=== PATIENT | female | born 1975 | race Caucasian/White ===

== ENCOUNTER 2016-09-22 06:47 | Inpatient (IN) | payer OTHER ==
[2016-09-22 07:27] LABS: Glucose,Whole Blood 238 mg/dL (75-99)
[2016-09-22] MEDS ORDERED: ACETAMINOPHEN IV (For NPO) 1,000 MG in EMPTY BAG 1 BAG IVPB STA (07:40)
[2016-09-22] MEDS ORDERED: SODIUM CHLORIDE 0.9% 1,000 ML IV STA (07:41)
--- NOTE | 2016-09-22 07:44 | ED ---
General Adult HPI - General Chief complaint: Abdominal Pain Stated complaint: dehydration,abd pain Time Seen by Provider: 09/22/16 07:16 Source: patient, EMS, RN notes reviewed Mode of arrival: EMS Limitations: no limitations - History of Present Illness Initial comments: Patient is a pleasant 41-year-old female presenting to the emergency department complaining of abdominal discomfort. Symptoms started several days ago. Patient did have dysuria. Patient is not urinating as much at this time. The patient now has discomfort in her bilateral lower back as well as throughout her abdomen. Patient has had fevers. Patient has shaking this morning. Decreased oral intake. Patient states she is not been out of bed much in the past few days. No nausea or vomiting. No constipation or diarrhea. No upper respiratory symptoms. - Related Data Home Medications Medication Instructions Recorded Confirmed Insulin Glargine [Lantus] 30 unit SQ DAILY 02/03/14 09/22/16 Omeprazole [PriLOSEC] 20 mg PO DAILY 02/03/14 09/22/16 INSULIN LISPRO (HumaLOG) [HumaLOG] 6 units SQ AC-TID 08/01/16 09/22/16 Bumetanide [Bumex] 1 mg PO DAILY 09/22/16 09/22/16 Ibuprofen [Motrin] 800 mg PO Q8HR PRN 09/22/16 09/22/16 Losartan Potassium 100 mg PO DAILY 09/22/16 09/22/16 Metoprolol Tartrate [Lopressor] 50 mg PO TID 09/22/16 09/22/16 Allergies Allergy/AdvReac Type Severity Reaction Status Date / Time hydrochlorothiazide Allergy Dyspnea Verified 09/22/16 08:23 [From Zestoretic] lisinopril [From Zestoretic] Allergy Dyspnea Verified 09/22/16 08:23 Review of Systems ROS Statement: Those systems with pertinent positive or pertinent negative responses have been documented in the HPI. ROS Other: All systems not noted in ROS Statement are negative. Constitutional: Reports: fever Eyes: Denies: eye pain ENT: Denies: throat pain Respiratory: Denies: cough, dyspnea Cardiovascular: Denies: chest pain Endocrine: Reports: fatigue Gastrointestinal: Reports: abdominal pain. Denies: vomiting, diarrhea, constipation Genitourinary: Reports: dysuria Musculoskeletal: Reports: back pain Skin: Denies: rash Neurological: Denies: headache Past Medical History Past Medical History: Diabetes Mellitus, GERD/Reflux, Hypertension, Osteoarthritis (OA), Sleep Apnea/CPAP/BIPAP Additional Past Medical History / Comment(s): chronic back pain, uti, kidney stones, stress incont of urine, does'nt have cpap machine, strong family history of premature coronary artery disease. History of Any Multi-Drug Resistant Organisms: None Reported Past Surgical History: Back Surgery, Section Additional Past Surgical History / Comment(s): fusion Past Anesthesia/Blood Transfusion Reactions: No Reported Reaction Past Psychological History: Anxiety, Depression Additional Psychological History / Comment(s): in the past tx for anxiety depression none now Smoking Status: Current every day smoker Past Alcohol Use History: None Reported Additional Past Alcohol Use History / Comment(s): started smoking at age 16, has cut down now smokes 1-2 cig per day and uses e cig Past Drug Use History: None Reported - Past Family History Father Family Medical History: Diabetes Mellitus Mother Additional Family Medical History / Comment(s): bipolar depression anxiety General Exam Limitations: no limitations General appearance: alert, in no apparent distress, obese Head exam: Present: atraumatic Eye exam: Present: normal appearance, PERRL ENT exam: Present: normal exam, normal oropharynx Neck exam: Present: normal inspection Respiratory exam: Present: normal lung sounds bilaterally Cardiovascular Exam: Present: normal rhythm, tachycardia GI/Abdominal exam: Present: soft, tenderness (Mild diffuse, moderate right upper quadrant). Absent: distended Extremities exam: Present: normal inspection Back exam: Present: CVA tenderness (R), CVA tenderness (L) Neurological exam: Present: alert Psychiatric exam: Present: normal affect, normal mood Skin exam: Absent: rash Course Vital Signs 09/22/16 06:52 Temperature 102.8 F H Pulse Rate 122 H Respiratory 20 Rate Blood Pressure 128/59 O2 Sat by Pulse 97 Oximetry - Reevaluation(s) Reevaluation #1: 09/22/16 09:15 Patient reexamined and updated on results and plan. Dr. Cevallos has been paged for admission. Patient does meet criteria for severe sepsis. Fluids and antibiotics have been provided. 09/22/16 09:31 Dr. Pastor has been paged for consult. EKG Findings - EKG Comments: EKG Findings:: Sinus tachycardia 121. MD 142. QRS 96. QT 348. QTC 494. Normal axis. Normal QRS. Nonspecific ST-T. Medical Decision Making - Lab Data Result diagrams: 09/22/16 06:55 09/22/16 06:55 Lab Results 09/22/16 09/22/16 09/22/16 Range/Units 06:55 06:55 06:55 WBC 15.1 H (3.8-10.6) k/uL RBC 4.67 (3.80-5.40) m/uL Hgb 12.7 (11.4-16.0) gm/dL Hct 39.7 (34.0-46.0) % MCV 84.8 (80.0-100.0) fL MCH 27.2 (25.0-35.0) pg MCHC 32.1 (31.0-37.0) g/dL RDW 15.4 (11.5-15.5) % Plt Count 160 (150-450) k/uL Neutrophils % 91 % Lymphocytes % 4 % Monocytes % 3 % Eosinophils % 0 % Basophils % 1 % Neutrophils # 13.7 H (1.3-7.7) k/uL Lymphocytes # 0.6 L (1.0-4.8) k/uL Monocytes # 0.5 (0-1.0) k/uL Eosinophils # 0.1 (0-0.7) k/uL Basophils # 0.1 (0-0.2) k/uL Poikilocytosis Slight PT (9.0-12.0) sec INR (<1.1) APTT (22.0-30.0) sec Sodium 141 (137-145) mmol/L Potassium 3.0 L* (3.5-5.1) mmol/L Chloride 111 H (98-107) mmol/L Carbon Dioxide 15 L (22-30) mmol/L Anion Gap 15 mmol/L BUN 28 H (7-17) mg/dL Creatinine 1.57 H (0.52-1.04) mg/dL Est GFR (MDRD) Af Amer 44 (>60 ml/min/1.73 sqM) Est GFR (MDRD) Non-Af 36 (>60 ml/min/1.73 sqM) Glucose 232 H (74-99) mg/dL POC Glucose (mg/dL) (75-99) mg/dL POC Glu Substitute Teacher ID Plasma Lactic Acid Danny (0.7-2.0) mmol/L Calcium 7.9 L (8.4-10.2) mg/dL Total Bilirubin 2.7 H (0.2-1.3) mg/dL AST 40 H (14-36) U/L ALT 41 (9-52) U/L Alkaline Phosphatase 210 H (38-126) U/L Total Creatine Kinase <20 L (30-135) U/L CK-MB (CK-2) 0.9 (0.0-2.4) ng/mL CK-MB (CK-2) Rel Index 0.0 Troponin I <0.012 (0.000-0.034) ng/mL Total Protein 5.6 L (6.3-8.2) g/dL Albumin 2.3 L (3.5-5.0) g/dL 09/22/16 09/22/16 09/22/16 Range/Units 06:55 06:55 06:56 WBC (3.8-10.6) k/uL RBC (3.80-5.40) m/uL Hgb (11.4-16.0) gm/dL Hct (34.0-46.0) % MCV (80.0-100.0) fL MCH (25.0-35.0) pg MCHC (31.0-37.0) g/dL RDW (11.5-15.5) % Plt Count (150-450) k/uL Neutrophils % % Lymphocytes % % Monocytes % % Eosinophils % % Basophils % % Neutrophils # (1.3-7.7) k/uL Lymphocytes # (1.0-4.8) k/uL Monocytes # (0-1.0) k/uL Eosinophils # (0-0.7) k/uL Basophils # (0-0.2) k/uL Poikilocytosis PT 12.2 H (9.0-12.0) sec INR 1.2 (<1.1) APTT 25.8 (22.0-30.0) sec Sodium (137-145) mmol/L Potassium (3.5-5.1) mmol/L Chloride (98-107) mmol/L Carbon Dioxide (22-30) mmol/L Anion Gap mmol/L BUN (7-17) mg/dL Creatinine (0.52-1.04) mg/dL Est GFR (MDRD) Af Amer (>60 ml/min/1.73 sqM) Est GFR (MDRD) Non-Af (>60 ml/min/1.73 sqM) Glucose (74-99) mg/dL POC Glucose (mg/dL) 238 H (75-99) mg/dL POC Glu Substitute Teacher ID Amber Rascon Plasma Lactic Acid Danny 2.1 H (0.7-2.0) mmol/L Calcium (8.4-10.2) mg/dL Total Bilirubin (0.2-1.3) mg/dL AST (14-36) U/L ALT (9-52) U/L Alkaline Phosphatase (38-126) U/L Total Creatine Kinase (30-135) U/L CK-MB (CK-2) (0.0-2.4) ng/mL CK-MB (CK-2) Rel Index Troponin I (0.000-0.034) ng/mL Total Protein (6.3-8.2) g/dL Albumin (3.5-5.0) g/dL - Radiology Data Radiology results: report reviewed (Ultrasound shows cholelithiasis with gallbladder wall thickening, correlate for cholecystitis.), image reviewed ( Chest x-ray shows no acute process.) Critical Care Time Critical Care Time: Yes Total Critical Care Time: 33 Disposition Clinical Impression: Severe sepsis, Cholecystitis Disposition: ADMITTED IP TO THIS HOSP Referrals: Eder Cevallos MD [Primary Care Provider] - 1-2 days Time of Disposition: 09:32
[2016-09-22] MEDS: SODIUM CHLORIDE 0.9% 500 ML IV SCH ×2 (07:54→09:30)
[2016-09-22 08:15] LABS: Basophils # (A) 0.1 k/uL (0-0.2); Basophils % (A) 1 %; CH 28.3; CHCM 33.6; Eosinophils # (A) 0.1 k/uL (0-0.7); Eosinophils % (A) 0 %; HCT 39.7 % (34.0-46.0); HDW 3.49; HGB 12.7 gm/dL (11.4-16.0); Luc # (Auto) 0.15; Luc % (Auto) 1; Lymphocytes # (A) 0.6 k/uL (1.0-4.8); Lymphocytes % (A) 4 %; MCH 27.2 pg (25.0-35.0); MCHC 32.1 g/dL (31.0-37.0); MCV 84.8 fL (80.0-100.0); Mean Platelet Volume 10.3; Monocytes # (A) 0.5 k/uL (0-1.0); Monocytes % (A) 3 %; Neutrophils # (A) 13.7 k/uL (1.3-7.7); Neutrophils % (A) 91 %; Poikilocytosis Slight; RBC 4.67 m/uL (3.80-5.40); RDW 15.4 % (11.5-15.5); WBC 15.1 k/uL (3.8-10.6); WBC (Perox) 15.12
--- NOTE | 2016-09-22 08:23 | XR ---
EXAMINATION TYPE: XR chest 2V DATE OF EXAM: 09/22/2016 8:17 AM COMPARISON: Chest x-ray October 17, 2014. HISTORY: Fever. TECHNIQUE: Frontal and lateral views of the chest are obtained. FINDINGS: There is no focal air space opacity, pleural effusion, or pneumothorax seen. The cardiac silhouette size is within normal limits. The osseous structures are intact. IMPRESSION: No suspicious acute infiltrate is present.
[2016-09-22 08:25] LABS: Calcium 7.9 mg/dL (8.4-10.2); INR 1.2 (<1.1); Partial Thromboplastin Time 25.8 sec (22.0-30.0); Prothrombin Time 12.2 sec (9.0-12.0); Total Bilirubin 2.7 mg/dL (0.2-1.3); Total Protein 5.6 g/dL (6.3-8.2)
[2016-09-22 08:44] LABS: Creatine Kinase <20 U/L (30-135)
[2016-09-22 08:58] LABS: Creatine Kinase MB 0.9 ng/mL (0.0-2.4); Troponin I <0.012 ng/mL (0.000-0.034)
--- NOTE | 2016-09-22 09:06 | US ---
EXAMINATION TYPE: US abd limited kidneys/bladder DATE OF EXAM: 09/22/2016 8:50 AM COMPARISON: NONE CLINICAL HISTORY: Pain. Abdominal pain, nausea EXAM MEASUREMENTS: Liver Length: 25.3 cm Gallbladder Wall: 0.4 cm CBD: 0.4 cm Right Kidney: 15.4 x 6.0 x 7.4 cm Left Kidney: 13.2 x 5.6 x 5.2 cm FINDINGS: Pancreas: Obscured by overlying bowel gas Liver: enlarged, difficult to penetrate Gallbladder: mobile stones, GB wall slightly thickened, positive Wade's sign CBD: appears wnl as visualized Right Kidney: enlarged with mild dilated collecting system Left Kidney: dense echogenic area lower pole = 0.8cm Bladder: not fully distended Bilateral Jets Seen no The spleen is not imaged IMPRESSION: 1. Cholelithiasis with gallbladder wall thickening correlate for cholecystitis. 2. Hepatomegaly correlate for hepatocellular disease, hepatitis or fatty infiltration 3. Mild right hydronephrosis #4 nonobstructing 8 mm left renal stone
[2016-09-22] MEDS ORDERED: AMPICILLIN-SULBACTAM 3 GM in SODIUM CHLORIDE 0.9% 100 ML IVPB STA (09:07)
[2016-09-22] MEDS ORDERED: HYDROmorphone 1 MG/ML 1 ML SYRINGE IVP STA (09:16)
[2016-09-22] MEDS ORDERED: NALOXONE 0.4 MG/ML 1 ML VIAL IV PRN (09:16)
[2016-09-22] MEDS: POTASSIUM CHLORIDE 10 MEQ, LIDOCAINE 2% INJ 10 MG in SODIUM CHLORIDE 0.9% 100 ML IVPB SCH ×2 (09:30→11:01)
[2016-09-22 10:02] LABS: Appearance,Urine Cloudy (Clear); Bacteria,Urine Moderate /hpf; Bilirubin,Urine 1+ (Negative); Glucose,Urine (UA) Negative (Negative); Ketones,Urine Negative (Negative); Leukocyte Esterase,Urine Large (Negative); Mucus,Urine Rare /hpf; Nitrite,Urine Negative (Negative); Particle Count 12052; Protein,Urine 1+ (Negative); RBC,Urine 85 /hpf (0-5); Specific Gravity,Urine 1.015 (1.001-1.035); UA Billing (MACRO vs. MICRO) MICRO; WBC,Urine 126 /hpf (0-5)
[2016-09-22] MEDS: SODIUM CHLORIDE 0.9% 1,000 ML IV SCH ×2 (11:01→17:03)
[2016-09-22 11:57] LABS: Glucose,Whole Blood 159 mg/dL (75-99)
[2016-09-22 13:28] LABS: Amylase <30 U/L (30-110)
[2016-09-22] MEDS: AMPICILLIN-SULBACTAM 3 GM in SODIUM CHLORIDE 0.9% 100 ML IVPB SCH ×3 (13:34→23:05)
[2016-09-22] MEDS: PANTOPRAZOLE 40 MG/10 ML VIAL IV SCH (13:34)
[2016-09-22] MEDS: HYDROmorphone 1 MG/ML 1 ML SYRINGE IV PRN ×4 (13:37→23:05)
[2016-09-22] MEDS: NICOTINE 21MG/24HR PATCH TRANSDERM SCH (13:39)
[2016-09-22 15:09] LABS: Creatine Kinase 29 U/L (30-135)
[2016-09-22 15:16] LABS: Creatine Kinase MB 1.2 ng/mL (0.0-2.4); Troponin I <0.012 ng/mL (0.000-0.034)
[2016-09-22 17:20] LABS: Glucose,Whole Blood 217 mg/dL (75-99)
--- NOTE | 2016-09-22 18:50 | P.GSCN ---
History of Present Illness Consult date: 09/22/16 Reason for Consult: Ascending cholangitis History of present illness: Patient came to the hospital with complaints of abdominal pain. The pain is gone on for the last week or so. It is primarily right-sided. She has a history of frequent urinary tract infections and initially thought this was the source of pain. The pain does radiate from the right upper quadrant to the right back. She has no some dark colored urine for the last 5 days or so. Today he felt tremors while at home. Denies fevers. Came to the hospital for further evaluation. Her labs showed a elevated bilirubin and alkaline phosphatase. Her white blood cell count and lactic acid were also elevated. Ultrasound the abdomen showed a distended gallbladder with stones and a thickened gallbladder wall. Her bile duct appears normal in size. She does feel better at this time. She is currently on IV antibiotics. She is requesting something to drink. Review of Systems The patient denies any acute changes in his vision or hearing, no dysphagia or odynophagia, no chest pain or shortness of breath, no dysuria or hematuria, no headache, no runny nose, no rectal bleeding or melena, no unexplained weight loss Past Medical History Past Medical History: Diabetes Mellitus, GERD/Reflux, Hypertension, Osteoarthritis (OA), Sleep Apnea/CPAP/BIPAP Additional Past Medical History / Comment(s): chronic back pain, uti, kidney stones, stress incont of urine, does'nt have cpap machine, strong family history of premature coronary artery disease. History of Any Multi-Drug Resistant Organisms: None Reported Past Surgical History: Back Surgery, Section Additional Past Surgical History / Comment(s): fusion Past Anesthesia/Blood Transfusion Reactions: No Reported Reaction Past Psychological History: Anxiety, Depression Additional Psychological History / Comment(s): in the past tx for anxiety depression none now Smoking Status: Current every day smoker Past Alcohol Use History: None Reported Additional Past Alcohol Use History / Comment(s): smokes about a half a pack a day Past Drug Use History: None Reported - Past Family History Father Family Medical History: Diabetes Mellitus Mother Additional Family Medical History / Comment(s): bipolar depression anxiety Medications and Allergies Home Medications Medication Instructions Recorded Confirmed Type Insulin Glargine [Lantus] 30 unit SQ DAILY 02/03/14 09/22/16 History Omeprazole [PriLOSEC] 20 mg PO DAILY 02/03/14 09/22/16 History INSULIN LISPRO (HumaLOG) [HumaLOG] 6 units SQ AC-TID 08/01/16 09/22/16 History Bumetanide [Bumex] 1 mg PO DAILY 09/22/16 09/22/16 History Ibuprofen [Motrin] 800 mg PO Q8HR PRN 09/22/16 09/22/16 History Losartan Potassium 100 mg PO DAILY 09/22/16 09/22/16 History Metoprolol Tartrate [Lopressor] 50 mg PO TID 09/22/16 09/22/16 History Allergies Allergy/AdvReac Type Severity Reaction Status Date / Time hydrochlorothiazide Allergy Dyspnea Verified 09/22/16 08:23 [From Zestoretic] lisinopril [From Zestoretic] Allergy Dyspnea Verified 09/22/16 08:23 Surgical - Exam Vital Signs Temp Pulse Resp BP Pulse Ox 102.8 F H 122 H 20 128/59 97 09/22/16 06:52 09/22/16 06:52 09/22/16 06:52 09/22/16 06:52 09/22/16 06:52 Physical exam: General: Well-developed, well-nourished HEENT: Normocephalic, sclerae nonicteric Abdomen: Obese, right upper quadrant tenderness, no rebound or guarding Extremities: No edema Neuro: Alert and oriented Results - Labs 09/22/16 06:55 09/22/16 06:55 Abnormal Lab Results - Last 24 Hours (Table) 09/22/16 09/22/16 09/22/16 Range/Units 09:24 11:52 13:52 POC Glucose (mg/dL) 159 H (75-99) mg/dL Total Creatine Kinase 29 L (30-135) U/L Urine Appearance Cloudy H (Clear) Urine Protein 1+ H (Negative) Urine Blood Moderate H (Negative) Urine Bilirubin 1+ H (Negative) Ur Leukocyte Esterase Large H (Negative) Urine RBC 85 H (0-5) /hpf Urine WBC 126 H (0-5) /hpf Urine WBC Clumps Many H (None) /hpf Urine Bacteria Moderate H (None) /hpf Urine Mucus Rare H (None) /hpf 09/22/16 Range/Units 17:02 POC Glucose (mg/dL) 217 H (75-99) mg/dL Total Creatine Kinase (30-135) U/L Urine Appearance (Clear) Urine Protein (Negative) Urine Blood (Negative) Urine Bilirubin (Negative) Ur Leukocyte Esterase (Negative) Urine RBC (0-5) /hpf Urine WBC (0-5) /hpf Urine WBC Clumps (None) /hpf Urine Bacteria (None) /hpf Urine Mucus (None) /hpf Microbiology - Last 24 Hours (Table) 09/22/16 09:24 Urine Culture - Preliminary Urine,Catheterized Assessment and Plan (1) Ascending cholangitis Narrative/Plan: Continue IV antibiotics. Repeat lab work in a.m. Await GI evaluation for ERCP. We'll follow closely with you. Status: Acute
[2016-09-22 20:29] LABS: Creatine Kinase 34 U/L (30-135)
[2016-09-22] MEDS ORDERED: Potassium Replacement Protocol 1 EACH MISC MISCELLANE PRN (20:39)
[2016-09-22] MEDS ORDERED: IBUPROFEN 800 MG TAB PO PRN (20:41)
[2016-09-22 20:43] LABS: Creatine Kinase MB 1.3 ng/mL (0.0-2.4); Troponin I <0.012 ng/mL (0.000-0.034)
[2016-09-22 20:58] LABS: Glucose,Whole Blood 126 mg/dL (75-99)
[2016-09-22] MEDS: INSULIN LISPRO (humaLOG) 300 UNIT/3 ML VIAL SQ SCH (21:56)
[2016-09-22] MEDS: metroNIDAZOLE-NS PMX 500 MG in SALINE 1 100ML.BAG IVPB SCH (21:57)
[2016-09-22] MEDS: ACETAMINOPHEN TAB 500 MG TAB PO PRN (21:57)
[2016-09-22] MEDS: METOPROLOL TARTRATE 50 MG TAB PO SCH (21:59)
[2016-09-22 22:54] LABS: Hemoglobin A1C 7.3 % (4.2-6.1)
[2016-09-23] MEDS: metroNIDAZOLE-NS PMX 500 MG in SALINE 1 100ML.BAG IVPB SCH ×4 (00:22→17:23)
[2016-09-23] MEDS: SODIUM CHLORIDE 0.9% 1,000 ML IV SCH ×4 (00:23→22:14)
[2016-09-23] MEDS: POTASSIUM CHLORIDE ER 20 MEQ TAB.ER PO SCH ×3 (01:40→05:48)
[2016-09-23] MEDS: POTASSIUM CHLORIDE 20 MEQ, LIDOCAINE 2% INJ 20 MG in SODIUM CHLORIDE 0.9% 100 ML IVPB SCH ×3 (01:40→06:05)
[2016-09-23] MEDS: HYDROmorphone 1 MG/ML 1 ML SYRINGE IV PRN ×6 (03:34→21:16)
[2016-09-23] MEDS: AMPICILLIN-SULBACTAM 3 GM in SODIUM CHLORIDE 0.9% 100 ML IVPB SCH ×4 (05:14→23:27)
[2016-09-23 07:30] LABS: Glucose,Whole Blood 106 mg/dL (75-99)
[2016-09-23] MEDS: INSULIN LISPRO (humaLOG) 300 UNIT/3 ML VIAL SQ SCH ×4 (08:18→20:47)
[2016-09-23] MEDS: NICOTINE 21MG/24HR PATCH TRANSDERM SCH (08:34)
[2016-09-23] MEDS: PANTOPRAZOLE 40 MG/10 ML VIAL IV SCH (08:34)
[2016-09-23] MEDS ORDERED: PANTOPRAZOLE 40 MG TABLET PO SCH (09:00)
--- NOTE | 2016-09-23 09:51 | P.CONS ---
History of Present Illness - Reason for Consult Consult date: 09/23/16 ERCP evaluation Requesting physician: Eder Cevallos - History of Present Illness 41-year-old female patient Dr. Cevallos with a past medical history of morbid obesity BMI 45.4, nicotine cigarette dependency, [id number] diabetes mellitus, GERD, hypertension, sleep apnea, chronic back pain, kidney stones, anxiety, depression. Admitted with 1 week history of midepigastric abdominal pain radiating to the bilateral upper quadrants wrapping around her upper back with nausea and fever. T-max 102.8. No history of this type of pain. No history of alcoholism or hepatitis. Ultrasound abdomen reported cholelithiasis CBD 0.4 cm. Consultation requested for ERCP evaluation. Blood cultures gram-negative bacilli. White count 15.1. Hemoglobin 12.7. INR 1.2. Total bilirubin 2.7. AST 40. ALT 41. Alkaline phosphatase 210. Lipase 73. Amylase less than 30. HCG not detected. Repeat chemistries are pending. Review of Systems Constitutional: Denies fever, chills, sweats, weight gain, or loss. HEENT: Negative for migraines, blurred vision or loss, earaches, drainage, tinnitus, oral mucosal lesions, dysphagia, or odynophagia. CARDIAC: Hypertension. Negative for chest pain, arrhythmias, or palpitation. RESPIRATORY: Sleep apnea. Nicotine cigarette dependency. Negative for shortness of breath, hemoptysis, cough, or sputum production. GI: See HPI for pertinent findings. : Negative for hematuria, urgency, frequency, polyuria, or dysuria. GYNc: Denies possibility of . Negative vaginal discharge. MUSCULOSKELETAL: Osteoarthritis. Chronic back pain. Negative for muscle aches , swelling, arthritis, and arthralgias. NEUROLOGIC: Negative for stroke or TIA. ENDOCRINE: Diabetes mellitus type 2. Negative for thyroid problems. SKIN: Negative for rash or itching. Nephrology: Kidney stones. PSYCHIATRIC: depression and anxiety All systems: negative (See HPI) Past Medical History Past Medical History: Diabetes Mellitus, GERD/Reflux, Hypertension, Osteoarthritis (OA), Sleep Apnea/CPAP/BIPAP Additional Past Medical History / Comment(s): chronic back pain, uti, kidney stones, stress incont of urine, does'nt have cpap machine, strong family history of premature coronary artery disease. History of Any Multi-Drug Resistant Organisms: None Reported Past Surgical History: Back Surgery, Section Additional Past Surgical History / Comment(s): fusion Past Anesthesia/Blood Transfusion Reactions: No Reported Reaction Past Psychological History: Anxiety, Depression Additional Psychological History / Comment(s): in the past tx for anxiety depression none now Smoking Status: Current every day smoker Past Alcohol Use History: None Reported Additional Past Alcohol Use History / Comment(s): smokes about a half a pack a day Past Drug Use History: None Reported - Past Family History Father Family Medical History: Diabetes Mellitus Mother Additional Family Medical History / Comment(s): bipolar depression anxiety Medications and Allergies Home Medications Medication Instructions Recorded Confirmed Type Insulin Glargine [Lantus] 30 unit SQ DAILY 02/03/14 09/22/16 History Omeprazole [PriLOSEC] 20 mg PO DAILY 02/03/14 09/22/16 History INSULIN LISPRO (HumaLOG) [HumaLOG] 6 units SQ AC-TID 08/01/16 09/22/16 History Bumetanide [Bumex] 1 mg PO DAILY 09/22/16 09/22/16 History Ibuprofen [Motrin] 800 mg PO Q8HR PRN 09/22/16 09/22/16 History Losartan Potassium 100 mg PO DAILY 09/22/16 09/22/16 History Metoprolol Tartrate [Lopressor] 50 mg PO TID 09/22/16 09/22/16 History Allergies Allergy/AdvReac Type Severity Reaction Status Date / Time hydrochlorothiazide Allergy Dyspnea Verified 09/22/16 08:23 [From Zestoretic] lisinopril [From Zestoretic] Allergy Dyspnea Verified 09/22/16 08:23 Physical Exam Vitals: Vital Signs Temp Pulse Pulse Resp BP BP Pulse Ox 09/23/16 07:00 99.3 F 73 22 122/71 94 L 09/22/16 23:00 99.6 F 68 16 127/65 91 L 09/22/16 19:30 100.6 F H 09/22/16 15:00 98.3 F 73 20 125/76 96 09/22/16 10:55 99.9 F H 84 20 116/53 94 L 09/22/16 10:15 98 F 93 18 120/73 95 Intake and Output 02/07/17 02/08/17 02/08/17 22:59 06:59 14:59 Other: Voiding Method Toilet Toilet # Voids 1 1 # Bowel Movements 0 General appearance: The patient is alert, oriented, in no acute distress. HET: Head is normocephalic and atraumatic. Pupils are equal and reactive. Oropharynx is clear without lesions. Neck: Supple without lymphadenopathy. Trachea midline. Heart: S1 S2. Regular rate and rhythm. Lungs: No crackles or wheezes are heard. Abdomen: Soft, mild tenderness midepigastrium, obese, nondistended with bowel sounds. No peritoneal signs. No palpable organomegaly or masses. Extremities: Normal skin color and turgor. No cyanosis, rash, ulceration, clubbing, or edema. Radial and pedal pulses are 2/4 bilaterally. Neurological: No focal deficits. Strength and sensation are grossly intact. Results CBC & Chem 7: 09/23/16 09:27 09/23/16 09:27 Labs: Abnormal Lab Results - Last 24 Hours (Table) 09/22/16 09/22/16 09/22/16 Range/Units 09:24 11:52 13:52 Potassium (3.5-5.1) mmol/L POC Glucose (mg/dL) 159 H (75-99) mg/dL Total Creatine Kinase 29 L (30-135) U/L Urine Appearance Cloudy H (Clear) Urine Protein 1+ H (Negative) Urine Blood Moderate H (Negative) Urine Bilirubin 1+ H (Negative) Ur Leukocyte Esterase Large H (Negative) Urine RBC 85 H (0-5) /hpf Urine WBC 126 H (0-5) /hpf Urine WBC Clumps Many H (None) /hpf Urine Bacteria Moderate H (None) /hpf Urine Mucus Rare H (None) /hpf 09/22/16 09/22/16 09/23/16 Range/Units 17:02 20:56 00:41 Potassium 2.8 L* (3.5-5.1) mmol/L POC Glucose (mg/dL) 217 H 126 H (75-99) mg/dL Total Creatine Kinase (30-135) U/L Urine Appearance (Clear) Urine Protein (Negative) Urine Blood (Negative) Urine Bilirubin (Negative) Ur Leukocyte Esterase (Negative) Urine RBC (0-5) /hpf Urine WBC (0-5) /hpf Urine WBC Clumps (None) /hpf Urine Bacteria (None) /hpf Urine Mucus (None) /hpf 09/23/16 Range/Units 07:06 Potassium (3.5-5.1) mmol/L POC Glucose (mg/dL) 106 H (75-99) mg/dL Total Creatine Kinase (30-135) U/L Urine Appearance (Clear) Urine Protein (Negative) Urine Blood (Negative) Urine Bilirubin (Negative) Ur Leukocyte Esterase (Negative) Urine RBC (0-5) /hpf Urine WBC (0-5) /hpf Urine WBC Clumps (None) /hpf Urine Bacteria (None) /hpf Urine Mucus (None) /hpf Microbiology - Last 24 Hours (Table) 09/22/16 09:24 Urine Culture - Preliminary Urine,Catheterized US - abdomen: report reviewed (Reviewed by Dr. Olivier) Assessment and Plan (1) Sepsis Narrative/Plan: 41-year-old female presents with acute abdominal pain with sepsis secondary to acute ascending cholangitis gram-negative bacteremia cholelithiasis possible choledocholithiasis. Component of sepsis is also contributing to the elevation of liver enzymes. Status: Acute (2) Acute cholangitis Status: Acute (3) Cholelithiasis Status: Acute (4) Gram-negative bacteremia Status: Acute (5) Morbid obesity with BMI of 45.0-49.9, adult Status: Acute (6) Cigarette nicotine dependence Status: Acute Plan: 1. IV antibiotics. 2. ERCP contingent on repeat chemistries today. Continue to monitor chemistries closely. Will follow closely with you. Thank you for this kind referral and the opportunity to participate in the care of your patient. This consultation was discussed with Dr. Olivier. The impression and plan of care have been directed as dictated.
[2016-09-23 10:35] LABS: ALT 46 U/L (9-52); AST 35 U/L (14-36); Alkaline Phosphatase 166 U/L (38-126); Amylase <30 U/L (30-110); Anion Gap 10 mmol/L; Blood Urea Nitrogen 24 mg/dL (7-17); Calcium 7.8 mg/dL (8.4-10.2); Carbon Dioxide 18 mmol/L (22-30); Chloride 114 mmol/L (98-107); Glucose 121 mg/dL (74-99); Magnesium 1.9 mg/dL (1.6-2.3); Non-African American GFR(MDRD) 45 (>60 ml/min/1.73 sqM); Potassium 3.7 mmol/L (3.5-5.1); Sodium 142 mmol/L (137-145); Total Bilirubin 2.2 mg/dL (0.2-1.3); Total Protein 5.6 g/dL (6.3-8.2)
[2016-09-23 11:07] LABS: CH 28.1; CHCM 32.7; HCT 38.1 % (34.0-46.0); HDW 3.48; HGB 12.3 gm/dL (11.4-16.0); Immature Gran Flag Moderate; MCH 27.9 pg (25.0-35.0); MCHC 32.1 g/dL (31.0-37.0); MCV 86.8 fL (80.0-100.0); Mean Platelet Volume 10.9; Poikilocytosis Slight; RDW 15.6 % (11.5-15.5); WBC 12.8 k/uL (3.8-10.6); WBC (Perox) 13.39
[2016-09-23 11:51] LABS: Glucose,Whole Blood 111 mg/dL (75-99)
[2016-09-23 12:09] VITALS: BMI 45.3
--- NOTE | 2016-09-23 12:22 | P.PN ---
Subjective A 41-year-old female being seen in follow-up visit for a chief complaint of developing bilateral abdominal pain right side greater than the left. Patient stated the pain radiated from the right upper quadrant to the right back. Patient stated that she felt feverish and chilled. Generalized body aches. Patient did have an ultrasound of the gallbladder it did show a distended gallbladder with stones and a thickening gallbladder wall as well. Currently patient is on IV antibiotics and is being seen by surgical and GI service. Patient continues to report having the right upper flank pain. Patient does have a past medical history of non-insulin diabetes esophageal reflex hypertension sleep apnea chronic pain with prior kidney stones. Additionally patient has a significant nicotine dependency. Attempted Maxalt 102.8. Patient states she's not had any prior pain. The ultrasound of the abdomen did show cholelithiasis with the common bile duct 0.4 cm. GI indicated that they will not do an ERCP today but they will follow reevaluate in the morning for further recommendations. Blood cultures were positive for gram-negative bacilli The white count is down to 12.8 this morning it was 15.1 yesterday Objective - Vital Signs Vital signs: Vital Signs Temp 99.3 F 09/23/16 07:00 Pulse 73 09/23/16 07:00 Resp 22 09/23/16 07:00 BP 122/71 09/23/16 07:00 Pulse Ox 94 L 09/23/16 07:00 Intake & Output 09/22/16 09/23/16 09/23/16 18:59 06:59 18:59 Intake Total 500 Balance 500 Weight 127.5 kg Intake: Amount of Fluid Infused ( 500 ml) Other: Voiding Method Toilet Toilet # Voids 0 1 # Bowel Movements 0 - Exam GENERAL APPEARANCE: 41-year-old female patient is alert, oriented, in no acute distress. Continues to report having right flank pain VITAL SIGNS: Reviewed temp this morning 99.3 temp max last night at 102.8 HEENT: Head is normocephalic and atraumatic. Pupils are equal and reactive. The nares are patent. Oropharynx is clear without lesions. NECK: Supple without lymphadenopathy. Traches midline. HEART: S1, S2. Regular rate and rhythm. No murmur noted denying chest pain LUNGS: No crackles or wheezes are heard. Essentially clear ABDOMEN: Soft, positive right upper quadrant tender, nondistended with good bowel sounds. No peritoneal signs. No palpable organomegaly or masses. EXTREMITIES: Normal skin color and turgor. No cyanosis, rash, ulceration, clubbing or edema. Radial pedal pulses are 2/4 bilaterally. NEUROLOGICAL: No focal deficits. Strength and sensation are grossly intact. - Labs CBC & Chem 7: 09/23/16 09:27 09/23/16 09:27 Labs: Abnormal Lab Results - Last 24 Hours (Table) 09/22/16 09/22/16 09/22/16 Range/Units 13:52 17:02 20:56 WBC (3.8-10.6) k/uL RDW (11.5-15.5) % Potassium (3.5-5.1) mmol/L Chloride (98-107) mmol/L Carbon Dioxide (22-30) mmol/L BUN (7-17) mg/dL Creatinine (0.52-1.04) mg/dL Glucose (74-99) mg/dL POC Glucose (mg/dL) 217 H 126 H (75-99) mg/dL Calcium (8.4-10.2) mg/dL Total Bilirubin (0.2-1.3) mg/dL Alkaline Phosphatase (38-126) U/L Total Creatine Kinase 29 L (30-135) U/L Total Protein (6.3-8.2) g/dL Albumin (3.5-5.0) g/dL Amylase (30-110) U/L 09/23/16 09/23/16 09/23/16 Range/Units 00:41 07:06 09:27 WBC 12.8 H (3.8-10.6) k/uL RDW 15.6 H (11.5-15.5) % Potassium 2.8 L* (3.5-5.1) mmol/L Chloride (98-107) mmol/L Carbon Dioxide (22-30) mmol/L BUN (7-17) mg/dL Creatinine (0.52-1.04) mg/dL Glucose (74-99) mg/dL POC Glucose (mg/dL) 106 H (75-99) mg/dL Calcium (8.4-10.2) mg/dL Total Bilirubin (0.2-1.3) mg/dL Alkaline Phosphatase (38-126) U/L Total Creatine Kinase (30-135) U/L Total Protein (6.3-8.2) g/dL Albumin (3.5-5.0) g/dL Amylase (30-110) U/L 09/23/16 09/23/16 Range/Units 09:27 11:37 WBC (3.8-10.6) k/uL RDW (11.5-15.5) % Potassium (3.5-5.1) mmol/L Chloride 114 H (98-107) mmol/L Carbon Dioxide 18 L (22-30) mmol/L BUN 24 H (7-17) mg/dL Creatinine 1.30 H (0.52-1.04) mg/dL Glucose 121 H (74-99) mg/dL POC Glucose (mg/dL) 111 H (75-99) mg/dL Calcium 7.8 L (8.4-10.2) mg/dL Total Bilirubin 2.2 H (0.2-1.3) mg/dL Alkaline Phosphatase 166 H (38-126) U/L Total Creatine Kinase (30-135) U/L Total Protein 5.6 L (6.3-8.2) g/dL Albumin 2.3 L (3.5-5.0) g/dL Amylase <30 L (30-110) U/L Microbiology - Last 24 Hours (Table) 09/22/16 09:24 Urine Culture - Preliminary Urine,Catheterized Assessment and Plan Plan: Impression Present on admission leukocytosis febrile tachycardic sepsis suspect due to ascending cholangitis with a positive culture for gram-negative bacilli bacteremia Morbid obesity BMI 45 Current every day smoker greater than a 20 year history of nicotine dependency Depressive disorder nonspecified Esophageal reflux disease History of sleep apnea with out using CPAP therapy at home Acute cholangitis Present on admission acute abdominal pain with sepsis secondary to acute ascending cholangitis him negative bacilli possible cholelithiasis Elevated liver enzymes likely due to acute sepsis Type 2 diabetes insulin requiring Plan Consult infectious disease for sepsis recommendations antibiotics Continue with IV Unasyn and Flagyl as ordered Resume home meds as appropriate Monitor Accu-Chek blood sugars continue Lantus 30 daily clear liquid diet DVT and GI prophylaxis Further recommendations pending will follow Continue recommendations by surgical servic Await further input by GI service The above dictated assessment and findings were discussed with dr kramer . Impression and the plan of care have been dictated as directed. Brittney Vega nurse practitioner acting as a scribe for dr kramer
--- NOTE | 2016-09-23 12:31 | P.PN ---
Subjective Principal diagnosis: Cholangitis Patient still having pain in the right upper quadrant. She says its slightly better. Her labs reveal a white blood cell count 12.8. Bilirubin is down to 2.2 alkaline phosphatase down to 166. Her potassium is very low at 2.8. She has been seen by GI. Blood cultures did grow gram-negative's. Objective - Vital Signs Vital signs: Vital Signs Temp 99.3 F 09/23/16 07:00 Pulse 73 09/23/16 07:00 Resp 22 09/23/16 07:00 BP 122/71 09/23/16 07:00 Pulse Ox 94 L 09/23/16 07:00 Intake & Output 09/22/16 09/23/16 09/23/16 18:59 06:59 18:59 Intake Total 500 Balance 500 Weight 127.5 kg 127.5 kg Intake: Amount of Fluid Infused ( 500 ml) Other: Voiding Method Toilet Toilet # Voids 0 1 # Bowel Movements 0 - Exam Abdomen: Soft, nondistended, mild right upper quadrant tenderness - Labs CBC & Chem 7: 09/23/16 09:27 09/23/16 09:27 Labs: Abnormal Lab Results - Last 24 Hours (Table) 09/22/16 09/22/16 09/22/16 Range/Units 13:52 17:02 20:56 WBC (3.8-10.6) k/uL RDW (11.5-15.5) % Potassium (3.5-5.1) mmol/L Chloride (98-107) mmol/L Carbon Dioxide (22-30) mmol/L BUN (7-17) mg/dL Creatinine (0.52-1.04) mg/dL Glucose (74-99) mg/dL POC Glucose (mg/dL) 217 H 126 H (75-99) mg/dL Calcium (8.4-10.2) mg/dL Total Bilirubin (0.2-1.3) mg/dL Alkaline Phosphatase (38-126) U/L Total Creatine Kinase 29 L (30-135) U/L Total Protein (6.3-8.2) g/dL Albumin (3.5-5.0) g/dL Amylase (30-110) U/L 09/23/16 09/23/16 09/23/16 Range/Units 00:41 07:06 09:27 WBC 12.8 H (3.8-10.6) k/uL RDW 15.6 H (11.5-15.5) % Potassium 2.8 L* (3.5-5.1) mmol/L Chloride (98-107) mmol/L Carbon Dioxide (22-30) mmol/L BUN (7-17) mg/dL Creatinine (0.52-1.04) mg/dL Glucose (74-99) mg/dL POC Glucose (mg/dL) 106 H (75-99) mg/dL Calcium (8.4-10.2) mg/dL Total Bilirubin (0.2-1.3) mg/dL Alkaline Phosphatase (38-126) U/L Total Creatine Kinase (30-135) U/L Total Protein (6.3-8.2) g/dL Albumin (3.5-5.0) g/dL Amylase (30-110) U/L 09/23/16 09/23/16 Range/Units 09:27 11:37 WBC (3.8-10.6) k/uL RDW (11.5-15.5) % Potassium (3.5-5.1) mmol/L Chloride 114 H (98-107) mmol/L Carbon Dioxide 18 L (22-30) mmol/L BUN 24 H (7-17) mg/dL Creatinine 1.30 H (0.52-1.04) mg/dL Glucose 121 H (74-99) mg/dL POC Glucose (mg/dL) 111 H (75-99) mg/dL Calcium 7.8 L (8.4-10.2) mg/dL Total Bilirubin 2.2 H (0.2-1.3) mg/dL Alkaline Phosphatase 166 H (38-126) U/L Total Creatine Kinase (30-135) U/L Total Protein 5.6 L (6.3-8.2) g/dL Albumin 2.3 L (3.5-5.0) g/dL Amylase <30 L (30-110) U/L Microbiology - Last 24 Hours (Table) 09/22/16 09:24 Urine Culture - Preliminary Urine,Catheterized Assessment and Plan (1) Ascending cholangitis Narrative/Plan: Continue IV antibiotics. Monitor patient's labs closely. Anticipate possible ERCP tomorrow. Dr. Rizvi will be covering me over the next 48 hours. The patient was informed of this. Status: Acute
[2016-09-23] MEDS: INSULIN GLARGINE 100 UNIT/ML 10 ML VIAL SQ SCH (12:36)
--- NOTE | 2016-09-23 12:38 | HP ---
DATE OF ADMISSION: CHIEF COMPLAINT: Abdominal pain for a week. HISTORY OF PRESENT ILLNESS: This lady started to have some vague abdominal pain about a week ago. It was across the upper abdomen. She thought it was urinary tract infection. It continued to grow worse and eventually she came to the emergency room, where she was found to have elevated lactic acid and acute cholecystitis. She was admitted. She thought maybe her eyes were slightly yellow. Urine was somewhat dark in appearance as well. She has had no dysuria. REVIEW OF SYSTEMS: She has had no other problems including cough, shortness of breath, chest pain, hematemesis, melena, hematochezia, hematuria, frequency, urgency, etc. Past medical history, family history and personal and social histories reveals that she has had 2 pregnancies and to deliveries. Surgically, she has had a and ( ) spine procedure. She is allergic to ZESTORETIC. She is on losartan, Prilosec, Bumex, Motrin, Lopressor. She smokes half pack of cigarettes a day. PHYSICAL EXAMINATION: Blood pressure is 119/84 with a pulse of 92, respirations are 36, and temperature of 100. In general, she appeared to be overweight and in no acute distress. Skin was dry. Lymph nodes are not enlarged. Head, ears, eyes, nose, mouth, and throat were normal. Neck veins not distended. Thyroid is not enlarged. Chest is clear. Cardiac exam is normal. Abdomen is protuberant. It is very tender in the epigastrium. Bowel sounds are not heard. EXTREMITIES: Normal. Neurologically, she is intact. IMPRESSION: 1. Acute cholecystitis. 2. Hypertension. PLAN: 1. Bed rest. 2. IV fluids. 3. IV antibiotics. 4. N.p.o. 5. Surgery consult.
[2016-09-23] MEDS: LOSARTAN 50 MG TAB PO SCH (12:39)
[2016-09-23] MEDS: METOPROLOL TARTRATE 50 MG TAB PO SCH ×2 (12:39→20:47)
[2016-09-23 12:43] LABS: Manual Review Performed
[2016-09-23 12:44] LABS: Add Differential Manual Differential; Toxic Granulation Present
[2016-09-23 12:47] LABS: Band Neutrophils % 3.5 %; Myelocytes % 1.5 %; Nucleated Red Blood Cells 0 /100 WBC (0-0); Total Cells Counted 200
[2016-09-23 12:48] LABS: Toxic Vacuolation Present
[2016-09-23 13:15] LABS: Cholesterol 97 mg/dL (<200); HDL Cholesterol 14 mg/dL (40-60); Triglycerides 258 mg/dL (<150)
[2016-09-23 13:47] LABS: Hepatitis B Surface Ag Index 0.07
[2016-09-23 13:53] LABS: Hepatitis B Core IgM Index 0.05
[2016-09-23 14:11] LABS: Hepatitis C Virus IgG Ab Negative (Negative)
[2016-09-23 17:33] LABS: Glucose,Whole Blood 206 mg/dL (75-99)
[2016-09-23 20:41] LABS: Glucose,Whole Blood 140 mg/dL (75-99)
[2016-09-23] MEDS: ACETAMINOPHEN TAB 500 MG TAB PO PRN (22:13)
[2016-09-23] MEDS: TEMAZEPAM 15 MG CAP PO PRN (23:51)
[2016-09-24] MEDS: HYDROmorphone 1 MG/ML 1 ML SYRINGE IV PRN ×7 (03:55→23:36)
[2016-09-24] MEDS: AMPICILLIN-SULBACTAM 3 GM in SODIUM CHLORIDE 0.9% 100 ML IVPB SCH (05:56)
[2016-09-24] MEDS: SODIUM CHLORIDE 0.9% 1,000 ML IV SCH ×3 (06:00→14:56)
--- NOTE | 2016-09-24 06:30 | CONS ---
DATE OF CONSULTATION: DATE OF SERVICE: 09/23/2016 REASON FOR CONSULTATION: Bacteremia. HISTORY OF PRESENT ILLNESS: The patient is a 41-year-old female who presented to the [facility] ER on 09/22/2016 with chief complaint of abdominal pain. Pain has been mostly in the right upper quadrant area describing it to be sharp almost 7 to 8 out of 10 and some radiation to the back area. The patient felt nauseated with it, but no vomiting and no diarrhea or any constipation. The patient was noticed to be febrile on arrival to the ER with a fever of 102 degrees Fahrenheit. Did have an elevated white count and elevated bilirubin. The patient did have an ultrasound of the abdomen which did show gallbladder stones, gallbladder wall thickening, positive Wade's sign, CBD appears within normal. The patient did have blood cultures drawn. Admitted to the hospital, started on IV antibiotic. Has been seen by General Surgery and recommended GI evaluation for possible ERCP. Blood cultures came back positive with Gram-negative so I was asked to see the patient for further recommendation regarding antibiotic. REVIEW OF SYSTEMS: CONSTITUTIONAL: Positive for weakness and a fever. EYES: No complaint. ENT: No complaint. RESPIRATORY: No complaint. CARDIOVASCULAR: No complaint. GENITOURINARY: No complaint. GASTROINTESTINAL: As per HPI. MUSCULOSKELETAL: No complaint. INTEGUMENTARY: No complaint. PSYCHOLOGICAL: No complaint. ENDOCRINE: No complaint. NEUROLOGICAL: No complaint. PAST MEDICAL HISTORY: Hypertension, osteoarthritis, sleep apnea, diabetes mellitus, gastroesophageal reflux disease, chronic back pain, urinary tract infection and kidney stones. PAST SURGICAL HISTORY: Back surgery and , SOCIAL HISTORY: Patient is a current every day smoker. Smokes about a 1/2 pack a day. Denies any drinking or drug use. FAMILY HISTORY: Positive history of diabetes. Mother with bipolar depression and anxiety. Allergies to HYDROCHLOROTHIAZIDE and LISINOPRIL. Medications include the patient is on Tylenol. She is on Unasyn 3 grams q.6, Dilaudid, Motrin, Lantus, Humalog, Cozaar, Lopressor, metronidazole, Narcan, Protonix. On examination, blood pressure 144/89 with a pulse of 76, temperature 100. She is 98% on room air. General description is a middle-age female lying in bed in no distress. HEENT EXAMINATION: No pallor or scleral icterus. Oral mucous membranes dry. NECK: Trachea central. There is no thyromegaly. LUNGS: Unlabored breathing. Clear to auscultation anteriorly. HEART: S1, S2. Regular rate and rhythm. ABDOMEN: Soft. She is mildly tender in the right upper quadrant area. No guarding or rigidity. EXTREMITIES: No edema of feet. SKIN EXAMINATION: No rashes or masses palpable. NEUROLOGICAL: The patient is awake, alert, and oriented x3. Mood and affect normal. LABS: Hemoglobin is 12.3, white count 12.8 with a BUN of 24, creatinine is 1.30. Electrolytes have been normal. Liver enzymes slightly elevated. Blood culture with gram-negative bacilli. DIAGNOSTIC IMPRESSION AND PLAN: Patient with Gram-negative bacteremia source is likely ascending cholangitis with admission to the hospital with right upper quadrant pain with evidence of an acute cholecystitis with possibly common bile duct stone and likely an enteric Gram-negative pathogen. PLAN: 1. Unasyn 3 grams IV piggyback q.6 hours to continue, should provide coverage for gram-negative in the patient who has not been on any antibiotic in the recent past, more likely a sensitive pathogen and discontinue the Flagyl. 2. aggressive IV fluid. 3. Await ERCP tomorrow and followed by possible cholecystectomy. 4. Will follow up on the clinical condition and cultures to further adjust the medication if needed. Thank you for this consultation. Will follow this patient along with you. ROBERT
[2016-09-24 06:54] LABS: Glucose,Whole Blood 120 mg/dL (75-99)
[2016-09-24 07:02] LABS: ALT 35 U/L (9-52); AST 27 U/L (14-36); Alkaline Phosphatase 167 U/L (38-126); Anion Gap 9 mmol/L; Blood Urea Nitrogen 18 mg/dL (7-17); Calcium 7.8 mg/dL (8.4-10.2); Carbon Dioxide 20 mmol/L (22-30); Chloride 114 mmol/L (98-107); Glucose 123 mg/dL (74-99); Non-African American GFR(MDRD) 53 (>60 ml/min/1.73 sqM); Potassium 3.5 mmol/L (3.5-5.1); Sodium 143 mmol/L (137-145); Total Bilirubin 1.8 mg/dL (0.2-1.3); Total Protein 5.5 g/dL (6.3-8.2)
[2016-09-24 07:47] LABS: Hemoglobin A1C 7.5 % (4.2-6.1)
[2016-09-24] MEDS: NICOTINE 21MG/24HR PATCH TRANSDERM SCH (08:03)
[2016-09-24] MEDS: INSULIN LISPRO (humaLOG) 300 UNIT/3 ML VIAL SQ SCH ×4 (08:05→21:19)
[2016-09-24] MEDS: PANTOPRAZOLE 40 MG/10 ML VIAL IV SCH (08:07)
[2016-09-24] MEDS ORDERED: IOHEXOL 350 MG/ML 25 ML BOTTLE (ORAL USE) PO PRN (08:50)
[2016-09-24] MEDS ORDERED: RX INFO: IV CONTRAST WAS GIVEN 1 EACH MISC MISCELLANE PRN (08:50)
--- NOTE | 2016-09-24 08:57 | P.PN ---
Subjective Principal diagnosis: sepsis 41-year-old female admitted with sepsis acute abdominal pain with fever secondary to gram-negative bacteremia. Additionally urine culture reporting gram-negative bacilli as well. Ultrasound reportedly cholelithiasis and nondilated CBD. Acute cholangitis felt to be within the differential. In the interim patient continues to have persistent fever as well as persistent abdominal pain now migrated to the right upper quadrant. Transaminases within normal limits, bilirubin is improving daily. ERCP was kept contingent on clinical course. Objective - Vital Signs Vital signs: Vital Signs Temp 98.5 F 09/24/16 07:00 Pulse 66 09/24/16 07:00 Resp 16 09/24/16 07:00 BP 137/88 09/24/16 07:00 Pulse Ox 93 L 09/24/16 07:00 Intake & Output 09/23/16 09/24/16 09/24/16 18:59 06:59 18:59 Intake Total 600 1180 Balance 600 1180 Weight 127.5 kg Intake: Intake, IV Titration 1180 Amount Ampicillin-Sulbactam 3 gm 100 In Sodium Chloride 0.9% 100 ml @ 100 mls/hr IVPB Q6HR LEONIE Rx#:[id number] Sodium Chloride 0.9% 1, 1080 000 ml @ 135 mls/hr IV . [id number] LEONIE Rx#:[id number] Oral 600 Other: # Voids 2 1 # Bowel Movements 0 - Exam General appearance: The patient is alert, oriented, in no acute distress. HET: Head is normocephalic and atraumatic. Pupils are equal and reactive. Oropharynx is clear without lesions. Neck: Supple without lymphadenopathy. Trachea midline. Heart: S1 S2. Regular rate and rhythm. Lungs: No crackles or wheezes are heard. Abdomen: Soft, nontender tenderness right upper quadrant and midepigastrium with bowel sounds. Mild guarding no rebound. No palpable organomegaly or masses. Extremities: Normal skin color and turgor. No cyanosis, rash, ulceration, clubbing, or edema. Radial and pedal pulses are 2/4 bilaterally. Neurological: No focal deficits. Strength and sensation are grossly intact. - Labs CBC & Chem 7: 09/23/16 09:27 09/24/16 06:35 Labs: Abnormal Lab Results - Last 24 Hours (Table) 09/23/16 09/23/16 09/23/16 Range/Units 09:27 09:27 09:27 WBC 12.8 H (3.8-10.6) k/uL RDW 15.6 H (11.5-15.5) % Neutrophils # (Manual) 10.0 H (1.3-7.7) k/uL Chloride 114 H (98-107) mmol/L Carbon Dioxide 18 L (22-30) mmol/L BUN 24 H (7-17) mg/dL Creatinine 1.30 H (0.52-1.04) mg/dL Glucose 121 H (74-99) mg/dL POC Glucose (mg/dL) (75-99) mg/dL Hemoglobin A1c (4.2-6.1) % Calcium 7.8 L (8.4-10.2) mg/dL Total Bilirubin 2.2 H (0.2-1.3) mg/dL Alkaline Phosphatase 166 H (38-126) U/L Total Protein 5.6 L (6.3-8.2) g/dL Albumin 2.3 L (3.5-5.0) g/dL Triglycerides 258 H (<150) mg/dL HDL Cholesterol 14 L (40-60) mg/dL Amylase <30 L (30-110) U/L 09/23/16 09/23/16 09/23/16 Range/Units 11:37 17:08 20:40 WBC (3.8-10.6) k/uL RDW (11.5-15.5) % Neutrophils # (Manual) (1.3-7.7) k/uL Chloride (98-107) mmol/L Carbon Dioxide (22-30) mmol/L BUN (7-17) mg/dL Creatinine (0.52-1.04) mg/dL Glucose (74-99) mg/dL POC Glucose (mg/dL) 111 H 206 H 140 H (75-99) mg/dL Hemoglobin A1c (4.2-6.1) % Calcium (8.4-10.2) mg/dL Total Bilirubin (0.2-1.3) mg/dL Alkaline Phosphatase (38-126) U/L Total Protein (6.3-8.2) g/dL Albumin (3.5-5.0) g/dL Triglycerides (<150) mg/dL HDL Cholesterol (40-60) mg/dL Amylase (30-110) U/L 09/24/16 09/24/16 09/24/16 Range/Units 06:35 06:35 06:52 WBC (3.8-10.6) k/uL RDW (11.5-15.5) % Neutrophils # (Manual) (1.3-7.7) k/uL Chloride 114 H (98-107) mmol/L Carbon Dioxide 20 L (22-30) mmol/L BUN 18 H (7-17) mg/dL Creatinine 1.14 H (0.52-1.04) mg/dL Glucose 123 H (74-99) mg/dL POC Glucose (mg/dL) 120 H (75-99) mg/dL Hemoglobin A1c 7.5 H (4.2-6.1) % Calcium 7.8 L (8.4-10.2) mg/dL Total Bilirubin 1.8 H (0.2-1.3) mg/dL Alkaline Phosphatase 167 H (38-126) U/L Total Protein 5.5 L (6.3-8.2) g/dL Albumin 2.1 L (3.5-5.0) g/dL Triglycerides (<150) mg/dL HDL Cholesterol (40-60) mg/dL Amylase (30-110) U/L Microbiology - Last 24 Hours (Table) 09/22/16 09:24 Urine Culture - Preliminary Urine,Catheterized Gram Neg Bacilli 09/22/16 11:36 Blood Culture - Preliminary Blood No Growth after 24 hours Assessment and Plan (1) Sepsis Narrative/Plan: 41-year-old female presents with acute abdominal pain with sepsis secondary to suspected acute ascending cholangitis gram-negative bacteremia cholelithiasis possible choledocholithiasis now felt to be less likely with improvement of transaminases and bilirubin. Persistence of fever and abdominal pain rule out acute cholecystitis possible abscess. Status: Acute (2) Acute cholangitis Status: Acute (3) Cholelithiasis Status: Acute (4) Gram-negative bacteremia Status: Acute (5) Morbid obesity with BMI of 45.0-49.9, adult Status: Acute (6) Cigarette nicotine dependence Status: Acute (7) UTI (urinary tract infection) Narrative/Plan: Gram-negative Status: Acute Plan: 1. Computed tomography scan abdomen. 2. ERCP not planned at this time. 3. Nothing by mouth except medications. IV antibiotics. Infectious disease and general surgery following. Assessment and plan of care discussed with Dr. Olivier.
[2016-09-24 09:36] LABS: Aty Lym Flag Slight; CH 27.5; CHCM 31.7; HCT 36.8 % (34.0-46.0); HDW 3.42; HGB 11.7 gm/dL (11.4-16.0); Hypochromasia Slight; Immature Gran Flag Moderate; MCH 27.8 pg (25.0-35.0); MCHC 31.8 g/dL (31.0-37.0); MCV 87.5 fL (80.0-100.0); Mean Platelet Volume 9.9; Poikilocytosis Slight; RDW 15.5 % (11.5-15.5); WBC 12.7 k/uL (3.8-10.6); WBC (Perox) 13.18
[2016-09-24] MEDS: PIPERACILLIN-TAZOBACTAM 3.375 GM in DEXTROSE/WATER 1 50ML.BAG IVPB SCH ×3 (09:36→23:29)
[2016-09-24] MEDS: METOPROLOL TARTRATE 50 MG TAB PO SCH ×2 (09:41→21:19)
--- NOTE | 2016-09-24 09:42 | P.PN ---
Progress Note - Text Dr. Dougherty inform me that he was not planning on doing an ERCP. He feels the patient most likely has acute cholecystitis. The patient has complaints of localized right upper quadrant pain. Her bilirubin and transaminases are trending downward towards normal. On exam her vital signs appear stable. Patient's complaints of right upper quadrant pain. Palpation right upper quadrant reveals positive Wade sign. Cholelithiasis with acute and chronic cholecystitis. Patient will undergo laparoscopic cholecystectomy today. I discussed with her the risk of possible conversion open procedure.
--- NOTE | 2016-09-24 09:57 | P.PN ---
Subjective 41-year-old female being seen on rounds this morning continues to report having right upper quadrant pain with a positive Wade sign. Did speak with GI service who indicated that at this time the patient would benefit from a cholecystectomy by surgical service and they will not be planning an ERCP at this time. Patient most likely has acute cholecystitis. Did note the patient had a temp last night of 102. The temp this morning 99. Patient has been nothing by mouth. Surgery indicated that they will plan on proceeding with the laparoscopic cholecystectomy to be done today Objective - Vital Signs Vital signs: Vital Signs Temp 98.5 F 09/24/16 07:00 Pulse 66 09/24/16 07:00 Resp 16 09/24/16 07:00 BP 137/88 09/24/16 07:00 Pulse Ox 93 L 09/24/16 07:00 Intake & Output 09/23/16 09/24/16 09/24/16 18:59 06:59 18:59 Intake Total 600 1180 Balance 600 1180 Weight 127.5 kg Intake: Intake, IV Titration 1180 Amount Ampicillin-Sulbactam 3 gm 100 In Sodium Chloride 0.9% 100 ml @ 100 mls/hr IVPB Q6HR [facility] Rx#:[id number] Sodium Chloride 0.9% 1, 1080 000 ml @ 135 mls/hr IV . Q7H25M [facility] Rx#:[id number] Oral 600 Other: # Voids 2 1 # Bowel Movements 0 - Exam Physical exam 41-year-old female resting in bed states "still having a lot of pain in the right upper quadrant couldn't sleep last night because of the pain. Did note the patient did have a temp last night Lungs essentially clear adequate air movement no cough noted Heart S1-S2 audible regular Abdomen plus tenderness to the right upper quadrant with a nausea sensation no active emesis no stool Extremities no edema noted - Labs CBC & Chem 7: 09/24/16 06:35 09/24/16 06:35 Labs: Abnormal Lab Results - Last 24 Hours (Table) 09/23/16 09/23/16 09/23/16 Range/Units 09:27 09:27 09:27 WBC 12.8 H (3.8-10.6) k/uL RDW 15.6 H (11.5-15.5) % Neutrophils # (Manual) 10.0 H (1.3-7.7) k/uL Chloride 114 H (98-107) mmol/L Carbon Dioxide 18 L (22-30) mmol/L BUN 24 H (7-17) mg/dL Creatinine 1.30 H (0.52-1.04) mg/dL Glucose 121 H (74-99) mg/dL POC Glucose (mg/dL) (75-99) mg/dL Hemoglobin A1c (4.2-6.1) % Calcium 7.8 L (8.4-10.2) mg/dL Total Bilirubin 2.2 H (0.2-1.3) mg/dL Alkaline Phosphatase 166 H (38-126) U/L Total Protein 5.6 L (6.3-8.2) g/dL Albumin 2.3 L (3.5-5.0) g/dL Triglycerides 258 H (<150) mg/dL HDL Cholesterol 14 L (40-60) mg/dL Amylase <30 L (30-110) U/L 09/23/16 09/23/16 09/23/16 Range/Units 11:37 17:08 20:40 WBC (3.8-10.6) k/uL RDW (11.5-15.5) % Neutrophils # (Manual) (1.3-7.7) k/uL Chloride (98-107) mmol/L Carbon Dioxide (22-30) mmol/L BUN (7-17) mg/dL Creatinine (0.52-1.04) mg/dL Glucose (74-99) mg/dL POC Glucose (mg/dL) 111 H 206 H 140 H (75-99) mg/dL Hemoglobin A1c (4.2-6.1) % Calcium (8.4-10.2) mg/dL Total Bilirubin (0.2-1.3) mg/dL Alkaline Phosphatase (38-126) U/L Total Protein (6.3-8.2) g/dL Albumin (3.5-5.0) g/dL Triglycerides (<150) mg/dL HDL Cholesterol (40-60) mg/dL Amylase (30-110) U/L 09/24/16 09/24/16 09/24/16 Range/Units 06:35 06:35 06:35 WBC 12.7 H (3.8-10.6) k/uL RDW (11.5-15.5) % Neutrophils # (Manual) (1.3-7.7) k/uL Chloride 114 H (98-107) mmol/L Carbon Dioxide 20 L (22-30) mmol/L BUN 18 H (7-17) mg/dL Creatinine 1.14 H (0.52-1.04) mg/dL Glucose 123 H (74-99) mg/dL POC Glucose (mg/dL) (75-99) mg/dL Hemoglobin A1c 7.5 H (4.2-6.1) % Calcium 7.8 L (8.4-10.2) mg/dL Total Bilirubin 1.8 H (0.2-1.3) mg/dL Alkaline Phosphatase 167 H (38-126) U/L Total Protein 5.5 L (6.3-8.2) g/dL Albumin 2.1 L (3.5-5.0) g/dL Triglycerides (<150) mg/dL HDL Cholesterol (40-60) mg/dL Amylase (30-110) U/L 09/24/16 Range/Units 06:52 WBC (3.8-10.6) k/uL RDW (11.5-15.5) % Neutrophils # (Manual) (1.3-7.7) k/uL Chloride (98-107) mmol/L Carbon Dioxide (22-30) mmol/L BUN (7-17) mg/dL Creatinine (0.52-1.04) mg/dL Glucose (74-99) mg/dL POC Glucose (mg/dL) 120 H (75-99) mg/dL Hemoglobin A1c (4.2-6.1) % Calcium (8.4-10.2) mg/dL Total Bilirubin (0.2-1.3) mg/dL Alkaline Phosphatase (38-126) U/L Total Protein (6.3-8.2) g/dL Albumin (3.5-5.0) g/dL Triglycerides (<150) mg/dL HDL Cholesterol (40-60) mg/dL Amylase (30-110) U/L Microbiology - Last 24 Hours (Table) 09/22/16 09:24 Urine Culture - Preliminary Urine,Catheterized Gram Neg Bacilli 09/22/16 11:36 Blood Culture - Preliminary Blood No Growth after 24 hours Assessment and Plan Plan: Impression Present on admission leukocytosis febrile tachycardic sepsis suspect due to ascending cholangitis with a positive culture for gram-negative bacilli bacteremia Morbid obesity BMI 45 Current every day smoker greater than a 20 year history of nicotine dependency Depressive disorder nonspecified Esophageal reflux disease History of sleep apnea with out using CPAP therapy at home Acute cholangitis Present on admission acute abdominal pain with sepsis secondary to acute ascending cholangitis him negative bacilli possible cholelithiasis Elevated liver enzymes likely due to acute sepsis Type 2 diabetes insulin requiring Persistent right upper quadrant pain suspect due to acute on chronic cholecystitis Plan Consult infectious disease for sepsis recommendations antibiotics Continue with IV Zosyn Resume home meds as appropriate Monitor Accu-Chek blood sugars continue Lantus 30 daily NPL for planned procedure DVT and GI prophylaxis Surgical service indicates that they will proceed today with a lap cholecystectomy DI service indicate no ERCP The above dictated assessment and findings were discussed with dr kramer . Impression and the plan of care have been dictated as directed. Brittney Vega nurse practitioner acting as a scribe for dr kramer
[2016-09-24 10:14] LABS: Add Differential Manual Differential
[2016-09-24 10:15] LABS: Nucleated Red Blood Cells 0 /100 WBC (0-0)
[2016-09-24] MEDS ORDERED: IV FLUID CONTINUATION 1,000 ML IV ONE ×2 (10:15)
[2016-09-24 10:17] LABS: Manual Review Performed; Metamyelocytes % 1.5 %; Total Cells Counted 200
[2016-09-24 10:18] LABS: Glucose,Whole Blood 130 mg/dL (75-99)
[2016-09-24] MEDS ORDERED: DEXAMETHASONE SOD PHOSPHATE 10 MG/ML 1 ML VIAL IV ONE (10:21)
[2016-09-24] MEDS ORDERED: ONDANSETRON 4 MG/2 ML VIAL IVP ONE ×2 (10:22→11:36)
[2016-09-24] MEDS ORDERED: LIDOCAINE 1% INJ 10MG/ML (20 ML MDV) ONE (10:30)
[2016-09-24] MEDS ORDERED: fentaNYL (PF) 50 MCG/ML 2 ML AMP ONE (10:30)
[2016-09-24] MEDS ORDERED: GLYCOPYRROLATE 0.2 MG/ML 2 ML VIAL ONE (10:30)
[2016-09-24] MEDS ORDERED: PROPOFOL 10 MG/ML 20 ML VIAL IV ONE (10:30)
[2016-09-24] MEDS ORDERED: SUCCINYLCHOLINE CHLORIDE 100 MG/5 ML SYR IV ONE (10:30)
[2016-09-24] MEDS ORDERED: HEPARIN SODIUM,PORCINE 5,000 UNIT/ML 1 ML VIAL ONE (10:30)
[2016-09-24] MEDS ORDERED: KETOROLAC 30 MG/ML 1 ML VIAL ONE (10:30)
[2016-09-24] MEDS ORDERED: MIDAZOLAM 2 MG/2 ML VIAL ONE (10:30)
[2016-09-24] MEDS ORDERED: ROCURONIUM BROMIDE 10 MG/ML 10 ML VIAL IV ONE (10:30)
[2016-09-24] MEDS ORDERED: HYDROmorphone (PF) 1 MG/ML ONE (10:30)
[2016-09-24] MEDS ORDERED: NEOSTIGMINE 1 MG/ML 10 ML VIAL ONE (10:30)
[2016-09-24] MEDS ORDERED: BUPIVACAIN-EPI 0.25%-1:200,000 30 ML VIAL SQ ONE (10:48)
[2016-09-24] MEDS ORDERED: LACTATED RINGERS 1,000 ML IV ONE ×2 (11:11→11:15)
[2016-09-24] MEDS ORDERED: NALOXONE 0.4 MG/ML 1 ML VIAL IV PRN (11:15)
[2016-09-24] MEDS ORDERED: ONDANSETRON 4 MG/2 ML VIAL IVP PRN (11:15)
--- NOTE | 2016-09-24 11:15 | P.OP ---
Date of Procedure: 09/24/16 Preoperative Diagnosis: Cholecystitis Postoperative Diagnosis: Cholecystitis Cholelithiasis Procedure(s) Performed: Laparoscopic cholecystectomy Anesthesia: CRISPIN Surgeon: Kash Rizvi Estimated Blood Loss (ml): 25 Pathology: other (Gallbladder) Condition: stable Disposition: PACU Description of Procedure: The patient was placed on the operating table. The patient received a general endotracheal tube anesthesia. The patients abdomen was prepped and draped in the usual sterile fashion. Through an infraumbilical stab incision, the fascia of the anterior abdominal wall was grasped with a pair of Kochers and then the Veress needle was placed in the peritoneal cavity. Position of the Veress needle was confirmed with positive drop test. The abdomen was then insufflated. After adequate insufflation, the 10 mm trocar was placed in the peritoneal cavity. Following this the laparoscope was placed in the peritoneal cavity. The patient was placed in the head-up, right side up position and then a 5 mm trocar was placed in the right lateral and right subcostal position under direct visualization. A 8 mm trocar was placed in the epigastric position. The gallbladder was grasped in the fundus and infundibulum. Traction on the gallbladder was placed in the lateral and the cephalad positions. The triangle of Calot was visualized.. The cystic duct was bluntly dissected until the union of the cystic duct and common bile duct was seen. The cystic duct was then divided and sealed with the Harmonic scissors. A PDS Endoloop was then placed throughout the cystic duct stump. The cystic artery divided and sealed with the Harmonic scissors. The gallbladder was then removed from the liver bed using Harmonic scissors. The gallbladder was then extracted through the epigastric port site. Operative field was checked for any bleeding spots and Harmonic scissors was used to coagulate the liver bed. The abdomen was irrigated. The trocars were removed. The skin was closed using interrupted 3-0 Vicryl suture. Dermabond dressing were applied. The patient tolerated the procedure well.
[2016-09-24] MEDS: HYDROmorphone 1 MG/ML 1 ML SYRINGE IVP ONE ×4 (11:32→11:56)
[2016-09-24 11:43] LABS: Glucose,Whole Blood 123 mg/dL (75-99)
--- NOTE | 2016-09-24 12:56 | PN ---
DATE OF SERVICE: 09/24/2016 Reason for followup is gram-negative bacteremia and acute cholecystitis. INTERVAL HISTORY: The patient did spike a fever at home of 102.4 last night. Patient has been complaining of more pain in the right upper quadrant area. She has been feeling nauseous but no vomiting. Denies having any chest pain or shortness of breath. No cough and no diarrhea. On examination, blood pressure is 137/84 with a pulse of 101, temperature 99.8, T-max of 102. She is 93% on room air. General description is a middle-age female, lying in bed in no distress. RESPIRATORY SYSTEM: Unlabored breathing. Clear to auscultation anteriorly. HEART: S1, S2 with regular rate and rhythm. ABDOMEN: Soft. Tender in the right upper quadrant area. LABS: Hemoglobin is 11.7, white count is 12.7 with a BUN of 18, creatinine is 1.14. Blood culture with gram-negative. ID sensitivity is pending. DIAGNOSTIC IMPRESSION AND PLAN: Patient with a gram-negative bacteremia in a patient with persistent fever, despite the Unasyn. Will discontinue the Unasyn, start the patient Zosyn 3.35 gm q.12 hour. Surgery is involved with the patient and possible cholecystectomy this morning. Plan of care was discussed with the primary as well as the GI team. Continue supportive care.
[2016-09-24] MEDS: INSULIN GLARGINE 100 UNIT/ML 10 ML VIAL SQ SCH (13:15)
[2016-09-24] MEDS: LOSARTAN 50 MG TAB PO SCH (13:16)
[2016-09-24] MEDS ORDERED: METOCLOPRAMIDE 5 MG/ML 2 ML VIAL IVP PRN (14:36)
[2016-09-24 16:52] LABS: Glucose,Whole Blood 314 mg/dL (75-99)
[2016-09-24 17:11] LABS: Glucose,Whole Blood 316 mg/dL (75-99)
--- NOTE | 2016-09-24 17:56 | PN ---
DATE OF SERVICE: 09/23/2016 CHIEF COMPLAINT: Acute cholecystitis. HISTORY OF PRESENT ILLNESS: This lady is still having quite a bit of discomfort and white count is elevated slightly. Her liver enzymes and alk phos are surprisingly good. There is talk about an ERCP tomorrow. PHYSICAL EXAMINATION: Chest is clear. The cardiac exam is normal. Abdomen is soft, nontender. IMPRESSION: Acute cholecystitis. PLAN: Await surgical intervention. She may undergo ERCP prior to surgery.
[2016-09-24 20:54] LABS: Glucose,Whole Blood 311 mg/dL (75-99)
[2016-09-24] MEDS: TEMAZEPAM 15 MG CAP PO PRN (21:19)
[2016-09-25] MEDS: SODIUM CHLORIDE 0.9% 1,000 ML IV SCH ×3 (05:12→22:03)
[2016-09-25] MEDS: HYDROmorphone 1 MG/ML 1 ML SYRINGE IV PRN ×3 (05:12→11:48)
[2016-09-25 07:22] LABS: Glucose,Whole Blood 244 mg/dL (75-99)
[2016-09-25] MEDS: PANTOPRAZOLE 40 MG/10 ML VIAL IV SCH (08:33)
[2016-09-25] MEDS: PIPERACILLIN-TAZOBACTAM 3.375 GM in DEXTROSE/WATER 1 50ML.BAG IVPB SCH ×3 (08:33→23:12)
[2016-09-25] MEDS: NICOTINE 21MG/24HR PATCH TRANSDERM SCH (08:33)
[2016-09-25] MEDS: INSULIN GLARGINE 100 UNIT/ML 10 ML VIAL SQ SCH (08:33)
[2016-09-25] MEDS: INSULIN LISPRO (humaLOG) 300 UNIT/3 ML VIAL SQ SCH ×4 (08:35→22:27)
[2016-09-25] MEDS: METOPROLOL TARTRATE 50 MG TAB PO SCH ×2 (08:35→21:11)
[2016-09-25] MEDS: LOSARTAN 50 MG TAB PO SCH (08:35)
--- NOTE | 2016-09-25 09:07 | P.PN ---
Subjective Principal diagnosis: sepsis 41-year-old female status post laparoscopic cholecystectomy yesterday. Fevers subsiding. Feels better. Minimal abdominal discomfort. Tolerating clear liquids and requesting advancement. Morning chemistries pending. Objective - Vital Signs Vital signs: Vital Signs Temp 97.9 F 09/24/16 23:00 Pulse 57 L 09/24/16 23:00 Resp 16 09/24/16 23:00 BP 121/74 09/24/16 23:00 Pulse Ox 93 L 09/24/16 23:00 Intake & Output 09/24/16 09/25/16 09/25/16 18:59 06:59 18:59 Intake Total 800 1295 Output Total 25 Balance 775 1295 Intake: IV 800 Intake, IV Titration 995 Amount Piperacillin-Tazobactam 3 50 .375 gm In Dextrose/Water 1 50ml.bag @ 12.5 mls/hr IVPB Q8HR [facility] Rx#: [id number] Sodium Chloride 0.9% 1, 945 000 ml @ 135 mls/hr IV . Q7H25M [facility] Rx#:[id number] Oral 300 Output: Estimated Blood Loss 25 Other: # Voids 2 1 - Exam General appearance: The patient is alert, oriented, in no acute distress. HET: Head is normocephalic and atraumatic. Pupils are equal and reactive. Oropharynx is clear without lesions. Neck: Supple without lymphadenopathy. Trachea midline. Heart: S1 S2. Regular rate and rhythm. Lungs: No crackles or wheezes are heard. Abdomen: Soft, laparoscopic incisions without erythema or drainage with mild incisional tenderness no rebound or guarding. Bowel sounds present. Extremities: Normal skin color and turgor. No cyanosis, rash, ulceration, clubbing, or edema. Radial and pedal pulses are 2/4 bilaterally. Neurological: No focal deficits. Strength and sensation are grossly intact. - Labs CBC & Chem 7: 09/24/16 06:35 09/24/16 06:35 Labs: Abnormal Lab Results - Last 24 Hours (Table) 09/24/16 09/24/16 09/24/16 Range/Units 06:35 10:16 11:41 WBC 12.7 H (3.8-10.6) k/uL Neutrophils # (Manual) 9.0 H (1.3-7.7) k/uL POC Glucose (mg/dL) 130 H 123 H (75-99) mg/dL 09/24/16 09/24/16 09/24/16 Range/Units 16:50 17:02 20:40 WBC (3.8-10.6) k/uL Neutrophils # (Manual) (1.3-7.7) k/uL POC Glucose (mg/dL) 314 H 316 H 311 H (75-99) mg/dL 09/25/16 Range/Units 07:21 WBC (3.8-10.6) k/uL Neutrophils # (Manual) (1.3-7.7) k/uL POC Glucose (mg/dL) 244 H (75-99) mg/dL Microbiology - Last 24 Hours (Table) 09/22/16 11:36 Blood Culture - Preliminary Blood No Growth after 48 hours 09/22/16 09:24 Urine Culture - Final Urine,Catheterized Escherichia coli Assessment and Plan (1) Sepsis Narrative/Plan: 41-year-old female presents with acute abdominal pain with sepsis secondary to suspected acute ascending cholangitis gram-negative bacteremia cholelithiasis possible choledocholithiasis now felt to be less likely with improvement of transaminases and bilirubin. Status post laparoscopic cholecystectomy for acute cholecystitis. Status: Acute (2) Acute cholangitis Status: Acute (3) Cholelithiasis Status: Acute (4) Gram-negative bacteremia Narrative/Plan: E. coli Status: Acute (5) Morbid obesity with BMI of 45.0-49.9, adult Status: Acute (6) Cigarette nicotine dependence Status: Acute (7) UTI (urinary tract infection) Narrative/Plan: Gram-negative E. coli Status: Acute Plan: 1. We'll sign off. Diet advancement per surgery. Antibiotics per infectious disease. ERCP not planned at this time. Assessment and plan of care discussed with Dr. Saucedo.
[2016-09-25 09:30] LABS: Basophils # (A) 0.1 k/uL (0-0.2); Basophils % (A) 1 %; CH 27.5; CHCM 31.3; Eosinophils # (A) 0.1 k/uL (0-0.7); Eosinophils % (A) 1 %; HCT 38.1 % (34.0-46.0); HDW 3.43; HGB 11.9 gm/dL (11.4-16.0); Hypochromasia Moderate; Luc # (Auto) 0.36; Luc % (Auto) 3; Lymphocytes # (A) 2.1 k/uL (1.0-4.8); Lymphocytes % (A) 17 %; MCH 27.7 pg (25.0-35.0); MCHC 31.2 g/dL (31.0-37.0); MCV 88.7 fL (80.0-100.0); Mean Platelet Volume 8.8; Monocytes # (A) 0.5 k/uL (0-1.0); Monocytes % (A) 4 %; Neutrophils % (A) 74 %; Poikilocytosis Slight; RBC 4.29 m/uL (3.80-5.40); RDW 15.7 % (11.5-15.5); WBC 12.1 k/uL (3.8-10.6); WBC (Perox) 12.53
[2016-09-25 09:45] LABS: ALT 36 U/L (9-52); AST 28 U/L (14-36); Alkaline Phosphatase 200 U/L (38-126); Anion Gap 11 mmol/L; Blood Urea Nitrogen 20 mg/dL (7-17); Calcium 7.9 mg/dL (8.4-10.2); Carbon Dioxide 20 mmol/L (22-30); Chloride 112 mmol/L (98-107); Glucose 210 mg/dL (74-99); Non-African American GFR(MDRD) 57 (>60 ml/min/1.73 sqM); Potassium 4.1 mmol/L (3.5-5.1); Sodium 143 mmol/L (137-145); Total Bilirubin 1.1 mg/dL (0.2-1.3); Total Protein 5.8 g/dL (6.3-8.2)
[2016-09-25 12:44] LABS: Glucose,Whole Blood 168 mg/dL (75-99)
[2016-09-25] MEDS ORDERED: HYDROcodone/APAP 5-325MG 1 EACH TAB PO PRN ×2 (12:54)
--- NOTE | 2016-09-25 14:48 | P.PN ---
Subjective 41-year-old female being seen sitting up in the edge of the bed this morning. Fever has subsided.. Patient states feels better is tolerating a diet. Patient is status post lap cholecystectomy done on the on september. States is anxious to be discharged home. Infectious disease surgical service for participating in the plan of care. GI service indicates there is no further GI workup at this time an ERCP is not planned at this time Objective - Vital Signs Vital signs: Vital Signs Temp 96.3 F L 09/25/16 07:00 Pulse 54 L 09/25/16 07:00 Resp 19 09/25/16 07:00 BP 141/72 09/25/16 07:00 Pulse Ox 96 09/25/16 07:00 Intake & Output 09/24/16 09/25/16 09/25/16 18:59 06:59 18:59 Intake Total 800 1295 Output Total 25 Balance 775 1295 Intake: IV 800 Intake, IV Titration 995 Amount Piperacillin-Tazobactam 3 50 .375 gm In Dextrose/Water 1 50ml.bag @ 12.5 mls/hr IVPB Q8HR [facility] Rx#: [id number] Sodium Chloride 0.9% 1, 945 000 ml @ 135 mls/hr IV . Q7H25M [facility] Rx#:[id number] Oral 300 Output: Estimated Blood Loss 25 Other: # Voids 2 1 - Exam Physical exam 41-year-old female resting in bed states pain is much improved. Sitting up on the edge of the bed. Lungs essentially clear adequate air movement no cough noted Heart S1-S2 audible regular Abdomen soft nondistended surgical sites no redness noted Extremities no edema noted - Labs CBC & Chem 7: 09/25/16 08:30 09/25/16 08:30 Labs: Abnormal Lab Results - Last 24 Hours (Table) 09/24/16 09/24/16 09/24/16 Range/Units 16:50 17:02 20:40 WBC (3.8-10.6) k/uL RDW (11.5-15.5) % Neutrophils # (1.3-7.7) k/uL Chloride (98-107) mmol/L Carbon Dioxide (22-30) mmol/L BUN (7-17) mg/dL Creatinine (0.52-1.04) mg/dL Glucose (74-99) mg/dL POC Glucose (mg/dL) 314 H 316 H 311 H (75-99) mg/dL Calcium (8.4-10.2) mg/dL Alkaline Phosphatase (38-126) U/L Total Protein (6.3-8.2) g/dL Albumin (3.5-5.0) g/dL 09/25/16 09/25/16 09/25/16 Range/Units 07:21 08:30 08:30 WBC 12.1 H (3.8-10.6) k/uL RDW 15.7 H (11.5-15.5) % Neutrophils # 9.0 H (1.3-7.7) k/uL Chloride 112 H (98-107) mmol/L Carbon Dioxide 20 L (22-30) mmol/L BUN 20 H (7-17) mg/dL Creatinine 1.07 H (0.52-1.04) mg/dL Glucose 210 H (74-99) mg/dL POC Glucose (mg/dL) 244 H (75-99) mg/dL Calcium 7.9 L (8.4-10.2) mg/dL Alkaline Phosphatase 200 H (38-126) U/L Total Protein 5.8 L (6.3-8.2) g/dL Albumin 2.3 L (3.5-5.0) g/dL 09/25/16 Range/Units 12:43 WBC (3.8-10.6) k/uL RDW (11.5-15.5) % Neutrophils # (1.3-7.7) k/uL Chloride (98-107) mmol/L Carbon Dioxide (22-30) mmol/L BUN (7-17) mg/dL Creatinine (0.52-1.04) mg/dL Glucose (74-99) mg/dL POC Glucose (mg/dL) 168 H (75-99) mg/dL Calcium (8.4-10.2) mg/dL Alkaline Phosphatase (38-126) U/L Total Protein (6.3-8.2) g/dL Albumin (3.5-5.0) g/dL Microbiology - Last 24 Hours (Table) 09/22/16 11:36 Blood Culture - Preliminary Blood No Growth after 72 hours 02/07/17 09:24 Urine Culture - Final Urine,Catheterized Escherichia coli Assessment and Plan Plan: Impression Present on admission leukocytosis febrile tachycardic sepsis suspect due to ascending cholangitis with a positive culture for gram-negative bacilli bacteremia Morbid obesity BMI 45 Current every day smoker greater than a 20 year history of nicotine dependency Depressive disorder nonspecified Esophageal reflux disease History of sleep apnea with out using CPAP therapy at home Acute cholangitis Present on admission acute abdominal pain with sepsis secondary to acute ascending cholangitis him negative bacilli possible cholelithiasis Elevated liver enzymes likely due to acute sepsis Type 2 diabetes insulin requiring Persistent right upper quadrant pain suspect due to acute on chronic cholecystitis Status post lap cholecystectomy done September 24 Plan Consult infectious disease for sepsis recommendations antibiotics Continue with IV Zosyn Resume home meds as appropriate Monitor Accu-Chek blood sugars continue Lantus 30 daily DVT and GI prophylaxis DI service indicate no ERCP Infectious disease recommends continuing Zosyn for another 24 hours and then reevaluate The above dictated assessment and findings were discussed with dr kramer . Impression and the plan of care have been dictated as directed. Brittney Vega nurse practitioner acting as a scribe for dr kramer
[2016-09-25] MEDS: HYDROmorphone 1 MG/ML 1 ML SYRINGE IVP PRN ×3 (16:03→23:12)
[2016-09-25 17:15] LABS: Glucose,Whole Blood 154 mg/dL (75-99)
--- NOTE | 2016-09-25 18:05 | P.PN ---
Subjective Principal diagnosis: Acute cholecystitis with cholelithiasis Patient is a 41-year-old white female status post laparoscopic cholecystectomy for suspected chronic cholecystitis and cholelithiasis. Patient is evaluated on the medical floor where she has postop day #1. Patient complains of moderate incisional pain. Denies chills, fevers, nausea, vomiting. Patient is urinating without difficulty. Passing flatus without bowel movement. Patient is tolerating diet. Afebrile. WBC 12.1. Urine and blood culture positive for E. coli. Objective - Vital Signs Vital signs: Vital Signs Temp 97.1 F L 09/25/16 15:00 Pulse 56 L 09/25/16 15:00 Resp 20 09/25/16 15:00 BP 117/61 09/25/16 15:00 Pulse Ox 96 09/25/16 15:00 Intake & Output 09/24/16 09/25/16 09/25/16 18:59 06:59 18:59 Intake Total 800 1295 Output Total 25 Balance 775 1295 Weight 127.5 kg Intake: IV 800 Intake, IV Titration 995 Amount Piperacillin-Tazobactam 3 50 .375 gm In Dextrose/Water 1 50ml.bag @ 12.5 mls/hr IVPB Q8HR [facility] Rx#: [id number] Sodium Chloride 0.9% 1, 945 000 ml @ 135 mls/hr IV . Q7H25M [facility] Rx#:[id number] Oral 300 Output: Estimated Blood Loss 25 Other: # Voids 2 1 2 - Exam GENERAL: Pt awake and alert, well-appearing, well-nourished, and in no acute distress. LUNGS: Breath sounds clear to auscultation bilaterally. No wheezes, rales, or rhonchi. HEART: Heart S1, S2, no S3 or S4. Regular rate and rhythm. No murmurs, rubs or gallops. ABDOMEN: Soft, moderate incisional tenderness, nondistended, normoactive bowel sounds. No guarding, no rebound. Surgical left scopic incisions clean, dry, and Dermabond intact, no erythema or drainage. NEUROLOGICAL: Pt oriented x 3. - Labs CBC & Chem 7: 09/25/16 08:30 09/25/16 08:30 Labs: Abnormal Lab Results - Last 24 Hours (Table) 09/24/16 09/25/1617 Range/Units 20:40 07:21 08:30 WBC 12.1 H (3.8-10.6) k/uL RDW 15.7 H (11.5-15.5) % Neutrophils # 9.0 H (1.3-7.7) k/uL Chloride (98-107) mmol/L Carbon Dioxide (22-30) mmol/L BUN (7-17) mg/dL Creatinine (0.52-1.04) mg/dL Glucose (74-99) mg/dL POC Glucose (mg/dL) 311 H 244 H (75-99) mg/dL Calcium (8.4-10.2) mg/dL Alkaline Phosphatase (38-126) U/L Total Protein (6.3-8.2) g/dL Albumin (3.5-5.0) g/dL 09/25/16 09/25/16 09/25/16 Range/Units 08:30 12:43 17:13 WBC (3.8-10.6) k/uL RDW (11.5-15.5) % Neutrophils # (1.3-7.7) k/uL Chloride 112 H (98-107) mmol/L Carbon Dioxide 20 L (22-30) mmol/L BUN 20 H (7-17) mg/dL Creatinine 1.07 H (0.52-1.04) mg/dL Glucose 210 H (74-99) mg/dL POC Glucose (mg/dL) 168 H 154 H (75-99) mg/dL Calcium 7.9 L (8.4-10.2) mg/dL Alkaline Phosphatase 200 H (38-126) U/L Total Protein 5.8 L (6.3-8.2) g/dL Albumin 2.3 L (3.5-5.0) g/dL Microbiology - Last 24 Hours (Table) 09/22/16 11:36 Blood Culture - Preliminary Blood No Growth after 72 hours Assessment and Plan Plan: Impression: 1. Chronic cholecystitis with cholelithiasis status post laparoscopic cholecystectomy. 2. Sepsis with urine and blood cultures positive for E. coli. Plan: Continue to monitor patient. Continue IV antibiotics. Continue IV hydration. Continue supportive treatment and pain management. Continue low-fat diet. Continue to follow with medical team. The above impression and plan have been discussed and directed by Dr. Rizvi. Carlo KEANE acting as scribe for Dr. Rizvi.
--- NOTE | 2016-09-25 18:44 | PN ---
DATE OF SERVICE: 09/25/2016 Reason for follow-up: E. coli bacteremia secondary to acute cholecystitis. INTERVAL HISTORY: The patient is afebrile. The patient is status post laparoscopic cholecystectomy done by Dr. Rizvi. The patient tolerated the procedure. Still complaining of significant abdominal pain and pain not controlled with [place]. The patient denies having any chest pain or shortness of breath or cough. On examination, the patient's blood pressure 141/72 with a pulse of 54, temperature 96.3. She is 96% on room air. General description is a middle-age female lying in bed in no distress. RESPIRATORY SYSTEM: Unlabored breathing. Clear to auscultation anteriorly. HEART: S1 and S2 regular rate and rhythm. ABDOMEN: Soft. No guarding or rigidity. EXTREMITIES: No edema of feet. LABS: Hemoglobin 11.9, white count 12.1 with a BUN of 20, creatinine 1.07. Blood culture repeat 09/22 negative so far. DIAGNOSTIC IMPRESSION AND PLAN: Patient with an Escherichia coli bacteremia secondary to acute cholecystitis, status post laparoscopic cholecystectomy. Patient at this time is on Zosyn that will be continued with a plan to finish therapy with p.o. Cipro 500 mg twice a day for another two weeks with close outpatient follow-up.
[2016-09-25 22:29] LABS: Glucose,Whole Blood 191 mg/dL (75-99)
[2016-09-25] MEDS: TEMAZEPAM 15 MG CAP PO PRN (23:17)
[2016-09-26] MEDS: HYDROmorphone 1 MG/ML 1 ML SYRINGE IVP PRN ×7 (02:33→23:06)
[2016-09-26] MEDS: SODIUM CHLORIDE 0.9% 1,000 ML IV SCH ×4 (02:35→23:09)
[2016-09-26 07:43] LABS: Glucose,Whole Blood 145 mg/dL (75-99)
[2016-09-26] MEDS: LOSARTAN 50 MG TAB PO SCH (08:54)
[2016-09-26] MEDS: INSULIN GLARGINE 100 UNIT/ML 10 ML VIAL SQ SCH (08:54)
[2016-09-26] MEDS: INSULIN LISPRO (humaLOG) 300 UNIT/3 ML VIAL SQ SCH ×4 (08:54→21:26)
[2016-09-26] MEDS: METOPROLOL TARTRATE 50 MG TAB PO SCH ×2 (08:54→21:26)
[2016-09-26] MEDS: NICOTINE 21MG/24HR PATCH TRANSDERM SCH (08:54)
[2016-09-26] MEDS: PIPERACILLIN-TAZOBACTAM 3.375 GM in DEXTROSE/WATER 1 50ML.BAG IVPB SCH ×3 (08:54→23:06)
[2016-09-26] MEDS: PANTOPRAZOLE 40 MG TABLET PO SCH (08:54)
[2016-09-26] MEDS: ACETAMINOPHEN TAB 500 MG TAB PO PRN ×2 (11:13→23:06)
--- NOTE | 2016-09-26 11:24 | PN ---
DATE OF SERVICE: 09/24/2016 CHIEF COMPLAINT: Cholecystitis. HISTORY OF PRESENT ILLNESS: This lady is doing well. She is having no shortness of breath, cough, hemoptysis, etc. PHYSICAL EXAMINATION: Chest is clear. Cardiac exam is normal. IMPRESSION: Acute cholecystitis. PLAN: Continue to follow with Surgery.
--- NOTE | 2016-09-26 11:26 | PN ---
DATE OF SERVICE: 09/25/2016 CHIEF COMPLAINT: Status post cholecystectomy. HISTORY OF PRESENT ILLNESS: This lady is doing fairly well and having no significant problems. She has had no fever or chills. Pain is still an issue. PHYSICAL EXAMINATION: Bowel sounds present. Her chest is clear. Her cardiac exam is normal. IMPRESSION: Status post cholecystectomy. PLAN: Continue to follow with Surgery until she is able to go home.
[2016-09-26 11:46] LABS: Glucose,Whole Blood 147 mg/dL (75-99)
--- NOTE | 2016-09-26 12:19 | P.PN ---
Subjective Principal diagnosis: Status post laparoscopic cholecystectomy, sepsis The patient is seen on rounds. She's having incisional pain. No nausea or vomiting. She did have a fever this morning which is persisted. Objective - Vital Signs Vital signs: Vital Signs Temp 100.3 F H 09/26/16 11:08 Pulse 75 09/26/16 07:00 Resp 20 09/26/16 07:00 BP 137/80 09/26/16 07:00 Pulse Ox 95 09/26/16 07:00 Intake & Output 09/25/16 09/26/16 09/26/16 18:59 06:59 18:59 Intake Total 200 240 Balance 200 240 Weight 127.5 kg Intake: Oral 200 240 Other: Voiding Method Toilet # Voids 2 3 1 # Bowel Movements 1 - Constitutional General appearance: Present: cooperative, no acute distress - Respiratory Respiratory: bilateral: CTA - Gastrointestinal General gastrointestinal: Present: normal bowel sounds, soft, tenderness ( Incisional) Localized gastrointestinal: surgical scar: diffuse (Incisional bruising without cellulitis) - Labs CBC & Chem 7: 09/25/16 08:30 09/25/16 08:30 Labs: Abnormal Lab Results - Last 24 Hours (Table) 09/25/16 09/25/16 09/25/16 Range/Units 12:43 17:13 22:26 POC Glucose (mg/dL) 168 H 154 H 191 H (75-99) mg/dL 09/26/16 09/26/16 Range/Units 07:31 11:39 POC Glucose (mg/dL) 145 H 147 H (75-99) mg/dL Microbiology - Last 24 Hours (Table) 09/22/16 11:36 Blood Culture - Preliminary Blood No Growth after 72 hours Assessment and Plan (1) Acute cholangitis Status: Acute (2) Cholecystitis Status: Acute (3) Sepsis Status: Acute Plan: Continue IV antibiotics. Low-fat diet as tolerated. Control pain. DVT and ulcer prophylaxis.
[2016-09-26] MEDS: ALPRAZolam 0.25 MG TAB PO PRN ×2 (15:03→23:06)
[2016-09-26 17:04] LABS: Glucose,Whole Blood 113 mg/dL (75-99)
--- NOTE | 2016-09-26 20:33 | PN ---
CHIEF COMPLAINT: Status post cholecystectomy. HISTORY OF PRESENT ILLNESS: This lady is doing fairly well, but she is still having quite a bit of discomfort. She has had no fever or chills. Apparently, she has had another positive blood culture for which she believes she will be in the hospital for extended period of time for treatment of sepsis. PHYSICAL EXAM: CHEST: Clear. CARDIAC: Normal. ABDOMEN: Protuberant, a little bit tender and dressings are dry. IMPRESSIONS: 1. Status post cholecystectomy for cholecystitis and cholelithiasis. 2. Septicemia. PLAN: Continue with IV antibiotics.
[2016-09-26] MEDS: TEMAZEPAM 15 MG CAP PO PRN (21:26)
[2016-09-26 21:41] LABS: Glucose,Whole Blood 186 mg/dL (75-99)
[2016-09-27] MEDS: HYDROmorphone 1 MG/ML 1 ML SYRINGE IVP PRN ×7 (02:48→23:36)
[2016-09-27 07:36] LABS: Glucose,Whole Blood 105 mg/dL (75-99)
[2016-09-27] MEDS: LOSARTAN 50 MG TAB PO SCH (08:20)
[2016-09-27] MEDS: NICOTINE 21MG/24HR PATCH TRANSDERM SCH (08:20)
[2016-09-27] MEDS: PANTOPRAZOLE 40 MG TABLET PO SCH (08:20)
[2016-09-27] MEDS: PIPERACILLIN-TAZOBACTAM 3.375 GM in DEXTROSE/WATER 1 50ML.BAG IVPB SCH ×3 (08:20→23:28)
[2016-09-27] MEDS: METOPROLOL TARTRATE 50 MG TAB PO SCH ×2 (08:20→20:01)
[2016-09-27] MEDS: INSULIN LISPRO (humaLOG) 300 UNIT/3 ML VIAL SQ SCH ×4 (08:21→20:56)
[2016-09-27] MEDS: INSULIN GLARGINE 100 UNIT/ML 10 ML VIAL SQ SCH (08:21)
--- NOTE | 2016-09-27 08:23 | PN ---
DATE OF SERVICE: 09/26/2016 Reason for follow-up is E. coli bacteremia secondary to acute cholecystitis. INTERVAL HISTORY: The patient did have a fever of 100.3 this morning. Afebrile since then. Breathing comfortably. Pain is controlled. No nausea, vomiting. Tolerating a diet. No diarrhea. On examination, blood pressure 133/71 with a pulse of 59, temperature 97.2. She is 97% on room air. General description is a middle-age female lying in bed in no distress. RESPIRATORY SYSTEM: Unlabored breathing. Clear to auscultation anteriorly. HEART: S1, S2. Regular rate and rhythm. ABDOMEN: Soft, no tenderness. LABS: No new labs have been obtained today. Follow-up blood cultures 09/22 have been negative. DIAGNOSTIC IMPRESSION AND PLAN: Patient with Escherichia coli bacteremia, source is acute cholecystitis in a patient who is status post laparoscopic cholecystectomy. Patient to continue with the Zosyn. If the patient remains to be afebrile and white count normalized she will be able to finish therapy with p.o. Cipro 500 mg twice a day for another 2 weeks with outpatient follow-up.
[2016-09-27] MEDS: ALPRAZolam 0.25 MG TAB PO PRN (08:31)
--- NOTE | 2016-09-27 10:45 | P.PN ---
Progress Note - Text The patient continues to have low-grade fevers. She had a temperature to 100.4 last night. We'll continue the IV antibiotics for her cholangitis. Plan is for a PICC line placement tomorrow and then home with IV antibiotics when she is medically stable
[2016-09-27 11:55] LABS: Glucose,Whole Blood 152 mg/dL (75-99)
[2016-09-27] MEDS: SODIUM CHLORIDE 0.9% 1,000 ML IV SCH ×4 (13:47→23:28)
[2016-09-27] MEDS: ACETAMINOPHEN TAB 500 MG TAB PO PRN (16:24)
[2016-09-27 17:31] LABS: Glucose,Whole Blood 179 mg/dL (75-99)
[2016-09-27 21:08] LABS: Glucose,Whole Blood 162 mg/dL (75-99)
[2016-09-28] MEDS: ALPRAZolam 0.25 MG TAB PO PRN ×2 (00:56→08:49)
[2016-09-28] MEDS: TEMAZEPAM 15 MG CAP PO PRN (00:56)
[2016-09-28] MEDS: HYDROmorphone 1 MG/ML 1 ML SYRINGE IVP PRN ×2 (02:54→06:11)
[2016-09-28] MEDS: SODIUM CHLORIDE 0.9% 1,000 ML IV SCH ×2 (05:26→08:49)
[2016-09-28 06:54] LABS: Glucose,Whole Blood 128 mg/dL (75-99)
[2016-09-28 07:31] VITALS: BP 129/61; PULSE 65; RESP 16; TEMP 99.3
--- NOTE | 2016-09-28 07:48 | PN ---
DATE OF SERVICE: 09/27/2016 CHIEF COMPLAINT: Status post cholecystectomy. HISTORY OF PRESENT ILLNESS: This lady is still not doing well. She continues to run low-grade fevers. She has had no urinary complaints, vomiting, etc. PHYSICAL EXAM: CHEST: Clear. The cardiac exam is normal. Abdomen: Protuberant. Incisions look clean. EXTREMITIES: Normal. IMPRESSIONS: Status post cholecystectomy with postop fever. PLAN: Continue with IV fluids and antibiotics and await recommendations from surgery and infectious disease.
[2016-09-28] MEDS ORDERED: HYDROcodone/APAP 7.5-325MG 1 EACH TAB PO PRN (08:28)
[2016-09-28] MEDS: INSULIN GLARGINE 100 UNIT/ML 10 ML VIAL SQ SCH (08:39)
[2016-09-28] MEDS: INSULIN LISPRO (humaLOG) 300 UNIT/3 ML VIAL SQ SCH (08:39)
[2016-09-28] MEDS: NICOTINE 21MG/24HR PATCH TRANSDERM SCH (08:41)
[2016-09-28] MEDS: METOPROLOL TARTRATE 50 MG TAB PO SCH (08:42)
[2016-09-28] MEDS: PANTOPRAZOLE 40 MG TABLET PO SCH (08:42)
[2016-09-28] MEDS: LOSARTAN 50 MG TAB PO SCH (08:43)
[2016-09-28 09:25] LABS: ALT 32 U/L (9-52); AST 17 U/L (14-36); Alkaline Phosphatase 145 U/L (38-126); Anion Gap 7 mmol/L; Blood Urea Nitrogen 11 mg/dL (7-17); Calcium 8.1 mg/dL (8.4-10.2); Carbon Dioxide 23 mmol/L (22-30); Chloride 110 mmol/L (98-107); Glucose 144 mg/dL (74-99); Non-African American GFR(MDRD) >60 (>60 ml/min/1.73 sqM); Potassium 3.8 mmol/L (3.5-5.1); Sodium 140 mmol/L (137-145); Total Bilirubin 1.1 mg/dL (0.2-1.3); Total Protein 6.1 g/dL (6.3-8.2)
[2016-09-28 09:26] LABS: Basophils # (A) 0.1 k/uL (0-0.2); Basophils % (A) 1 %; CH 28.3; CHCM 32.6; Eosinophils # (A) 0.1 k/uL (0-0.7); Eosinophils % (A) 1 %; HCT 35.6 % (34.0-46.0); HDW 3.16; HGB 11.1 gm/dL (11.4-16.0); Luc # (Auto) 0.09; Luc % (Auto) 1; Lymphocytes # (A) 1.8 k/uL (1.0-4.8); Lymphocytes % (A) 15 %; MCH 27.2 pg (25.0-35.0); MCHC 31.2 g/dL (31.0-37.0); MCV 87.2 fL (80.0-100.0); Mean Platelet Volume 8.9; Monocytes # (A) 0.4 k/uL (0-1.0); Monocytes % (A) 3 %; Neutrophils # (A) 9.1 k/uL (1.3-7.7); Neutrophils % (A) 79 %; RBC 4.08 m/uL (3.80-5.40); RDW 15.6 % (11.5-15.5); WBC 11.4 k/uL (3.8-10.6); WBC (Perox) 11.38
--- NOTE | 2016-09-28 10:04 | P.DS ---
Providers Date of admission: 09/22/16 09:16 Expected date of discharge: 09/28/16 Attending physician: Eder Cevallos Consults: 09/22/16 12:05 Consult Physician Routine Consulting Provider: Delvis Anne Consult Reason/Comments: cholecystitis Do you want consulting provider notified?: Yes 09/23/16 12:11 Consult Physician Urgent Consulting Provider: Thelma Grady Consult Reason/Comments: Antibiotic recommendations positive blood culture Do you want consulting provider notified?: Yes Primary care physician: Eder Cevallos [place] [facility] Course: A 41-year-old female presented on the day of admission to the emergency room on September 22 with a chief complaint of developing abdominal pain. Patient stated that she felt like she had a fever but did not ask to take attempt. Had bilateral lower back pain throughout radiating to the front of the abdomen. No nausea no vomiting no change in bowel habits. Patient stated the symptoms were symptomatic came into the emergency room to be evaluated surgical and GI consultation was requested. On admission the patient's blood count to be BCs lactic acid were elevated. The ultrasound of the abdomen showed a distended gallbladder with stones and a thickening in the gallbladder wall area patient was started on IV antibiotics treated for Ascending cholangitis. GI consultation was obtained as well. Consultation requested for ERCP evaluation. Patient gives no history of alcoholism or hepatitis. The common bile duct 0.4 noted gastroenterology indicated at this time they would not proceed with an ERCP. They felt the patient's symptoms were most likely due to an acute cholecystitis with localized right upper quadrant pain. The bili in the AST and ALT were trending down. Patient was seen by surgery Dr. li covering for Dr. Anne. The patient underwent a laparoscopic cholecystectomy on September [address] Grady consultation requested. Patient's blood cultures were positive patient was treated for E. coli bacteremia source acute cholecystitis in a patient who is post laparoscopic cholecystectomy. Patient symptoms over the course of hospitalization on IV antibiotics continue to show an improvement. And on September 28 the white count was 11.4 patient did have a low-grade temp of 99.4 but was anxious to be discharged home. From all consulting physicians was felt to be appropriate to be discharged Impression discharge diagnosis escherichia coli bacteremia source acute cholecystitis Present on admission leukocytosis febrile tachycardic sepsis suspect due to ascending cholangitis with a positive culture for gram-negative bacilli bacteremia Morbid obesity BMI 45 Current every day smoker greater than a 20 year history of nicotine dependency Depressive disorder nonspecified Esophageal reflux disease History of sleep apnea with out using CPAP therapy at home Acute cholangitis Present on admission acute abdominal pain with sepsis secondary to acute ascending cholangitis him negative bacilli possible cholelithiasis Elevated liver enzymes likely due to acute sepsis Type 2 diabetes insulin requiring Persistent right upper quadrant pain suspect due to acute on chronic cholecystitis Status post lap cholecystectomy done September 24 The above dictated assessment and findings were discussed with dr cevallos . Impression and the plan of care have been dictated as directed. Brittney Vega nurse practitioner acting as a scribe for dr cevallos Plan - Discharge Summary New Discharge Prescriptions: Ciprofloxacin HCl [Cipro] 500 mg PO Q12HR #28 tablet HYDROcodone/APAP 7.5-325MG [[place] 7.5-325] 1 tab PO Q6HR PRN #28 tab PRN Reason: Pain Discharge Medication List Insulin Glargine [Lantus] 30 unit SQ DAILY 02/03/14 [History] Omeprazole [PriLOSEC] 20 mg PO DAILY 02/03/14 [History] INSULIN LISPRO (HumaLOG) [humaLOG] 6 units SQ AC-TID 08/01/16 [History] Bumetanide [BUMEX] 1 mg PO DAILY 09/22/16 [History] Ibuprofen [Motrin] 800 mg PO Q8HR PRN 09/22/16 [History] Losartan Potassium 100 mg PO DAILY 09/22/16 [History] Metoprolol Tartrate [Lopressor] 50 mg PO TID 09/22/16 [History] HYDROcodone/APAP 7.5-325MG [[place] 7.5-325] 1 tab PO Q6HR PRN #28 tab 09/25/16 [ Rx] Ciprofloxacin HCl [Cipro] 500 mg PO Q12HR #28 tablet 09/27/16 [Rx] Acetaminophen Tab [Tylenol] 1,000 mg PO Q4HR PRN #0 tab 09/28/16 [Rx] HYDROcodone/APAP 7.5-325MG [[place] 7.5-325] 1 each PO Q6H PRN #0 tab 09/28/16 [Rx ] Nicotine 21Mg/24Hr Patch [Habitrol] 1 patch TRANSDERM DAILY patch 09/28/16 [Rx] Follow up Appointment(s)/Referral(s): Eder Cevallos MD [Primary Care Provider] - 1 Week Kash Li MD [STAFF PHYSICIAN] - 1 Week Thelma Grady MD [STAFF PHYSICIAN] - 10/02/16 Patient Instructions/Handouts: *Surgery [facility] - Laparoscopic Cholecystectomy Discharge Instructions, Type 2 Diabetes in Adults (DC) Activity/Diet/Wound Care/Special Instructions: NO smoking, cessation information given. Diabetic, low fat diet. No heavy lifting, pushing, or pulling items greater than 10 pounds. Diabetic, low fat diet Shower daily, no soaking in bath tubs, pools, or hot tubs. No driving while taking pain medication. Notify surgeon with any signs or symptoms of infection, increased pain, or not tolerating diet. Discharge Disposition: HOME SELF-CARE
[2016-09-28] MEDS: PIPERACILLIN-TAZOBACTAM 3.375 GM in DEXTROSE/WATER 1 50ML.BAG IVPB SCH (10:32)
--- NOTE | 2016-09-28 15:18 | PN ---
DATE OF SERVICE: 09/28/2016 Reason for followup is E. coli bacteremia secondary to acute cholecystitis. INTERVAL HISTORY: The patient is afebrile. He is feeling better this morning, mild discomfort in the right upper quadrant area, but much better than last week. No further nausea, vomiting, tolerating a regular diet and no diarrhea. On examination, blood pressure is 129/61 with a pulse of 55, temperature 99.3. She is 94% on room air. General description is a middle-age female, lying in bed in no distress. RESPIRATORY SYSTEM: Unlabored breathing. Clear to auscultation anteriorly. HEART: S1, S2, regular rate and rhythm. ABDOMEN: Soft, mild tenderness in the right upper quadrant. EXTREMITIES: No edema of the feet. LABS: Hemoglobin is 11.1, white count 11.4 with a BUN of 11, creatinine 0.80. DIAGNOSTIC IMPRESSION AND PLAN: Patient with an Escherichia coli bacteremia sepsis, acute status post cholecystitis. Patient at this time on Zosyn; however, she will be able to finish therapy with p.o. Cipro 500 mg twice a day for 2 weeks, script has been sent to pharmacy with outpatient followup. Patient has been instructed if any fever, vomiting or right upper quadrant pain, to call us right away.
--- NOTE | 2016-09-28 19:12 | DS ---
DATE OF ADMISSION: 09/22/2016 DATE OF DISCHARGE: 09/28/2016 CHIEF COMPLAINT: Acute abdominal pain. HISTORY OF PRESENT ILLNESS AND PHYSICAL EXAMINATION: The details of this lady's history and physical can be found in the initial workup. LABORATORY STUDIES: While she was in the hospital she had laboratory studies, details of which can be found in the laboratory section of her chart. COURSE IN THE HOSPITAL: After admission she was placed on bed rest and started on intravenous fluids. She was seen by Surgery and was eventually taken for cholecystectomy. Postoperatively she had some problems with low-grade fevers, but she was doing well enough that it was felt by Surgery and Infectious Disease that she could go home on September 28. We will see her in the office some time after time after discharge and she will follow up with Surgery in the next several days. FINAL DIAGNOSIS: Status post cholecystectomy for acute cholecystitis. CONSULTATION: General Surgery. She is improved.
--- NOTE | 2016-10-03 14:36 | PN ---
DATE OF SERVICE: 09/28/2016 CHIEF COMPLAINT: Status post cholecystectomy. HISTORY OF PRESENT ILLNESS: This lady is doing well despite the fact that she is running low-grade temps, Surgery feels that she can go home and she will go home today. This will be arranged by the nurse practitioner. We will arrange to follow her up in the office in several days and she will be contacted by the complex neonatal critical care nurse.
--- NOTE | 2016-10-03 14:39 | PN ---
DATE OF SERVICE: 09/26/2016 CHIEF COMPLAINT: Status post cholecystectomy. HISTORY OF PRESENT ILLNESS: This lady is doing fairly well, but she is still running low-grade temperatures. She has had no vomiting or diarrhea. She had no cough or urinary complaints. PHYSICAL EXAM: CHEST: Clear. CARDIAC EXAM: Normal. Incisions look good. IMPRESSIONS: Status post cholecystectomy with low-grade postoperative fever. PLAN: Continue to monitor temperature with Surgery.
--- NOTE | 2016-10-03 14:41 | PN ---
DATE OF SERVICE: 09/27/2016 CHIEF COMPLAINT: Status post cholecystectomy. HISTORY OF PRESENT ILLNESS: This lady is doing fairly well and having no new problems except for low-grade temp and we will wait to see if any other interventions are planned. PHYSICAL EXAM: Chest is clear. Cardiac exam is normal. ABDOMEN: Soft, nontender. IMPRESSION: Postoperative fever. PLAN: Will continue to monitor her temperature, CBC and abdominal discomfort and wait for further recommendations from General Surgery.
== END 2016-09-28 11:50 | disposition home or self-care (01) | DRG 854 ==
LOC: EC 06:47 → 4MS4W 09:16
PROVIDERS: ADMIT Family Medicine; ATTEND Family Medicine
PROC: 0FT44ZZ Resection of Gallbladder, Percutaneous Endoscopic Approach (ICD-10-PCS; principal; 2016-09-24 12:35)
DX: A41.51 Sepsis due to Escherichia coli [E. coli] (principal); K83.0 Cholangitis; K80.12 Calculus of gallbladder with acute and chronic cholecystitis without obstruction; Z68.42 Body mass index [BMI] 45.0-49.9, adult; N39.0 Urinary tract infection, site not specified; R65.20 Severe sepsis without septic shock; E11.9 Type 2 diabetes mellitus without complications; K21.9 Gastro-esophageal reflux disease without esophagitis; M19.90 Unspecified osteoarthritis, unspecified site; E86.0 Dehydration; I10 Essential (primary) hypertension; G47.30 Sleep apnea, unspecified; F17.210 Nicotine dependence, cigarettes, uncomplicated; E66.01 Morbid (severe) obesity due to excess calories; Z87.442 Personal history of urinary calculi; Z71.3 Dietary counseling and surveillance; Z87.440 Personal history of urinary (tract) infections; Z79.4 Long term (current) use of insulin; Z79.899 Other long term (current) drug therapy; G89.29 Other chronic pain
CPT/HCPCS: 36415; 71020; 76705; 76770; 80053; 80061; 80074; 81001; 81025; 82150; 82533; 82550; 82553; 83036; 83605; 83690; 83735; 84132; 84484; 84703; 85025; 85610; 85730; 87040; 87077; 87086; 87186; 88304; 93005; 96361; 96365; 96368; 96375; 99291

== ENCOUNTER → 2016-11-11 | Outpatient (CLI) | payer OTHER ==
[2016-11-11 08:19] LABS: Blood Urea Nitrogen 10 mg/dL (7-17); Non-African American GFR(MDRD) >60 (>60 ml/min/1.73 sqM)
--- NOTE | 2016-11-11 09:49 | CT ---
EXAMINATION TYPE: CT abdomen w con DATE OF EXAM: 11/11/2016 9:02 AM COMPARISON: Ultrasound abdomen 22 September 2016 HISTORY: hematuria, flank pain, RUQ pain CT DLP: 1634 mGycm Automated exposure control for dose reduction was used. TECHNIQUE: Helical acquisition of images was performed from the lung bases through the top of iliac crest to include entire abdomen. CONTRAST: Performed with Oral Contrast and with IV Contrast, patient injected with 100 mL of Omnipaque 300. FINDINGS: LUNG BASES: No significant abnormality is appreciated. LIVER/GB: Patient is post cholecystectomy. The liver is enlarged and shows low attenuation compatible with patient's ultrasound findings, consider fatty infiltration PANCREAS: No significant abnormality is seen. SPLEEN: No significant abnormality is seen. ADRENALS: Low dense 13 mm focus associated with the left adrenal gland a represent adenoma KIDNEYS: Nonobstructing calculus present at the lower pole on the right measures approximately 9 mm. Nonobstructive calculus at the lower pole of the left kidney measures approximately 7 mm. Ureteral ca lculus is not seen to the level of the pelvic inlet. BOWEL: No significant abnormality is seen. LYMPH NODES: OSSEOUS STRUCTURES: Postop changes are noted at the lower thoracic spine. Sclerotic focus present at the level of the posterior elements of the sacrum shows a nonaggressive appearance and may represent bone island. Possible stress changes, degenerative changes at the sacroiliac joints. FREE AIR: No Free Air visible ASCITES: None visible. RETROPERITONEAL ADENOPATHY: No Retroperitoneal Adenopathy visible. OTHER: Aorta shows normal caliber. IMPRESSION: BILATERAL NONOBSTRUCTIVE NEPHROLITHIASIS. DIFFICULT TO EXCLUDE A DISTAL URETERAL CALCULUS. HEPATOMEGA LY, FATTY INFILTRATION OF THE LIVER. 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 POSTOP CHANGES.
== END | disposition home or self-care (01) ==
LOC: RADCTMAIN 07:42
PROVIDERS: ATTEND Family Medicine
DX: N20.0 Calculus of kidney (principal); R16.0 Hepatomegaly, not elsewhere classified; K76.0 Fatty (change of) liver, not elsewhere classified; Z98.890 Other specified postprocedural states
CPT/HCPCS: 82565; 84520; 74160; 36415; Q9967

== ENCOUNTER 2017-09-02 23:39 | Emergency (ER) | payer OTHER ==
[2017-09-02 23:45] VITALS: RESP 18
--- NOTE | 2017-09-02 23:56 | ED ---
General Adult HPI - General Chief complaint: Fall Stated complaint: fell/hit head Time Seen by Provider: 09/02/17 23:47 Source: patient, RN notes reviewed Mode of arrival: ambulatory Limitations: no limitations - History of Present Illness Initial comments: 42-year-old female presents status post fall. Patient states she slipped on the ice, struck the back of her head. Ground-level fall. There is no loss consciousness. Patient is not on anticoagulation. She is complaining of both headache at the site of injury and neck pain. She is also complaining of mid back pain. She has remote history of spinal fracture status post surgical repair. Patient states she was ambulatory after the fall. No weakness in her lower extremities. She has urinated without difficulty. No sensory deficits. Denies any focal weakness. Patient denies any extremity injury. Denies chest pain or abdominal pain. Patient's injury occurred approximately 4 hours prior to arrival. Denies vision changes. She has had some dizziness and vomiting. - Related Data Home Medications Medication Instructions Recorded Confirmed Insulin Glargine [Lantus] 30 unit SQ DAILY 02/03/14 09/22/16 Omeprazole [PriLOSEC] 20 mg PO DAILY 02/03/14 09/22/16 INSULIN LISPRO (HumaLOG) [humaLOG] 6 units SQ AC-TID 08/01/16 09/22/16 Bumetanide [BUMEX] 1 mg PO DAILY 09/22/16 09/22/16 Ibuprofen [Motrin] 800 mg PO Q8HR PRN 09/22/16 09/22/16 Losartan Potassium 100 mg PO DAILY 09/22/16 09/22/16 Metoprolol Tartrate [Lopressor] 50 mg PO TID 09/22/16 09/22/16 Previous Rx's Medication Instructions Recorded HYDROcodone/APAP 7.5-325MG [[place] 1 tab PO Q6HR PRN #28 tab 09/25/16 7.5-325] Ciprofloxacin HCl [Cipro] 500 mg PO Q12HR #28 tablet 09/27/16 Acetaminophen Tab [Tylenol] 1,000 mg PO Q4HR PRN #0 tab 09/28/16 HYDROcodone/APAP 7.5-325MG [[place] 1 each PO Q6H PRN #0 tab 09/28/16 7.5-325] Nicotine 21Mg/24Hr Patch [Habitrol] 1 patch TRANSDERM DAILY patch 09/28/16 HYDROcodone/APAP 5-325MG [[place] 1 tab PO Q6HR PRN #12 tab 09/03/17 5-325] Ibuprofen [Motrin] 600 mg PO Q8HR PRN #24 tab 09/03/17 Allergies Allergy/AdvReac Type Severity Reaction Status Date / Time hydrochlorothiazide Allergy Dyspnea Verified 09/24/16 09:59 [From Zestoretic] lisinopril [From Zestoretic] Allergy Dyspnea Verified 09/24/16 09:59 Review of Systems ROS Statement: Those systems with pertinent positive or pertinent negative responses have been documented in the HPI. ROS Other: All systems not noted in ROS Statement are negative. Past Medical History Past Medical History: Diabetes Mellitus, GERD/Reflux, Hypertension, Osteoarthritis (OA), Sleep Apnea/CPAP/BIPAP Additional Past Medical History / Comment(s): chronic back pain, uti, kidney stones, stress incont of urine, does'nt have cpap machine, strong family history of premature coronary artery disease. History of Any Multi-Drug Resistant Organisms: None Reported Past Surgical History: Back Surgery, Section Additional Past Surgical History / Comment(s): fusion Past Anesthesia/Blood Transfusion Reactions: No Reported Reaction Past Psychological History: Anxiety, Bipolar, Depression Smoking Status: Current every day smoker Past Alcohol Use History: None Reported Past Drug Use History: None Reported - Past Family History Father Family Medical History: Diabetes Mellitus Mother Additional Family Medical History / Comment(s): bipolar depression anxiety General Exam Limitations: no limitations General appearance: alert, in no apparent distress Head exam: Present: atraumatic, normocephalic Eye exam: Present: normal appearance, PERRL, EOMI ENT exam: Present: normal exam Neck exam: Present: normal inspection. Absent: tenderness Respiratory exam: Present: normal lung sounds bilaterally. Absent: respiratory distress, wheezes Cardiovascular Exam: Present: regular rate, normal rhythm GI/Abdominal exam: Present: soft. Absent: distended, tenderness Extremities exam: Present: normal inspection, full ROM, normal capillary refill. Absent: tenderness, calf tenderness Back exam: Present: paraspinal tenderness (Left thoracic paraspinal tenderness) . Absent: vertebral tenderness Neurological exam: Present: alert, oriented X3, CN II-XII intact, normal gait. Absent: motor sensory deficit Psychiatric exam: Present: normal affect, normal mood Skin exam: Present: warm, dry, intact, cyanosis. Absent: diaphoretic Course Vital Signs 09/02/17 23:41 Temperature 97.6 F Pulse Rate 99 Respiratory 18 Rate Blood Pressure 142/76 O2 Sat by Pulse 98 Oximetry Medical Decision Making - Medical Decision Making 42-year-old female presents status post fall with head injury, neck pain, and back pain. CT head is obtained, is negative for intracranial hemorrhage or mass effect, CT cervical spine strain some mild spurring, no acute fracture or subluxation. Patient's c-collar was removed, C-spine is cleared, she has no midline tenderness. She has some bilateral paraspinal muscle spasm and tenderness. No midline thoracic bony tenderness. X-ray of the thoracic spine is Disposition Clinical Impression: Concussion, Thoracic back sprain Disposition: HOME SELF-CARE Condition: Good Instructions: Concussion (ED), Cervical Strain (ED), Sprain (ED) Prescriptions: HYDROcodone/APAP 5-325MG [[place] 5-325] 1 tab PO Q6HR PRN #12 tab PRN Reason: Pain Ibuprofen [Motrin] 600 mg PO Q8HR PRN #24 tab PRN Reason: Pain Referrals: Eder Cevallos MD [Primary Care Provider] - 1-2 days Time of Disposition: 00:40
--- NOTE | 2017-09-03 00:12 | CT ---
EXAMINATION TYPE: CT brain roxane eller DATE OF EXAM: 09/03/2017 COMPARISON: NONE HISTORY: fall CT DLP: head 1116 body 708.20 mGycm Automated exposure control for dose reduction was used. TECHNIQUE: CT scan of the head and cervical spine are performed without contrast. FINDINGS: The ventricles and sulci appear normal. There is no mass effect nor midline shift. There is no sign of intracranial hemorrhage. The calvarium is intact. The cervical vertebra have normal spacing and alignment. Posterior limits are intact. There is mild u ncovertebral spurring at C4-5 C5-6. Facet joints are intact. Skull base is intact. IMPRESSION: Negative CT scan of the brain. Mild spurring in the mid cervical spine. No fracture.
[2017-09-03] MEDS ORDERED: KETOROLAC 30 MG/ML 1 ML VIAL IM STA (00:19)
--- NOTE | 2017-09-03 00:33 | XR ---
EXAMINATION TYPE: XR thoracic spine complete DATE OF EXAM: 09/03/2017 COMPARISON: 08/11/2013 HISTORY: Fall and back pain TECHNIQUE: 3 views FINDINGS: Thoracic vertebra have normal alignment. Posterior element are intact. There is mild spurri ng of the endplates. There is no paraspinal mass. There is multilevel posterior fusion surgery. IMPRESSION: Spondylotic changes. No fracture. No adverse change compared to old exam.
[2017-09-03 00:50] VITALS: BP 111/72; PULSE 98; TEMP 98.1
== END 2017-09-03 00:50 | disposition home or self-care (01) ==
LOC: EC 23:39
DX: S06.0X0A Concussion without loss of consciousness, initial encounter (principal); S23.3XXA Sprain of ligaments of thoracic spine, initial encounter; S16.1XXA Strain of muscle, fascia and tendon at neck level, initial encounter; M46.02 Spinal enthesopathy, cervical region; R23.0 Cyanosis; E11.9 Type 2 diabetes mellitus without complications; K21.9 Gastro-esophageal reflux disease without esophagitis; I10 Essential (primary) hypertension; G47.30 Sleep apnea, unspecified; F17.200 Nicotine dependence, unspecified, uncomplicated; Z79.4 Long term (current) use of insulin; Z99.89 Dependence on other enabling machines and devices; Z88.8 Allergy status to other drugs, medicaments and biological substances; Z98.1 Arthrodesis status; W00.0XXA Fall on same level due to ice and snow, initial encounter; Y92.009 Unspecified place in unspecified non-institutional (private) residence as the place of occurrence of the external cause
CPT/HCPCS: 72072; 72125; 70450; 99284; 96372; J1885

== ENCOUNTER 2017-09-04 06:04 | Emergency (ER) | payer OTHER ==
[2017-09-04 06:10] VITALS: RESP 18
[2017-09-04] MEDS ORDERED: HYDROmorphone 0.5 MG/0.5 ML SYRINGE IVP STA (06:19)
--- NOTE | 2017-09-04 06:21 | ED ---
General Adult HPI - General Chief complaint: Headache Stated complaint: Nausea, vomiting, headache Time Seen by Provider: 09/04/17 06:05 Source: patient, EMS, RN notes reviewed Mode of arrival: EMS Limitations: no limitations - History of Present Illness Initial comments: This is a 42-year-old female presents emergency Department complaining of a headache and vomiting. Patient states yesterday she slipped on ice and hit her head and came into the emergency department she was CAT scan and they found no abnormalities. Patient states tonight she woke up with a much worse headache and vomiting continuously. Patient denies any neck pain patient denies numbness weakness. Patient denies any fever chills or cough per patient denies abdominal pain patient denies any chest pain shortness of breath or difficulty breathing. - Related Data Home Medications Medication Instructions Recorded Confirmed Insulin Glargine [Lantus] 30 unit SQ DAILY 02/03/14 09/04/17 Omeprazole [PriLOSEC] 20 mg PO DAILY 02/03/14 09/04/17 INSULIN LISPRO (HumaLOG) [humaLOG] 6 units SQ AC-TID 08/01/16 09/04/17 Bumetanide [BUMEX] 1 mg PO DAILY 09/22/16 09/04/17 Ibuprofen [Motrin] 800 mg PO Q8HR PRN 09/22/16 09/04/17 Losartan Potassium 100 mg PO DAILY 09/22/16 09/04/17 Metoprolol Tartrate [Lopressor] 50 mg PO TID 09/22/16 09/04/17 Previous Rx's Medication Instructions Recorded HYDROcodone/APAP 7.5-325MG [Marlette 1 tab PO Q6HR PRN #28 tab 09/25/16 7.5-325] Ciprofloxacin HCl [Cipro] 500 mg PO Q12HR #28 tablet 09/27/16 Acetaminophen Tab [Tylenol] 1,000 mg PO Q4HR PRN #0 tab 09/28/16 HYDROcodone/APAP 7.5-325MG [Marlette 1 each PO Q6H PRN #0 tab 09/28/16 7.5-325] Nicotine 21Mg/24Hr Patch [Habitrol] 1 patch TRANSDERM DAILY patch 09/28/16 HYDROcodone/APAP 5-325MG [Marlette 1 tab PO Q6HR PRN #12 tab 09/03/17 5-325] Ibuprofen [Motrin] 600 mg PO Q8HR PRN #24 tab 09/03/17 Allergies Allergy/AdvReac Type Severity Reaction Status Date / Time hydrochlorothiazide Allergy Dyspnea Verified 09/04/17 06:10 [From Zestoretic] lisinopril [From Zestoretic] Allergy Dyspnea Verified 09/04/17 06:10 Review of Systems ROS Statement: Those systems with pertinent positive or pertinent negative responses have been documented in the HPI. ROS Other: All systems not noted in ROS Statement are negative. Past Medical History Past Medical History: Diabetes Mellitus, GERD/Reflux, Hypertension, Osteoarthritis (OA), Sleep Apnea/CPAP/BIPAP Additional Past Medical History / Comment(s): chronic back pain, uti, kidney stones, stress incont of urine, does'nt have cpap machine, strong family history of premature coronary artery disease. History of Any Multi-Drug Resistant Organisms: None Reported Past Surgical History: Back Surgery, Section Additional Past Surgical History / Comment(s): fusion Past Anesthesia/Blood Transfusion Reactions: No Reported Reaction Past Psychological History: Anxiety, Bipolar, Depression Smoking Status: Current every day smoker Past Alcohol Use History: None Reported Past Drug Use History: None Reported - Past Family History Father Family Medical History: Diabetes Mellitus Mother Additional Family Medical History / Comment(s): bipolar depression anxiety General Exam - General Exam Comments Initial Comments: GENERAL: Patient is well-developed and well-nourished. Patient is nontoxic and well- hydrated and is in mild distress. Posterior aspect of the scalp in the occipital region is tender to palpation ENT: Neck is soft and supple. No significant lymphadenopathy is noted. Oropharynx is clear. Moist mucous membranes. Neck has full range of motion without eliciting any pain. EYES: The sclera were anicteric and conjunctiva were pink and moist. Extraocular movements were intact and pupils were equal round and reactive to light. Eyelids were unremarkable. PULMONARY: Unlabored respirations. Good breath sounds bilaterally. No audible rales rhonchi or wheezing was noted. CARDIOVASCULAR: There is a regular rate and rhythm without any murmurs gallops or rubs. ABDOMEN: Soft and nontender with normal bowel sounds. SKIN: Skin is clear with no lesions or rashes and otherwise unremarkable. NEUROLOGIC: Patient is alert and oriented x3. Cranial nerves II through XII are grossly intact. Motor and sensory are also intact. Normal speech, volume and content. Symmetrical smile. . MUSCULOSKELETAL: Normal extremities with adequate strength and full range of motion. No lower extremity swelling or edema. No calf tenderness. LYMPHATICS: No significant lymphadenopathy is noted PSYCHIATRIC: Normal psychiatric evaluation. Limitations: no limitations Course Vital Signs 09/04/17 06:05 Temperature 98.7 F Pulse Rate 63 Respiratory 18 Rate Blood Pressure 143/63 O2 Sat by Pulse 100 Oximetry Medical Decision Making - Medical Decision Making CT of the brain shows no acute abnormality. Patient was no longer vomiting after she had [facility] ambulance ride in and she was given a little Dilaudid in the ER and she was feeling considerably better. Disposition Clinical Impression: Concussion Disposition: HOME SELF-CARE Condition: Good Instructions: Concussion (ED) Referrals: Eder Cevallos MD [Primary Care Provider] - 1-2 days Time of Disposition: 06:40
[2017-09-04] MEDS ORDERED: ONDANSETRON 4 MG ODT STARTER PACK 2 TAB BTL PO STA (06:40)
--- NOTE | 2017-09-04 06:48 | CT ---
EXAM: CT Head Without Intravenous Contrast CLINICAL HISTORY: Reason: Pain TECHNIQUE: Axial computed tomography images of the head/brain without intravenous contrast. CTDI is 57.40 mGy and DLP is 985.50 mGy-cm. This CT exam was performed using one or more of the following dose reduction techniques: automated exposure control, adjustment of the mA and/or kV according to patient size, and/or use of iterative reconstruction technique. COMPARISON: 09/02/17 FINDINGS: Brain: Unremarkable. No hemorrhage. No significant white matter disease. No edema. Ventricles: Unremarkable. No ventriculomegaly. Bones/joints: Unremarkable. No acute fracture. Soft tissues: Unremarkable. Sinuses: Unremarkable as visualized. No acute sinusitis. Mastoid air cells: Unremarkable as visualized. No mastoid effusion. IMPRESSION: Normal head/brain CT.
[2017-09-04 07:13] VITALS: BP 129/72; PULSE 68; TEMP 98.2
== END 2017-09-04 07:15 | disposition home or self-care (01) ==
LOC: EC 06:04
DX: S06.0X0A Concussion without loss of consciousness, initial encounter (principal); E11.9 Type 2 diabetes mellitus without complications; K21.9 Gastro-esophageal reflux disease without esophagitis; I10 Essential (primary) hypertension; F17.200 Nicotine dependence, unspecified, uncomplicated; G47.30 Sleep apnea, unspecified; Z99.89 Dependence on other enabling machines and devices; Z79.4 Long term (current) use of insulin; Z79.899 Other long term (current) drug therapy; Z88.8 Allergy status to other drugs, medicaments and biological substances; W00.0XXA Fall on same level due to ice and snow, initial encounter
CPT/HCPCS: 70450; 99284; 96374; S0119; J1170

== ENCOUNTER 2017-09-04 14:19 | Emergency (ER) | payer OTHER ==
[2017-09-04 14:31] VITALS: RESP 16; TEMP 98
[2017-09-04] MEDS ORDERED: KETOROLAC 30 MG/ML 1 ML VIAL IVP STA (14:40)
[2017-09-04] MEDS ORDERED: METOCLOPRAMIDE 5 MG/ML 2 ML VIAL IVP STA (14:40)
[2017-09-04] MEDS ORDERED: SODIUM CHLORIDE 0.9% 1,000 ML IV ONE (14:40)
[2017-09-04] MEDS ORDERED: diphenhydrAMINE 50 MG/ML 1 ML VIAL IVP STA (14:40)
--- NOTE | 2017-09-04 14:48 | ED ---
General Adult HPI - General Chief complaint: Headache Stated complaint: Altered mental, nauseated Time Seen by Provider: 09/04/17 14:30 Source: patient, EMS Mode of arrival: EMS Limitations: no limitations - History of Present Illness Initial comments: Is a 42-year-old female who presents emergency department for the second time today for headache, nausea, vomiting, confusion, ataxic gait. She states that she fell couple of days ago on the ice and hit her head. Since then she's been having the above symptoms. She's been staying with her sister and her sister is the one who called the emesis afternoon. She states that she was walking and running into things in the hallway. She's been confused. She states that she's had blurred vision and difficulty with concentration. She's had 2 negative CTs of her head in the last couple of days. Also had a CT of her cervical spine which is unremarkable. The patient states that she was given Zofran for home which did not improve her symptoms. He is also been taking Motrin and Tylenol. She denies any focal weakness or numbness. No other injuries or acute complaints. - Related Data Home Medications Medication Instructions Recorded Confirmed Insulin Glargine [Lantus] 30 unit SQ DAILY 02/03/14 09/04/17 Omeprazole [PriLOSEC] 20 mg PO DAILY 02/03/14 09/04/17 INSULIN LISPRO (HumaLOG) [humaLOG] 6 units SQ AC-TID 08/01/16 09/04/17 Bumetanide [BUMEX] 1 mg PO DAILY 09/22/16 09/04/17 Ibuprofen [Motrin] 800 mg PO Q8HR PRN 09/22/16 09/04/17 Metoprolol Tartrate [Lopressor] 50 mg PO TID 09/22/16 09/04/17 Losartan Potassium [Cozaar] 25 mg PO DAILY 09/04/17 09/04/17 Varenicline Tartrate [Chantix] 1 tab PO BID 09/04/17 09/04/17 hydrALAZINE HCL [Apresoline] 50 mg PO DAILY 09/04/17 09/04/17 Previous Rx's Medication Instructions Recorded Acetaminophen Tab [Tylenol] 1,000 mg PO Q4HR PRN #0 tab 09/28/16 Allergies Allergy/AdvReac Type Severity Reaction Status Date / Time hydrochlorothiazide Allergy Dyspnea Verified 09/04/17 14:49 [From Zestoretic] insulin glargine Allergy Rash/Hives Verified 09/04/17 14:49 [From Basaglar KwikPen] lisinopril [From Zestoretic] Allergy Dyspnea Verified 09/04/17 14:49 Review of Systems ROS Statement: Those systems with pertinent positive or pertinent negative responses have been documented in the HPI. ROS Other: All systems not noted in ROS Statement are negative. Past Medical History Past Medical History: Diabetes Mellitus, GERD/Reflux, Hypertension, Osteoarthritis (OA), Sleep Apnea/CPAP/BIPAP Additional Past Medical History / Comment(s): chronic back pain, uti, kidney stones, stress incont of urine, does'nt have cpap machine, strong family history of premature coronary artery disease. History of Any Multi-Drug Resistant Organisms: None Reported Past Surgical History: Back Surgery, Section Additional Past Surgical History / Comment(s): fusion Past Anesthesia/Blood Transfusion Reactions: No Reported Reaction Past Psychological History: Anxiety, Bipolar, Depression Smoking Status: Current every day smoker Past Alcohol Use History: None Reported Past Drug Use History: None Reported - Past Family History Father Family Medical History: Diabetes Mellitus Mother Additional Family Medical History / Comment(s): bipolar depression anxiety General Exam - General Exam Comments Initial Comments: Constitutional: Awake alert Appears comfortable Head: Normocephalic atraumatic Eyes: no conjunctival injection No scleral icterus EOMI, pupils are 4 mm reactive bilaterally Neck: No JVD Supple Heart: Regular rate rhythm normal S1-S2 no murmurs Lungs: Clear to auscultation bilaterally No wheezing No rales Abdomen: Soft nondistended nontender Extremities: Non edematous DP pulses intact Radial pulses intact Neuro: A&Ox3, cranial nerves II through XII are grossly intact, 5 out of 5 strength in upper and lower extremities bilaterally, sensation intact in all extremities, normal finger to nose and heel to horne testing No focal neurologic deficits Psych: Appropriate mood and affect Limitations: no limitations Course Vital Signs 09/04/17 09/04/17 14:27 15:23 Temperature 98.0 F Pulse Rate 71 67 Respiratory 16 16 Rate Blood Pressure 118/62 126/63 O2 Sat by Pulse 100 99 Oximetry Medical Decision Making - Medical Decision Making This 42-year-old female who presents emergency department for headaches and difficult he walking. Patient in no focal neurologic findings on examination. I do get her up and walk her and she does stumble at times however is able to walk without assistance. She's had 2 CAT scans since the injury and I do not feel that doing another one is going to be beneficial the patient and could potentially put her at risk for cancers in the future. She has Zofran at home. I encouraged her to take Motrin Tylenol and also could take Benadryl she needed. I told her to relax and not perform any activities that seem to make her symptoms worse. Going to send her to neurology to continue to follow her with these concussive symptoms. She may require an MRI if she continues to have persistent symptoms. All questions were answered. - Lab Data Result diagrams: 09/04/17 15:10 09/04/17 15:10 Lab Results 09/04/17 09/04/17 Range/Units 15:10 15:10 WBC 9.7 (3.8-10.6) k/uL RBC 4.41 (3.80-5.40) m/uL Hgb 12.7 (11.4-16.0) gm/dL Hct 37.3 (34.0-46.0) % MCV 84.6 (80.0-100.0) fL MCH 28.9 (25.0-35.0) pg MCHC 34.1 (31.0-37.0) g/dL RDW 15.2 (11.5-15.5) % Plt Count 229 (150-450) k/uL Neutrophils % 62 % Lymphocytes % 29 % Monocytes % 5 % Eosinophils % 3 % Basophils % 1 % Neutrophils # 6.0 (1.3-7.7) k/uL Lymphocytes # 2.8 (1.0-4.8) k/uL Monocytes # 0.5 (0-1.0) k/uL Eosinophils # 0.3 (0-0.7) k/uL Basophils # 0.1 (0-0.2) k/uL Sodium 140 (137-145) mmol/L Potassium 3.8 (3.5-5.1) mmol/L Chloride 111 H (98-107) mmol/L Carbon Dioxide 23 (22-30) mmol/L Anion Gap 6 mmol/L BUN 10 (7-17) mg/dL Creatinine 0.72 (0.52-1.04) mg/dL Est GFR (MDRD) Af Amer >60 (>60 ml/min/1.73 sqM) Est GFR (MDRD) Non-Af >60 (>60 ml/min/1.73 sqM) Glucose 175 H (74-99) mg/dL Calcium 8.9 (8.4-10.2) mg/dL Total Bilirubin 0.3 (0.2-1.3) mg/dL AST 18 (14-36) U/L ALT 29 (9-52) U/L Alkaline Phosphatase 76 (38-126) U/L Total Protein 6.0 L (6.3-8.2) g/dL Albumin 3.1 L (3.5-5.0) g/dL Disposition Clinical Impression: Concussion Disposition: HOME SELF-CARE Condition: Stable Instructions: Concussion (ED), Acute Headache (ED) Referrals: Eder Cevallos MD [Primary Care Provider] - 1-2 days Angy Heller MD [STAFF PHYSICIAN] - 1-2 days
[2017-09-04 15:20] LABS: Basophils # (A) 0.1 k/uL (0-0.2); Basophils % (A) 1 %; Eosinophils # (A) 0.3 k/uL (0-0.7); Eosinophils % (A) 3 %; HCT 37.3 % (34.0-46.0); HGB 12.7 gm/dL (11.4-16.0); Lymphocytes # (A) 2.8 k/uL (1.0-4.8); Lymphocytes % (A) 29 %; MCH 28.9 pg (25.0-35.0); MCHC 34.1 g/dL (31.0-37.0); MCV 84.6 fL (80.0-100.0); Mean Platelet Volume 8.9; Monocytes # (A) 0.5 k/uL (0-1.0); Monocytes % (A) 5 %; Neutrophils % (A) 62 %; Platelet Count 229 k/uL (150-450); RBC 4.41 m/uL (3.80-5.40); RDW 15.2 % (11.5-15.5); WBC 9.7 k/uL (3.8-10.6)
[2017-09-04 15:25] VITALS: BP 126/63; PULSE 67
[2017-09-04 15:33] LABS: ALT 29 U/L (9-52); AST 18 U/L (14-36); Albumin 3.1 g/dL (3.5-5.0); Alkaline Phosphatase 76 U/L (38-126); Anion Gap 6 mmol/L; Blood Urea Nitrogen 10 mg/dL (7-17); Calcium 8.9 mg/dL (8.4-10.2); Carbon Dioxide 23 mmol/L (22-30); Chloride 111 mmol/L (98-107); Glucose 175 mg/dL (74-99); Potassium 3.8 mmol/L (3.5-5.1); Sodium 140 mmol/L (137-145); Total Bilirubin 0.3 mg/dL (0.2-1.3)
== END 2017-09-04 16:18 | disposition home or self-care (01) ==
LOC: EC 14:19
DX: S06.0X0A Concussion without loss of consciousness, initial encounter (principal); E11.9 Type 2 diabetes mellitus without complications; K21.9 Gastro-esophageal reflux disease without esophagitis; I10 Essential (primary) hypertension; G47.30 Sleep apnea, unspecified; Z99.89 Dependence on other enabling machines and devices; F31.9 Bipolar disorder, unspecified; F41.9 Anxiety disorder, unspecified; F17.200 Nicotine dependence, unspecified, uncomplicated; Z79.4 Long term (current) use of insulin; Z79.899 Other long term (current) drug therapy; Z88.8 Allergy status to other drugs, medicaments and biological substances; W00.0XXA Fall on same level due to ice and snow, initial encounter
CPT/HCPCS: 36415; 80053; 85025; 99284; 96374; 96375 ×2; 96361; J1200; J2765; J1885

== ENCOUNTER → 2017-10-13 | Outpatient (CLI) | payer OTHER ==
--- NOTE | 2017-10-13 07:38 | MR ---
"EXAMINATION TYPE: MR lumbar spine wo con DATE OF EXAM: 10/13/2017 COMPARISON: CT abdomen November 11, 2016 HISTORY: Low back pain per order. Low back pain for over 5 years per patient with history of prior kohler rgery T8-T12 level. TECHNIQUE: Multiplanar, multisequence imaging of the lumbar spine is performed without IV contrast. I V contrast was not given as requested as patient was in too much pain to continue for contrast evalua tion. FINDINGS: Sagittal images of the lumbar spine show vertebral body heights and alignment to appear sat isfactory. There is partial visualization of artifact from fusion hardware in the lower thoracic spin e T12 level posterior tissue. Multilevel disc desiccation is present. There is mild multilevel disc s pace narrowing with sparing of L4-L5 and L5-S1 levels. Posterior disc herniations are seen at T12-L1 and L3-L4 levels on sagittal images mildly effacing anterior thecal sac. The conus medullaris is norm al in position and signal ending at mid L1 level. The bone marrow signal intensity is within normal limits. Mild multilevel anterior spurring is seen. Axial images at the T12-L1 level shows left paracentral disc protrusion mildly effacing anterior thec al sac on axial image 27, bilateral neural foramina are patent. Axial images at the L1-L2 level show mild facet degenerative changes bilaterally. Spinal canal is pre served and bilateral neural foramina are patent. Axial images at L2-L3 level are felt within normal limits. Axial images at the L3-L4 level show mild facet degenerative changes bilaterally and mild broad disc bulge mildly effacing anterior thecal sac. Bilateral neural foramina are patent. Axial images at L4-L5 level show mild facet degenerative changes and ligamentum flavum hypertrophy. T here is some effacement of the left posterior lateral thecal sac. Bilateral neural foramina are paten t. Axial images at the L5-S1 level show mild facet degenerative changes bilaterally. There is left centr al and foraminal disc protrusion but bilateral neural foramina are patent and spinal canal is preserv ed. There appear to be several new cystic lesion centrally in the right kidney however given presence of calculi and no cysts on prior CT one must consider new obstructive hydronephrosis. Follow-up advised. IMPRESSION: Multilevel degenerative changes in lumbar spine as detailed above. Possible new right-marcelino ed mild to moderate hydronephrosis, follow-up imaging advised. A Yellow level critical message alert has been initiated for Angy Heller MD via the [employer] | Critical Results System on 10/13/2017 7:35 AM. This message alert has been sent to Angy cuellar MD via the preferences provided by the clinician for the receipt of Radiology Critical Findings. Wili essage ID [id number]."
== END | disposition home or self-care (01) ==
LOC: RADMRIMAIN 06:39
PROVIDERS: ATTEND Psychiatry & Neurology Neurology
DX: M47.816 Spondylosis without myelopathy or radiculopathy, lumbar region (principal)
CPT/HCPCS: 72148

== ENCOUNTER 2018-01-26 21:58 | Inpatient (IN) | payer OTHER ==
[2018-01-26] MEDS ORDERED: KETOROLAC 30 MG/ML 1 ML VIAL IVP STA (23:07)
[2018-01-26] MEDS ORDERED: ONDANSETRON 4 MG/2 ML VIAL IVP STA (23:07)
--- NOTE | 2018-01-26 23:18 | ED ---
Abdominal Pain HPI - General Chief Complaint: Abdominal Pain Stated Complaint: kidney stones Time Seen by Provider: 01/26/18 22:38 Source: patient Mode of arrival: ambulatory Limitations: no limitations - History of Present Illness Initial Comments: This patient is a 43-year-old woman with history of previous kidney stones. She comes to be evaluated for right flank pain that does radiate to the right lower abdomen. The pain came on this evening. She states it reminds her previous episodes stones. She states the pain is sharp, colicky, severe. She has not noted worsening or relieving symptoms. She has had some nausea associated. She also has been feeling hot tonight. MD Complaint: flank pain -: hour(s) Location: R flank Radiation: RLQ Migration to: no migration Severity: severe Quality: aching Consistency: constant Improves With: nothing Worsens With: nothing Associated Symptoms: nausea - Related Data LMP (females 10-50): last week Home Medications Medication Instructions Recorded Confirmed Insulin Glargine [Lantus] 30 unit SQ DAILY 02/03/14 01/26/18 INSULIN LISPRO (HumaLOG) [humaLOG] 6 units SQ AC-TID 08/01/16 01/26/18 Ibuprofen [Motrin] 800 mg PO Q8HR PRN 09/22/16 01/26/18 Metoprolol Tartrate [Lopressor] 50 mg PO TID 09/22/16 01/26/18 Losartan Potassium [Cozaar] 25 mg PO DAILY 09/04/17 01/26/18 Furosemide [Lasix] 20 mg PO DAILY 01/26/18 01/26/18 Omeprazole [PriLOSEC] 20 mg PO AC-BRKFST 01/26/18 01/26/18 Allergies Allergy/AdvReac Type Severity Reaction Status Date / Time hydrochlorothiazide Allergy Dyspnea Verified 01/26/18 22:31 [From Zestoretic] insulin glargine Allergy Rash/Hives Verified 01/26/18 22:31 [From Basaglar KwikPen] lisinopril [From Zestoretic] Allergy Dyspnea Verified 01/26/18 22:31 Review of Systems ROS Statement: Those systems with pertinent positive or pertinent negative responses have been documented in the HPI. ROS Other: All systems not noted in ROS Statement are negative. Constitutional: Denies: fever, chills Respiratory: Denies: cough, dyspnea Cardiovascular: Denies: chest pain, palpitations Gastrointestinal: Reports: as per HPI, abdominal pain, nausea. Denies: vomiting , diarrhea, constipation Genitourinary: Reports: dysuria, frequency, hematuria Musculoskeletal: Denies: back pain Skin: Denies: rash Neurological: Denies: headache, weakness, numbness Past Medical History Past Medical History: Diabetes Mellitus, GERD/Reflux, Hypertension, Osteoarthritis (OA), Sleep Apnea/CPAP/BIPAP Additional Past Medical History / Comment(s): chronic back pain, uti, kidney stones, stress incont of urine, does'nt have cpap machine, strong family history of premature coronary artery disease. History of Any Multi-Drug Resistant Organisms: None Reported Past Surgical History: Back Surgery, Section Additional Past Surgical History / Comment(s): fusion Past Anesthesia/Blood Transfusion Reactions: No Reported Reaction Past Psychological History: Anxiety, Bipolar, Depression Smoking Status: Current every day smoker Past Alcohol Use History: None Reported Past Drug Use History: None Reported - Past Family History Father Family Medical History: Diabetes Mellitus Mother Additional Family Medical History / Comment(s): bipolar depression anxiety General Exam Limitations: no limitations General appearance: alert, in no apparent distress, obese Head exam: Present: atraumatic Eye exam: Present: normal appearance. Absent: scleral icterus, conjunctival injection Respiratory exam: Present: normal lung sounds bilaterally. Absent: respiratory distress, wheezes, rales, rhonchi, stridor Cardiovascular Exam: Present: normal rhythm, tachycardia, normal heart sounds. Absent: systolic murmur, diastolic murmur, rubs, gallop GI/Abdominal exam: Present: soft. Absent: distended, tenderness, guarding, rebound, mass, pulsatile mass, hernia Extremities exam: Present: normal inspection, normal capillary refill. Absent: pedal edema, calf tenderness Back exam: Present: normal inspection, CVA tenderness (R). Absent: CVA tenderness (L) Neurological exam: Present: alert Skin exam: Present: warm, dry, intact, normal color. Absent: rash Course Vital Signs 01/26/18 01/27/18 01/27/18 22:12 00:08 01:45 Temperature 101.4 F H 101.6 F H 98.3 F Pulse Rate 125 H Pulse Rate [ 95 Pulse Oximetery ] Respiratory 20 16 Rate Blood Pressure 128/87 Blood Pressure 127/74 [Right Arm] O2 Sat by Pulse 97 98 Oximetry Medical Decision Making - Lab Data Result diagrams: 01/26/18 22:34 01/26/18 22:34 Lab Results 01/26/18 01/26/18 01/26/18 Range/Units 22:34 22:34 22:34 WBC 18.2 H (3.8-10.6) k/uL RBC 4.45 (3.80-5.40) m/uL Hgb 12.3 (11.4-16.0) gm/dL Hct 37.3 (34.0-46.0) % MCV 83.7 (80.0-100.0) fL MCH 27.7 (25.0-35.0) pg MCHC 33.0 (31.0-37.0) g/dL RDW 15.0 (11.5-15.5) % Plt Count 237 (150-450) k/uL Neutrophils % 83 % Lymphocytes % 7 % Monocytes % 9 % Eosinophils % 0 % Basophils % 0 % Neutrophils # 15.1 H (1.3-7.7) k/uL Lymphocytes # 1.3 (1.0-4.8) k/uL Monocytes # 1.6 H (0-1.0) k/uL Eosinophils # 0.0 (0-0.7) k/uL Basophils # 0.0 (0-0.2) k/uL Sodium 134 L (137-145) mmol/L Potassium 4.2 (3.5-5.1) mmol/L Chloride 103 (98-107) mmol/L Carbon Dioxide 17 L (22-30) mmol/L Anion Gap 14 mmol/L BUN 13 (7-17) mg/dL Creatinine 1.10 H (0.52-1.04) mg/dL Est GFR (CKD-EPI)AfAm 72 (>60 ml/min/1.73 sqM) Est GFR (CKD-EPI)NonAf 62 (>60 ml/min/1.73 sqM) Glucose 231 H (74-99) mg/dL Plasma Lactic Acid Danny 1.1 (0.7-2.0) mmol/L Calcium 8.7 (8.4-10.2) mg/dL Total Bilirubin 0.6 (0.2-1.3) mg/dL AST 16 (14-36) U/L ALT 26 (9-52) U/L Alkaline Phosphatase 101 (38-126) U/L Total Protein 6.4 (6.3-8.2) g/dL Albumin 3.2 L (3.5-5.0) g/dL Amylase <30 L (30-110) U/L Lipase 19 L (23-300) U/L Urine Color Urine Appearance (Clear) Urine pH (5.0-8.0) Ur Specific Robbins (1.001-1.035) Urine Protein (Negative) Urine Glucose (UA) (Negative) Urine Ketones (Negative) Urine Blood (Negative) Urine Nitrite (Negative) Urine Bilirubin (Negative) Urine Urobilinogen (<2.0) mg/dL Ur Leukocyte Esterase (Negative) Urine WBC (0-5) /hpf Urine WBC Clumps (None) /hpf Ur Squamous Epith Cells (0-4) /hpf Urine Bacteria (None) /hpf Urine Mucus (None) /hpf Urine HCG, Qual (Not Detectd) 01/26/18 01/26/18 Range/Units 22:34 22:34 WBC (3.8-10.6) k/uL RBC (3.80-5.40) m/uL Hgb (11.4-16.0) gm/dL Hct (34.0-46.0) % MCV (80.0-100.0) fL MCH (25.0-35.0) pg MCHC (31.0-37.0) g/dL RDW (11.5-15.5) % Plt Count (150-450) k/uL Neutrophils % % Lymphocytes % % Monocytes % % Eosinophils % % Basophils % % Neutrophils # (1.3-7.7) k/uL Lymphocytes # (1.0-4.8) k/uL Monocytes # (0-1.0) k/uL Eosinophils # (0-0.7) k/uL Basophils # (0-0.2) k/uL Sodium (137-145) mmol/L Potassium (3.5-5.1) mmol/L Chloride (98-107) mmol/L Carbon Dioxide (22-30) mmol/L Anion Gap mmol/L BUN (7-17) mg/dL Creatinine (0.52-1.04) mg/dL Est GFR (CKD-EPI)AfAm (>60 ml/min/1.73 sqM) Est GFR (CKD-EPI)NonAf (>60 ml/min/1.73 sqM) Glucose (74-99) mg/dL Plasma Lactic Acid Danny (0.7-2.0) mmol/L Calcium (8.4-10.2) mg/dL Total Bilirubin (0.2-1.3) mg/dL AST (14-36) U/L ALT (9-52) U/L Alkaline Phosphatase (38-126) U/L Total Protein (6.3-8.2) g/dL Albumin (3.5-5.0) g/dL Amylase (30-110) U/L Lipase (23-300) U/L Urine Color Yellow Urine Appearance Cloudy H (Clear) Urine pH 7.0 (5.0-8.0) Ur Specific Robbins 1.011 (1.001-1.035) Urine Protein 1+ H (Negative) Urine Glucose (UA) Negative (Negative) Urine Ketones Trace H (Negative) Urine Blood Moderate H (Negative) Urine Nitrite Negative (Negative) Urine Bilirubin Negative (Negative) Urine Urobilinogen <2.0 (<2.0) mg/dL Ur Leukocyte Esterase Large H (Negative) Urine WBC >182 H (0-5) /hpf Urine WBC Clumps Few H (None) /hpf Ur Squamous Epith Cells 4 (0-4) /hpf Urine Bacteria Many H (None) /hpf Urine Mucus Rare H (None) /hpf Urine HCG, Qual Not Detected (Not Detectd) Disposition Clinical Impression: Acute UTI (urinary tract infection), Ureteral stone with hydronephrosis, Hyperglycemia Disposition: ADMITTED IP TO THIS [facility] Condition: Fair Referrals: None,Stated [REFERRING] - 1-2 days
[2018-01-26 23:26] LABS: Appearance,Urine Cloudy (Clear); Bacteria,Urine Many /hpf; Bilirubin,Urine Negative (Negative); Blood,Urine Moderate (Negative); Color,Urine Yellow; Glucose,Urine (UA) Negative (Negative); Ketones,Urine Trace (Negative); Leukocyte Esterase,Urine Large (Negative); Mucus,Urine Rare /hpf; Nitrite,Urine Negative (Negative); Protein,Urine 1+ (Negative); Specific Gravity,Urine 1.011 (1.001-1.035); Squamous Epithelial Cell,Urine 4 /hpf (0-4); Urobilinogen,Urine <2.0 mg/dL (<2.0); WBC,Urine >182 /hpf (0-5)
[2018-01-26 23:27] LABS: Basophils % (A) 0 %; Eosinophils % (A) 0 %; HCT 37.3 % (34.0-46.0); HGB 12.3 gm/dL (11.4-16.0); Lymphocytes # (A) 1.3 k/uL (1.0-4.8); Lymphocytes % (A) 7 %; MCH 27.7 pg (25.0-35.0); MCV 83.7 fL (80.0-100.0); Monocytes # (A) 1.6 k/uL (0-1.0); Monocytes % (A) 9 %; Neutrophils # (A) 15.1 k/uL (1.3-7.7); Neutrophils % (A) 83 %; Platelet Count 237 k/uL (150-450); RBC 4.45 m/uL (3.80-5.40); WBC 18.2 k/uL (3.8-10.6)
[2018-01-26 23:35] LABS: ALT 26 U/L (9-52); AST 16 U/L (14-36); Albumin 3.2 g/dL (3.5-5.0); Alkaline Phosphatase 101 U/L (38-126); Amylase <30 U/L (30-110); Anion Gap 14 mmol/L; Blood Urea Nitrogen 13 mg/dL (7-17); Calcium 8.7 mg/dL (8.4-10.2); Carbon Dioxide 17 mmol/L (22-30); Chloride 103 mmol/L (98-107); Glucose 231 mg/dL (74-99); Lipase 19 U/L (23-300); Potassium 4.2 mmol/L (3.5-5.1); Sodium 134 mmol/L (137-145); Total Bilirubin 0.6 mg/dL (0.2-1.3); Total Protein 6.4 g/dL (6.3-8.2)
--- NOTE | 2018-01-26 23:41 | CT ---
EXAMINATION TYPE: CT abdomen pelvis wo con DATE OF EXAM: 01/26/2018 COMPARISON: 11/11/2016 HISTORY: Rt flank pain CT DLP: 1153 mGycm Automated exposure control for dose reduction was used. TECHNIQUE: Helical acquisition of images was performed from the lung bases through the pelvis. FINDINGS: The lung bases are clear of consolidation. There is no pleural effusion. There is some interstitial l inear density at the right lung base. There is no pericardial effusion. Liver spleen pancreas appear normal. Gallbladder is absent. There is moderate right-sided hydronephrosis and perinephric edema. Right kidney is enlarged. There i s 9 mm calculus at the right ureteropelvic junction. Bladder distends smoothly. Left kidney shows no hydronephrosis. There is a 1 cm calculus in the lower pole left kidney. There are small calculi in th e upper pole left kidney. There are multiple enlarged retroperitoneal lymph nodes that measure up to 1.5 cm. There is no ascites. Bladder distends smoothly. Uterus is anteverted. I see no bony destruct otilia process. IMPRESSION: RIGHT-SIDED HYDRONEPHROSIS AND PERINEPHRIC EDEMA RELATED TO OBSTRUCTING CALCULUS AT THE URETEROPELVIC JUNCTION. MULTIPLE LEFT RENAL CALCULI. OBSTRUCTION IS NEW COMPARED TO OLD EXAM. THERE IS ALSO NEW MODERATE RETROPERITONEAL ADENOPATHY COMPAR ED TO OLD EXAM. FOLLOW-UP IS RECOMMENDED.
[2018-01-26] MEDS ORDERED: LEVOFLOXACIN 750MG-D5W PMX 750 MG in DEXTROSE/WATER 1 150ML.BAG IVPB STA (23:55)
[2018-01-27] MEDS ORDERED: ACETAMINOPHEN TAB 325 MG TAB PO STA (00:29)
[2018-01-27] MEDS ORDERED: MORPHINE SULFATE 2 MG/ML SYRINGE IV STA (00:29)
[2018-01-27] MEDS ORDERED: ONDANSETRON 4 MG/2 ML VIAL IVP PRN (01:05)
[2018-01-27] MEDS ORDERED: NALOXONE 0.4 MG/ML 1 ML VIAL IV PRN (01:05)
[2018-01-27] MEDS ORDERED: ACETAMINOPHEN TAB 325 MG TAB PO PRN (01:05)
[2018-01-27] MEDS ORDERED: INSULIN REGULAR 100 UNIT/ML VIAL SQ STA (01:12)
[2018-01-27] MEDS: SODIUM CHLORIDE 0.9% 1,000 ML IV SCH ×7 (01:27→19:34)
[2018-01-27 02:03] VITALS: BMI 48.4
[2018-01-27] MEDS ORDERED: cefTRIAXone IN SWFI 1,000 MG/10 ML SYRINGE IVP STA (02:30)
[2018-01-27] MEDS: MORPHINE SULFATE 2 MG/ML SYRINGE IV PRN ×3 (03:48→13:43)
--- NOTE | 2018-01-27 04:21 | P.HPIM ---
History of Present Illness H&P Date: 01/27/18 Chief Complaint: I think I have a kidney stone The patient is a 43-year-old morbidly obese female with a past medical history of recurrent urolithiasis who presents to the ER with chief complaint of severe right-sided flank pain beginning 2 days ago, she describes the pain as sharp 10 out of 10 intermittent throbbing with radiation to the right side of her abdomen with associated nausea vomiting and decreased appetite , she reports intermittent episodes of fevers and chills over the last 2 days. The patient reports that she has been seen by urology previously and has had ESWL without any significant improvement. She reports a history of type 2 diabetes that is adequately controlled with her last known A1c of 6.6, she reports compliance with her insulin and add hypertensive regimen. She denied any chest pain shortness of breath or any hypoglycemic episodes. The patient has been reporting significant urinary symptoms such as dysuria, increased frequency and a strong smelling urine. She denies any diarrhea or constipation. In the ER she had a compensated workup including a CT abdomen and pelvis that showed right-sided hydronephrosis and prior for nephric edema related to obstructing calculus at the UPJ junction with multiple left renal calculi, there is also moderate retroperitoneal adenopathy, the patient was also noted to have a pronounced leukocytosis approximately 18.2, with a urinalysis suggestive of a UTI, serum sodium 134, creatinine 1.1 serum bicarb 17, and blood sugar 231. She was started on empiric IV antibiotics with Levaquin and given supportive therapy and recommended for admission, Review of Systems All other 12 point review of systems negative except per HPI Past Medical History Past Medical History: Diabetes Mellitus, GERD/Reflux, Hypertension, Osteoarthritis (OA), Sleep Apnea/CPAP/BIPAP Additional Past Medical History / Comment(s): chronic back pain, uti, kidney stones, stress incont of urine, does'nt have cpap machine, strong family history of premature coronary artery disease. History of Any Multi-Drug Resistant Organisms: None Reported Past Surgical History: Back Surgery, Section, Cholecystectomy Additional Past Surgical History / Comment(s): t8-t12 fusion Past Anesthesia/Blood Transfusion Reactions: No Reported Reaction Past Psychological History: Anxiety, Bipolar, Depression Additional Psychological History / Comment(s): in the past tx for anxiety depression none now Smoking Status: Current every day smoker Past Alcohol Use History: None Reported Additional Past Alcohol Use History / Comment(s): smokes about a half a pack a day Past Drug Use History: None Reported - Past Family History Father Family Medical History: Diabetes Mellitus Mother Additional Family Medical History / Comment(s): bipolar depression anxiety Medications and Allergies Home Medications Medication Instructions Recorded Confirmed Type Insulin Glargine [Lantus] 30 unit SQ DAILY 02/03/14 01/26/18 History INSULIN LISPRO (HumaLOG) [humaLOG] 6 units SQ AC-TID 08/01/16 01/26/18 History Ibuprofen [Motrin] 800 mg PO Q8HR PRN 09/22/16 01/26/18 History Metoprolol Tartrate [Lopressor] 50 mg PO TID 09/22/16 01/26/18 History Losartan Potassium [Cozaar] 25 mg PO DAILY 09/04/17 01/26/18 History Furosemide [Lasix] 20 mg PO DAILY 01/26/18 01/26/18 History Omeprazole [PriLOSEC] 20 mg PO AC-BRKFST 01/26/18 01/26/18 History Allergies Allergy/AdvReac Type Severity Reaction Status Date / Time hydrochlorothiazide Allergy Dyspnea Verified 01/26/18 22:31 [From Zestoretic] insulin glargine Allergy Rash/Hives Verified 01/26/18 22:31 [From Basaglar KwikPen] lisinopril [From Zestoretic] Allergy Dyspnea Verified 01/26/18 22:31 Physical Exam Vitals: Vital Signs Temp Pulse Resp BP Pulse Ox 01/27/18 00:08 101.6 F H 01/26/18 22:12 101.4 F H 125 H 20 128/87 97 Intake and Output 01/26/18 01/26/18 01/27/18 14:59 22:59 06:59 Other: Weight 136.078 kg 136.078 kg Constitutional: No acute distress, conversant, pleasant Eyes: Anicteric sclerae, moist conjunctiva, no lid-lag, PERRLA ENMT: NC/AT,Oropharynx clear, no erythema, exudates Neck:Supple, FROM, no masses, or JVD, No carotid bruits; No thyromegaly Lungs: Clear to auscultation, Clear to percussion, Normal respiratory effort, no accessory muscle use Cardiovascular: Heart regular in rate and rhythm, No murmurs, gallops, or rubs no peripheral edema Abdominal: Soft Nontender, nom distended, no guarding, no rebound or rigidity, Normoactive bowel sounds No hepatomegaly, No splenomegaly, No palpable mass No abdominal wall hernia noted, right CVA tenderness Skin: Normal temperature, tone, texture, turgor, No induration No subcutaneous nodules, No rash, lesions, No ulcers Extremities:No digital cyanosis No clubbing, Pedal pulses intact and symmetrical Radial pulses intact and symmetrical Normal gait and station, No calf tenderness Psychiatric: Alert and oriented to person, place and time, Appropriate affect Intact judgement Neuro: Muscles Strength 5/5 in all 4 extremities, Sensation to light touch grossly present throughout, Cranial nerves II-XII grossly intact. No focal sensory deficits Results CBC & Chem 7: 01/26/18 22:34 01/26/18 22:34 Labs: Abnormal Lab Results - Last 24 Hours (Table) 01/26/18 01/26/18 01/26/18 Range/Units 22:34 22:34 22:34 WBC 18.2 H (3.8-10.6) k/uL Neutrophils # 15.1 H (1.3-7.7) k/uL Monocytes # 1.6 H (0-1.0) k/uL Sodium 134 L (137-145) mmol/L Carbon Dioxide 17 L (22-30) mmol/L Creatinine 1.10 H (0.52-1.04) mg/dL Glucose 231 H (74-99) mg/dL Albumin 3.2 L (3.5-5.0) g/dL Amylase <30 L (30-110) U/L Lipase 19 L (23-300) U/L Urine Appearance Cloudy H (Clear) Urine Protein 1+ H (Negative) Urine Ketones Trace H (Negative) Urine Blood Moderate H (Negative) Ur Leukocyte Esterase Large H (Negative) Urine WBC >182 H (0-5) /hpf Urine WBC Clumps Few H (None) /hpf Urine Bacteria Many H (None) /hpf Urine Mucus Rare H (None) /hpf CT scan - abdomen: other (Right-sided hydronephrosis and perinephric edema related to obstructing calculus at the ureteropelvic junction with multiple left renal calculi. Moderate retroperitoneal adenopathy follow-up recommended) Thrombosis Risk Factor Assmnt - Choose All That Apply Each Factor Represents 1 point: Age 41-60 years Thrombosis Risk Factor Assessment Total Risk Factor Score: 1 Thrombosis Risk Factor Assessment Level: Low Risk Assessment and Plan Assessment: Chronic medical conditions Essential hypertension GERD Obstructive sleep apnea CODE STATUS Full code (1) Sepsis Current Visit: No Status: Acute Code(s): A41.9 - SEPSIS, UNSPECIFIED ORGANISM SNOMED Code(s): 53774982 (2) Hydronephrosis concurrent with and due to calculi of kidney and ureter Current Visit: Yes Status: Acute Code(s): N13.2 - HYDRONEPHROSIS WITH RENAL AND URETERAL CALCULOUS OBSTRUCTION SNOMED Code(s): 730931922 (3) UTI (urinary tract infection) Current Visit: No Status: Acute Code(s): N39.0 - URINARY TRACT INFECTION, SITE NOT SPECIFIED SNOMED Code(s): 78122774 (4) Type 2 diabetes mellitus with hyperglycemia Current Visit: Yes Status: Acute Code(s): E11.65 - TYPE 2 DIABETES MELLITUS WITH HYPERGLYCEMIA SNOMED Code(s): 550134969802736 (5) Retroperitoneal lymphadenopathy Current Visit: Yes Status: Acute Code(s): R59.0 - LOCALIZED ENLARGED LYMPH NODES SNOMED Code(s): 084606660 (6) Hyponatremia Current Visit: Yes Status: Acute Code(s): E87.1 - HYPO-OSMOLALITY AND HYPONATREMIA SNOMED Code(s): 56607848 Plan: The patient is admitted anticipated greater than 2 midnight stay with sepsis secondary to right sided ureterolithiasis with obstruction and subsequent hydronephrosis, the patient is normotensive but tachycardic a serum lactate level was normal, patient initiated on 2 L bolus with a repeat 1.5 L bolus with maintenance fluids N at 125 mL an hour with empiric IV antibiotics with Rocephin rather than Levaquin to get a more broad spectrum coverage, urine culture and blood cultures have been ordered. Urology Dr. Sosa is consulted for further recommendations. Continue supportive therapy with antiemetics Zofran and morphine for pain. She patient is resumed on her home insulin regimen with Accu-Cheks every before meals and at bedtime and A1c pending with correctional insulin coverage scale. I will continue clear liquids and continue to follow her clinical course. Patient is placed on DVT and GI prophylaxis With Lovenox and Protonix respectively. Upon discharge patient will need to follow up with her PCP with regards to her retroperitoneal lymphadenopathy.
[2018-01-27] MEDS: SODIUM CHLORIDE 0.9% 500 ML IV SCH ×2 (05:15→05:17)
[2018-01-27] MEDS: HYDROcodone/APAP 5-325MG 1 EACH TAB PO PRN ×3 (06:21→22:41)
[2018-01-27 07:08] LABS: Glucose,Whole Blood 169 mg/dL (75-99)
[2018-01-27] MEDS ORDERED: PANTOPRAZOLE 40 MG TABLET PO SCH (07:30)
[2018-01-27 07:48] LABS: Calcium 8.3 mg/dL (8.4-10.2); Potassium 4.1 mmol/L (3.5-5.1)
[2018-01-27 07:53] LABS: Basophils # (A) 0.1 k/uL (0-0.2); Basophils % (A) 0 %; Eosinophils # (A) 0.1 k/uL (0-0.7); Eosinophils % (A) 1 %; HCT 34.4 % (34.0-46.0); HGB 11.6 gm/dL (11.4-16.0); Lymphocytes # (A) 1.5 k/uL (1.0-4.8); Lymphocytes % (A) 10 %; MCH 28.6 pg (25.0-35.0); MCHC 33.7 g/dL (31.0-37.0); Mean Platelet Volume 9.1; Monocytes # (A) 0.9 k/uL (0-1.0); Monocytes % (A) 6 %; Neutrophils # (A) 12.7 k/uL (1.3-7.7); Neutrophils % (A) 83 %; Platelet Count 209 k/uL (150-450); RBC 4.05 m/uL (3.80-5.40); RDW 15.1 % (11.5-15.5); WBC 15.3 k/uL (3.8-10.6)
[2018-01-27] MEDS ORDERED: HYDROmorphone 0.5 MG/0.5 ML SYRINGE IVP STA (09:09)
[2018-01-27] MEDS: INSULIN ASPART 100 UNIT/ML 1 ML 10 ML VIAL SQ SCH ×6 (09:11→19:35)
[2018-01-27] MEDS: PANTOPRAZOLE 40 MG/10 ML VIAL IVP SCH (09:32)
[2018-01-27] MEDS: METOPROLOL TARTRATE 50 MG TAB PO SCH ×3 (09:37→20:48)
[2018-01-27] MEDS: TAMSULOSIN 0.4 MG CAP.ER.24H PO SCH (09:37)
[2018-01-27] MEDS: LOSARTAN 25 MG TAB PO SCH (09:37)
[2018-01-27] MEDS: INSULIN DETEMIR 100 UNIT/ML 10 ML VIAL SQ SCH (10:56)
[2018-01-27 11:18] LABS: Glucose,Whole Blood 186 mg/dL (75-99)
--- NOTE | 2018-01-27 13:01 | P.GSCN ---
History of Present Illness Consult date: 01/27/18 Reason for Consult: Right hydronephrosis History of present illness: The patient is a 43-year-old female with a history of urolithiasis and recurrent urinary tract infections who was admitted through the emergency room early this morning for treatment of severe right flank pain and a temperature of 101.6. The patient says that her problem began 2 or 3 days ago when she noted her urine was darker and had an odor. She says she also experienced some intermittent pain in the right flank and chills. She said her temperature was as high as 104. She developed severe right flank pain yesterday evening associated with nausea and came to the emergency room for evaluation. White blood count was 18,200. BUN/creatinine were 13/1.10. Bicarb was 17. Urinalysis showed a pH of 7 many bacteria and greater than 182 white blood cells. Computed tomography scan of the abdomen and pelvis with out IV contrast identified moderate right hydronephrosis secondary to a 6 x 9 mm calculus at the right ureteral pelvic junction. There was also a 4 x 10 mm nonobstructive calculus in the lower pole of the left kidney. The patient has been started on antibiotics and has been given acetaminophen for her fever. At the present time she is more comfortable and is afebrile. The patient says that she was seen by approximately 3 years ago and he removed a "stent. The stent had been placed by another physician but she could not recall whether a calculus had been removed at that time. The patient says she's had intermittent urinary tract infections and has been treated earlier this year for 1. She says she's also passed several small calculi. Review of Systems - Constitutional Reports chills, Reports fever, Reports sweats - Respiratory Denies cough, Denies wheezing - Gastrointestinal Reports as per HPI - Genitourinary Genitourinary: Reports as per HPI Past Medical History Past Medical History: Diabetes Mellitus, GERD/Reflux, Hypertension, Osteoarthritis (OA), Sleep Apnea/CPAP/BIPAP Additional Past Medical History / Comment(s): chronic back pain, uti, kidney stones, stress incont of urine, does'nt have cpap machine, strong family history of premature coronary artery disease. History of Any Multi-Drug Resistant Organisms: None Reported Past Surgical History: Back Surgery, Section, Cholecystectomy Additional Past Surgical History / Comment(s): t8-t12 fusion Past Anesthesia/Blood Transfusion Reactions: No Reported Reaction Past Psychological History: Anxiety, Bipolar, Depression Additional Psychological History / Comment(s): in the past tx for anxiety depression none now Smoking Status: Current every day smoker Past Alcohol Use History: None Reported Additional Past Alcohol Use History / Comment(s): smokes about a half a pack a day Past Drug Use History: None Reported - Past Family History Father Family Medical History: Diabetes Mellitus Mother Additional Family Medical History / Comment(s): bipolar depression anxiety Medications and Allergies Home Medications Medication Instructions Recorded Confirmed Type Insulin Glargine [Lantus] 30 unit SQ DAILY 02/03/14 01/26/18 History INSULIN LISPRO (HumaLOG) [humaLOG] 6 units SQ AC-TID 08/01/16 01/26/18 History Ibuprofen [Motrin] 800 mg PO Q8HR PRN 09/22/16 01/26/18 History Metoprolol Tartrate [Lopressor] 50 mg PO TID 09/22/16 01/26/18 History Losartan Potassium [Cozaar] 25 mg PO DAILY 09/04/17 01/26/18 History Furosemide [Lasix] 20 mg PO DAILY 01/26/18 01/26/18 History Omeprazole [PriLOSEC] 20 mg PO AC-BRKFST 01/26/18 01/26/18 History Allergies Allergy/AdvReac Type Severity Reaction Status Date / Time hydrochlorothiazide Allergy Dyspnea Verified 01/26/18 22:31 [From Zestoretic] insulin glargine Allergy Rash/Hives Verified 01/26/18 22:31 [From Basaglar KwikPen] lisinopril [From Zestoretic] Allergy Dyspnea Verified 01/26/18 22:31 Surgical - Exam Vital Signs Temp Pulse Resp BP Pulse Ox 101.4 F H 125 H 20 128/87 97 01/26/18 22:12 01/26/18 22:12 01/26/18 22:12 01/26/18 22:12 01/26/18 22:12 - General well developed, well nourished, no pain, obese - Respiratory normal respiratory effort - Abdomen Abdomen: tender (Right upper quadrant and right flank), no organomegaly Results - Labs 01/27/18 03:45 01/27/18 03:45 Abnormal Lab Results - Last 24 Hours (Table) 01/26/18 01/26/18 01/26/18 Range/Units 22:34 22:34 22:34 WBC 18.2 H (3.8-10.6) k/uL Neutrophils # 15.1 H (1.3-7.7) k/uL Monocytes # 1.6 H (0-1.0) k/uL Sodium 134 L (137-145) mmol/L Carbon Dioxide 17 L (22-30) mmol/L Creatinine 1.10 H (0.52-1.04) mg/dL Glucose 231 H (74-99) mg/dL POC Glucose (mg/dL) (75-99) mg/dL Calcium (8.4-10.2) mg/dL Albumin 3.2 L (3.5-5.0) g/dL Amylase <30 L (30-110) U/L Lipase 19 L (23-300) U/L Urine Appearance Cloudy H (Clear) Urine Protein 1+ H (Negative) Urine Ketones Trace H (Negative) Urine Blood Moderate H (Negative) Ur Leukocyte Esterase Large H (Negative) Urine WBC >182 H (0-5) /hpf Urine WBC Clumps Few H (None) /hpf Urine Bacteria Many H (None) /hpf Urine Mucus Rare H (None) /hpf 01/27/18 01/27/18 01/27/18 Range/Units 03:45 03:45 07:04 WBC 15.3 H (3.8-10.6) k/uL Neutrophils # 12.7 H (1.3-7.7) k/uL Monocytes # (0-1.0) k/uL Sodium 134 L (137-145) mmol/L Carbon Dioxide 19 L (22-30) mmol/L Creatinine 1.15 H (0.52-1.04) mg/dL Glucose 200 H (74-99) mg/dL POC Glucose (mg/dL) 169 H (75-99) mg/dL Calcium 8.3 L (8.4-10.2) mg/dL Albumin (3.5-5.0) g/dL Amylase (30-110) U/L Lipase (23-300) U/L Urine Appearance (Clear) Urine Protein (Negative) Urine Ketones (Negative) Urine Blood (Negative) Ur Leukocyte Esterase (Negative) Urine WBC (0-5) /hpf Urine WBC Clumps (None) /hpf Urine Bacteria (None) /hpf Urine Mucus (None) /hpf 01/27/18 Range/Units 11:13 WBC (3.8-10.6) k/uL Neutrophils # (1.3-7.7) k/uL Monocytes # (0-1.0) k/uL Sodium (137-145) mmol/L Carbon Dioxide (22-30) mmol/L Creatinine (0.52-1.04) mg/dL Glucose (74-99) mg/dL POC Glucose (mg/dL) 186 H (75-99) mg/dL Calcium (8.4-10.2) mg/dL Albumin (3.5-5.0) g/dL Amylase (30-110) U/L Lipase (23-300) U/L Urine Appearance (Clear) Urine Protein (Negative) Urine Ketones (Negative) Urine Blood (Negative) Ur Leukocyte Esterase (Negative) Urine WBC (0-5) /hpf Urine WBC Clumps (None) /hpf Urine Bacteria (None) /hpf Urine Mucus (None) /hpf Microbiology - Last 24 Hours (Table) 01/26/18 22:34 Urine Culture - Preliminary Urine,Voided Diabetes panel 01/26/18 01/27/18 Range/Units 22:34 03:45 Sodium 134 L 134 L (137-145) mmol/L Potassium 4.2 4.1 (3.5-5.1) mmol/L Chloride 103 103 (98-107) mmol/L Carbon Dioxide 17 L 19 L (22-30) mmol/L BUN 13 15 (7-17) mg/dL Creatinine 1.10 H 1.15 H (0.52-1.04) mg/dL Glucose 231 H 200 H (74-99) mg/dL Calcium 8.7 8.3 L (8.4-10.2) mg/dL AST 16 (14-36) U/L ALT 26 (9-52) U/L Alkaline Phosphatase 101 (38-126) U/L Total Protein 6.4 (6.3-8.2) g/dL Albumin 3.2 L (3.5-5.0) g/dL Calcium panel 01/26/18 01/27/18 Range/Units 22:34 03:45 Calcium 8.7 8.3 L (8.4-10.2) mg/dL Albumin 3.2 L (3.5-5.0) g/dL Pituitary panel 01/26/18 01/27/18 Range/Units 22:34 03:45 Sodium 134 L 134 L (137-145) mmol/L Potassium 4.2 4.1 (3.5-5.1) mmol/L Chloride 103 103 (98-107) mmol/L Carbon Dioxide 17 L 19 L (22-30) mmol/L BUN 13 15 (7-17) mg/dL Creatinine 1.10 H 1.15 H (0.52-1.04) mg/dL Glucose 231 H 200 H (74-99) mg/dL Calcium 8.7 8.3 L (8.4-10.2) mg/dL Adrenal panel 01/26/18 01/27/18 Range/Units 22:34 03:45 Sodium 134 L 134 L (137-145) mmol/L Potassium 4.2 4.1 (3.5-5.1) mmol/L Chloride 103 103 (98-107) mmol/L Carbon Dioxide 17 L 19 L (22-30) mmol/L BUN 13 15 (7-17) mg/dL Creatinine 1.10 H 1.15 H (0.52-1.04) mg/dL Glucose 231 H 200 H (74-99) mg/dL Calcium 8.7 8.3 L (8.4-10.2) mg/dL Total Bilirubin 0.6 (0.2-1.3) mg/dL AST 16 (14-36) U/L ALT 26 (9-52) U/L Alkaline Phosphatase 101 (38-126) U/L Total Protein 6.4 (6.3-8.2) g/dL Albumin 3.2 L (3.5-5.0) g/dL Assessment and Plan (1) Hydronephrosis concurrent with and due to calculi of kidney and ureter Narrative/Plan: The patient has right hydronephrosis secondary to a 6 x 9 mm calculus at the right ureteropelvic junction. This appears to be complicated by a urinary tract infection and sepsis. The patient has diabetes and is at high risk for complications of sepsis and in view of this I believe that placement of a right double-J catheter should be performed later today to ensure that the right kidney is draining adequately. This will improve antibiotic penetration to the right kidney so that if the patient does have pyelonephritis the infection can be eliminated prior to elective treatment of the obstructive calculus. Current Visit: Yes Status: Acute Code(s): N13.2 - HYDRONEPHROSIS WITH RENAL AND URETERAL CALCULOUS OBSTRUCTION SNOMED Code(s): 508877205
[2018-01-27] MEDS ORDERED: IV FLUID CONTINUATION 1,000 ML IV ONE (15:26)
[2018-01-27] MEDS ORDERED: fentaNYL (PF) 50 MCG/ML 2 ML AMP IVP ONE ×2 (16:35)
[2018-01-27] MEDS ORDERED: PROPOFOL 10 MG/ML 20 ML VIAL IV ONE (16:58)
[2018-01-27] MEDS ORDERED: fentaNYL (PF) 50 MCG/ML 2 ML AMP ONE (16:58)
[2018-01-27] MEDS ORDERED: MIDAZOLAM 2 MG/2 ML VIAL ONE (16:58)
[2018-01-27] MEDS ORDERED: LACTATED RINGERS 1,000 ML IV ONE (17:25)
--- NOTE | 2018-01-27 17:39 | P.OP ---
Date of Procedure: 01/27/18 Preoperative Diagnosis: Right hydronephrosis secondary to proximal right ureteral calculus Postoperative Diagnosis: Right hydronephrosis secondary to proximal right ureteral calculus Procedure(s) Performed: Cystoscopy with collection of urine from right renal pelvis for culture and placement of right JJ catheter Anesthesia: MAC Surgeon: Segundo Sosa Estimated Blood Loss (ml): 0 Pathology: other (Culture from right renal pelvis) Condition: stable Disposition: PACU Indications for Procedure: The patient is a 43-year-old female with diabetes admitted earlier today with a fever and right flank pain. Computed tomography scan identified a 6 x 9 mm obstructive calculus in the proximal right ureter or ureteropelvic junction with secondary hydronephrosis. The patient has a urinary tract infection and probable sepsis complicated by the obstructive calculus. Placement of a double- J catheter is planned for decompression of the right kidney. Description of Procedure: The patient was taken the operating suite and placed in the dorsal lithotomy position on the fluoroscopy table. Her legs were suspended from padded Vadim stirrups. Pneumatic compression stockings were applied to the lower legs. Intravenous sedation was given. The perineum was prepped with Betadine soap and draped in a sterile fashion. The external genitalia and urethral meatus were unremarkable. The 22-Austrian cystoscope with 30 lens was passed through the urethra and into the bladder. The bladder contained cloudy-appearing urine. Both ureteral orifice ease were normal location and configuration. A 6- Austrian open-ended ureteral catheter was advanced through the right ureteral orifice and into the mid right ureter. Under fluoroscopic guidance a 0.035 Glidewire was advanced through the open-ended ureteral catheter and then up into the region of the renal pelvis bypassing the obstructive calculus. The open-ended ureteral catheter was then advanced over the Glidewire, past the calculus and into the renal pelvis. The Glidewire was withdrawn and approximally 4 mL of cloudy urine was withdrawn from the renal pelvis and submitted for culture. The Glidewire was replaced and the open-ended ureteral catheter was removed leaving the guidewire within the ureter. A 6-Austrian by 24 cm double-J catheter was then advanced over the Glidewire and positioned using fluoroscopy so that the proximal end coiled in the region of renal pelvis and the distal end coiled in the bladder cloudy urine drained through the double-J catheter. The bladder was drained and the procedure was terminated Patient tolerated procedure well and left the operative room awake and in satisfactory condition.
[2018-01-27 17:54] LABS: Glucose,Whole Blood 127 mg/dL (75-99)
[2018-01-27] MEDS: HYDROmorphone 0.5 MG/0.5 ML SYRINGE IVP ONE ×2 (18:05→18:11)
[2018-01-27] MEDS: ENOXAPARIN 40 MG/0.4 ML SYRINGE SQ SCH (19:34)
[2018-01-27] MEDS ORDERED: ZOLPIDEM 5 MG TAB PO PRN (19:51)
[2018-01-27] MEDS: HYDROmorphone 0.5 MG/0.5 ML SYRINGE IVP PRN ×2 (20:22→23:42)
[2018-01-27 20:47] LABS: Glucose,Whole Blood 132 mg/dL (75-99)
[2018-01-27 21:49] VITALS: RESP 17
[2018-01-27] MEDS ORDERED: LEVOFLOXACIN 750MG-D5W PMX 750 MG in DEXTROSE/WATER 1 150ML.BAG IVPB SCH (23:00)
[2018-01-28] MEDS: INSULIN ASPART 100 UNIT/ML 1 ML 10 ML VIAL SQ SCH ×3 (00:14→08:30)
[2018-01-28] MEDS: SODIUM CHLORIDE 0.9% 1,000 ML IV SCH ×2 (00:15→04:44)
[2018-01-28 01:30] VITALS: BP 111/63; PULSE 66; TEMP 97.5
[2018-01-28] MEDS: HYDROmorphone 0.5 MG/0.5 ML SYRINGE IVP PRN ×3 (03:35→08:24)
[2018-01-28] MEDS ORDERED: cefTRIAXone IN SWFI 1,000 MG/10 ML SYRINGE IVP SCH ×2 (06:00→09:00)
[2018-01-28 06:43] LABS: Basophils % (A) 0 %; Eosinophils # (A) 0.1 k/uL (0-0.7); Eosinophils % (A) 1 %; HCT 31.6 % (34.0-46.0); HGB 10.3 gm/dL (11.4-16.0); Lymphocytes # (A) 1.6 k/uL (1.0-4.8); Lymphocytes % (A) 9 %; MCH 27.7 pg (25.0-35.0); MCHC 32.5 g/dL (31.0-37.0); MCV 85.4 fL (80.0-100.0); Mean Platelet Volume 8.3; Monocytes # (A) 1.3 k/uL (0-1.0); Monocytes % (A) 7 %; Neutrophils # (A) 15.1 k/uL (1.3-7.7); Neutrophils % (A) 82 %; Platelet Count 199 k/uL (150-450); RDW 15.4 % (11.5-15.5); WBC 18.4 k/uL (3.8-10.6)
[2018-01-28 06:54] LABS: Calcium 7.8 mg/dL (8.4-10.2); Potassium 4.1 mmol/L (3.5-5.1)
[2018-01-28 07:22] LABS: Glucose,Whole Blood 162 mg/dL (75-99)
--- NOTE | 2018-01-28 07:45 | P.PN ---
Progress Note - Text Progress Note Date: 01/28/18 The patient is currently afebrile but did have a temperature 102.6 yesterday evening. She is hemodynamically stable. She says her right flank pain is improved and she wants to be advanced to a regular diet. White blood count is 18,400. BUN/creatinine are 18/1.24. The patient said that she wants to go home today but I convinced her that she needs to stay and receive IV antibiotics until we have the results of her urine culture back.
[2018-01-28] MEDS: PANTOPRAZOLE 40 MG/10 ML VIAL IVP SCH ×2 (08:14→08:28)
[2018-01-28] MEDS: ENOXAPARIN 40 MG/0.4 ML SYRINGE SQ SCH (08:15)
[2018-01-28] MEDS: TAMSULOSIN 0.4 MG CAP.ER.24H PO SCH (08:15)
[2018-01-28] MEDS: LOSARTAN 25 MG TAB PO SCH (08:15)
[2018-01-28] MEDS: METOPROLOL TARTRATE 50 MG TAB PO SCH (08:15)
[2018-01-28] MEDS: INSULIN DETEMIR 100 UNIT/ML 10 ML VIAL SQ SCH (08:31)
--- NOTE | 2018-01-28 10:24 | FL ---
Fluoroscopy HISTORY: Right-sided cystogram 4 seconds fluoroscopy time supplied to the referring clinician. 1 intraoperative C-arm images docume nt the procedure. See dictated report from urology
--- NOTE | 2018-01-28 11:10 | CDI ---
Last Revision, July 2017 Documentation Clarification Form Date: 01/28/18 1108 From: Maggie Barajas RN, CCDS Admit Date: 01/27/2018 12:24:00 AM Patient Name: Linda Beckman Visit Number: [id number] ATTENTION: The Clinical Documentation Specialists (CDI) and [facility] Coding Staff appreciate your assistance in clarifying documentation. Please respond to the clarification below the line at the bottom and electronically sign. The CDI & [facility] Coding staff will review the response and follow-up if needed. Please note: Queries are made part of the Legal Health Record. If you have any questions, please contact the author of this message via ITS. Dr. Alessandro Dubose Please indicate clinical significance of below noted labs and treatment. History/Risk Factors: Kidney stones with right flank pain, DM, HTN, UTI, Kidney stones, Stress incontinence 09/04/17 Patients baseline BUN/CR/GFR: 10/.72/ >60 Clinical Indicators: Current BUN: Cr: 1.1/1.15/1.24 GFR: 62/59/54 Op Note: Right hydronephrosis secondary to proximal right ureteral calculus Treatment: Consults: Urology IVF: 1L In order to capture the severity of condition, please clarify if the condition signifies: Unable to determine Please continue to document in your progress notes and discharge summary in order to capture severity of illness and risk of mortality. Include clinical findings that support your diagnosis. MTDD
[2018-01-28 12:02] LABS: Glucose,Whole Blood 167 mg/dL (75-99)
--- NOTE | 2018-01-28 12:55 | P.PN ---
Subjective Progress Note Date: 01/28/18 Principal diagnosis: Fever Patient has been very uncomfortable and angry a cause of frequent awakening last night. She was awakened 15 times according to her. She is still having pain in the right side of the ABDOMEN. No nausea or vomiting. She spiked a fever last night 102.4. Objective - Vital Signs Vital signs: Vital Signs Temp 97.5 F L 01/28/18 00:43 Pulse 66 01/28/18 00:43 Resp 17 01/28/18 00:43 BP 111/63 01/28/18 00:43 Pulse Ox 93 L 01/28/18 00:43 Intake & Output 01/27/18 01/28/18 01/28/18 18:59 06:59 18:59 Intake Total 2020 900 Output Total 100 100 Balance 1920 800 Intake: IV 1000 Intake, IV Titration 1000 900 Amount Sodium Chloride 0.9% 1, 1000 900 000 ml @ 200 mls/hr IV . Q5H LEONIE Rx#:[id number] Oral 20 Output: Urine 100 100 Estimated Blood Loss 0 Other: Voiding Method Toilet Toilet Toilet # Voids 1 5 - Exam Constitutional: No acute distress, conversant, pleasant Eyes:Anicteric sclerae, moist conjunctiva, no lid-lag, PERRLA, ENMT: Oropharynx clear, no erythema, exudates Neck: Supple, FROM, no masses, or JVD, No carotid bruits, No thyromegaly Lungs: Clear to auscultation, Clear to percussion, Normal respiratory effort, no accessory muscle use Cardiovascular: Heart regular in rate and rhythm, No murmurs, gallops, or rubs, No peripheral edema Abdominal: Right flank tenderness, Soft, no guarding, rebound or rigidity, Normoactive bowel sounds, No hepatomegaly, No splenomegaly, No palpable mass Skin: Normal temperature, tone, texture, turgor, no induration, No subcutaneous nodules, No rash, lesions, No ulcers Extremities: No digital cyanosis, No clubbing, Pedal pulses intact and symmetrical, Radial pulses intact and symmetrical, No calf tenderness Psychiatric: Alert and oriented to person, place and time, appropriate affect, intact judgement Neuro: Muscles Strength 5/5 in all 4 extremities, Sensation to light touch grossly present throughout, Cranial nerves II-XII grossly intact, no focal sensory deficits - Labs CBC & Chem 7: 01/28/18 06:10 01/28/18 06:10 Labs: Abnormal Lab Results - Last 24 Hours (Table) 01/27/18 01/27/18 01/27/18 Range/Units 03:28 17:52 20:26 WBC (3.8-10.6) k/uL RBC (3.80-5.40) m/uL Hgb (11.4-16.0) gm/dL Hct (34.0-46.0) % Neutrophils # (1.3-7.7) k/uL Monocytes # (0-1.0) k/uL Chloride (98-107) mmol/L Carbon Dioxide (22-30) mmol/L BUN (7-17) mg/dL Creatinine (0.52-1.04) mg/dL Glucose (74-99) mg/dL POC Glucose (mg/dL) 127 H 132 H (75-99) mg/dL Hemoglobin A1c 8.0 H (4.0-6.0) % Calcium (8.4-10.2) mg/dL 01/28/18 01/28/18 01/28/18 Range/Units 06:10 06:10 07:00 WBC 18.4 H (3.8-10.6) k/uL RBC 3.70 L (3.80-5.40) m/uL Hgb 10.3 L (11.4-16.0) gm/dL Hct 31.6 L (34.0-46.0) % Neutrophils # 15.1 H (1.3-7.7) k/uL Monocytes # 1.3 H (0-1.0) k/uL Chloride 110 H (98-107) mmol/L Carbon Dioxide 19 L (22-30) mmol/L BUN 18 H (7-17) mg/dL Creatinine 1.24 H (0.52-1.04) mg/dL Glucose 159 H (74-99) mg/dL POC Glucose (mg/dL) 162 H (75-99) mg/dL Hemoglobin A1c (4.0-6.0) % Calcium 7.8 L (8.4-10.2) mg/dL 01/28/18 Range/Units 11:52 WBC (3.8-10.6) k/uL RBC (3.80-5.40) m/uL Hgb (11.4-16.0) gm/dL Hct (34.0-46.0) % Neutrophils # (1.3-7.7) k/uL Monocytes # (0-1.0) k/uL Chloride (98-107) mmol/L Carbon Dioxide (22-30) mmol/L BUN (7-17) mg/dL Creatinine (0.52-1.04) mg/dL Glucose (74-99) mg/dL POC Glucose (mg/dL) 167 H (75-99) mg/dL Hemoglobin A1c (4.0-6.0) % Calcium (8.4-10.2) mg/dL Microbiology - Last 24 Hours (Table) 01/26/18 22:34 Urine Culture - Preliminary Urine,Voided Gram Neg Bacilli 01/27/18 03:28 Blood Culture - Preliminary Blood No Growth after 24 hours 01/27/18 03:45 Blood Culture - Preliminary Blood No Growth after 24 hours 01/27/18 17:32 Urine Culture - Preliminary Urine,Catheterized Assessment and Plan Plan: Acute sepsis/acute pyelonephritis with retroperitoneal lymphadenopathy Blood cultures are still negative, urine cultures pending, likely secondary to UTI Continue ceftriaxone Patient wants to go home but from the medical point of view this is not possible at this point in time, if she insists she needs to sign AMA. Continue IV fluids Hydronephrosis concurrent with and due to calculi of kidney and ureter/acute urinary tract infection Status post double-J stents by urology Discussed with urology today. Type 2 diabetes mellitus with hyperglycemia Continue home insulin regimen, blood sugars stable Current Visit: Yes Status: Acute Code(s): E11.65 - TYPE 2 DIABETES MELLITUS WITH HYPERGLYCEMIA SNOMED Code(s): 810139075168561 Disposition: Home Anticipated discharge: 1-2 days.
--- NOTE | 2018-01-29 17:42 | P.DS ---
Providers Date of admission: 01/27/18 00:24 Expected date of discharge: 01/28/18 Attending physician: Brady Morrison MD Consults: 01/27/18 01:05 Consult Physician Routine Consulting Provider: Segundo Sosa Consult Reason/Comments: ureterolithiasis Do you want consulting provider notified?: Yes 01/27/18 03:29 Consult Physician Routine Consulting Provider: Lino Glasgow Consult Reason/Comments: Kidney Stones Do you want consulting provider notified?: Yes Primary care physician: [facility] Hospital Course: 43-year-old morbidly obese female with a past medical history of recurrent urolithiasis who presented to the ER with chief complaint of severe right-sided flank pain beginning 2 days prior to presentation, she described the pain as sharp 10 out of 10 intermittent, throbbing with radiation to the right side of her abdomen with associated nausea vomiting and decreased appetite , she reported intermittent episodes of fevers and chills over the last 2 days. The patient also reported that she has been seen by urology previously and has had ESWL without any significant improvement. Patient has a history of type 2 diabetes that is adequately controlled with her last known A1c of 6.6, she reports compliance with her insulin. She denied any chest pain shortness of breath or any hypoglycemic episodes. The patient also reported significant urinary symptoms such as dysuria, increased frequency and a strong smelling urine. She denied any diarrhea or constipation. In the ER she had a CT abdomen and pelvis that showed right-sided hydronephrosis and perinephric edema related to obstructing calculus at the UPJ junction with multiple left renal calculi, there was also moderate retroperitoneal adenopathy, laboratory testing revealed leukocytosis approximately 18.2, with a urinalysis suggestive of a UTI, serum sodium 134, creatinine 1.1 serum bicarb 17, and blood sugar 231. She was started on empiric IV antibiotics with Levaquin, IV fluids and was subsequently admitted to the hospital for further evaluation and management. Obviously her clinical presentation was consistent with right hydronephrosis/pyelonephritis secondary to proximal right ureteral calculus. Urine and blood cultures were obtained. Pain was controlled with opiates, her IV fluids were increased to 200 mL per hour when I saw her. She was seen by urology who did cystoscopy with collection of urine from right renal pelvis for culture and placement of right JJ catheter. Patient continued to have fevers even after the procedure. Patient was extremely uncomfortable staying in the hospital due to frequent awakening during the nighttime and the noise. She was told that she did not finish her treatment and she cannot be discharged from the medical point of view. Eventually she elected to sign AGAINST MEDICAL ADVICE. Discharge diagnoses: Right-sided hydronephrosis Right-sided pyelonephritis Sepsis, Diabetes type 2 Morbid obesity Kidney stones Patient Condition at Discharge: Fair Plan - Discharge Summary Discharge Rx Participant: Yes New Discharge Prescriptions: No Action Insulin Glargine [Lantus] 30 unit SQ DAILY INSULIN LISPRO (HumaLOG) [humaLOG] 6 units SQ AC-TID Ibuprofen [Motrin] 800 mg PO Q8HR PRN PRN Reason: Pain Metoprolol Tartrate [Lopressor] 50 mg PO TID Losartan Potassium [Cozaar] 25 mg PO DAILY Furosemide [Lasix] 20 mg PO DAILY Omeprazole [PriLOSEC] 20 mg PO AC-BRKFST Discharge Medication List Insulin Glargine [Lantus] 30 unit SQ DAILY 02/03/14 [History] INSULIN LISPRO (HumaLOG) [humaLOG] 6 units SQ AC-TID 08/01/16 [History] Ibuprofen [Motrin] 800 mg PO Q8HR PRN 09/22/16 [History] Metoprolol Tartrate [Lopressor] 50 mg PO TID 09/22/16 [History] Losartan Potassium [Cozaar] 25 mg PO DAILY 09/04/17 [History] Furosemide [Lasix] 20 mg PO DAILY 01/26/18 [History] Omeprazole [PriLOSEC] 20 mg PO AC-BRKFST 01/26/18 [History] Follow up Appointment(s)/Referral(s): None,Stated [REFERRING] - 1-2 days Discharge Disposition: Left Against Medical Advice
== END 2018-01-28 13:00 | disposition left against medical advice (07) | DRG 872 ==
LOC: EC 21:58 → 3SUR 01-27 00:24
PROVIDERS: ADMIT Internal Medicine; ATTEND Internal Medicine
PROC: 0T968ZX Drainage of Right Ureter, Via Natural or Artificial Opening Endoscopic, Diagnostic (ICD-10-PCS; 2018-01-27)
PROC: 0T768DZ Dilation of Right Ureter with Intraluminal Device, Via Natural or Artificial Opening Endoscopic (ICD-10-PCS; principal; 2018-01-27 09:10)
DX: A41.9 Sepsis, unspecified organism (principal); Z68.42 Body mass index [BMI] 45.0-49.9, adult; N13.6 Pyonephrosis; E87.1 Hypo-osmolality and hyponatremia; E66.01 Morbid (severe) obesity due to excess calories; E11.65 Type 2 diabetes mellitus with hyperglycemia; K21.9 Gastro-esophageal reflux disease without esophagitis; I10 Essential (primary) hypertension; G47.33 Obstructive sleep apnea (adult) (pediatric); G89.29 Other chronic pain; M54.9 Dorsalgia, unspecified; N39.3 Stress incontinence (female) (male); M19.91 Primary osteoarthritis, unspecified site; R59.0 Localized enlarged lymph nodes; F17.210 Nicotine dependence, cigarettes, uncomplicated; Z79.4 Long term (current) use of insulin; Z79.899 Other long term (current) drug therapy; Z87.442 Personal history of urinary calculi; Z90.49 Acquired absence of other specified parts of digestive tract; Z98.1 Arthrodesis status; Z86.59 Personal history of other mental and behavioral disorders; Z88.8 Allergy status to other drugs, medicaments and biological substances; Z82.49 Family history of ischemic heart disease and other diseases of the circulatory system; Z87.440 Personal history of urinary (tract) infections; Z83.3 Family history of diabetes mellitus; Z81.8 Family history of other mental and behavioral disorders
CPT/HCPCS: 36415; 74176; 80048; 80053; 81001; 81025; 82150; 83036; 83605; 83690; 85025; 87040; 87077; 87086; 87186; 96365; 96375; 99285

== ENCOUNTER 2018-01-28 15:26 | Observation (INO) | payer OTHER ==
--- NOTE | 2018-01-28 16:04 | ED ---
General Adult HPI - General Chief complaint: Recheck/Abnormal Lab/Rx Stated complaint: Kidney Infection Time Seen by Provider: 01/28/18 15:46 Source: patient, RN notes reviewed Mode of arrival: ambulatory Limitations: no limitations - History of Present Illness Initial comments: Patient is a pleasant 43-year-old female presenting to the emergency department for right flank pain. Patient was recently in the hospital and left AGAINST MEDICAL ADVICE this morning. Patient states she did have a kidney stone with associated infection. Patient states she was on Rocephin. Patient states she did have a stent placed. Patient states she felt anxious this morning and left AGAINST MEDICAL ADVICE. Patient is concerned that she is still having fevers and discomfort. Patient now regrets that she left and does not feel that it was a good idea. - Related Data Home Medications Medication Instructions Recorded Confirmed Insulin Glargine [Lantus] 30 unit SQ DAILY 02/03/14 01/28/18 INSULIN LISPRO (HumaLOG) [humaLOG] 6 units SQ AC-TID 08/01/16 01/28/18 Ibuprofen [Motrin] 800 mg PO Q8HR PRN 09/22/16 01/28/18 Metoprolol Tartrate [Lopressor] 50 mg PO TID 09/22/16 01/28/18 Losartan Potassium [Cozaar] 25 mg PO DAILY 09/04/17 01/28/18 Furosemide [Lasix] 20 mg PO DAILY 01/26/18 01/28/18 Omeprazole [PriLOSEC] 20 mg PO AC-BRKFST 01/26/18 01/28/18 Allergies Allergy/AdvReac Type Severity Reaction Status Date / Time hydrochlorothiazide Allergy Dyspnea Verified 01/28/18 15:59 [From Zestoretic] insulin glargine Allergy Rash/Hives Verified 01/28/18 15:59 [From Basaglar KwikPen] lisinopril [From Zestoretic] Allergy Dyspnea Verified 01/28/18 15:59 Review of Systems ROS Statement: Those systems with pertinent positive or pertinent negative responses have been documented in the HPI. ROS Other: All systems not noted in ROS Statement are negative. Constitutional: Reports: fever Eyes: Denies: eye pain ENT: Denies: ear pain Respiratory: Denies: cough Cardiovascular: Denies: chest pain Endocrine: Denies: fatigue Gastrointestinal: Reports: abdominal pain, nausea. Denies: vomiting Genitourinary: Denies: discharge Musculoskeletal: Reports: back pain (From the right flank that radiates to the abdomen) Skin: Denies: rash Neurological: Denies: weakness Past Medical History Past Medical History: Diabetes Mellitus, GERD/Reflux, Hypertension, Osteoarthritis (OA), Sleep Apnea/CPAP/BIPAP Additional Past Medical History / Comment(s): chronic back pain, uti, kidney stones, stress incont of urine, does'nt have cpap machine, strong family history of premature coronary artery disease. History of Any Multi-Drug Resistant Organisms: None Reported Past Surgical History: Back Surgery, Section, Cholecystectomy Additional Past Surgical History / Comment(s): t8-t12 fusion, ureter stent Past Anesthesia/Blood Transfusion Reactions: No Reported Reaction Past Psychological History: Anxiety, Bipolar, Depression Smoking Status: Current every day smoker Past Alcohol Use History: None Reported Past Drug Use History: None Reported - Past Family History Father Family Medical History: Diabetes Mellitus Mother Additional Family Medical History / Comment(s): bipolar depression anxiety General Exam Limitations: no limitations General appearance: alert, in no apparent distress Head exam: Present: atraumatic Eye exam: Present: normal appearance Neck exam: Present: normal inspection Respiratory exam: Present: normal lung sounds bilaterally Cardiovascular Exam: Present: regular rate, normal rhythm GI/Abdominal exam: Present: soft, tenderness (Mild to moderate tenderness right flank). Absent: guarding, rebound, rigid Extremities exam: Present: normal inspection Back exam: Present: CVA tenderness (R) Neurological exam: Present: alert Psychiatric exam: Present: normal affect, normal mood Skin exam: Present: normal color Course Vital Signs 01/28/18 15:40 Temperature 99.3 F Pulse Rate 98 Respiratory 18 Rate Blood Pressure 144/82 O2 Sat by Pulse 97 Oximetry Medical Decision Making - Medical Decision Making Case was discussed with Dr. Bella, who will readmit this patient. Disposition Clinical Impression: Ureteral stone with hydronephrosis, Acute UTI (urinary tract infection) Disposition: ADMITTED IP TO THIS HOSP Is patient prescribed a controlled substance at d/c from ED?: No Referrals: Malia Finney MD [Primary Care Provider] - 1-2 days Decision Time: 16:02
[2018-01-28] MEDS ORDERED: cefTRIAXone IN SWFI 1,000 MG/10 ML SYRINGE IVP STA (16:05)
[2018-01-28] MEDS: SODIUM CHLORIDE 0.9% 500 ML IV SCH ×2 (16:40→19:06)
[2018-01-28 16:42] LABS: Basophils % (A) 0 %; Eosinophils # (A) 0.2 k/uL (0-0.7); Eosinophils % (A) 1 %; HGB 11.4 gm/dL (11.4-16.0); Lymphocytes # (A) 1.5 k/uL (1.0-4.8); Lymphocytes % (A) 9 %; MCHC 33.5 g/dL (31.0-37.0); MCV 83.5 fL (80.0-100.0); Mean Platelet Volume 8.4; Monocytes % (A) 7 %; Neutrophils % (A) 82 %; Platelet Count 245 k/uL (150-450); RBC 4.07 m/uL (3.80-5.40); RDW 15.4 % (11.5-15.5); WBC 15.9 k/uL (3.8-10.6)
[2018-01-28 16:49] LABS: Appearance,Urine Cloudy (Clear); Bacteria,Urine Few /hpf; Bilirubin,Urine Negative (Negative); Blood,Urine Small (Negative); Color,Urine Light Yellow; Glucose,Urine (UA) Negative (Negative); Ketones,Urine Negative (Negative); Leukocyte Esterase,Urine Large (Negative); Mucus,Urine Rare /hpf; Nitrite,Urine Negative (Negative); Protein,Urine 1+ (Negative); RBC,Urine 3 /hpf (0-5); Specific Gravity,Urine 1.007 (1.001-1.035); Squamous Epithelial Cell,Urine 1 /hpf (0-4); Urobilinogen,Urine <2.0 mg/dL (<2.0); WBC,Urine 135 /hpf (0-5)
[2018-01-28 16:55] LABS: Albumin 2.7 g/dL (3.5-5.0); Calcium 8.2 mg/dL (8.4-10.2); INR 1.1 (<1.2); Partial Thromboplastin Time 24.1 sec (22.0-30.0); Prothrombin Time 10.9 sec (9.0-12.0); Total Bilirubin 0.4 mg/dL (0.2-1.3); Total Protein 5.8 g/dL (6.3-8.2)
[2018-01-28] MEDS ORDERED: NALOXONE 0.4 MG/ML 1 ML VIAL IV PRN (17:06)
[2018-01-28] MEDS ORDERED: ACETAMINOPHEN TAB 325 MG TAB PO PRN (17:06)
[2018-01-28] MEDS ORDERED: ONDANSETRON 4 MG/2 ML VIAL IVP PRN (17:06)
--- NOTE | 2018-01-28 17:06 | P.HPIM ---
History of Present Illness H&P Date: 01/28/18 Chief Complaint: Right flank pain and fever This is a 43-year-old female with just left AMA this morning after being treated for UTI and possibly infected stone the patient have a return stent felt very anxious today and left the hospital after leaving the hospital she began to have fevers and abdominal pain and she came back Not complaining of any chest pain or shortness of breath or vomiting Review of systems since systems as reviewed all negative and positive findings as per HPI Past Medical History: Diabetes Mellitus, GERD/Reflux, Hypertension, Osteoarthritis (OA), Sleep Apnea/CPAP/BIPAP Additional Past Medical History / Comment(s): chronic back pain, uti, kidney stones, stress incont of urine, does'nt have cpap machine, strong family history of premature coronary artery disease. History of Any Multi-Drug Resistant Organisms: None Reported Past Surgical History: Back Surgery, Section, Cholecystectomy Additional Past Surgical History / Comment(s): t8-t12 fusion, ureter stent Past Anesthesia/Blood Transfusion Reactions: No Reported Reaction Past Psychological History: Anxiety, Bipolar, Depression Smoking Status: Current every day smoker Past Alcohol Use History: None Reported Past Drug Use History: None Reported - Past Family History Father Family Medical History: Diabetes Mellitus Constitutional: No acute distress, conversant, pleasant Eyes: Anicteric sclerae, moist conjunctiva, no lid-lag PERRLA ENMT: NC/AT Oropharynx clear, no erythema, exudates Neck: Supple, Lungs: Clear to auscultation Clear to percussion Normal respiratory effort, no accessory muscle use Cardiovascular: Heart regular in rate and rhythm, No murmurs, gallops, or rubs No peripheral edema Abdominal: Soft with right flank tenderness Skin: Normal temperature, tone, texture, turgor No induration No subcutaneous nodules No rash, lesions No ulcers Extremities: No digital cyanosis No clubbing Pedal pulses intact and symmetrical Radial pulses intact and symmetrical Normal gait and station No calf tenderness Psychiatric:Alert and oriented to person, place and time Appropriate affect Intact judgement Neuro: No obvious focal weakness Assessment and plan UTI with infected kidney stones status post ureteral stent continue patient on Rocephin no evidence of sepsis at this time but since the patient is still febrile will continue patient on IV antibiotics Diabetes we'll put the patient on sliding scale insulin Pain control Admit the patient to regular medical floor Monitor closely for any signs or symptoms of sepsis Urology has been consulted Laboratory Results - last 24 hr 01/28/18 01/28/18 01/28/18 16:27 16:27 16:27 WBC 15.9 H RBC 4.07 Hgb 11.4 Hct 34.0 MCV 83.5 MCH 28.0 MCHC 33.5 RDW 15.4 Plt Count 245 Neutrophils % 82 Lymphocytes % 9 Monocytes % 7 Eosinophils % 1 Basophils % 0 Neutrophils # 13.0 H Lymphocytes # 1.5 Monocytes # 1.0 Eosinophils # 0.2 Basophils # 0.0 PT INR APTT Sodium Potassium Chloride Carbon Dioxide Anion Gap BUN Creatinine Est GFR (CKD-EPI)AfAm Est GFR (CKD-EPI)NonAf Glucose Plasma Lactic Acid Danny 1.1 Calcium Total Bilirubin AST ALT Alkaline Phosphatase Total Protein Albumin Urine Color Light Yellow Urine Appearance Cloudy H Urine pH 7.0 Ur Specific [place] 1.007 Urine Protein 1+ H Urine Glucose (UA) Negative Urine Ketones Negative Urine Blood Small H Urine Nitrite Negative Urine Bilirubin Negative Urine Urobilinogen <2.0 Ur Leukocyte Esterase Large H Urine RBC 3 Urine WBC 135 H Ur Squamous Epith Cells 1 Urine Bacteria Few H Urine Mucus Rare H 01/28/18 01/28/18 16:27 16:27 WBC RBC Hgb Hct MCV MCH MCHC RDW Plt Count Neutrophils % Lymphocytes % Monocytes % Eosinophils % Basophils % Neutrophils # Lymphocytes # Monocytes # Eosinophils # Basophils # PT 10.9 INR 1.1 APTT 24.1 Sodium 137 Potassium 4.0 Chloride 110 H Carbon Dioxide 19 L Anion Gap 8 BUN 17 Creatinine 1.10 H Est GFR (CKD-EPI)AfAm 72 Est GFR (CKD-EPI)NonAf 62 Glucose 136 H Plasma Lactic Acid Danny Calcium 8.2 L Total Bilirubin 0.4 AST 18 ALT 23 Alkaline Phosphatase 101 Total Protein 5.8 L Albumin 2.7 L Urine Color Urine Appearance Urine pH Ur Specific [place] Urine Protein Urine Glucose (UA) Urine Ketones Urine Blood Urine Nitrite Urine Bilirubin Urine Urobilinogen Ur Leukocyte Esterase Urine RBC Urine WBC Ur Squamous Epith Cells Urine Bacteria Urine Mucus Vital Signs Temp Pulse Resp BP Pulse Ox 99.3 F 98 18 144/82 97 01/28/18 15:40 01/28/18 15:40 01/28/18 15:40 01/28/18 15:40 01/28/18 15:40 Past Medical History Past Medical History: Diabetes Mellitus, GERD/Reflux, Hypertension, Osteoarthritis (OA), Sleep Apnea/CPAP/BIPAP Additional Past Medical History / Comment(s): chronic back pain, uti, kidney stones, stress incont of urine, does'nt have cpap machine, strong family history of premature coronary artery disease. History of Any Multi-Drug Resistant Organisms: None Reported Past Surgical History: Back Surgery, Section, Cholecystectomy Additional Past Surgical History / Comment(s): t8-t12 fusion, ureter stent Past Anesthesia/Blood Transfusion Reactions: No Reported Reaction Past Psychological History: Anxiety, Bipolar, Depression Smoking Status: Current every day smoker Past Alcohol Use History: None Reported Past Drug Use History: None Reported - Past Family History Father Family Medical History: Diabetes Mellitus Mother Additional Family Medical History / Comment(s): bipolar depression anxiety Medications and Allergies Home Medications Medication Instructions Recorded Confirmed Type Insulin Glargine [Lantus] 30 unit SQ DAILY 02/03/14 01/28/18 History INSULIN LISPRO (HumaLOG) [humaLOG] 6 units SQ AC-TID 08/01/16 01/28/18 History Ibuprofen [Motrin] 800 mg PO Q8HR PRN 09/22/16 01/28/18 History Metoprolol Tartrate [Lopressor] 50 mg PO TID 09/22/16 01/28/18 History Losartan Potassium [Cozaar] 25 mg PO DAILY 09/04/17 01/28/18 History Furosemide [Lasix] 20 mg PO DAILY 01/26/18 01/28/18 History Omeprazole [PriLOSEC] 20 mg PO AC-BRKFST 01/26/18 01/28/18 History Allergies Allergy/AdvReac Type Severity Reaction Status Date / Time hydrochlorothiazide Allergy Dyspnea Verified 01/28/18 15:59 [From Zestoretic] insulin glargine Allergy Rash/Hives Verified 01/28/18 15:59 [From Basaglar [place]] lisinopril [From Zestoretic] Allergy Dyspnea Verified 01/28/18 15:59 Physical Exam Vitals: Vital Signs Temp Pulse Resp BP Pulse Ox 01/28/18 15:40 99.3 F 98 18 144/82 97 Intake and Output 01/28/18 01/28/18 01/28/18 06:59 14:59 22:59 Other: Weight 136.078 kg Results CBC & Chem 7: 01/28/18 16:27 01/28/18 16:27 Labs: Abnormal Lab Results - Last 24 Hours (Table) 01/28/18 01/28/18 01/28/18 Range/Units 16:27 16:27 16:27 WBC 15.9 H (3.8-10.6) k/uL Neutrophils # 13.0 H (1.3-7.7) k/uL Chloride 110 H (98-107) mmol/L Carbon Dioxide 19 L (22-30) mmol/L Creatinine 1.10 H (0.52-1.04) mg/dL Glucose 136 H (74-99) mg/dL Calcium 8.2 L (8.4-10.2) mg/dL Total Protein 5.8 L (6.3-8.2) g/dL Albumin 2.7 L (3.5-5.0) g/dL Urine Appearance Cloudy H (Clear) Urine Protein 1+ H (Negative) Urine Blood Small H (Negative) Ur Leukocyte Esterase Large H (Negative) Urine WBC 135 H (0-5) /hpf Urine Bacteria Few H (None) /hpf Urine Mucus Rare H (None) /hpf
[2018-01-28 18:33] VITALS: BMI 50.8
[2018-01-28] MEDS: MORPHINE SULFATE 2 MG/ML SYRINGE IV PRN (21:42)
[2018-01-28] MEDS: METOPROLOL TARTRATE 50 MG TAB PO SCH (21:45)
[2018-01-28 21:51] LABS: Glucose,Whole Blood 191 mg/dL (75-99)
[2018-01-28] MEDS: INSULIN ASPART 100 UNIT/ML 1 ML 10 ML VIAL SQ SCH (22:25)
[2018-01-28] MEDS: HYDROcodone/APAP 5-325MG 1 EACH TAB PO PRN (22:28)
[2018-01-29] MEDS: MORPHINE SULFATE 2 MG/ML SYRINGE IV PRN ×3 (01:25→09:39)
[2018-01-29] MEDS: HYDROcodone/APAP 5-325MG 1 EACH TAB PO PRN ×5 (03:04→19:58)
[2018-01-29 07:12] LABS: Glucose,Whole Blood 193 mg/dL (75-99)
[2018-01-29] MEDS ORDERED: PANTOPRAZOLE 40 MG TABLET PO SCH (07:30)
[2018-01-29] MEDS: ENOXAPARIN 40 MG/0.4 ML SYRINGE SQ SCH (08:06)
[2018-01-29] MEDS: INSULIN ASPART 100 UNIT/ML 1 ML 10 ML VIAL SQ SCH ×4 (08:06→21:42)
[2018-01-29] MEDS: METOPROLOL TARTRATE 50 MG TAB PO SCH ×3 (08:06→21:42)
[2018-01-29] MEDS: PANTOPRAZOLE 40 MG/10 ML VIAL IV SCH (08:06)
[2018-01-29] MEDS: LOSARTAN 25 MG TAB PO SCH (08:07)
[2018-01-29] MEDS: FUROSEMIDE 20 MG TAB PO SCH (08:07)
[2018-01-29 08:20] LABS: Basophils % (A) 0 %; Eosinophils # (A) 0.2 k/uL (0-0.7); Eosinophils % (A) 2 %; HCT 31.8 % (34.0-46.0); HGB 10.4 gm/dL (11.4-16.0); Lymphocytes # (A) 1.9 k/uL (1.0-4.8); Lymphocytes % (A) 19 %; MCH 27.5 pg (25.0-35.0); MCHC 32.5 g/dL (31.0-37.0); MCV 84.7 fL (80.0-100.0); Mean Platelet Volume 7.7; Monocytes # (A) 0.7 k/uL (0-1.0); Monocytes % (A) 7 %; Neutrophils # (A) 7.1 k/uL (1.3-7.7); Neutrophils % (A) 70 %; Platelet Count 223 k/uL (150-450); RBC 3.76 m/uL (3.80-5.40); RDW 15.7 % (11.5-15.5); WBC 10.2 k/uL (3.8-10.6)
[2018-01-29] MEDS ORDERED: INSULIN DETEMIR 100 UNIT/ML 10 ML VIAL SQ SCH (09:00)
[2018-01-29 09:25] LABS: Albumin 2.5 g/dL (3.5-5.0); Calcium 8.2 mg/dL (8.4-10.2); Potassium 3.8 mmol/L (3.5-5.1); Total Bilirubin 0.2 mg/dL (0.2-1.3); Total Protein 5.3 g/dL (6.3-8.2)
--- NOTE | 2018-01-29 10:49 | P.PN ---
Subjective Progress Note Date: 01/29/18 Principal diagnosis: Still complaining of abdominal pain No chest pain no shortness breath no vomiting Constitutional: No acute distress, Eyes: Anicteric sclerae, moist conjunctiva, no lid-lag PERRLA ENMT: NC/AT Oropharynx clear, no erythema, exudates Neck: Supple, FROM, no masses, or JVD No carotid bruits No thyromegaly Lungs: Clear to auscultation Clear to percussion Normal respiratory effort, no accessory muscle use Cardiovascular: Heart regular in rate and rhythm, No murmurs, gallops, or rubs No peripheral edema Abdominal: Soft Nontender, no guarding, rebound or rigidity Abdomen moving with respiration N Skin: Normal temperature, tone, texture, turgor No induration No subcutaneous nodules No rash, lesions No ulcers Extremities: No digital cyanosis No clubbing Pedal pulses intact and symmetrical Radial pulses intact and symmetrical Normal gait and station No calf tenderness Psychiatric:Alert and oriented to person, place and time Appropriate affect Intact judgement Neuro: No obvious focal weakness Laboratory Results - last 24 hr 01/28/18 01/28/18 01/28/18 16:27 16:27 16:27 WBC 15.9 H RBC 4.07 Hgb 11.4 Hct 34.0 MCV 83.5 MCH 28.0 MCHC 33.5 RDW 15.4 Plt Count 245 Neutrophils % 82 Lymphocytes % 9 Monocytes % 7 Eosinophils % 1 Basophils % 0 Neutrophils # 13.0 H Lymphocytes # 1.5 Monocytes # 1.0 Eosinophils # 0.2 Basophils # 0.0 PT INR APTT Sodium Potassium Chloride Carbon Dioxide Anion Gap BUN Creatinine Est GFR (CKD-EPI)AfAm Est GFR (CKD-EPI)NonAf Glucose POC Glucose (mg/dL) POC Glu Corn Grower ID Plasma Lactic Acid Danny 1.1 Calcium Total Bilirubin AST ALT Alkaline Phosphatase Total Protein Albumin Urine Color Light Yellow Urine Appearance Cloudy H Urine pH 7.0 Ur Specific [place] 1.007 Urine Protein 1+ H Urine Glucose (UA) Negative Urine Ketones Negative Urine Blood Small H Urine Nitrite Negative Urine Bilirubin Negative Urine Urobilinogen <2.0 Ur Leukocyte Esterase Large H Urine RBC 3 Urine WBC 135 H Ur Squamous Epith Cells 1 Urine Bacteria Few H Urine Mucus Rare H 01/28/18 01/28/18 01/28/18 16:27 16:27 21:49 WBC RBC Hgb Hct MCV MCH MCHC RDW Plt Count Neutrophils % Lymphocytes % Monocytes % Eosinophils % Basophils % Neutrophils # Lymphocytes # Monocytes # Eosinophils # Basophils # PT 10.9 INR 1.1 APTT 24.1 Sodium 137 Potassium 4.0 Chloride 110 H Carbon Dioxide 19 L Anion Gap 8 BUN 17 Creatinine 1.10 H Est GFR (CKD-EPI)AfAm 72 Est GFR (CKD-EPI)NonAf 62 Glucose 136 H POC Glucose (mg/dL) 191 H POC Glu Corn Grower ID Becky Neal Plasma Lactic Acid Danny Calcium 8.2 L Total Bilirubin 0.4 AST 18 ALT 23 Alkaline Phosphatase 101 Total Protein 5.8 L Albumin 2.7 L Urine Color Urine Appearance Urine pH Ur Specific [place] Urine Protein Urine Glucose (UA) Urine Ketones Urine Blood Urine Nitrite Urine Bilirubin Urine Urobilinogen Ur Leukocyte Esterase Urine RBC Urine WBC Ur Squamous Epith Cells Urine Bacteria Urine Mucus 01/29/18 01/29/18 01/29/18 07:04 07:52 07:52 WBC 10.2 RBC 3.76 L Hgb 10.4 L Hct 31.8 L MCV 84.7 MCH 27.5 MCHC 32.5 RDW 15.7 H Plt Count 223 Neutrophils % 70 Lymphocytes % 19 Monocytes % 7 Eosinophils % 2 Basophils % 0 Neutrophils # 7.1 Lymphocytes # 1.9 Monocytes # 0.7 Eosinophils # 0.2 Basophils # 0.0 PT INR APTT Sodium 140 Potassium 3.8 Chloride 113 H Carbon Dioxide 18 L Anion Gap 9 BUN 14 Creatinine 1.00 Est GFR (CKD-EPI)AfAm 81 Est GFR (CKD-EPI)NonAf 70 Glucose 163 H POC Glucose (mg/dL) 193 H POC Glu Corn Grower ID Yumiko Valdivia Plasma Lactic Acid Danny Calcium 8.2 L Total Bilirubin 0.2 AST 16 ALT 22 Alkaline Phosphatase 97 Total Protein 5.3 L Albumin 2.5 L Urine Color Urine Appearance Urine pH Ur Specific [place] Urine Protein Urine Glucose (UA) Urine Ketones Urine Blood Urine Nitrite Urine Bilirubin Urine Urobilinogen Ur Leukocyte Esterase Urine RBC Urine WBC Ur Squamous Epith Cells Urine Bacteria Urine Mucus Vital Signs - 24 hr 01/28/18 01/28/18 01/28/18 15:40 17:34 22:10 Temperature 99.3 F 99.0 F 99.7 F H Pulse Rate 98 88 Pulse Rate [ 67 Pulse Oximetery ] Respiratory 18 18 16 Rate Blood Pressure 144/82 156/81 Blood Pressure 127/82 [Left Arm] O2 Sat by Pulse 97 98 100 Oximetry 01/29/18 01/29/18 06:04 08:00 Temperature 99.4 F Pulse Rate Pulse Rate [ 74 74 Pulse Oximetery ] Respiratory 20 20 Rate Blood Pressure Blood Pressure 136/88 [Left Arm] O2 Sat by Pulse 97 Oximetry Assessment and plan UTI with infected kidney stones status post ureteral stent continue patient on Rocephin Patient appears to be stable and in no distress at this time continue current management no evidence of sepsis at this time Diabetes we'll put the patient on sliding scale insulin Pain control Admit the patient to regular medical floor Monitor closely for any signs or symptoms of sepsis Urology has been consulted Mood swings Patient left AGAINST MEDICAL ADVICE yesterday at Objective - Vital Signs Vital signs: Vital Signs Temp 99.4 F 01/29/18 06:04 Pulse 74 01/29/18 08:00 Resp 20 01/29/18 08:00 BP 136/88 01/29/18 06:04 Pulse Ox 97 01/29/18 06:04 Intake & Output 01/28/18 01/29/18 01/29/18 18:59 06:59 18:59 Intake Total 100 Balance 100 Weight 143 kg Intake: Oral 100 Other: Voiding Method Toilet Toilet # Voids 1 - Labs CBC & Chem 7: 01/29/18 07:52 01/29/18 07:52 Labs: Abnormal Lab Results - Last 24 Hours (Table) 01/28/18 01/28/18 01/28/18 Range/Units 16:27 16:27 16:27 WBC 15.9 H (3.8-10.6) k/uL RBC (3.80-5.40) m/uL Hgb (11.4-16.0) gm/dL Hct (34.0-46.0) % RDW (11.5-15.5) % Neutrophils # 13.0 H (1.3-7.7) k/uL Chloride 110 H (98-107) mmol/L Carbon Dioxide 19 L (22-30) mmol/L Creatinine 1.10 H (0.52-1.04) mg/dL Glucose 136 H (74-99) mg/dL POC Glucose (mg/dL) (75-99) mg/dL Calcium 8.2 L (8.4-10.2) mg/dL Total Protein 5.8 L (6.3-8.2) g/dL Albumin 2.7 L (3.5-5.0) g/dL Urine Appearance Cloudy H (Clear) Urine Protein 1+ H (Negative) Urine Blood Small H (Negative) Ur Leukocyte Esterase Large H (Negative) Urine WBC 135 H (0-5) /hpf Urine Bacteria Few H (None) /hpf Urine Mucus Rare H (None) /hpf 01/28/18 01/29/18 01/29/18 Range/Units 21:49 07:04 07:52 WBC (3.8-10.6) k/uL RBC 3.76 L (3.80-5.40) m/uL Hgb 10.4 L (11.4-16.0) gm/dL Hct 31.8 L (34.0-46.0) % RDW 15.7 H (11.5-15.5) % Neutrophils # (1.3-7.7) k/uL Chloride (98-107) mmol/L Carbon Dioxide (22-30) mmol/L Creatinine (0.52-1.04) mg/dL Glucose (74-99) mg/dL POC Glucose (mg/dL) 191 H 193 H (75-99) mg/dL Calcium (8.4-10.2) mg/dL Total Protein (6.3-8.2) g/dL Albumin (3.5-5.0) g/dL Urine Appearance (Clear) Urine Protein (Negative) Urine Blood (Negative) Ur Leukocyte Esterase (Negative) Urine WBC (0-5) /hpf Urine Bacteria (None) /hpf Urine Mucus (None) /hpf 01/29/18 Range/Units 07:52 WBC (3.8-10.6) k/uL RBC (3.80-5.40) m/uL Hgb (11.4-16.0) gm/dL Hct (34.0-46.0) % RDW (11.5-15.5) % Neutrophils # (1.3-7.7) k/uL Chloride 113 H (98-107) mmol/L Carbon Dioxide 18 L (22-30) mmol/L Creatinine (0.52-1.04) mg/dL Glucose 163 H (74-99) mg/dL POC Glucose (mg/dL) (75-99) mg/dL Calcium 8.2 L (8.4-10.2) mg/dL Total Protein 5.3 L (6.3-8.2) g/dL Albumin 2.5 L (3.5-5.0) g/dL Urine Appearance (Clear) Urine Protein (Negative) Urine Blood (Negative) Ur Leukocyte Esterase (Negative) Urine WBC (0-5) /hpf Urine Bacteria (None) /hpf Urine Mucus (None) /hpf Microbiology - Last 24 Hours (Table) 01/28/18 16:27 Urine Culture - Preliminary Urine,Voided
--- NOTE | 2018-01-29 11:03 | P.PN ---
Progress Note - Text Progress Note Date: 01/29/18 The patient was originally admitted on 01/27 with a fever and right flank pain. Computed tomography scan identified right hydronephrosis secondary to an obstructive calculus in the proximal right ureter. The patient had an elevated white blood count and a urinalysis that was consistent with a urinary tract infection. He was started on ceftriaxone. She developed rigors later in the day. I performed cystoscopy with placement of a right double-J catheter to palliate the obstruction. She has been continued on ceftriaxone continues to have intermittent right flank pain. She left the hospital yesterday afternoon AMA only to return in the evening. He had a low-grade fever at the time of admission but is currently afebrile. Blood cultures obtained on 01/27 have shown no growth. Urine growing from the bladder as well as the right renal pelvis are growing a gram-negative jason however the identification and sensitivities are pending. Impression: Acute right pyelonephritis with sepsis secondary to gram-negative bacteria complicated by obstructive proximal right ureteral calculus-post decompression with double-J catheter. Recommendation: The patient should be continued on ceftriaxone until the results of her urine culture is finalized.
[2018-01-29 12:50] LABS: Glucose,Whole Blood 227 mg/dL (75-99)
[2018-01-29] MEDS: MORPHINE SULFATE 2 MG/ML SYRINGE IVP PRN ×3 (13:30→23:12)
[2018-01-29] MEDS ORDERED: cefTRIAXone IN SWFI 1,000 MG/10 ML SYRINGE IVP SCH (16:00)
[2018-01-29 17:13] LABS: Glucose,Whole Blood 187 mg/dL (75-99)
[2018-01-29 19:18] LABS: Hemoglobin A1C 8.2 % (4.0-6.0)
[2018-01-29 21:02] LABS: Glucose,Whole Blood 185 mg/dL (75-99)
[2018-01-30 00:14] VITALS: PULSE 67; RESP 16
[2018-01-30] MEDS: HYDROcodone/APAP 5-325MG 1 EACH TAB PO PRN ×3 (01:42→09:46)
[2018-01-30] MEDS: MORPHINE SULFATE 2 MG/ML SYRINGE IVP PRN ×2 (02:57→07:53)
[2018-01-30 06:19] VITALS: BP 105/64; TEMP 98.3
[2018-01-30 07:23] LABS: Glucose,Whole Blood 119 mg/dL (75-99)
[2018-01-30] MEDS: INSULIN ASPART 100 UNIT/ML 1 ML 10 ML VIAL SQ SCH ×2 (07:35→12:32)
[2018-01-30 07:52] LABS: Basophils % (A) 1 %; Eosinophils # (A) 0.2 k/uL (0-0.7); Eosinophils % (A) 3 %; HCT 32.5 % (34.0-46.0); HGB 10.8 gm/dL (11.4-16.0); Lymphocytes # (A) 1.8 k/uL (1.0-4.8); Lymphocytes % (A) 23 %; MCH 27.3 pg (25.0-35.0); MCHC 33.3 g/dL (31.0-37.0); MCV 81.9 fL (80.0-100.0); Monocytes # (A) 0.6 k/uL (0-1.0); Monocytes % (A) 7 %; Neutrophils # (A) 5.1 k/uL (1.3-7.7); Neutrophils % (A) 65 %; Platelet Count 284 k/uL (150-450); RBC 3.96 m/uL (3.80-5.40); RDW 15.5 % (11.5-15.5); WBC 7.9 k/uL (3.8-10.6)
[2018-01-30] MEDS: METOPROLOL TARTRATE 50 MG TAB PO SCH (07:54)
[2018-01-30] MEDS: FUROSEMIDE 20 MG TAB PO SCH (07:54)
[2018-01-30] MEDS: LOSARTAN 25 MG TAB PO SCH (07:54)
[2018-01-30] MEDS: ENOXAPARIN 40 MG/0.4 ML SYRINGE SQ SCH (07:54)
[2018-01-30] MEDS: PANTOPRAZOLE 40 MG/10 ML VIAL IV SCH (07:55)
[2018-01-30 08:01] LABS: Albumin 2.6 g/dL (3.5-5.0); Calcium 8.6 mg/dL (8.4-10.2); Potassium 3.7 mmol/L (3.5-5.1); Total Bilirubin 0.2 mg/dL (0.2-1.3); Total Protein 5.5 g/dL (6.3-8.2)
[2018-01-30] MEDS ORDERED: INSULIN DETEMIR 100 UNIT/ML 10 ML VIAL SQ SCH (09:00)
--- NOTE | 2018-01-30 11:16 | P.PN ---
Progress Note - Text Progress Note Date: 01/30/18 The patient is afebrile and says that she feels much better. Her right flank pain today is minimal. Urine culture obtained from the right renal pelvis has grown E. coli which is sensitive to ceftriaxone but is also sensitive to Cipro. I would suggest the patient be discharged on Cipro 500 mg twice a day for an additional 10 days. She says she has a follow-up appointment to see me on 02/01.
[2018-01-30 12:11] LABS: Glucose,Whole Blood 177 mg/dL (75-99)
--- NOTE | 2018-01-30 12:36 | P.PN ---
Subjective Progress Note Date: 01/30/18 Principal diagnosis: This is a 43-year-old female admitted to the hospital with UTI and infected uretral stones, patient underwent stenting, and started on IV antibiotics patient left AGAINST MEDICAL ADVICE but came back the same day complaining that she is having abdominal pain and fever so the patient again has been started on IV antibiotics and IV hydration and admitted to the hospital currently patient states that she feels much better and wants to go home Review of systems and systems has been reviewed all negative and positive findings as per HPI During the hospital stay the patient remained stable Continued to complain of right flank pain but improved Patient did have swings during this hospital stay and refuses sometimes the telemetry and some other recommendations \Constitutional: No acute distress, conversant, pleasant Eyes: Anicteric sclerae, moist conjunctiva, no lid-lag PERRLA ENMT: Cranial nerves grossly intact Neck: Supple, FROM, no masses, or JVD No carotid bruits No thyromegaly Lungs: Clear to auscultation Clear to percussion Normal respiratory effort, no accessory muscle use Cardiovascular: Heart regular in rate and rhythm, No murmurs, gallops, or rubs No peripheral edema Abdominal: Soft Nontender, no guarding, rebound or rigidity Abdomen moving with respiration Normoactive bowel sounds No hepatomegaly, No splenomegaly No palpable mass No abdominal wall hernia noted Skin: Normal temperature, tone, texture, turgor No induration No subcutaneous nodules No rash, lesions No ulcers Extremities: No digital cyanosis No clubbing Pedal pulses intact and symmetrical Radial pulses intact and symmetrical Normal gait and station No calf tenderness Psychiatric:Alert and oriented to person, place and time Appropriate affect Intact judgement Neuro: No focal weakness Vital Signs 01/28/18 01/28/18 01/28/18 15:40 17:34 22:10 Temperature 99.3 F 99.0 F 99.7 F H Pulse Rate 98 88 Pulse Rate [ 67 Pulse Oximetery ] Respiratory 18 18 16 Rate Blood Pressure 144/82 156/81 Blood Pressure 127/82 [Left Arm] O2 Sat by Pulse 97 98 100 Oximetry 01/29/18 01/29/18 01/29/18 06:04 08:00 15:11 Temperature 99.4 F 97.7 F Pulse Rate Pulse Rate [ 74 74 69 Pulse Oximetery ] Respiratory 20 20 18 Rate Blood Pressure Blood Pressure 136/88 129/78 [Left Arm] O2 Sat by Pulse 97 98 Oximetry 01/29/18 01/29/18 01/30/18 16:00 22:25 06:10 Temperature 98.5 F 98.3 F Pulse Rate Pulse Rate [ 69 67 67 Pulse Oximetery ] Respiratory 18 16 16 Rate Blood Pressure Blood Pressure 139/86 105/64 [Left Arm] O2 Sat by Pulse 97 97 Oximetry 01/30/18 08:00 Temperature Pulse Rate Pulse Rate [ 67 Pulse Oximetery ] Respiratory 16 Rate Blood Pressure Blood Pressure [Left Arm] O2 Sat by Pulse Oximetry Lab Results 01/28/18 01/28/18 01/28/18 Range/Units 16:27 16:27 16:27 WBC 15.9 H (3.8-10.6) k/uL RBC 4.07 (3.80-5.40) m/uL Hgb 11.4 (11.4-16.0) gm/dL Hct 34.0 (34.0-46.0) % MCV 83.5 (80.0-100.0) fL MCH 28.0 (25.0-35.0) pg MCHC 33.5 (31.0-37.0) g/dL RDW 15.4 (11.5-15.5) % Plt Count 245 (150-450) k/uL Neutrophils % 82 % Lymphocytes % 9 % Monocytes % 7 % Eosinophils % 1 % Basophils % 0 % Neutrophils # 13.0 H (1.3-7.7) k/uL Lymphocytes # 1.5 (1.0-4.8) k/uL Monocytes # 1.0 (0-1.0) k/uL Eosinophils # 0.2 (0-0.7) k/uL Basophils # 0.0 (0-0.2) k/uL PT (9.0-12.0) sec INR (<1.2) APTT (22.0-30.0) sec Sodium (137-145) mmol/L Potassium (3.5-5.1) mmol/L Chloride (98-107) mmol/L Carbon Dioxide (22-30) mmol/L Anion Gap mmol/L BUN (7-17) mg/dL Creatinine (0.52-1.04) mg/dL Est GFR (CKD-EPI)AfAm (>60 ml/min/1.73 sqM) Est GFR (CKD-EPI)NonAf (>60 ml/min/1.73 sqM) Glucose (74-99) mg/dL POC Glucose (mg/dL) (75-99) mg/dL POC Glu Tenoner Operator ID Plasma Lactic Acid Danny 1.1 (0.7-2.0) mmol/L Calcium (8.4-10.2) mg/dL Total Bilirubin (0.2-1.3) mg/dL AST (14-36) U/L ALT (9-52) U/L Alkaline Phosphatase (38-126) U/L Total Protein (6.3-8.2) g/dL Albumin (3.5-5.0) g/dL Urine Color Light Yellow Urine Appearance Cloudy H (Clear) Urine pH 7.0 (5.0-8.0) Ur Specific [place] 1.007 (1.001-1.035) Urine Protein 1+ H (Negative) Urine Glucose (UA) Negative (Negative) Urine Ketones Negative (Negative) Urine Blood Small H (Negative) Urine Nitrite Negative (Negative) Urine Bilirubin Negative (Negative) Urine Urobilinogen <2.0 (<2.0) mg/dL Ur Leukocyte Esterase Large H (Negative) Urine RBC 3 (0-5) /hpf Urine WBC 135 H (0-5) /hpf Ur Squamous Epith Cells 1 (0-4) /hpf Urine Bacteria Few H (None) /hpf Urine Mucus Rare H (None) /hpf 01/28/18 01/28/18 01/28/18 Range/Units 16:27 16:27 21:49 WBC (3.8-10.6) k/uL RBC (3.80-5.40) m/uL Hgb (11.4-16.0) gm/dL Hct (34.0-46.0) % MCV (80.0-100.0) fL MCH (25.0-35.0) pg MCHC (31.0-37.0) g/dL RDW (11.5-15.5) % Plt Count (150-450) k/uL Neutrophils % % Lymphocytes % % Monocytes % % Eosinophils % % Basophils % % Neutrophils # (1.3-7.7) k/uL Lymphocytes # (1.0-4.8) k/uL Monocytes # (0-1.0) k/uL Eosinophils # (0-0.7) k/uL Basophils # (0-0.2) k/uL PT 10.9 (9.0-12.0) sec INR 1.1 (<1.2) APTT 24.1 (22.0-30.0) sec Sodium 137 (137-145) mmol/L Potassium 4.0 (3.5-5.1) mmol/L Chloride 110 H (98-107) mmol/L Carbon Dioxide 19 L (22-30) mmol/L Anion Gap 8 mmol/L BUN 17 (7-17) mg/dL Creatinine 1.10 H (0.52-1.04) mg/dL Est GFR (CKD-EPI)AfAm 72 (>60 ml/min/1.73 sqM) Est GFR (CKD-EPI)NonAf 62 (>60 ml/min/1.73 sqM) Glucose 136 H (74-99) mg/dL POC Glucose (mg/dL) 191 H (75-99) mg/dL POC Glu Tenoner Operator ID Bloink, Becky Plasma Lactic Acid Danny (0.7-2.0) mmol/L Calcium 8.2 L (8.4-10.2) mg/dL Total Bilirubin 0.4 (0.2-1.3) mg/dL AST 18 (14-36) U/L ALT 23 (9-52) U/L Alkaline Phosphatase 101 (38-126) U/L Total Protein 5.8 L (6.3-8.2) g/dL Albumin 2.7 L (3.5-5.0) g/dL Urine Color Urine Appearance (Clear) Urine pH (5.0-8.0) Ur Specific [place] (1.001-1.035) Urine Protein (Negative) Urine Glucose (UA) (Negative) Urine Ketones (Negative) Urine Blood (Negative) Urine Nitrite (Negative) Urine Bilirubin (Negative) Urine Urobilinogen (<2.0) mg/dL Ur Leukocyte Esterase (Negative) Urine RBC (0-5) /hpf Urine WBC (0-5) /hpf Ur Squamous Epith Cells (0-4) /hpf Urine Bacteria (None) /hpf Urine Mucus (None) /hpf 01/29/18 01/29/18 01/29/18 Range/Units 07:04 07:52 07:52 WBC 10.2 (3.8-10.6) k/uL RBC 3.76 L (3.80-5.40) m/uL Hgb 10.4 L (11.4-16.0) gm/dL Hct 31.8 L (34.0-46.0) % MCV 84.7 (80.0-100.0) fL MCH 27.5 (25.0-35.0) pg MCHC 32.5 (31.0-37.0) g/dL RDW 15.7 H (11.5-15.5) % Plt Count 223 (150-450) k/uL Neutrophils % 70 % Lymphocytes % 19 % Monocytes % 7 % Eosinophils % 2 % Basophils % 0 % Neutrophils # 7.1 (1.3-7.7) k/uL Lymphocytes # 1.9 (1.0-4.8) k/uL Monocytes # 0.7 (0-1.0) k/uL Eosinophils # 0.2 (0-0.7) k/uL Basophils # 0.0 (0-0.2) k/uL PT (9.0-12.0) sec INR (<1.2) APTT (22.0-30.0) sec Sodium 140 (137-145) mmol/L Potassium 3.8 (3.5-5.1) mmol/L Chloride 113 H (98-107) mmol/L Carbon Dioxide 18 L (22-30) mmol/L Anion Gap 9 mmol/L BUN 14 (7-17) mg/dL Creatinine 1.00 (0.52-1.04) mg/dL Est GFR (CKD-EPI)AfAm 81 (>60 ml/min/1.73 sqM) Est GFR (CKD-EPI)NonAf 70 (>60 ml/min/1.73 sqM) Glucose 163 H (74-99) mg/dL POC Glucose (mg/dL) 193 H (75-99) mg/dL POC Glu Tenoner Operator ID Yumiko Valdivia Plasma Lactic Acid Danny (0.7-2.0) mmol/L Calcium 8.2 L (8.4-10.2) mg/dL Total Bilirubin 0.2 (0.2-1.3) mg/dL AST 16 (14-36) U/L ALT 22 (9-52) U/L Alkaline Phosphatase 97 (38-126) U/L Total Protein 5.3 L (6.3-8.2) g/dL Albumin 2.5 L (3.5-5.0) g/dL Urine Color Urine Appearance (Clear) Urine pH (5.0-8.0) Ur Specific [place] (1.001-1.035) Urine Protein (Negative) Urine Glucose (UA) (Negative) Urine Ketones (Negative) Urine Blood (Negative) Urine Nitrite (Negative) Urine Bilirubin (Negative) Urine Urobilinogen (<2.0) mg/dL Ur Leukocyte Esterase (Negative) Urine RBC (0-5) /hpf Urine WBC (0-5) /hpf Ur Squamous Epith Cells (0-4) /hpf Urine Bacteria (None) /hpf Urine Mucus (None) /hpf 01/29/18 01/29/18 01/29/18 Range/Units 12:33 17:05 21:00 WBC (3.8-10.6) k/uL RBC (3.80-5.40) m/uL Hgb (11.4-16.0) gm/dL Hct (34.0-46.0) % MCV (80.0-100.0) fL MCH (25.0-35.0) pg MCHC (31.0-37.0) g/dL RDW (11.5-15.5) % Plt Count (150-450) k/uL Neutrophils % % Lymphocytes % % Monocytes % % Eosinophils % % Basophils % % Neutrophils # (1.3-7.7) k/uL Lymphocytes # (1.0-4.8) k/uL Monocytes # (0-1.0) k/uL Eosinophils # (0-0.7) k/uL Basophils # (0-0.2) k/uL PT (9.0-12.0) sec INR (<1.2) APTT (22.0-30.0) sec Sodium (137-145) mmol/L Potassium (3.5-5.1) mmol/L Chloride (98-107) mmol/L Carbon Dioxide (22-30) mmol/L Anion Gap mmol/L BUN (7-17) mg/dL Creatinine (0.52-1.04) mg/dL Est GFR (CKD-EPI)AfAm (>60 ml/min/1.73 sqM) Est GFR (CKD-EPI)NonAf (>60 ml/min/1.73 sqM) Glucose (74-99) mg/dL POC Glucose (mg/dL) 227 H 187 H 185 H (75-99) mg/dL POC Glu Tenoner Operator JUANITO Nikitat, Yumiko Valdivia, Yumiko Val, Becky Plasma Lactic Acid Danny (0.7-2.0) mmol/L Calcium (8.4-10.2) mg/dL Total Bilirubin (0.2-1.3) mg/dL AST (14-36) U/L ALT (9-52) U/L Alkaline Phosphatase (38-126) U/L Total Protein (6.3-8.2) g/dL Albumin (3.5-5.0) g/dL Urine Color Urine Appearance (Clear) Urine pH (5.0-8.0) Ur Specific [place] (1.001-1.035) Urine Protein (Negative) Urine Glucose (UA) (Negative) Urine Ketones (Negative) Urine Blood (Negative) Urine Nitrite (Negative) Urine Bilirubin (Negative) Urine Urobilinogen (<2.0) mg/dL Ur Leukocyte Esterase (Negative) Urine RBC (0-5) /hpf Urine WBC (0-5) /hpf Ur Squamous Epith Cells (0-4) /hpf Urine Bacteria (None) /hpf Urine Mucus (None) /hpf 01/30/18 01/30/18 01/30/18 Range/Units 07:05 07:27 07:27 WBC 7.9 (3.8-10.6) k/uL RBC 3.96 (3.80-5.40) m/uL Hgb 10.8 L (11.4-16.0) gm/dL Hct 32.5 L (34.0-46.0) % MCV 81.9 (80.0-100.0) fL MCH 27.3 (25.0-35.0) pg MCHC 33.3 (31.0-37.0) g/dL RDW 15.5 (11.5-15.5) % Plt Count 284 (150-450) k/uL Neutrophils % 65 % Lymphocytes % 23 % Monocytes % 7 % Eosinophils % 3 % Basophils % 1 % Neutrophils # 5.1 (1.3-7.7) k/uL Lymphocytes # 1.8 (1.0-4.8) k/uL Monocytes # 0.6 (0-1.0) k/uL Eosinophils # 0.2 (0-0.7) k/uL Basophils # 0.0 (0-0.2) k/uL PT (9.0-12.0) sec INR (<1.2) APTT (22.0-30.0) sec Sodium 141 (137-145) mmol/L Potassium 3.7 (3.5-5.1) mmol/L Chloride 111 H (98-107) mmol/L Carbon Dioxide 20 L (22-30) mmol/L Anion Gap 10 mmol/L BUN 13 (7-17) mg/dL Creatinine 1.00 (0.52-1.04) mg/dL Est GFR (CKD-EPI)AfAm 81 (>60 ml/min/1.73 sqM) Est GFR (CKD-EPI)NonAf 70 (>60 ml/min/1.73 sqM) Glucose 119 H (74-99) mg/dL POC Glucose (mg/dL) 119 H (75-99) mg/dL POC Glu Tenoner Operator ID Blue, Lamar Plasma Lactic Acid Danny (0.7-2.0) mmol/L Calcium 8.6 (8.4-10.2) mg/dL Total Bilirubin 0.2 (0.2-1.3) mg/dL AST 18 (14-36) U/L ALT 28 (9-52) U/L Alkaline Phosphatase 93 (38-126) U/L Total Protein 5.5 L (6.3-8.2) g/dL Albumin 2.6 L (3.5-5.0) g/dL Urine Color Urine Appearance (Clear) Urine pH (5.0-8.0) Ur Specific [place] (1.001-1.035) Urine Protein (Negative) Urine Glucose (UA) (Negative) Urine Ketones (Negative) Urine Blood (Negative) Urine Nitrite (Negative) Urine Bilirubin (Negative) Urine Urobilinogen (<2.0) mg/dL Ur Leukocyte Esterase (Negative) Urine RBC (0-5) /hpf Urine WBC (0-5) /hpf Ur Squamous Epith Cells (0-4) /hpf Urine Bacteria (None) /hpf Urine Mucus (None) /hpf 01/30/18 Range/Units 11:54 WBC (3.8-10.6) k/uL RBC (3.80-5.40) m/uL Hgb (11.4-16.0) gm/dL Hct (34.0-46.0) % MCV (80.0-100.0) fL MCH (25.0-35.0) pg MCHC (31.0-37.0) g/dL RDW (11.5-15.5) % Plt Count (150-450) k/uL Neutrophils % % Lymphocytes % % Monocytes % % Eosinophils % % Basophils % % Neutrophils # (1.3-7.7) k/uL Lymphocytes # (1.0-4.8) k/uL Monocytes # (0-1.0) k/uL Eosinophils # (0-0.7) k/uL Basophils # (0-0.2) k/uL PT (9.0-12.0) sec INR (<1.2) APTT (22.0-30.0) sec Sodium (137-145) mmol/L Potassium (3.5-5.1) mmol/L Chloride (98-107) mmol/L Carbon Dioxide (22-30) mmol/L Anion Gap mmol/L BUN (7-17) mg/dL Creatinine (0.52-1.04) mg/dL Est GFR (CKD-EPI)AfAm (>60 ml/min/1.73 sqM) Est GFR (CKD-EPI)NonAf (>60 ml/min/1.73 sqM) Glucose (74-99) mg/dL POC Glucose (mg/dL) 177 H (75-99) mg/dL POC Glu Tenoner Operator ID Blue, Lamar Plasma Lactic Acid Danny (0.7-2.0) mmol/L Calcium (8.4-10.2) mg/dL Total Bilirubin (0.2-1.3) mg/dL AST (14-36) U/L ALT (9-52) U/L Alkaline Phosphatase (38-126) U/L Total Protein (6.3-8.2) g/dL Albumin (3.5-5.0) g/dL Urine Color Urine Appearance (Clear) Urine pH (5.0-8.0) Ur Specific [place] (1.001-1.035) Urine Protein (Negative) Urine Glucose (UA) (Negative) Urine Ketones (Negative) Urine Blood (Negative) Urine Nitrite (Negative) Urine Bilirubin (Negative) Urine Urobilinogen (<2.0) mg/dL Ur Leukocyte Esterase (Negative) Urine RBC (0-5) /hpf Urine WBC (0-5) /hpf Ur Squamous Epith Cells (0-4) /hpf Urine Bacteria (None) /hpf Urine Mucus (None) /hpf Assessment and plan and discharge plan UTI and status post ureteral stenting , patient to continue by mouth Cipro for at least 10 days and to follow-up with urology Pain control patient has been prescribed [place] for for pain control status post stenting Mood swings and possible bipolar patient follow-up with primary care physician Morbid obesity Diabetes noncomplient treatment Patient has been discharged in a stable condition Discharge medications Cipro , norco And resume home medication Objective - Vital Signs Vital signs: Vital Signs Temp 98.3 F 01/30/18 06:10 Pulse 67 01/30/18 08:00 Resp 16 01/30/18 08:00 BP 105/64 01/30/18 06:10 Pulse Ox 97 01/30/18 06:10 Intake & Output 01/29/18 01/30/18 01/30/18 18:59 06:59 18:59 Other: Voiding Method Toilet Toilet Toilet # Voids 2 3 # Bowel Movements 0 - Labs CBC & Chem 7: 01/30/18 07:27 01/30/18 07:27 Labs: Abnormal Lab Results - Last 24 Hours (Table) 01/29/18 01/29/18 01/29/18 Range/Units 12:33 17:05 21:00 Hgb (11.4-16.0) gm/dL Hct (34.0-46.0) % Chloride (98-107) mmol/L Carbon Dioxide (22-30) mmol/L Glucose (74-99) mg/dL POC Glucose (mg/dL) 227 H 187 H 185 H (75-99) mg/dL Total Protein (6.3-8.2) g/dL Albumin (3.5-5.0) g/dL 01/30/18 01/30/18 01/30/18 Range/Units 07:05 07:27 07:27 Hgb 10.8 L (11.4-16.0) gm/dL Hct 32.5 L (34.0-46.0) % Chloride 111 H (98-107) mmol/L Carbon Dioxide 20 L (22-30) mmol/L Glucose 119 H (74-99) mg/dL POC Glucose (mg/dL) 119 H (75-99) mg/dL Total Protein 5.5 L (6.3-8.2) g/dL Albumin 2.6 L (3.5-5.0) g/dL 01/30/18 Range/Units 11:54 Hgb (11.4-16.0) gm/dL Hct (34.0-46.0) % Chloride (98-107) mmol/L Carbon Dioxide (22-30) mmol/L Glucose (74-99) mg/dL POC Glucose (mg/dL) 177 H (75-99) mg/dL Total Protein (6.3-8.2) g/dL Albumin (3.5-5.0) g/dL Microbiology - Last 24 Hours (Table) 01/28/18 16:27 Urine Culture - Final Urine,Voided 01/28/18 16:27 Blood Culture - Preliminary Blood No Growth after 24 hours
== END 2018-01-30 13:19 | disposition home or self-care (01) ==
LOC: EC 15:26 → INTOOBSV 16:08 → 4MS4W 16:08 → UNDODISIN 01-30 13:19
PROVIDERS: ADMIT Internal Medicine; ATTEND Internal Medicine
DX: N39.0 Urinary tract infection, site not specified (principal); Z68.43 Body mass index [BMI] 50.0-59.9, adult; E11.9 Type 2 diabetes mellitus without complications; F17.200 Nicotine dependence, unspecified, uncomplicated; F41.9 Anxiety disorder, unspecified; G47.30 Sleep apnea, unspecified; I10 Essential (primary) hypertension; K21.9 Gastro-esophageal reflux disease without esophagitis; N13.6 Pyonephrosis; Z79.4 Long term (current) use of insulin; Z82.49 Family history of ischemic heart disease and other diseases of the circulatory system; Z87.442 Personal history of urinary calculi; Z90.49 Acquired absence of other specified parts of digestive tract; Z79.899 Other long term (current) drug therapy; Z88.8 Allergy status to other drugs, medicaments and biological substances; E66.01 Morbid (severe) obesity due to excess calories; Z91.19 Patient's noncompliance with other medical treatment and regimen; F31.9 Bipolar disorder, unspecified; Z81.3 Family history of other psychoactive substance abuse and dependence; Z98.1 Arthrodesis status; M19.90 Unspecified osteoarthritis, unspecified site; G89.29 Other chronic pain; M54.9 Dorsalgia, unspecified; N39.3 Stress incontinence (female) (male); B96.20 Unspecified Escherichia coli [E. coli] as the cause of diseases classified elsewhere
CPT/HCPCS: 96361 ×4; 96376 ×2; 96372 ×2; 96375 ×2; 96374; 99284; 36415; 80053 ×3; 83605; 85025 ×3; 85610; 85730; 81001; 87040; 87086; 83036; G0378 ×3; J1650 ×2; J0696 ×2; J2270 ×3; C9113 ×2

== ENCOUNTER 2018-04-14 16:07 | Emergency (ER) | payer OTHER ==
[2018-04-14 16:37] VITALS: RESP 16; TEMP 99.2
[2018-04-14] MEDS ORDERED: MORPHINE SULFATE 4 MG/ML SYRINGE IVP STA (17:32)
[2018-04-14] MEDS ORDERED: ONDANSETRON 4 MG/2 ML VIAL IVP STA (17:32)
[2018-04-14] MEDS ORDERED: KETOROLAC 30 MG/ML 1 ML VIAL IVP STA (17:32)
--- NOTE | 2018-04-14 18:08 | ED ---
Abdominal Pain HPI - General Chief Complaint: Abdominal Pain Stated Complaint: back pain, kidney stone Time Seen by Provider: 04/14/18 17:24 Source: patient, RN notes reviewed, old records reviewed Mode of arrival: ambulatory Limitations: no limitations - History of Present Illness Initial Comments: Patient is a 43-year-old female presents emergency department today with chief complaint of left-sided flank pain. Patient reports she's been having the pain for the past 2 days. She has history of kidney stones reports her pain is similar to her kidney stones. She reports dysuria as well. In the past she's had a had stents placed to have the stones removed. Patient states that she's had occasional chills. She reports that she has been trying to remain hydrated. No vomiting episode but does feel nauseated. - Related Data Home Medications Medication Instructions Recorded Confirmed Insulin Glargine [Lantus] 30 unit SQ DAILY 02/03/14 04/14/18 INSULIN LISPRO (HumaLOG) [humaLOG] 6 units SQ AC-TID 08/01/16 04/14/18 Ibuprofen [Motrin] 800 mg PO Q8HR PRN 09/22/16 04/14/18 Metoprolol Tartrate [Lopressor] 50 mg PO TID 09/22/16 04/14/18 Losartan Potassium [Cozaar] 25 mg PO DAILY 09/04/17 04/14/18 Furosemide [Lasix] 20 mg PO DAILY 01/26/18 04/14/18 Omeprazole [PriLOSEC] 20 mg PO DAILY 01/26/18 04/14/18 Previous Rx's Medication Instructions Recorded Ciprofloxacin HCl [Cipro] 500 mg PO BID 10 Days #20 tab 04/14/18 HYDROcodone/APAP 5-325MG [[place] 1 tab PO Q6HR PRN #10 tab 04/14/18 5-325] Ketorolac [Toradol] 10 mg PO Q6HR #10 tab 04/14/18 Ondansetron Odt [Zofran Odt] 4 mg PO Q8HR PRN #20 tab 04/14/18 Tamsulosin [Flomax] 0.4 mg PO DAILY #10 cap 04/14/18 Allergies Allergy/AdvReac Type Severity Reaction Status Date / Time hydrochlorothiazide Allergy Dyspnea Verified 04/14/18 17:23 [From Zestoretic] insulin glargine Allergy Rash/Hives Verified 04/14/18 17:23 [From Basaglar KwikPen] lisinopril [From Zestoretic] Allergy Dyspnea Verified 04/14/18 17:23 Review of Systems ROS Statement: Those systems with pertinent positive or pertinent negative responses have been documented in the HPI. ROS Other: All systems not noted in ROS Statement are negative. Past Medical History Past Medical History: Diabetes Mellitus, GERD/Reflux, Hypertension, Osteoarthritis (OA), Sleep Apnea/CPAP/BIPAP Additional Past Medical History / Comment(s): chronic back pain, uti, kidney stones, stress incont of urine, does'nt have cpap machine, strong family history of premature coronary artery disease. History of Any Multi-Drug Resistant Organisms: None Reported Past Surgical History: Back Surgery, Section, Cholecystectomy Additional Past Surgical History / Comment(s): t8-t12 fusion, ureter stent Past Anesthesia/Blood Transfusion Reactions: No Reported Reaction Past Psychological History: Anxiety, Bipolar, Depression Smoking Status: Current every day smoker Past Alcohol Use History: None Reported Past Drug Use History: None Reported - Past Family History Father Family Medical History: Diabetes Mellitus Mother Additional Family Medical History / Comment(s): bipolar depression anxiety General Exam - General Exam Comments Initial Comments: This is a 43-year-old female. Alert and oriented. No significant distress. Limitations: no limitations General appearance: alert, in no apparent distress Head exam: Present: atraumatic, normocephalic, normal inspection Eye exam: Present: normal appearance, PERRL, EOMI. Absent: scleral icterus, conjunctival injection, periorbital swelling ENT exam: Present: normal exam, mucous membranes moist Neck exam: Present: normal inspection. Absent: tenderness, meningismus, lymphadenopathy Respiratory exam: Present: normal lung sounds bilaterally. Absent: respiratory distress, wheezes, rales, rhonchi, stridor Cardiovascular Exam: Present: regular rate, normal rhythm, normal heart sounds. Absent: systolic murmur, diastolic murmur, rubs, gallop, clicks GI/Abdominal exam: Present: soft, tenderness (Left CVA tenderness, left lower quadrant tenderness), normal bowel sounds. Absent: distended, guarding, rebound , rigid Extremities exam: Present: normal inspection, full ROM, normal capillary refill. Absent: tenderness, pedal edema, joint swelling, calf tenderness Back exam: Present: normal inspection Neurological exam: Present: alert, oriented X3, CN II-XII intact Psychiatric exam: Present: normal affect, normal mood Skin exam: Present: warm, dry, intact, normal color. Absent: rash Course Vital Signs 04/14/18 04/14/18 16:35 20:08 Temperature 99.2 F Pulse Rate 94 77 Respiratory 16 16 Rate Blood Pressure 189/106 160/113 O2 Sat by Pulse 98 97 Oximetry Medical Decision Making - Medical Decision Making Patient is a 43-year-old female with left-sided flank pain for the past 2 days. Patient urinalysis is positive for red blood cells and white blood cells. Her previous UAs have been positive for E. coli. She does have some evidence of infection this time. At this time concern for obstructing stone we did do a computed tomography scan without contrast. There is evidence of a 7 mm left UVJ stone. We'll blood cell count is elevated at 15,000. I discussed patient CR is also elevated today from her baseline. Blood culture and Urine culture obtained. PAtient is adament she wants to go home to try to pass the stone. At this time I discussed it seems unlikely to pass at this time. Patient informed risk of severe sepsis with signs of infection and retained stone. She is aware of this. She has been informed that if she is going home she will sign out AMA. She was counselled multiple times of risk of leaving AMA, including . Patient was given IV rocephin. Patient signs AMA, but will give patient Rx for cipro, flomax, zofran, and pain medication. Patient agrees to return if fever or other symptoms occur. - Lab Data Result diagrams: 04/14/18 18:00 04/14/18 18:00 Lab Results 04/14/18 04/14/18 04/14/18 Range/Units 17:40 18:00 18:00 WBC 15.8 H (3.8-10.6) k/uL RBC 4.99 (3.80-5.40) m/uL Hgb 13.3 (11.4-16.0) gm/dL Hct 40.5 (34.0-46.0) % MCV 81.1 (80.0-100.0) fL MCH 26.7 (25.0-35.0) pg MCHC 33.0 (31.0-37.0) g/dL RDW 15.5 (11.5-15.5) % Plt Count 263 (150-450) k/uL Neutrophils % 84 % Lymphocytes % 10 % Monocytes % 4 % Eosinophils % 2 % Basophils % 0 % Neutrophils # 13.2 H (1.3-7.7) k/uL Lymphocytes # 1.5 (1.0-4.8) k/uL Monocytes # 0.7 (0-1.0) k/uL Eosinophils # 0.3 (0-0.7) k/uL Basophils # 0.0 (0-0.2) k/uL Sodium 139 (137-145) mmol/L Potassium 3.9 (3.5-5.1) mmol/L Chloride 109 H (98-107) mmol/L Carbon Dioxide 19 L (22-30) mmol/L Anion Gap 11 mmol/L BUN 22 H (7-17) mg/dL Creatinine 1.80 H (0.52-1.04) mg/dL Est GFR (CKD-EPI)AfAm 39 (>60 ml/min/1.73 sqM) Est GFR (CKD-EPI)NonAf 34 (>60 ml/min/1.73 sqM) Glucose 183 H (74-99) mg/dL Plasma Lactic Acid Danny (0.7-2.0) mmol/L Calcium 9.1 (8.4-10.2) mg/dL Total Bilirubin 0.3 (0.2-1.3) mg/dL AST 11 L (14-36) U/L ALT 23 (9-52) U/L Alkaline Phosphatase 98 (38-126) U/L Total Protein 7.0 (6.3-8.2) g/dL Albumin 3.5 (3.5-5.0) g/dL Amylase <30 L (30-110) U/L Lipase 25 (23-300) U/L Urine Color Yellow Urine Appearance Clear (Clear) Urine pH 6.5 (5.0-8.0) Ur Specific [place] 1.014 (1.001-1.035) Urine Protein 1+ H (Negative) Urine Glucose (UA) 1+ H (Negative) Urine Ketones Negative (Negative) Urine Blood Small H (Negative) Urine Nitrite Negative (Negative) Urine Bilirubin Negative (Negative) Urine Urobilinogen <2.0 (<2.0) mg/dL Ur Leukocyte Esterase Moderate H (Negative) Urine RBC 14 H (0-5) /hpf Urine WBC 32 H (0-5) /hpf Ur Squamous Epith Cells 5 H (0-4) /hpf Urine Bacteria Rare H (None) /hpf 04/14/18 Range/Units 18:00 WBC (3.8-10.6) k/uL RBC (3.80-5.40) m/uL Hgb (11.4-16.0) gm/dL Hct (34.0-46.0) % MCV (80.0-100.0) fL MCH (25.0-35.0) pg MCHC (31.0-37.0) g/dL RDW (11.5-15.5) % Plt Count (150-450) k/uL Neutrophils % % Lymphocytes % % Monocytes % % Eosinophils % % Basophils % % Neutrophils # (1.3-7.7) k/uL Lymphocytes # (1.0-4.8) k/uL Monocytes # (0-1.0) k/uL Eosinophils # (0-0.7) k/uL Basophils # (0-0.2) k/uL Sodium (137-145) mmol/L Potassium (3.5-5.1) mmol/L Chloride (98-107) mmol/L Carbon Dioxide (22-30) mmol/L Anion Gap mmol/L BUN (7-17) mg/dL Creatinine (0.52-1.04) mg/dL Est GFR (CKD-EPI)AfAm (>60 ml/min/1.73 sqM) Est GFR (CKD-EPI)NonAf (>60 ml/min/1.73 sqM) Glucose (74-99) mg/dL Plasma Lactic Acid Danny 0.9 (0.7-2.0) mmol/L Calcium (8.4-10.2) mg/dL Total Bilirubin (0.2-1.3) mg/dL AST (14-36) U/L ALT (9-52) U/L Alkaline Phosphatase (38-126) U/L Total Protein (6.3-8.2) g/dL Albumin (3.5-5.0) g/dL Amylase (30-110) U/L Lipase (23-300) U/L Urine Color Urine Appearance (Clear) Urine pH (5.0-8.0) Ur Specific [place] (1.001-1.035) Urine Protein (Negative) Urine Glucose (UA) (Negative) Urine Ketones (Negative) Urine Blood (Negative) Urine Nitrite (Negative) Urine Bilirubin (Negative) Urine Urobilinogen (<2.0) mg/dL Ur Leukocyte Esterase (Negative) Urine RBC (0-5) /hpf Urine WBC (0-5) /hpf Ur Squamous Epith Cells (0-4) /hpf Urine Bacteria (None) /hpf - Radiology Data Radiology results: report reviewed No acute cardiopulmonary process. Multiple left-sided rib fractures and deformities age-indeterminate but suspected chronic. Correlate clinically. 7 mm calculus in the left ureteral pelvic junction. No retroperitoneal adenopathy. No ascites. The obstruction is new compared old CT exam. Clearing of the right renal obstruction. Also evidence of varicose veins in the retrocrural retroperitoneum. Appears unchanged. Normal appendix. Data Disposition Clinical Impression: Obstruction of left ureteropelvic junction (UPJ), UTI (urinary tract infection) , Leukocytosis Disposition: Left Against Medical Advice Condition: Good Instructions: Kidney Stones (ED) Additional Instructions: Patient advised to follow-up with primary care provider. Return to emergency department if any alarming signs or symptoms occur. Prescriptions: Ciprofloxacin HCl [Cipro] 500 mg PO BID 10 Days #20 tab HYDROcodone/APAP 5-325MG [[place] 5-325] 1 tab PO Q6HR PRN #10 tab PRN Reason: Pain Ketorolac [Toradol] 10 mg PO Q6HR #10 tab Ondansetron Odt [Zofran Odt] 4 mg PO Q8HR PRN #20 tab PRN Reason: Nausea Tamsulosin [Flomax] 0.4 mg PO DAILY #10 cap Is patient prescribed a controlled substance at d/c from ED?: No Referrals: Malia Finney MD [Primary Care Provider] - 1-2 days Time of Disposition: 19:53
[2018-04-14 18:15] LABS: Basophils % (A) 0 %; Eosinophils # (A) 0.3 k/uL (0-0.7); Eosinophils % (A) 2 %; HCT 40.5 % (34.0-46.0); HGB 13.3 gm/dL (11.4-16.0); Lymphocytes # (A) 1.5 k/uL (1.0-4.8); Lymphocytes % (A) 10 %; MCH 26.7 pg (25.0-35.0); MCV 81.1 fL (80.0-100.0); Mean Platelet Volume 7.9; Monocytes # (A) 0.7 k/uL (0-1.0); Monocytes % (A) 4 %; Neutrophils # (A) 13.2 k/uL (1.3-7.7); Neutrophils % (A) 84 %; Platelet Count 263 k/uL (150-450); RBC 4.99 m/uL (3.80-5.40); RDW 15.5 % (11.5-15.5); WBC 15.8 k/uL (3.8-10.6)
[2018-04-14 18:20] LABS: Appearance,Urine Clear (Clear); Bacteria,Urine Rare /hpf; Bilirubin,Urine Negative (Negative); Blood,Urine Small (Negative); Color,Urine Yellow; Glucose,Urine (UA) 1+ (Negative); Ketones,Urine Negative (Negative); Leukocyte Esterase,Urine Moderate (Negative); Nitrite,Urine Negative (Negative); PH, Urine 6.5 (5.0-8.0); Protein,Urine 1+ (Negative); RBC,Urine 14 /hpf (0-5); Specific Gravity,Urine 1.014 (1.001-1.035); Squamous Epithelial Cell,Urine 5 /hpf (0-4); Urobilinogen,Urine <2.0 mg/dL (<2.0); WBC,Urine 32 /hpf (0-5)
[2018-04-14 18:25] LABS: ALT 23 U/L (9-52); AST 11 U/L (14-36); Albumin 3.5 g/dL (3.5-5.0); Alkaline Phosphatase 98 U/L (38-126); Amylase <30 U/L (30-110); Anion Gap 11 mmol/L; Blood Urea Nitrogen 22 mg/dL (7-17); Calcium 9.1 mg/dL (8.4-10.2); Carbon Dioxide 19 mmol/L (22-30); Chloride 109 mmol/L (98-107); Glucose 183 mg/dL (74-99); Lipase 25 U/L (23-300); Potassium 3.9 mmol/L (3.5-5.1); Sodium 139 mmol/L (137-145); Total Bilirubin 0.3 mg/dL (0.2-1.3)
[2018-04-14] MEDS ORDERED: SODIUM CHLORIDE 0.9% 1,000 ML IV SCH (18:30)
--- NOTE | 2018-04-14 18:31 | XR ---
EXAMINATION TYPE: XR KUB DATE OF EXAM: 04/14/2018 COMPARISON: 02/03/2014 HISTORY: Flank pain TECHNIQUE: 2 views upright FINDINGS: Bowel gas pattern is normal. There is no sign of intestinal obstruction or pneumoperitoneum . Fecal pattern is normal. Lung bases are clear. There is 5 mm calcification over the left kidney. IMPRESSION: Nonacute abdomen. No change. Left renal calculus increased compared to old exam.
[2018-04-14] MEDS ORDERED: cefTRIAXone IN SWFI 2,000 MG/20 ML SYRINGE IVP STA (18:45)
--- NOTE | 2018-04-14 19:22 | CT ---
EXAMINATION TYPE: CT abdomen pelvis wo con DATE OF EXAM: 04/14/2018 COMPARISON: 01/26/2018 HISTORY: Left side flank pain and nausea. CT DLP: 2382.1 mGycm Automated exposure control for dose reduction was used. TECHNIQUE: Helical acquisition of images was performed from the lung bases through the pelvis. FINDINGS: Lung bases are clear. There is no pleural effusion. Heart size is normal. There is no pericardial eff usion. There are multiple densities in the retrocrural region at the diaphragm that could be varicose veins. Liver and spleen appear normal. There is no pancreatic mass. The bile ducts are not dilated. There ar e clips from cholecystectomy. There is left-sided hydronephrosis and perinephric edema. There is a 7 mm calculus at the left ureter al pelvic junction. There is no retroperitoneal adenopathy. There is no ascites. Bladder distends smo othly. Uterus is anteverted. Lumbar spine appears intact. Appendix appears normal. There is no intest inal wall thickening. There are no dilated loops. IMPRESSION: OBSTRUCTING CALCULUS AT THE LEFT URETEROPELVIC JUNCTION. OBSTRUCTION IS NEW COMPARED TO OLD CT SCAN. THERE IS CLEARING OF THE RIGHT SIDE RENAL OBSTRUCTION COMPARED TO OLD EXAM. VARICOSE VEINS IN THE RETROCRURAL RETROPERITONEUM. THIS APPEARS UNCHANGED. NORMAL APPENDIX.
[2018-04-14 20:09] VITALS: BP 160/113; PULSE 77
== END 2018-04-14 20:09 | disposition left against medical advice (07) ==
LOC: EC 16:07
DX: N20.1 Calculus of ureter (principal); N39.0 Urinary tract infection, site not specified; D72.829 Elevated white blood cell count, unspecified; R79.89 Other specified abnormal findings of blood chemistry; I10 Essential (primary) hypertension; E11.9 Type 2 diabetes mellitus without complications; K21.9 Gastro-esophageal reflux disease without esophagitis; F17.200 Nicotine dependence, unspecified, uncomplicated; Z79.4 Long term (current) use of insulin; Z79.899 Other long term (current) drug therapy; Z88.8 Allergy status to other drugs, medicaments and biological substances; Z90.49 Acquired absence of other specified parts of digestive tract; Z96.0 Presence of urogenital implants
CPT/HCPCS: 99285; 96374; 96375 ×3; 36415; 80053; 82150; 83605; 83690; 85025; 81001; 87040; 87086; 74018; 74176; J2270; J2405; J0696; J1885

== ENCOUNTER 2018-04-15 15:31 | Emergency (ER) | payer OTHER ==
[2018-04-15] MEDS ORDERED: SODIUM CHLORIDE 0.9% 1,000 ML IV STA (16:51)
[2018-04-15] MEDS ORDERED: MORPHINE SULFATE 4 MG/ML SYRINGE IV STA ×2 (16:51→18:44)
[2018-04-15] MEDS ORDERED: ONDANSETRON 4 MG/2 ML VIAL IVP STA (16:51)
[2018-04-15 17:27] LABS: Basophils % (A) 0 %; Eosinophils # (A) 0.4 k/uL (0-0.7); Eosinophils % (A) 3 %; Lymphocytes # (A) 1.9 k/uL (1.0-4.8); Lymphocytes % (A) 14 %; MCH 26.9 pg (25.0-35.0); MCHC 32.3 g/dL (31.0-37.0); MCV 83.2 fL (80.0-100.0); Mean Platelet Volume 8.1; Monocytes # (A) 0.8 k/uL (0-1.0); Monocytes % (A) 6 %; Neutrophils % (A) 77 %; Platelet Count 283 k/uL (150-450); RBC 4.45 m/uL (3.80-5.40); RDW 15.4 % (11.5-15.5); WBC 14.3 k/uL (3.8-10.6)
[2018-04-15 17:41] LABS: ALT 18 U/L (9-52); AST 10 U/L (14-36); Albumin 3.2 g/dL (3.5-5.0); Alkaline Phosphatase 87 U/L (38-126); Amylase <30 U/L (30-110); Anion Gap 10 mmol/L; Blood Urea Nitrogen 24 mg/dL (7-17); Calcium 9.4 mg/dL (8.4-10.2); Carbon Dioxide 19 mmol/L (22-30); Chloride 106 mmol/L (98-107); Glucose 272 mg/dL (74-99); Lipase 26 U/L (23-300); Potassium 4.4 mmol/L (3.5-5.1); Sodium 135 mmol/L (137-145); Total Bilirubin 0.3 mg/dL (0.2-1.3); Total Protein 6.4 g/dL (6.3-8.2)
[2018-04-15 17:43] LABS: Appearance,Urine Clear (Clear); Bacteria,Urine Rare /hpf; Bilirubin,Urine Negative (Negative); Blood,Urine Trace (Negative); Budding Yeast,Urine Rare /hpf; Color,Urine Yellow; Glucose,Urine (UA) 2+ (Negative); Ketones,Urine Negative (Negative); Leukocyte Esterase,Urine Moderate (Negative); Mucus,Urine Rare /hpf; Nitrite,Urine Negative (Negative); PH, Urine 6.5 (5.0-8.0); Protein,Urine 1+ (Negative); RBC,Urine 2 /hpf (0-5); Specific Gravity,Urine 1.016 (1.001-1.035); Squamous Epithelial Cell,Urine 1 /hpf (0-4); Urobilinogen,Urine <2.0 mg/dL (<2.0); WBC,Urine 23 /hpf (0-5)
--- NOTE | 2018-04-15 17:58 | XR ---
EXAMINATION TYPE: XR KUB DATE OF EXAM: 04/15/2018 COMPARISON: 04/14/2018 HISTORY: Left side abdominal pain TECHNIQUE: 2 views upright FINDINGS: There is no sign of intestinal obstruction or pneumoperitoneum. There is a 6 mm calcificati on over the left kidney. There is posterior fusion surgery at lower thoracic spine. There is no evide nce of a mass. IMPRESSION: Nonacute abdomen. Left renal calcification without change.
--- NOTE | 2018-04-15 18:10 | US ---
EXAMINATION TYPE: US kidneys/renal and bladder DATE OF EXAM: 04/15/2018 COMPARISON: 04/15/18 KUB, CT 04/14/2018 CLINICAL HISTORY: Pain Patient was diagnosed with a stone via CT yesterday. Worsening pain today. Dif ficult and limited exam due to patient's body habitus. EXAM MEASUREMENTS: Right Kidney: 13.2 x 4.7 x 5.5 cm Left Kidney: 13.9 x 6.5 x 6.8 cm Right Kidney: Possible small echogenic foci visualized measuring 0.3 cm Left Kidney: Small amount of hydronephrosis visualized. Echogenic foci visualized measuring 0.9 cm Bladder: wnl as visualized, not fully distended Bilateral Jets seen: Right jet visualized IMPRESSION: There is mild left-sided hydronephrosis. No ureteral jet is seen on the left side. This is suggestive of left ureteral obstruction. Nonobstructing small calculus in the lower pole right kidney.
[2018-04-15] MEDS ORDERED: KETOROLAC 30 MG/ML 1 ML VIAL IVP STA (18:44)
[2018-04-15 18:54] VITALS: RESP 17
--- NOTE | 2018-04-15 19:33 | ED ---
General Adult HPI - General Chief complaint: Abdominal Pain Stated complaint: Abd Pain Time Seen by Provider: 04/15/18 16:44 Source: patient, RN notes reviewed Mode of arrival: ambulatory Limitations: no limitations - History of Present Illness Initial comments: Patient 43-year-old female presented to the emergency room today with a chief complaint of increased flank pain. Patient does admit that she has been having increased pain on the left flank. Patient states was seen in the emergency room yesterday and diagnosed with a 7 mm stone. Patient states that she has been taking medications at home was having increased pain. Patient states that she had a low-grade fever at home of 100F. Patient denies any other complaints currently. Patient denies any recent fever, chills, shortness of breath, chest pain, numbness or tingling, headaches or visual changes, or any other complaints. - Related Data Home Medications Medication Instructions Recorded Confirmed Insulin Glargine [Lantus] 30 unit SQ DAILY 02/03/14 04/15/18 INSULIN LISPRO (HumaLOG) [humaLOG] 6 units SQ AC-TID 08/01/16 04/15/18 Ibuprofen [Motrin] 800 mg PO Q8HR PRN 09/22/16 04/15/18 Metoprolol Tartrate [Lopressor] 50 mg PO TID 09/22/16 04/15/18 Losartan Potassium [Cozaar] 25 mg PO DAILY 09/04/17 04/15/18 Furosemide [Lasix] 20 mg PO DAILY 01/26/18 04/15/18 Omeprazole [PriLOSEC] 20 mg PO DAILY 01/26/18 04/15/18 Previous Rx's Medication Instructions Recorded Ciprofloxacin HCl [Cipro] 500 mg PO BID 10 Days #20 tab 04/14/18 HYDROcodone/APAP 5-325MG [[place] 1 tab PO Q6HR PRN #10 tab 04/14/18 5-325] Ketorolac [Toradol] 10 mg PO Q6HR #10 tab 04/14/18 Ondansetron Odt [Zofran Odt] 4 mg PO Q8HR PRN #20 tab 04/14/18 Tamsulosin [Flomax] 0.4 mg PO DAILY #10 cap 04/14/18 Hydrocodone/Acetaminophen [[place] 1 tab PO Q6H PRN 3 Days #12 tab 04/15/18 10-325] Allergies Allergy/AdvReac Type Severity Reaction Status Date / Time hydrochlorothiazide Allergy Dyspnea Verified 04/15/18 16:56 [From Zestoretic] insulin glargine Allergy Rash/Hives Verified 04/15/18 16:56 [From Basaglar KwikPen] lisinopril [From Zestoretic] Allergy Dyspnea Verified 04/15/18 16:56 Review of Systems ROS Statement: Those systems with pertinent positive or pertinent negative responses have been documented in the HPI. ROS Other: All systems not noted in ROS Statement are negative. Past Medical History Past Medical History: Diabetes Mellitus, GERD/Reflux, Hypertension, Osteoarthritis (OA), Sleep Apnea/CPAP/BIPAP Additional Past Medical History / Comment(s): chronic back pain, uti, kidney stones History of Any Multi-Drug Resistant Organisms: None Reported Past Surgical History: Back Surgery, Section, Cholecystectomy Additional Past Surgical History / Comment(s): t8-t12 fusion, ureter stent Past Anesthesia/Blood Transfusion Reactions: No Reported Reaction Past Psychological History: Anxiety, Bipolar, Depression Smoking Status: Current every day smoker Past Alcohol Use History: None Reported Past Drug Use History: None Reported - Past Family History Father Family Medical History: Diabetes Mellitus Mother Additional Family Medical History / Comment(s): bipolar depression anxiety General Exam - General Exam Comments Initial Comments: General: The patient is awake and alert, mild distress. Eye: Pupils are equal, round and reactive to light, extra-ocular movements are intact. No nystagmus. There is normal conjunctiva bilaterally. No signs of icterus. Ears, nose, mouth and throat: There are moist mucous membranes and no oral lesions. Neck: The neck is supple, there is no tenderness or JVD. Cardiovascular: There is a regular rate and rhythm. No murmur, rub or gallop is appreciated. Respiratory: Lungs are clear to auscultation, respirations are non-labored, breath sounds are equal. No wheezes, stridor, rales, or rhonchi. Gastrointestinal: Abdomen soft on palpation. Patient does have tenderness left lower quadrant. Left CVA tenderness. No rebound or guarding. Musculoskeletal: Normal ROM, no tenderness. Strength 5/5. Sensation intact. Pulses equal bilaterally 2+. Neurological: A&O x 3. CN II-XII intact, There are no obvious motor or sensory deficits. Coordination appears grossly intact. Speech is normal. Skin: Skin is warm and dry and no rashes or lesions are noted. Psychiatric: Cooperative, appropriate mood & affect, normal judgment. Limitations: no limitations Course Vital Signs 04/15/18 04/15/18 16:34 18:53 Temperature 98.3 F Pulse Rate 64 58 L Respiratory 18 17 Rate Blood Pressure 157/93 178/98 O2 Sat by Pulse 97 98 Oximetry Medical Decision Making - Medical Decision Making Patient's labs and HAVE BEEN REVIEWED. PREVIOUS CAT SCAN ALSO REVIEWED SHOWING 7 MM STONE. Options were discussed with patient about admission to the hospital. Patient states that at this time shows couple been discharged home. She states she will continue to try to follow-up with urologist. She states that she will return if symptoms increase or worsen. - Lab Data Result diagrams: 04/15/18 17:12 04/15/18 17:12 Lab Results 04/15/18 04/15/18 04/15/18 Range/Units 17:12 17:12 17:12 WBC (3.8-10.6) k/uL RBC (3.80-5.40) m/uL Hgb (11.4-16.0) gm/dL Hct (34.0-46.0) % MCV (80.0-100.0) fL MCH (25.0-35.0) pg MCHC (31.0-37.0) g/dL RDW (11.5-15.5) % Plt Count (150-450) k/uL Neutrophils % % Lymphocytes % % Monocytes % % Eosinophils % % Basophils % % Neutrophils # (1.3-7.7) k/uL Lymphocytes # (1.0-4.8) k/uL Monocytes # (0-1.0) k/uL Eosinophils # (0-0.7) k/uL Basophils # (0-0.2) k/uL Sodium 135 L (137-145) mmol/L Potassium 4.4 (3.5-5.1) mmol/L Chloride 106 (98-107) mmol/L Carbon Dioxide 19 L (22-30) mmol/L Anion Gap 10 mmol/L BUN 24 H (7-17) mg/dL Creatinine 1.90 H (0.52-1.04) mg/dL Est GFR (CKD-EPI)AfAm 37 (>60 ml/min/1.73 sqM) Est GFR (CKD-EPI)NonAf 32 (>60 ml/min/1.73 sqM) Glucose 272 H (74-99) mg/dL Calcium 9.4 (8.4-10.2) mg/dL Total Bilirubin 0.3 (0.2-1.3) mg/dL AST 10 L (14-36) U/L ALT 18 (9-52) U/L Alkaline Phosphatase 87 (38-126) U/L Total Protein 6.4 (6.3-8.2) g/dL Albumin 3.2 L (3.5-5.0) g/dL Amylase <30 L (30-110) U/L Lipase 26 (23-300) U/L Urine Color Yellow Urine Appearance Clear (Clear) Urine pH 6.5 (5.0-8.0) Ur Specific [place] 1.016 (1.001-1.035) Urine Protein 1+ H (Negative) Urine Glucose (UA) 2+ H (Negative) Urine Ketones Negative (Negative) Urine Blood Trace H (Negative) Urine Nitrite Negative (Negative) Urine Bilirubin Negative (Negative) Urine Urobilinogen <2.0 (<2.0) mg/dL Ur Leukocyte Esterase Moderate H (Negative) Urine RBC 2 (0-5) /hpf Urine WBC 23 H (0-5) /hpf Urine WBC Clumps Occasional H (None) /hpf Ur Squamous Epith Cells 1 (0-4) /hpf Urine Bacteria Rare H (None) /hpf Urine Mucus Rare H (None) /hpf Urine Yeast (Budding) Rare H (None) /hpf Urine HCG, Qual Not Detected (Not Detectd) 04/15/18 Range/Units 17:12 WBC 14.3 H (3.8-10.6) k/uL RBC 4.45 (3.80-5.40) m/uL Hgb 12.0 (11.4-16.0) gm/dL Hct 37.0 (34.0-46.0) % MCV 83.2 (80.0-100.0) fL MCH 26.9 (25.0-35.0) pg MCHC 32.3 (31.0-37.0) g/dL RDW 15.4 (11.5-15.5) % Plt Count 283 (150-450) k/uL Neutrophils % 77 % Lymphocytes % 14 % Monocytes % 6 % Eosinophils % 3 % Basophils % 0 % Neutrophils # 11.0 H (1.3-7.7) k/uL Lymphocytes # 1.9 (1.0-4.8) k/uL Monocytes # 0.8 (0-1.0) k/uL Eosinophils # 0.4 (0-0.7) k/uL Basophils # 0.0 (0-0.2) k/uL Sodium (137-145) mmol/L Potassium (3.5-5.1) mmol/L Chloride (98-107) mmol/L Carbon Dioxide (22-30) mmol/L Anion Gap mmol/L BUN (7-17) mg/dL Creatinine (0.52-1.04) mg/dL Est GFR (CKD-EPI)AfAm (>60 ml/min/1.73 sqM) Est GFR (CKD-EPI)NonAf (>60 ml/min/1.73 sqM) Glucose (74-99) mg/dL Calcium (8.4-10.2) mg/dL Total Bilirubin (0.2-1.3) mg/dL AST (14-36) U/L ALT (9-52) U/L Alkaline Phosphatase (38-126) U/L Total Protein (6.3-8.2) g/dL Albumin (3.5-5.0) g/dL Amylase (30-110) U/L Lipase (23-300) U/L Urine Color Urine Appearance (Clear) Urine pH (5.0-8.0) Ur Specific [place] (1.001-1.035) Urine Protein (Negative) Urine Glucose (UA) (Negative) Urine Ketones (Negative) Urine Blood (Negative) Urine Nitrite (Negative) Urine Bilirubin (Negative) Urine Urobilinogen (<2.0) mg/dL Ur Leukocyte Esterase (Negative) Urine RBC (0-5) /hpf Urine WBC (0-5) /hpf Urine WBC Clumps (None) /hpf Ur Squamous Epith Cells (0-4) /hpf Urine Bacteria (None) /hpf Urine Mucus (None) /hpf Urine Yeast (Budding) (None) /hpf Urine HCG, Qual (Not Detectd) Disposition Clinical Impression: Kidney stone Disposition: HOME SELF-CARE Condition: Stable Instructions: Kidney Stones (ED) Additional Instructions: Please use medication as discussed. Please follow-up with family doctor in the next 2 days of symptoms have not improved. Please return to emergency room if the symptoms increase or worsen or for any other concerns. Prescriptions: Hydrocodone/Acetaminophen [[place] 10-325] 1 tab PO Q6H PRN 3 Days #12 tab PRN Reason: Pain Is patient prescribed a controlled substance at d/c from ED?: Yes When asked, does pt state using other controlled substances?: Yes If prescribed controlled substance>3 days was MAPS reviewed?: Prescribed <3 Days If Rx opioid, was Start Talking consent form obtained?: Yes Referrals: Malia Finney MD [Primary Care Provider] - 1-2 days Time of Disposition: 19:23
[2018-04-15 19:46] VITALS: BP 168/98; PULSE 69; TEMP 98.5
== END 2018-04-15 19:47 | disposition home or self-care (01) ==
LOC: EC 15:31
DX: N20.0 Calculus of kidney (principal); E11.9 Type 2 diabetes mellitus without complications; I10 Essential (primary) hypertension; K21.9 Gastro-esophageal reflux disease without esophagitis; G47.30 Sleep apnea, unspecified; F17.200 Nicotine dependence, unspecified, uncomplicated; Z79.4 Long term (current) use of insulin; Z79.899 Other long term (current) drug therapy; Z88.8 Allergy status to other drugs, medicaments and biological substances; Z99.89 Dependence on other enabling machines and devices; Z90.49 Acquired absence of other specified parts of digestive tract; Z96.0 Presence of urogenital implants
CPT/HCPCS: 36415; 80053; 82150; 83690; 85025; 81001; 81025; 74018; 76770; 99285; 96374; 96375 ×2; 96376; 96361 ×2; J2270; J2405; J1885

== ENCOUNTER 2018-04-18 10:57 | Observation (INO) | payer OTHER ==
[2018-04-18] MEDS ORDERED: SODIUM CHLORIDE 0.9% 1,000 ML IV STA (11:39)
[2018-04-18] MEDS ORDERED: ONDANSETRON 4 MG/2 ML VIAL IVP STA (11:39)
[2018-04-18] MEDS ORDERED: KETOROLAC 30 MG/ML 1 ML VIAL IVP STA (11:39)
[2018-04-18 12:03] LABS: Basophils % (A) 0 %; Eosinophils # (A) 0.3 k/uL (0-0.7); Eosinophils % (A) 3 %; HCT 39.5 % (34.0-46.0); HGB 12.7 gm/dL (11.4-16.0); Hypochromasia Slight; Lymphocytes # (A) 1.9 k/uL (1.0-4.8); Lymphocytes % (A) 18 %; MCH 26.5 pg (25.0-35.0); MCHC 32.1 g/dL (31.0-37.0); MCV 82.7 fL (80.0-100.0); Mean Platelet Volume 7.2; Monocytes # (A) 0.7 k/uL (0-1.0); Monocytes % (A) 7 %; Neutrophils # (A) 7.9 k/uL (1.3-7.7); Neutrophils % (A) 71 %; Platelet Count 356 k/uL (150-450); RBC 4.77 m/uL (3.80-5.40); RDW 14.8 % (11.5-15.5); WBC 11.1 k/uL (3.8-10.6)
[2018-04-18 12:05] LABS: Appearance,Urine Cloudy (Clear); Bacteria,Urine Few /hpf; Bilirubin,Urine Negative (Negative); Blood,Urine Trace (Negative); Budding Yeast,Urine Occasional /hpf; Color,Urine Light Yellow; Glucose,Urine (UA) Negative (Negative); Ketones,Urine Negative (Negative); Leukocyte Esterase,Urine Large (Negative); Nitrite,Urine Negative (Negative); PH, Urine 6.5 (5.0-8.0); Protein,Urine Trace (Negative); RBC,Urine 2 /hpf (0-5); Specific Gravity,Urine 1.008 (1.001-1.035); Squamous Epithelial Cell,Urine 13 /hpf (0-4); Urobilinogen,Urine <2.0 mg/dL (<2.0); WBC,Urine 19 /hpf (0-5)
[2018-04-18 12:13] LABS: Albumin 3.4 g/dL (3.5-5.0); Calcium 9.1 mg/dL (8.4-10.2); Potassium 4.7 mmol/L (3.5-5.1); Total Bilirubin 0.5 mg/dL (0.2-1.3)
[2018-04-18] MEDS ORDERED: HYDROmorphone 1 MG/ML 1 ML SYRINGE IVP STA (12:43)
--- NOTE | 2018-04-18 12:59 | ED ---
General Adult HPI - General Chief complaint: Abdominal Pain Stated complaint: Poss kidney stones Time Seen by Provider: 04/18/18 11:29 Source: patient, RN notes reviewed Mode of arrival: ambulatory Limitations: no limitations - History of Present Illness Initial comments: 43-year-old female presents to the emergency department with a chief complaint of left flank pain. Patient has been seen here twice for this kidney stone type pain. She was diagnosed by CAT scan with a calculus. She cannot follow out patiently with her urologist because he no longer Her Insurance. She States That She Ran Out Of Her [place] and Her Toradol. She States She Continues to Have This Discomfort. She States She Is Currently on Cipro Outpatient [facility]. She States No Nausea Vomiting. It's Just the Left Side Does Have A Lot Of Discomfort. She's Had No Fever or Chills with This. There Is Concerned Due To the Continued Discomfort so She Thought That She Should Be Seen. Patient denies any recent fever, chills, shortness of breath, chest pain, nausea vomiting, numbness or tingling, hematuria, constipation or diarrhea, headaches or visual changes, or any other current symptoms. - Related Data Home Medications Medication Instructions Recorded Confirmed Insulin Glargine [Lantus] 30 unit SQ DAILY 02/03/14 04/15/18 INSULIN LISPRO (HumaLOG) [humaLOG] 6 units SQ AC-TID 08/01/16 04/15/18 Ibuprofen [Motrin] 800 mg PO Q8HR PRN 09/22/16 04/15/18 Metoprolol Tartrate [Lopressor] 50 mg PO TID 09/22/16 04/15/18 Losartan Potassium [Cozaar] 25 mg PO DAILY 09/04/17 04/15/18 Furosemide [Lasix] 20 mg PO DAILY 01/26/18 04/15/18 Omeprazole [PriLOSEC] 20 mg PO DAILY 01/26/18 04/15/18 Previous Rx's Medication Instructions Recorded Ciprofloxacin HCl [Cipro] 500 mg PO BID 10 Days #20 tab 04/14/18 HYDROcodone/APAP 5-325MG [[place] 1 tab PO Q6HR PRN #10 tab 04/14/18 5-325] Ketorolac [Toradol] 10 mg PO Q6HR #10 tab 04/14/18 Ondansetron Odt [Zofran Odt] 4 mg PO Q8HR PRN #20 tab 04/14/18 Tamsulosin [Flomax] 0.4 mg PO DAILY #10 cap 04/14/18 Hydrocodone/Acetaminophen [[place] 1 tab PO Q6H PRN 3 Days #12 tab 04/15/18 10-325] Allergies Allergy/AdvReac Type Severity Reaction Status Date / Time hydrochlorothiazide Allergy Dyspnea Verified 04/18/18 11:21 [From Zestoretic] insulin glargine Allergy Rash/Hives Verified 04/18/18 11:21 [From Basaglar KwikPen] lisinopril [From Zestoretic] Allergy Dyspnea Verified 04/18/18 11:21 Review of Systems ROS Statement: Those systems with pertinent positive or pertinent negative responses have been documented in the HPI. ROS Other: All systems not noted in ROS Statement are negative. Past Medical History Past Medical History: Diabetes Mellitus, GERD/Reflux, Hypertension, Osteoarthritis (OA), Sleep Apnea/CPAP/BIPAP Additional Past Medical History / Comment(s): chronic back pain, uti, kidney stones History of Any Multi-Drug Resistant Organisms: None Reported Past Surgical History: Back Surgery, Section, Cholecystectomy Additional Past Surgical History / Comment(s): t8-t12 fusion, ureter stent Past Anesthesia/Blood Transfusion Reactions: No Reported Reaction Past Psychological History: Anxiety, Bipolar, Depression Smoking Status: Current every day smoker Past Alcohol Use History: None Reported Past Drug Use History: None Reported - Past Family History Father Family Medical History: Diabetes Mellitus Mother Additional Family Medical History / Comment(s): bipolar depression anxiety General Exam - General Exam Comments Initial Comments: General: The patient is awake and alert, in no distress, and does not appear acutely ill. Eye: Pupils are equal, round and reactive to light, extra-ocular movements are intact; there is normal conjunctiva bilaterally. No signs of icterus. Ears, nose, mouth and throat: There are moist mucous membranes and no oral lesions. Neck: The neck is supple, there is no tenderness. Cardiovascular: There is a regular rate and rhythm. No murmur, rub or gallop is appreciated. Respiratory: Lungs are clear to auscultation, respirations are non-labored, breath sounds are equal. No wheezes, stridor, rales, or rhonchi. Gastrointestinal: Soft, non-distended, nontender in the left upper and lower quadrants of the abdomen without masses or organomegaly noted. There is no rebound or guarding present. Left sided CVA tenderness. Bowel sounds are unremarkable. Back: There is no tenderness to palpation in the midline. There is no obvious deformity. No rashes noted. Musculoskeletal: Normal ROM, no tenderness, There is no pedal edema. There is no calf tenderness or swelling. Sensation intact. Pulses equal bilaterally 2+. Neurological: CN II-XII intact, There are no obvious motor or sensory deficits. Coordination appears grossly intact. Speech is normal. Skin: Skin is warm and dry and no rashes or lesions are noted. Psychiatric: Cooperative, appropriate mood & affect, normal judgment. Limitations: no limitations Course Vital Signs 04/18/18 11:18 Temperature 98.8 F Pulse Rate 90 Respiratory 18 Rate Blood Pressure 164/99 O2 Sat by Pulse 96 Oximetry Medical Decision Making - Medical Decision Making 43-year-old female presents for left-sided flank pain on previous CAT scan that does appear to be a calculus noted that has worsened with some increased edema noted. At this time patient has palpation for 5 days with no change. At this time we will admit patient for intractable pain. Dr. Louis spoke with Dr. Goyal who does agree to the admission. Patient stated that he understood and all questions have been answered. Patient will be admitted. - Lab Data Result diagrams: 04/18/18 11:51 04/18/18 11:51 Lab Results 04/18/18 04/18/18 04/18/18 Range/Units 11:51 11:51 11:51 WBC 11.1 H (3.8-10.6) k/uL RBC 4.77 (3.80-5.40) m/uL Hgb 12.7 (11.4-16.0) gm/dL Hct 39.5 (34.0-46.0) % MCV 82.7 (80.0-100.0) fL MCH 26.5 (25.0-35.0) pg MCHC 32.1 (31.0-37.0) g/dL RDW 14.8 (11.5-15.5) % Plt Count 356 (150-450) k/uL Neutrophils % 71 % Lymphocytes % 18 % Monocytes % 7 % Eosinophils % 3 % Basophils % 0 % Neutrophils # 7.9 H (1.3-7.7) k/uL Lymphocytes # 1.9 (1.0-4.8) k/uL Monocytes # 0.7 (0-1.0) k/uL Eosinophils # 0.3 (0-0.7) k/uL Basophils # 0.0 (0-0.2) k/uL Hypochromasia Slight Sodium 136 L (137-145) mmol/L Potassium 4.7 (3.5-5.1) mmol/L Chloride 107 (98-107) mmol/L Carbon Dioxide 20 L (22-30) mmol/L Anion Gap 9 mmol/L BUN 25 H (7-17) mg/dL Creatinine 1.92 H (0.52-1.04) mg/dL Est GFR (CKD-EPI)AfAm 37 (>60 ml/min/1.73 sqM) Est GFR (CKD-EPI)NonAf 32 (>60 ml/min/1.73 sqM) Glucose 251 H (74-99) mg/dL Calcium 9.1 (8.4-10.2) mg/dL Total Bilirubin 0.5 (0.2-1.3) mg/dL AST 16 (14-36) U/L ALT 20 (9-52) U/L Alkaline Phosphatase 84 (38-126) U/L Total Protein 7.0 (6.3-8.2) g/dL Albumin 3.4 L (3.5-5.0) g/dL Urine Color Light Yellow Urine Appearance Cloudy H (Clear) Urine pH 6.5 (5.0-8.0) Ur Specific [place] 1.008 (1.001-1.035) Urine Protein Trace H (Negative) Urine Glucose (UA) Negative (Negative) Urine Ketones Negative (Negative) Urine Blood Trace H (Negative) Urine Nitrite Negative (Negative) Urine Bilirubin Negative (Negative) Urine Urobilinogen <2.0 (<2.0) mg/dL Ur Leukocyte Esterase Large H (Negative) Urine RBC 2 (0-5) /hpf Urine WBC 19 H (0-5) /hpf Ur Squamous Epith Cells 13 H (0-4) /hpf Urine Bacteria Few H (None) /hpf Urine Yeast (Budding) Occasional H (None) /hpf - Radiology Data Radiology results: report reviewed, image reviewed Disposition Clinical Impression: Ureteral stone with hydronephrosis, Intractable abdominal pain Disposition: ADMITTED IP TO THIS [facility] Condition: Stable Referrals: Malia Finney MD [Primary Care Provider] - 1-2 days Decision Date: 04/18/18 Decision Time: 13:55
--- NOTE | 2018-04-18 13:30 | CT ---
EXAMINATION TYPE: CT abdomen pelvis wo con DATE OF EXAM: 04/18/2018 COMPARISON: 04/14/2018 HISTORY: Possible kidney stones CT DLP: 1543.00 mGycm Automated exposure control for dose reduction was used. TECHNIQUE: Helical acquisition of images was performed from the lung bases through the pelvis. FINDINGS: There is some linear coarse density at the left lung base consistent with atelectasis. There is no pl eural effusion. Liver and spleen appear normal. There is no pancreatic mass. Bile ducts are not dilat ed. Gallbladder is absent. There is left-sided hydronephrosis and perinephric edema. Bladder distends smoothly. Uterus is anteve rted. I see no pelvic mass. There is no free fluid in the pelvis. Appendix appears normal. There is n o intestinal wall thickening. There are no dilated loops. There is no adrenal mass. Right kidney show s mild fullness of the calyces. There is a 7 mm calculus at the left ureteropelvic junction. IMPRESSION: THERE IS LEFT-SIDED HYDRONEPHROSIS AND PERINEPHRIC EDEMA THAT IS SLIGHTLY WORSE THAN LAST EXAM. OBSTR UCTING CALCULUS AT THE LEFT URETEROPELVIC JUNCTION. MILD INTERSTITIAL LEFT LOWER LOBE PULMONARY INFIL TRATE AND ATELECTASIS IS NEW COMPARED TO LAST EXAM.
[2018-04-18] MEDS ORDERED: ONDANSETRON 4 MG/2 ML VIAL IVP PRN (13:55)
[2018-04-18] MEDS ORDERED: NALOXONE 0.4 MG/ML 1 ML VIAL IV PRN (13:55)
--- NOTE | 2018-04-18 13:58 | ED ---
Medical Decision Making - Lab Data Result diagrams: 04/18/18 11:51 04/18/18 11:51 Lab Results 04/18/18 04/18/18 04/18/18 Range/Units 11:51 11:51 11:51 WBC 11.1 H (3.8-10.6) k/uL RBC 4.77 (3.80-5.40) m/uL Hgb 12.7 (11.4-16.0) gm/dL Hct 39.5 (34.0-46.0) % MCV 82.7 (80.0-100.0) fL MCH 26.5 (25.0-35.0) pg MCHC 32.1 (31.0-37.0) g/dL RDW 14.8 (11.5-15.5) % Plt Count 356 (150-450) k/uL Neutrophils % 71 % Lymphocytes % 18 % Monocytes % 7 % Eosinophils % 3 % Basophils % 0 % Neutrophils # 7.9 H (1.3-7.7) k/uL Lymphocytes # 1.9 (1.0-4.8) k/uL Monocytes # 0.7 (0-1.0) k/uL Eosinophils # 0.3 (0-0.7) k/uL Basophils # 0.0 (0-0.2) k/uL Hypochromasia Slight Sodium 136 L (137-145) mmol/L Potassium 4.7 (3.5-5.1) mmol/L Chloride 107 (98-107) mmol/L Carbon Dioxide 20 L (22-30) mmol/L Anion Gap 9 mmol/L BUN 25 H (7-17) mg/dL Creatinine 1.92 H (0.52-1.04) mg/dL Est GFR (CKD-EPI)AfAm 37 (>60 ml/min/1.73 sqM) Est GFR (CKD-EPI)NonAf 32 (>60 ml/min/1.73 sqM) Glucose 251 H (74-99) mg/dL Calcium 9.1 (8.4-10.2) mg/dL Total Bilirubin 0.5 (0.2-1.3) mg/dL AST 16 (14-36) U/L ALT 20 (9-52) U/L Alkaline Phosphatase 84 (38-126) U/L Total Protein 7.0 (6.3-8.2) g/dL Albumin 3.4 L (3.5-5.0) g/dL Urine Color Light Yellow Urine Appearance Cloudy H (Clear) Urine pH 6.5 (5.0-8.0) Ur Specific [place] 1.008 (1.001-1.035) Urine Protein Trace H (Negative) Urine Glucose (UA) Negative (Negative) Urine Ketones Negative (Negative) Urine Blood Trace H (Negative) Urine Nitrite Negative (Negative) Urine Bilirubin Negative (Negative) Urine Urobilinogen <2.0 (<2.0) mg/dL Ur Leukocyte Esterase Large H (Negative) Urine RBC 2 (0-5) /hpf Urine WBC 19 H (0-5) /hpf Ur Squamous Epith Cells 13 H (0-4) /hpf Urine Bacteria Few H (None) /hpf Urine Yeast (Budding) Occasional H (None) /hpf Disposition Clinical Impression: Ureteral stone with hydronephrosis, Intractable abdominal pain, Acute kidney failure Disposition: ADMITTED IP TO THIS [facility] Condition: Stable Referrals: Malia Finney MD [Primary Care Provider] - 1-2 days
[2018-04-18 15:47] VITALS: BMI 49.4
[2018-04-18] MEDS: HYDROmorphone 1 MG/ML 1 ML SYRINGE IVP PRN ×3 (16:17→23:00)
--- NOTE | 2018-04-18 16:42 | P.GSHP ---
History of Present Illness H&P Date: 04/18/18 Chief Complaint: Intractable left flank pain The patient is a 43-year-old white female with a history of recurrent urolithiasis. She has undergone ESWL twice in the past, both unsuccessful. She underwent ureteroscopic removal of a right proximal ureteral calculus earlier this summer. She now presents with a two-week history of left flank pain, which has been intractable for the past week. The pain is located in the left flank and lower back. She has been to the ER several times this week and was admitted today with intractable symptoms. - Constitutional Constitutional: Denies chills, Denies fever - Gastrointestinal Gastrointestinal: Reports nausea - Genitourinary (Female) Genitourinary: Reports kidney stones Past Medical History Past Medical History: Diabetes Mellitus, GERD/Reflux, Hypertension, Osteoarthritis (OA), Sleep Apnea/CPAP/BIPAP Additional Past Medical History / Comment(s): chronic back pain, uti, kidney stones History of Any Multi-Drug Resistant Organisms: None Reported Past Surgical History: Back Surgery, Section, Cholecystectomy Additional Past Surgical History / Comment(s): t8-t12 fusion, ureter stent Past Anesthesia/Blood Transfusion Reactions: No Reported Reaction Smoking Status: Current every day smoker - Past Family History Father Family Medical History: Diabetes Mellitus Mother Additional Family Medical History / Comment(s): bipolar depression anxiety Medications and Allergies Home Medications Medication Instructions Recorded Confirmed Type Insulin Glargine [Lantus] 30 unit SQ DAILY 02/03/14 04/18/18 History INSULIN LISPRO (HumaLOG) [humaLOG] 6 units SQ AC-TID 08/01/16 04/18/18 History Ibuprofen [Motrin] 800 mg PO Q8HR PRN 09/22/16 04/18/18 History Metoprolol Tartrate [Lopressor] 50 mg PO TID 09/22/16 04/18/18 History Losartan Potassium [Cozaar] 25 mg PO DAILY 09/04/17 04/18/18 History Omeprazole [PriLOSEC] 20 mg PO DAILY 01/26/18 04/18/18 History Ciprofloxacin HCl [Cipro] 500 mg PO BID 10 Days #20 tab 04/14/18 04/18/18 Rx Ketorolac [Toradol] 10 mg PO Q6HR #10 tab 04/14/18 04/18/18 Rx Ondansetron Odt [Zofran Odt] 4 mg PO Q8HR PRN #20 tab 04/14/18 04/18/18 Rx Tamsulosin [Flomax] 0.4 mg PO DAILY #10 cap 04/14/18 04/18/18 Rx Hydrocodone/Acetaminophen [[place] 1 tab PO Q6H PRN 3 Days #12 tab 04/15/18 Rx 10-325] Furosemide [Lasix] 20 mg PO DAILY 04/18/18 04/18/18 History Allergies Allergy/AdvReac Type Severity Reaction Status Date / Time hydrochlorothiazide Allergy Dyspnea Verified 04/18/18 15:48 [From Zestoretic] insulin glargine Allergy Rash/Hives Verified 04/18/18 15:48 [From Basaglar KwikPen] lisinopril [From Zestoretic] Allergy Dyspnea Verified 04/18/18 15:48 Surgical - Exam Vital Signs Temp Pulse Resp BP Pulse Ox 98.8 F 90 18 164/99 96 04/18/18 11:18 04/18/18 11:18 04/18/18 11:18 04/18/18 11:18 04/18/18 11:18 - General well developed, well nourished, moderate pain, obese - Neck no masses, trachea midline - Respiratory normal respiratory effort - Abdomen Abdomen: soft, tender (Left-sided tenderness), no guarding, no rigid, no rebound , no distended - Psychiatric oriented to time, oriented to person, oriented to place, speech is normal, memory intact Results - Labs 04/18/18 11:51 04/18/18 11:51 Abnormal Lab Results - Last 24 Hours (Table) 04/18/18 04/18/18 04/18/18 Range/Units 11:51 11:51 11:51 WBC 11.1 H (3.8-10.6) k/uL Neutrophils # 7.9 H (1.3-7.7) k/uL Sodium 136 L (137-145) mmol/L Carbon Dioxide 20 L (22-30) mmol/L BUN 25 H (7-17) mg/dL Creatinine 1.92 H (0.52-1.04) mg/dL Glucose 251 H (74-99) mg/dL Albumin 3.4 L (3.5-5.0) g/dL Urine Appearance Cloudy H (Clear) Urine Protein Trace H (Negative) Urine Blood Trace H (Negative) Ur Leukocyte Esterase Large H (Negative) Urine WBC 19 H (0-5) /hpf Ur Squamous Epith Cells 13 H (0-4) /hpf Urine Bacteria Few H (None) /hpf Urine Yeast (Budding) Occasional H (None) /hpf Diabetes panel 04/18/18 Range/Units 11:51 Sodium 136 L (137-145) mmol/L Potassium 4.7 (3.5-5.1) mmol/L Chloride 107 (98-107) mmol/L Carbon Dioxide 20 L (22-30) mmol/L BUN 25 H (7-17) mg/dL Creatinine 1.92 H (0.52-1.04) mg/dL Glucose 251 H (74-99) mg/dL Calcium 9.1 (8.4-10.2) mg/dL AST 16 (14-36) U/L ALT 20 (9-52) U/L Alkaline Phosphatase 84 (38-126) U/L Total Protein 7.0 (6.3-8.2) g/dL Albumin 3.4 L (3.5-5.0) g/dL Calcium panel 04/18/18 Range/Units 11:51 Calcium 9.1 (8.4-10.2) mg/dL Albumin 3.4 L (3.5-5.0) g/dL Pituitary panel 04/18/18 Range/Units 11:51 Sodium 136 L (137-145) mmol/L Potassium 4.7 (3.5-5.1) mmol/L Chloride 107 (98-107) mmol/L Carbon Dioxide 20 L (22-30) mmol/L BUN 25 H (7-17) mg/dL Creatinine 1.92 H (0.52-1.04) mg/dL Glucose 251 H (74-99) mg/dL Calcium 9.1 (8.4-10.2) mg/dL Adrenal panel 04/18/18 Range/Units 11:51 Sodium 136 L (137-145) mmol/L Potassium 4.7 (3.5-5.1) mmol/L Chloride 107 (98-107) mmol/L Carbon Dioxide 20 L (22-30) mmol/L BUN 25 H (7-17) mg/dL Creatinine 1.92 H (0.52-1.04) mg/dL Glucose 251 H (74-99) mg/dL Calcium 9.1 (8.4-10.2) mg/dL Total Bilirubin 0.5 (0.2-1.3) mg/dL AST 16 (14-36) U/L ALT 20 (9-52) U/L Alkaline Phosphatase 84 (38-126) U/L Total Protein 7.0 (6.3-8.2) g/dL Albumin 3.4 L (3.5-5.0) g/dL - Imaging CT scan - abdomen: report reviewed, image reviewed Assessment and Plan (1) Ureteral stone with hydronephrosis Current Visit: Yes Status: Acute Code(s): N13.2 - HYDRONEPHROSIS WITH RENAL AND URETERAL CALCULOUS OBSTRUCTION SNOMED Code(s): 217668434 Plan: The patient is a 43-year-old white female with a history of recurrent urolithiasis. She is now admitted with left hydronephrosis due to a 7 mm left UPJ calculus. She will require endoscopic intervention, either cystoscopy with left ureteral stent placement or left ureteroscopy with Holmium laser lithotripsy. This was reviewed in detail with the patient and her fianc. This will be performed by one of my partners, it will be determined in part by their schedules and the operating room schedule. Once this calculus has been treated, I stressed to her the need for a formal metabolic evaluation to determine the need for her recurrent urolithiasis. Time with Patient: Greater than 30
[2018-04-18 17:33] LABS: Glucose,Whole Blood 179 mg/dL (75-99)
[2018-04-18] MEDS: INSULIN ASPART 100 UNIT/ML 1 ML 10 ML VIAL SQ SCH ×2 (17:48→22:59)
[2018-04-18] MEDS: KETOROLAC 30 MG/ML 1 ML VIAL IVP PRN (18:00)
[2018-04-18] MEDS: SODIUM CHLORIDE 0.9% 1,000 ML IV SCH (18:08)
[2018-04-18 19:43] LABS: Glucose,Whole Blood 267 mg/dL (75-99)
[2018-04-19] MEDS: KETOROLAC 30 MG/ML 1 ML VIAL IVP PRN ×2 (00:39→07:34)
[2018-04-19] MEDS: SODIUM CHLORIDE 0.9% 1,000 ML IV SCH ×2 (00:41→11:20)
[2018-04-19] MEDS: HYDROmorphone 1 MG/ML 1 ML SYRINGE IVP PRN ×4 (02:22→13:06)
[2018-04-19 07:49] LABS: Glucose,Whole Blood 278 mg/dL (75-99)
[2018-04-19 08:02] LABS: Basophils % (A) 0 %; Eosinophils # (A) 0.3 k/uL (0-0.7); Eosinophils % (A) 3 %; HCT 37.1 % (34.0-46.0); HGB 11.8 gm/dL (11.4-16.0); Lymphocytes # (A) 1.7 k/uL (1.0-4.8); Lymphocytes % (A) 18 %; MCHC 31.7 g/dL (31.0-37.0); Mean Platelet Volume 8.4; Monocytes # (A) 0.7 k/uL (0-1.0); Monocytes % (A) 7 %; Neutrophils # (A) 6.8 k/uL (1.3-7.7); Neutrophils % (A) 70 %; Platelet Count 360 k/uL (150-450); RBC 4.53 m/uL (3.80-5.40); RDW 15.1 % (11.5-15.5); WBC 9.6 k/uL (3.8-10.6)
[2018-04-19 08:13] LABS: Calcium 8.6 mg/dL (8.4-10.2)
[2018-04-19] MEDS: INSULIN ASPART 100 UNIT/ML 1 ML 10 ML VIAL SQ SCH ×2 (09:23→13:11)
[2018-04-19] MEDS ORDERED: LACTATED RINGERS 1,000 ML IV ONE (09:29)
[2018-04-19] MEDS ORDERED: MIDAZOLAM 2 MG/2 ML VIAL IVP ONE (09:40)
[2018-04-19] MEDS ORDERED: LEVOFLOXACIN 500MG-D5W PMX 500 MG in DEXTROSE/WATER 1 100ML.BAG IVPB STA (10:07)
[2018-04-19] MEDS ORDERED: METOPROLOL TARTRATE 5 MG/5 ML VIAL IVP ONE (10:31)
[2018-04-19] MEDS ORDERED: PROPOFOL 10 MG/ML 20 ML VIAL IV ONE (10:31)
[2018-04-19] MEDS ORDERED: LIDOCAINE 1% INJ 10MG/ML (20 ML MDV) ONE (10:31)
[2018-04-19] MEDS ORDERED: SUCCINYLCHOLINE CHLORIDE 100 MG/5 ML SYR IV ONE (10:31)
[2018-04-19] MEDS ORDERED: MIDAZOLAM 2 MG/2 ML VIAL ONE (10:31)
[2018-04-19] MEDS ORDERED: fentaNYL (PF) 50 MCG/ML 2 ML AMP ONE (10:31)
[2018-04-19] MEDS ORDERED: HYDROmorphone (PF) 1 MG/ML ONE (10:31)
[2018-04-19] MEDS ORDERED: ONDANSETRON 4 MG/2 ML VIAL IVP ONE (11:44)
--- NOTE | 2018-04-19 11:51 | P.OP ---
Date of Procedure: 04/19/18 Preoperative Diagnosis: Proximal left ureteral calculus with hydronephrosis Postoperative Diagnosis: Proximal left ureteral calculus with hydronephrosis Procedure(s) Performed: Cystoscopy with left ureteroscopy and placement of left double-J catheter Surgeon: Segundo Sosa Estimated Blood Loss (ml): 0 Pathology: none sent Condition: stable Disposition: PACU Indications for Procedure: The patient is a 43-year-old female with a history of urolithiasis who has had several episodes of severe left flank pain over the last week. She was admitted after a computed tomography scan showed an impacted 7 mm calculus in the proximal left ureter. Cystoscopy with an attempt at left ureteroscopy and lithotripsy is planned for treatment of the calculus. Description of Procedure: The patient was taken to the operating suite where adequate general anesthesia via orotracheal intubation was instituted. The patient was placed in the dorsal lithotomy position with her legs suspended from padded Vadim stirrups. Sequential pneumatic compression stockings were applied to the lower legs. The genitalia was prepped with Betadine solution and draped in a sterile fashion. The 17-Malian cystoscope sheath with 30 lens was passed through the urethra and into the bladder. Bladder was examined. Both ureteral orifices were of normal location and configuration. Bladder was free of tumor, foreign body and diverticulum. A 0.035 straight Glidewire was advanced through the left ureteral orifice and under fluoroscopic guidance up to the proximal ureter. It was eventually possible to advance the Glidewire beyond the calculus which was located in the proximal ureter. The cystoscope was withdrawn leaving the Glidewire in place. The 13-Malian ureteral reentry sheath with 11-Malian obturator was then advanced over the Glidewire and using fluoroscopy the reentry sheath was positioned so that the proximal end of the sheath was in the mid ureter. The Glidewire and obturator were removed. Ureteroscopy was performed using the flexible ureteroscope. The ureter was unremarkable up to the region of the calculus. There was edema in this region and despite multiple attempts to visualize the calculus this proved to be impossible. It was also attempted to dislodge the calculus more proximally using the end of the ureteroscope but this also proved impossible. A second 0.035 Glidewire was then advanced through the reentry sheath and the reentry sheath was withdrawn. The reentry sheath and obturator was then advanced over one of the two Glidewires with the other one remaining external to the reentry sheath to act as a safety wire. Ureteroscopy was repeated through the ureteroscope but even an attempt at passage of the ureteroscope over the Glidewire failed to safely identify the ureteral calculus due to the edema. In view of this it was my feeling that her endoscopy with lithotripsy at this time would not be possible. The ureteroscope and reentry sheath were withdrawn leaving the safety wire in place. The 22-Malian cystoscope was backloaded over the Glidewire and reintroduced into the bladder. A 6-Malian by 24 cm double-J catheter was then advanced over the Glidewire under fluoroscopy positioned so the proximal end coiled in the region of the renal pelvis and the distal and coiled in the bladder. This took several attempts due to impaction of the calculus in the proximal ureter. The bladder was drained and the cystoscope was withdrawn. Patient tolerated procedure well and left the operative room awake and in satisfactory condition. Patient will be discharged with the double-J catheter and an attempt at ureteroscopy will be repeated in several weeks after the edema in the proximal ureter has decreased.
[2018-04-19 11:52] VITALS: RESP 16
[2018-04-19] MEDS: MEPERIDINE 50 MG/ML SYRINGE IVP ONE ×2 (11:55→12:08)
--- NOTE | 2018-04-19 11:55 | P.DS ---
Providers Date of admission: 04/18/18 14:03 Expected date of discharge: 04/19/18 Attending physician: Lino Glasgow Primary care physician: Malia Finney - Discharge Diagnosis(es) (1) Ureteral stone with hydronephrosis The patient was admitted for pain control due to a 7 mm proximal left ureteral calculus with hydronephrosis. The patient had been in the emergency room room 2 times in the previous week due to severe pain. On 04/19 cystoscopy with left ureteroscopy was performed with the intent of proceeding with lithotripsy but at that time there was such severe edema in the proximal left ureter that it was not possible to visualize the calculus to allow the procedure to be completed. A double-J catheter was left to decompress the left kidney with the intent that left ureteroscopy with lithotripsy could be repeated in several weeks as an outpatient once the edema has subsided. Current Visit: Yes Status: Acute Patient Condition at Discharge: Fair Plan - Discharge Summary Discharge Rx Participant: No New Discharge Prescriptions: No Action Insulin Glargine [Lantus] 30 unit SQ DAILY INSULIN LISPRO (HumaLOG) [humaLOG] 6 units SQ AC-TID Ibuprofen [Motrin] 800 mg PO Q8HR PRN PRN Reason: Pain Metoprolol Tartrate [Lopressor] 50 mg PO TID Losartan Potassium [Cozaar] 25 mg PO DAILY Omeprazole [PriLOSEC] 20 mg PO DAILY Ciprofloxacin HCl [Cipro] 500 mg PO BID 10 Days #20 tab Ketorolac [Toradol] 10 mg PO Q6HR #10 tab Ondansetron Odt [Zofran Odt] 4 mg PO Q8HR PRN #20 tab PRN Reason: Nausea Tamsulosin [Flomax] 0.4 mg PO DAILY #10 cap Hydrocodone/Acetaminophen [[place] 10-325] 1 tab PO Q6H PRN 3 Days #12 tab PRN Reason: Pain Furosemide [Lasix] 20 mg PO DAILY Discharge Medication List Insulin Glargine [Lantus] 30 unit SQ DAILY 02/03/14 [History] INSULIN LISPRO (HumaLOG) [humaLOG] 6 units SQ AC-TID 08/01/16 [History] Ibuprofen [Motrin] 800 mg PO Q8HR PRN 09/22/16 [History] Metoprolol Tartrate [Lopressor] 50 mg PO TID 09/22/16 [History] Losartan Potassium [Cozaar] 25 mg PO DAILY 09/04/17 [History] Omeprazole [PriLOSEC] 20 mg PO DAILY 01/26/18 [History] Ciprofloxacin HCl [Cipro] 500 mg PO BID 10 Days #20 tab 04/14/18 [Rx] Ketorolac [Toradol] 10 mg PO Q6HR #10 tab 04/14/18 [Rx] Ondansetron Odt [Zofran Odt] 4 mg PO Q8HR PRN #20 tab 04/14/18 [Rx] Tamsulosin [Flomax] 0.4 mg PO DAILY #10 cap 04/14/18 [Rx] Hydrocodone/Acetaminophen [[place] 10-325] 1 tab PO Q6H PRN 3 Days #12 tab [Rx] Furosemide [Lasix] 20 mg PO DAILY 04/18/18 [History] Follow up Appointment(s)/Referral(s): Segundo Sosa MD [STAFF PHYSICIAN] - 1 Week Malia Finney MD [Primary Care Provider] - As Needed Discharge Disposition: HOME SELF-CARE
[2018-04-19 12:02] LABS: Glucose,Whole Blood 175 mg/dL (75-99)
[2018-04-19 12:47] VITALS: BP 147/95; PULSE 65; TEMP 99
--- NOTE | 2018-04-19 14:13 | FL ---
Fluoroscopy HISTORY: left ureteral stent placement 34 seconds fluoroscopy time supplied to the referring clinician. 1 intraoperative C-arm images docum ent the procedure. See dictated report from urology.
[2018-04-19 19:44] LABS: Hemoglobin A1C 9.2 % (4.0-6.0)
== END 2018-04-19 14:35 | disposition home or self-care (01) ==
LOC: EC 10:57 → 3SUR 14:03 → INTOOBSV 14:03 → 3SUR 14:39 → UNDODISIN 04-19 14:35
PROVIDERS: ADMIT Urology; ATTEND Urology
PROC: 0T778DZ Dilation of Left Ureter with Intraluminal Device, Via Natural or Artificial Opening Endoscopic (ICD-10-PCS; principal; 2018-04-19 09:05)
DX: N13.2 Hydronephrosis with renal and ureteral calculous obstruction (principal); N17.9 Acute kidney failure, unspecified; E11.9 Type 2 diabetes mellitus without complications; K21.9 Gastro-esophageal reflux disease without esophagitis; I10 Essential (primary) hypertension; G47.30 Sleep apnea, unspecified; G89.29 Other chronic pain; M54.9 Dorsalgia, unspecified; F17.210 Nicotine dependence, cigarettes, uncomplicated; Z90.49 Acquired absence of other specified parts of digestive tract; Z79.1 Long term (current) use of non-steroidal anti-inflammatories (NSAID); Z79.4 Long term (current) use of insulin; Z79.899 Other long term (current) drug therapy; Z87.442 Personal history of urinary calculi; Z87.440 Personal history of urinary (tract) infections; Z98.1 Arthrodesis status; Z86.59 Personal history of other mental and behavioral disorders; Z88.8 Allergy status to other drugs, medicaments and biological substances; M19.90 Unspecified osteoarthritis, unspecified site; E66.01 Morbid (severe) obesity due to excess calories; Z68.42 Body mass index [BMI] 45.0-49.9, adult; Z99.89 Dependence on other enabling machines and devices
CPT/HCPCS: 52351; 52332; 96376 ×2; 96361; 96374; 96375; 99285; 36415; 81025; 80053; 80048; 85025 ×2; 81001; 87086; 83036; 74176; G0378 ×2; C2625; C1769; J2250; J2175; J2405 ×2; J1956; J2001; J3010; J1885 ×2; J1170 ×2; J0330; J2704

== ENCOUNTER 2018-04-25 05:39 | Observation (INO) | payer OTHER ==
[2018-04-25 05:45] VITALS: RESP 18
[2018-04-25] MEDS ORDERED: MORPHINE SULFATE 4 MG/ML SYRINGE IM STA (05:58)
[2018-04-25] MEDS ORDERED: ONDANSETRON 4 MG/2 ML VIAL IM STA (06:03)
--- NOTE | 2018-04-25 06:15 | XR ---
EXAMINATION TYPE: XR KUB DATE OF EXAM: 04/25/2018 COMPARISON: 04/15/2018 HISTORY: Flank pain TECHNIQUE: 2 views upright FINDINGS: There is left side ureteral stent noted. There is no sign of intestinal obstruction or pneu moperitoneum. Fecal pattern is normal. Lung bases are clear. There are no pathologic calcifications o singh the right kidney. There is a 5 mm calcification over the lower pole left kidney. IMPRESSION: Nonacute abdomen. Left renal calcification unchanged.
[2018-04-25] MEDS ORDERED: HYDROmorphone 0.5 MG/0.5 ML SYRINGE IVP STA (06:32)
[2018-04-25] MEDS ORDERED: HYDROmorphone 1 MG/ML 1 ML SYRINGE IM STA (06:32)
[2018-04-25] MEDS ORDERED: SODIUM CHLORIDE 0.9% 500 ML IV STA (06:33)
[2018-04-25] MEDS ORDERED: KETOROLAC 30 MG/ML 1 ML VIAL IVP STA (06:33)
[2018-04-25] MEDS ORDERED: SODIUM CHLORIDE 0.9% 1,000 ML IV STA (06:33)
--- NOTE | 2018-04-25 06:34 | ED ---
General Adult HPI - General Source: patient, EMS, RN notes reviewed, old records reviewed Mode of arrival: EMS Limitations: no limitations <Arnaldo Walters - Last Filed: 04/25/18 06:51> <Arnaldo Louis - Last Filed: 04/25/18 08:40> - General Chief complaint: Abdominal Pain Stated complaint: flank pain Time Seen by Provider: 04/25/18 05:41 - History of Present Illness Initial comments: This is a 43-year-old female the ER today. This patient does say for evaluation regards to severe left-sided pain left side of bowel pain left-sided flank pain. Patient is recent remote history of kidney stones, recent history of stent left kidney stent placement by Dr. Kendrick. That was on Wednesday, patient is had 4 days of asymptomatic or no pain, pain woke her from sleep tonight which is some that she's never had after stent placement. Patient denies fever denies nausea vomiting. Is able to urinate OK is significantly bloody. (Arnaldo Walters) - Related Data Home Medications Medication Instructions Recorded Confirmed Insulin Glargine [Lantus] 30 unit SQ DAILY 02/03/14 04/25/18 INSULIN LISPRO (HumaLOG) [humaLOG] 6 units SQ AC-TID 08/01/16 04/25/18 Ibuprofen [Motrin] 800 mg PO Q8HR PRN 09/22/16 04/25/18 Metoprolol Tartrate [Lopressor] 50 mg PO TID 09/22/16 04/25/18 Losartan Potassium [Cozaar] 25 mg PO DAILY 09/04/17 04/25/18 Omeprazole [PriLOSEC] 20 mg PO DAILY 01/26/18 04/25/18 Furosemide [Lasix] 20 mg PO DAILY 04/18/18 04/25/18 Allergies Allergy/AdvReac Type Severity Reaction Status Date / Time hydrochlorothiazide Allergy Dyspnea Verified 04/25/18 07:33 [From Zestoretic] insulin glargine Allergy Rash/Hives Verified 04/25/18 07:33 [From Basaglar KwikPen] lisinopril [From Zestoretic] Allergy Dyspnea Verified 04/25/18 07:33 Review of Systems ROS Other: All systems not noted in ROS Statement are negative. <Arnaldo Walters - Last Filed: 04/25/18 06:51> ROS Other: All systems not noted in ROS Statement are negative. <LouisArnaldo - Last Filed: 04/25/18 08:40> ROS Statement: Those systems with pertinent positive or pertinent negative responses have been documented in the HPI. Past Medical History Past Medical History: Diabetes Mellitus, GERD/Reflux, Hypertension, Osteoarthritis (OA), Sleep Apnea/CPAP/BIPAP Additional Past Medical History / Comment(s): chronic back pain, uti, kidney stones History of Any Multi-Drug Resistant Organisms: None Reported Past Surgical History: Back Surgery, Section, Cholecystectomy Additional Past Surgical History / Comment(s): t8-t12 fusion, ureter stent Past Anesthesia/Blood Transfusion Reactions: No Reported Reaction Past Psychological History: Anxiety, Bipolar, Depression Smoking Status: Current every day smoker - Past Family History Father Family Medical History: Diabetes Mellitus Mother Additional Family Medical History / Comment(s): bipolar depression anxiety <Arnaldo Walters - Filed: 04/25/18 06:51> General Exam Limitations: no limitations General appearance: alert, in no apparent distress Head exam: Present: atraumatic, normocephalic, normal inspection Eye exam: Present: normal appearance, PERRL, EOMI. Absent: scleral icterus, conjunctival injection, periorbital swelling ENT exam: Present: normal exam, mucous membranes moist Neck exam: Present: normal inspection. Absent: tenderness, meningismus, lymphadenopathy Respiratory exam: Present: normal lung sounds bilaterally. Absent: respiratory distress, wheezes, rales, rhonchi, stridor Cardiovascular Exam: Present: regular rate, normal rhythm, normal heart sounds. Absent: systolic murmur, diastolic murmur, rubs, gallop, clicks GI/Abdominal exam: Present: soft, normal bowel sounds. Absent: distended, tenderness, guarding, rebound, rigid Extremities exam: Present: normal inspection, full ROM, normal capillary refill. Absent: tenderness, pedal edema, joint swelling, calf tenderness Back exam: Present: normal inspection Neurological exam: Present: alert, oriented X3, CN II-XII intact Psychiatric exam: Present: normal affect, normal mood Skin exam: Present: warm, dry, intact, normal color. Absent: rash <Arnaldo Walters - Last Filed: 04/25/18 06:51> Course <Arnaldo Walters - Last Filed: 04/25/18 06:51> <Arnaldo Louis - Last Filed: 04/25/18 08:40> Vital Signs 04/25/18 04/25/18 04/25/18 05:40 06:57 08:05 Temperature 98.2 F Pulse Rate 81 66 63 Respiratory 18 Rate Blood Pressure 152/80 135/77 123/57 O2 Sat by Pulse 98 98 97 Oximetry - Reevaluation(s) Reevaluation #1: 04/25/18 06:52 Medical record is reviewed, positive stent placement, +7 mm stone (Arnaldo Walters) Medical Decision Making - Lab Data Result diagrams: 04/25/18 05:49 <Arnaldo Walters - Last Filed: 04/25/18 06:51> - Lab Data Result diagrams: 04/25/18 05:49 04/25/18 05:49 <Arnaldo Louis - Last Filed: 04/25/18 08:40> - Medical Decision Making I spoke with Dr. Sosa. Dr. Sosa wanted the patient admitted for pain control and I started the patient 2 g of Rocephin. (Arnaldo Louis) - Lab Data Lab Results 04/25/18 04/25/18 04/25/18 Range/Units 05:49 05:49 06:33 WBC 7.4 (3.8-10.6) k/uL RBC 4.31 (3.80-5.40) m/uL Hgb 11.4 (11.4-16.0) gm/dL Hct 35.2 (34.0-46.0) % MCV 81.6 (80.0-100.0) fL MCH 26.4 (25.0-35.0) pg MCHC 32.4 (31.0-37.0) g/dL RDW 14.9 (11.5-15.5) % Plt Count 424 (150-450) k/uL Neutrophils % 53 % Lymphocytes % 34 % Monocytes % 5 % Eosinophils % 5 % Basophils % 1 % Neutrophils # 4.0 (1.3-7.7) k/uL Lymphocytes # 2.5 (1.0-4.8) k/uL Monocytes # 0.4 (0-1.0) k/uL Eosinophils # 0.4 (0-0.7) k/uL Basophils # 0.1 (0-0.2) k/uL Hypochromasia Slight Sodium 141 (137-145) mmol/L Potassium (3.5-5.1) mmol/L Chloride 112 H (98-107) mmol/L Carbon Dioxide 19 L (22-30) mmol/L Anion Gap 10 mmol/L BUN 23 H (7-17) mg/dL Creatinine 1.65 H (0.52-1.04) mg/dL Est GFR (CKD-EPI)AfAm 44 (>60 ml/min/1.73 sqM) Est GFR (CKD-EPI)NonAf 38 (>60 ml/min/1.73 sqM) Glucose 269 H (74-99) mg/dL Calcium 8.7 (8.4-10.2) mg/dL Total Bilirubin 0.3 (0.2-1.3) mg/dL AST 32 (14-36) U/L ALT 20 (9-52) U/L Alkaline Phosphatase 118 (38-126) U/L Total Protein 7.3 (6.3-8.2) g/dL Albumin 3.3 L (3.5-5.0) g/dL Amylase 46 (30-110) U/L Lipase 58 (23-300) U/L Urine Color Light Red Urine Appearance Cloudy H (Clear) Urine pH 6.0 (5.0-8.0) Ur Specific [place] 1.018 (1.001-1.035) Urine Protein 2+ H (Negative) Urine Glucose (UA) Trace H (Negative) Urine Ketones Negative (Negative) Urine Blood Large H (Negative) Urine Nitrite Negative (Negative) Urine Bilirubin Negative (Negative) Urine Urobilinogen <2.0 (<2.0) mg/dL Ur Leukocyte Esterase Large H (Negative) Urine RBC >182 H (0-5) /hpf Urine WBC >182 H (0-5) /hpf Urine WBC Clumps Occasional H (None) /hpf Ur Squamous Epith Cells 8 H (0-4) /hpf Urine Bacteria Occasional H (None) /hpf Urine Mucus Occasional H (None) /hpf Ur Yeast w Hyphae Rare (None) /hpf Urine Yeast (Budding) Many H (None) /hpf Disposition <Arnaldo Walters - Last Filed: 04/25/18 06:51> Time of Disposition: 08:40 <Arnaldo Louis - Last Filed: 04/25/18 08:40> Clinical Impression: Pain due to ureteral stent Disposition: ADMITTED IP TO THIS HOSP Referrals: Malia Finney MD [Primary Care Provider] - 1-2 days
[2018-04-25 06:45] LABS: Basophils # (A) 0.1 k/uL (0-0.2); Basophils % (A) 1 %; Eosinophils # (A) 0.4 k/uL (0-0.7); Eosinophils % (A) 5 %; HCT 35.2 % (34.0-46.0); HGB 11.4 gm/dL (11.4-16.0); Hypochromasia Slight; Lymphocytes # (A) 2.5 k/uL (1.0-4.8); Lymphocytes % (A) 34 %; MCH 26.4 pg (25.0-35.0); MCHC 32.4 g/dL (31.0-37.0); MCV 81.6 fL (80.0-100.0); Mean Platelet Volume 7.5; Monocytes # (A) 0.4 k/uL (0-1.0); Monocytes % (A) 5 %; Neutrophils % (A) 53 %; Platelet Count 424 k/uL (150-450); RBC 4.31 m/uL (3.80-5.40); RDW 14.9 % (11.5-15.5); WBC 7.4 k/uL (3.8-10.6)
[2018-04-25 06:59] LABS: Appearance,Urine Cloudy (Clear); Bacteria,Urine Occasional /hpf; Bilirubin,Urine Negative (Negative); Blood,Urine Large (Negative); Budding Yeast,Urine Many /hpf; Color,Urine Light Red; Glucose,Urine (UA) Trace (Negative); Hyphae Yeast, Urine Rare /hpf; Ketones,Urine Negative (Negative); Leukocyte Esterase,Urine Large (Negative); Mucus,Urine Occasional /hpf; Nitrite,Urine Negative (Negative); Protein,Urine 2+ (Negative); RBC,Urine >182 /hpf (0-5); Specific Gravity,Urine 1.018 (1.001-1.035); Squamous Epithelial Cell,Urine 8 /hpf (0-4); Urobilinogen,Urine <2.0 mg/dL (<2.0); WBC,Urine >182 /hpf (0-5)
[2018-04-25 07:29] LABS: Albumin 3.3 g/dL (3.5-5.0); Calcium 8.7 mg/dL (8.4-10.2); Total Bilirubin 0.3 mg/dL (0.2-1.3); Total Protein 7.3 g/dL (6.3-8.2)
--- NOTE | 2018-04-25 07:55 | US ---
EXAMINATION TYPE: US renals and bladder DATE OF EXAM: 04/25/2018 COMPARISON: NONE CLINICAL HISTORY: Pain. h/o multiple renal stones and stenting bilaterally, most recent stent placed on left side 1 week ago, woke this am with extreme pain and nausea EXAM MEASUREMENTS: Right Kidney: 12.0 x 4.4 x 5.0 cm Left Kidney: 14.6 x 6.1 x 7.1 cm Right Kidney: No hydronephrosis or masses seen Left Kidney: multiple tiny echogenic foci may represent stones, largest = 0.9cm, large renal size Bladder: not fully distended to evaluate There is no evidence for hydronephrosis at this point in time. No nephrolithiasis is seen. No pee s are identified. The urinary bladder is anechoic. Bilateral ureteral jets are seen. IMPRESSION: Nonobstructing left-sided nephrolithiasis.
[2018-04-25] MEDS ORDERED: KETOROLAC 60 MG/2 ML VIAL IVP STA (08:36)
[2018-04-25] MEDS ORDERED: cefTRIAXone 2,000 MG in SODIUM CHLORIDE 0.9% 100 ML IVPB STA (08:38)
[2018-04-25] MEDS ORDERED: SODIUM CHLORIDE 0.9% 1,000 ML IV ONE (08:40)
[2018-04-25] MEDS ORDERED: cefTRIAXone IN SWFI 2,000 MG/20 ML SYRINGE IVP STA (08:41)
[2018-04-25 09:03] VITALS: TEMP 98.1
[2018-04-25] MEDS ORDERED: IBUPROFEN 800 MG TAB PO PRN (10:46)
[2018-04-25] MEDS ORDERED: HYDROmorphone 1 MG/ML 1 ML SYRINGE IVP PRN (10:47)
[2018-04-25 11:54] LABS: Glucose,Whole Blood 196 mg/dL (75-99)
[2018-04-25] MEDS ORDERED: INSULIN ASPART 100 UNIT/ML 1 ML 10 ML VIAL SQ SCH (12:30)
[2018-04-25] MEDS ORDERED: traMADol 50 MG TAB PO PRN (13:56)
[2018-04-25] MEDS ORDERED: traMADol 50 MG TAB PO SCH (14:00)
[2018-04-25] MEDS ORDERED: METOPROLOL TARTRATE 50 MG TAB PO SCH (16:00)
[2018-04-25 16:08] VITALS: BP 134/97; PULSE 81
--- NOTE | 2018-04-25 20:19 | P.GSHP ---
History of Present Illness H&P Date: 04/25/18 Chief Complaint: Left flank pain The patient is a 43-year-old female with a history of urolithiasis. She was admitted for observation and control of left flank pain. She developed severe left flank pain in March and was discovered to have a 7 mm obstructing calculus in the proximal left ureter. Cystoscopy with left ureteroscopy was performed on 04/18 in hopes of performing lithotripsy but at that time the calculus was so impacted that it was impossible to visualize the calculus. A double-J catheter was left and the patient was discharged later that day. She is scheduled to see a urologist in [facility] on 05/06 for followup. She says that she remained comfortable with the exception of some intermittent hematuria, frequency and urgency related to irritation from the double-J catheter. Her pain was controllable with Ultram. Early this morning she experienced severe left flank pain and nausea. She came to the emergency room where she was evaluated. KUB showed proper position of the double-J catheter and renal ultrasound showed no hydronephrosis. The patient's pain required IV Dilaudid and it was the emergency room physicians feeling that she should be admitted for observation and pain control. - Constitutional Constitutional: Denies chills, Denies fever - Cardiovascular Cardiovascular: Denies shortness of breath - Respiratory Respiratory: Denies cough - Gastrointestinal Gastrointestinal: Reports as per HPI - Genitourinary (Female) Genitourinary: Reports as per HPI Past Medical History Past Medical History: Diabetes Mellitus, GERD/Reflux, Hypertension, Osteoarthritis (OA), Renal Disease, Sleep Apnea/CPAP/BIPAP Additional Past Medical History / Comment(s): Cystoscopy with right ureteroscopy and lithotripsy 02/23/2018, Cystoscopy with placementy left JJ catheter 04/19/2018, UTIs, IDDM type II, chronic back pain, MARIALUISA without device. History of Any Multi-Drug Resistant Organisms: None Reported Past Surgical History: Back Surgery, Section, Cholecystectomy Additional Past Surgical History / Comment(s): ESWL unsuccessful x 2, ureteroscopy for stone removal, cystoscopy with double J catheter placed on , t8-t12 fusion, x 1 Past Anesthesia/Blood Transfusion Reactions: No Reported Reaction Smoking Status: Current every day smoker - Past Family History Father Family Medical History: Diabetes Mellitus Mother Additional Family Medical History / Comment(s): bipolar depression anxiety Medications and Allergies Home Medications Medication Instructions Recorded Confirmed Type Insulin Glargine [Lantus] 30 unit SQ DAILY 02/03/14 04/25/18 History INSULIN LISPRO (HumaLOG) [humaLOG] 6 units SQ AC-TID 08/01/16 04/25/18 History Ibuprofen [Motrin] 800 mg PO Q8HR PRN 09/22/16 04/25/18 History Metoprolol Tartrate [Lopressor] 50 mg PO TID 09/22/16 04/25/18 History Losartan Potassium [Cozaar] 25 mg PO DAILY 09/04/17 04/25/18 History Omeprazole [PriLOSEC] 20 mg PO DAILY 01/26/18 04/25/18 History Furosemide [Lasix] 20 mg PO DAILY 04/18/18 04/25/18 History Ciprofloxacin HCl [Cipro] 500 mg PO BID 3 Days #6 tab 04/25/18 Rx traMADol HCl [Ultram] 50 mg PO Q6HR PRN 3 Days #12 tab 04/25/18 Rx Allergies Allergy/AdvReac Type Severity Reaction Status Date / Time hydrochlorothiazide Allergy Dyspnea Verified 04/25/18 10:23 [From Zestoretic] insulin glargine Allergy Rash/Hives Verified 04/25/18 10:23 [From Basaglar KwikPen] lisinopril [From Zestoretic] Allergy Dyspnea Verified 04/25/18 10:23 Surgical - Exam Vital Signs Temp Pulse Resp BP Pulse Ox 98.2 F 81 18 152/80 98 04/25/18 05:40 04/25/18 05:40 04/25/18 05:40 04/25/18 05:40 04/25/18 05:40 - General well developed, well nourished, moderate pain, obese - Neck no masses, no lymphadectomy - Respiratory normal respiratory effort - Abdomen Abdomen: tender (left abdomen and left flank), no rebound, no distended Hernia: none Results - Labs 04/25/18 05:49 04/25/18 05:49 Abnormal Lab Results - Last 24 Hours (Table) 04/25/18 04/25/18 04/25/18 Range/Units 05:49 06:33 11:52 Chloride 112 H (98-107) mmol/L Carbon Dioxide 19 L (22-30) mmol/L BUN 23 H (7-17) mg/dL Creatinine 1.65 H (0.52-1.04) mg/dL Glucose 269 H (74-99) mg/dL POC Glucose (mg/dL) 196 H (75-99) mg/dL Albumin 3.3 L (3.5-5.0) g/dL Urine Appearance Cloudy H (Clear) Urine Protein 2+ H (Negative) Urine Glucose (UA) Trace H (Negative) Urine Blood Large H (Negative) Ur Leukocyte Esterase Large H (Negative) Urine RBC >182 H (0-5) /hpf Urine WBC >182 H (0-5) /hpf Urine WBC Clumps Occasional H (None) /hpf Ur Squamous Epith Cells 8 H (0-4) /hpf Urine Bacteria Occasional H (None) /hpf Urine Mucus Occasional H (None) /hpf Urine Yeast (Budding) Many H (None) /hpf Microbiology - Last 24 Hours (Table) 04/25/18 06:33 Urine Culture - Preliminary Urine,Voided Diabetes panel 04/25/18 Range/Units 05:49 Sodium 141 (137-145) mmol/L Potassium (3.5-5.1) mmol/L Chloride 112 H (98-107) mmol/L Carbon Dioxide 19 L (22-30) mmol/L BUN 23 H (7-17) mg/dL Creatinine 1.65 H (0.52-1.04) mg/dL Glucose 269 H (74-99) mg/dL Calcium 8.7 (8.4-10.2) mg/dL AST 32 (14-36) U/L ALT 20 (9-52) U/L Alkaline Phosphatase 118 (38-126) U/L Total Protein 7.3 (6.3-8.2) g/dL Albumin 3.3 L (3.5-5.0) g/dL Calcium panel 04/25/18 Range/Units 05:49 Calcium 8.7 (8.4-10.2) mg/dL Albumin 3.3 L (3.5-5.0) g/dL Pituitary panel 04/25/18 Range/Units 05:49 Sodium 141 (137-145) mmol/L Potassium (3.5-5.1) mmol/L Chloride 112 H (98-107) mmol/L Carbon Dioxide 19 L (22-30) mmol/L BUN 23 H (7-17) mg/dL Creatinine 1.65 H (0.52-1.04) mg/dL Glucose 269 H (74-99) mg/dL Calcium 8.7 (8.4-10.2) mg/dL Adrenal panel 04/25/18 Range/Units 05:49 Sodium 141 (137-145) mmol/L Potassium (3.5-5.1) mmol/L Chloride 112 H (98-107) mmol/L Carbon Dioxide 19 L (22-30) mmol/L BUN 23 H (7-17) mg/dL Creatinine 1.65 H (0.52-1.04) mg/dL Glucose 269 H (74-99) mg/dL Calcium 8.7 (8.4-10.2) mg/dL Total Bilirubin 0.3 (0.2-1.3) mg/dL AST 32 (14-36) U/L ALT 20 (9-52) U/L Alkaline Phosphatase 118 (38-126) U/L Total Protein 7.3 (6.3-8.2) g/dL Albumin 3.3 L (3.5-5.0) g/dL - Imaging Abdominal x-ray: image reviewed US - kidney/bladder: image reviewed Assessment and Plan (1) Pain due to ureteral stent Narrative/Plan: The source of the patient's left flank pain is not clear. She has no hydronephrosis on renal ultrasound and her JJ catheter appears to be in correct position on KUB. It is possible that the JJ catheter has become acutely occluded with blood but this should resolve without treatment. If the patient become more comfortable she will be released later today and she will keep her appointment with Dr Navarrete on 05/06. Addendum:The patient was switched to Ultram early in the afternoon and she was discharged later in the afternoon as she was more comfortable. Status: Acute Code(s): T83.84XA - PAIN DUE TO GENITOURINARY PROSTH DEV/GRFT, INITIAL ENCOUNTER SNOMED Code(s): 52520921
[2018-04-26] MEDS ORDERED: PANTOPRAZOLE 40 MG TABLET PO SCH (07:30)
[2018-04-26] MEDS ORDERED: INSULIN DETEMIR 100 UNIT/ML 10 ML VIAL SQ SCH (09:00)
[2018-04-26] MEDS ORDERED: FUROSEMIDE 20 MG TAB PO SCH (09:00)
[2018-04-26] MEDS ORDERED: LOSARTAN 25 MG TAB PO SCH (09:00)
== END 2018-04-25 15:53 | disposition home or self-care (01) ==
LOC: EC 05:39 → 6PED 08:40
PROVIDERS: ADMIT Urology; ATTEND Urology
DX: T83.84XA Pain due to genitourinary prosthetic devices, implants and grafts, initial encounter (principal); Z87.442 Personal history of urinary calculi; E11.9 Type 2 diabetes mellitus without complications; K21.9 Gastro-esophageal reflux disease without esophagitis; I10 Essential (primary) hypertension; M19.90 Unspecified osteoarthritis, unspecified site; G89.29 Other chronic pain; M54.9 Dorsalgia, unspecified; F41.9 Anxiety disorder, unspecified; F32.9 Major depressive disorder, single episode, unspecified; G47.33 Obstructive sleep apnea (adult) (pediatric); N28.89 Other specified disorders of kidney and ureter; N20.2 Calculus of kidney with calculus of ureter; Z79.4 Long term (current) use of insulin; Z79.899 Other long term (current) drug therapy; Z88.8 Allergy status to other drugs, medicaments and biological substances; Z99.89 Dependence on other enabling machines and devices; Z87.440 Personal history of urinary (tract) infections; Z90.49 Acquired absence of other specified parts of digestive tract; Z98.1 Arthrodesis status; F17.200 Nicotine dependence, unspecified, uncomplicated; E66.9 Obesity, unspecified; Y83.8 Other surgical procedures as the cause of abnormal reaction of the patient, or of later complication, without mention of misadventure at the time of the procedure; Z68.42 Body mass index [BMI] 45.0-49.9, adult
CPT/HCPCS: 96372 ×3; 96361 ×6; 96375 ×3; 96376 ×3; 96374 ×2; 99285 ×2; 36415; 80053; 82150; 83690; 85025; 81001; 87086; 74018; 76770; G0378; J2270; J2405; J0696; J1885 ×2; J1170 ×2

== ENCOUNTER 2018-05-01 10:29 | Emergency (ER) | payer OTHER ==
[2018-05-01] MEDS ORDERED: ACETAMINOPHEN TAB 500 MG TAB PO STA (10:54)
[2018-05-01] MEDS ORDERED: HYDROmorphone 1 MG/ML 1 ML SYRINGE IVP STA (10:57)
--- NOTE | 2018-05-01 11:00 | ED ---
General Adult HPI - General Chief complaint: Urogenital Stated complaint: Abd Pain Time Seen by Provider: 05/01/18 10:34 Source: patient, EMS, RN notes reviewed Mode of arrival: EMS Limitations: no limitations - History of Present Illness Initial comments: Patient is a resident 43-year-old female presenting to the emergency Department with left flank discomfort. Symptoms have been occurring for several weeks now. Patient has seen urology and has a known kidney stone. Patient did have stent placed recently. Patient was released from the hospital 5 days ago. Patient has had increase discomfort since that time. Patient has had nausea and vomiting. Patient has had some subjective fevers over the past couple of days. Nausea has improved with medication by EMS. Patient does have continued discomfort. - Related Data Home Medications Medication Instructions Recorded Confirmed Insulin Glargine [Lantus] 30 unit SQ DAILY 02/03/14 04/25/18 INSULIN LISPRO (HumaLOG) [humaLOG] 6 units SQ AC-TID 08/01/16 04/25/18 Ibuprofen [Motrin] 800 mg PO Q8HR PRN 09/22/16 04/25/18 Metoprolol Tartrate [Lopressor] 50 mg PO TID 09/22/16 04/25/18 Losartan Potassium [Cozaar] 25 mg PO DAILY 09/04/17 04/25/18 Omeprazole [PriLOSEC] 20 mg PO DAILY 01/26/18 04/25/18 Furosemide [Lasix] 20 mg PO DAILY 04/18/18 04/25/18 Previous Rx's Medication Instructions Recorded Ciprofloxacin HCl [Cipro] 500 mg PO BID 3 Days #6 tab 04/25/18 traMADol HCl [Ultram] 50 mg PO Q6HR PRN 3 Days #12 tab 04/25/18 Cephalexin [Keflex] 500 mg PO QID #40 cap 05/01/18 Ibuprofen [Motrin] 1 tab PO Q8HR PRN #12 tab 05/01/18 traMADol HCl [Ultram] 50 mg PO Q6H PRN #12 tab 05/01/18 Allergies Allergy/AdvReac Type Severity Reaction Status Date / Time hydrochlorothiazide Allergy Dyspnea Verified 04/25/18 10:23 [From Zestoretic] insulin glargine Allergy Rash/Hives Verified 04/25/18 10:23 [From Lora Anton] lisinopril [From Zestoretic] Allergy Dyspnea Verified 04/25/18 10:23 Review of Systems ROS Statement: Those systems with pertinent positive or pertinent negative responses have been documented in the HPI. ROS Other: All systems not noted in ROS Statement are negative. Constitutional: Reports: fever, chills Eyes: Denies: eye pain ENT: Denies: ear pain Respiratory: Denies: cough, dyspnea Cardiovascular: Denies: chest pain Endocrine: Denies: fatigue Gastrointestinal: Reports: abdominal pain, nausea, vomiting Genitourinary: Reports: urgency, frequency, hematuria Musculoskeletal: Reports: back pain (Left posterior flank region) Skin: Denies: rash Neurological: Denies: weakness Past Medical History Past Medical History: Diabetes Mellitus, GERD/Reflux, Hypertension, Osteoarthritis (OA), Renal Disease, Sleep Apnea/CPAP/BIPAP Additional Past Medical History / Comment(s): Cystoscopy with right ureteroscopy and lithotripsy 02/23/2018, Cystoscopy with placementy left JJ catheter 04/19/2018, UTIs, IDDM type II, chronic back pain, MARIALUISA without device. History of Any Multi-Drug Resistant Organisms: None Reported Past Surgical History: Back Surgery, Section, Cholecystectomy Additional Past Surgical History / Comment(s): ESWL unsuccessful x 2, ureteroscopy for stone removal, cystoscopy with double J catheter placed on , t8-t12 fusion, x 1 Past Anesthesia/Blood Transfusion Reactions: No Reported Reaction Past Psychological History: Anxiety, Bipolar, Depression Smoking Status: Current every day smoker Past Alcohol Use History: None Reported Past Drug Use History: None Reported - Past Family History Father Family Medical History: Diabetes Mellitus Mother Additional Family Medical History / Comment(s): bipolar depression anxiety General Exam Limitations: no limitations General appearance: alert Head exam: Present: atraumatic Eye exam: Present: normal appearance Neck exam: Present: normal inspection Respiratory exam: Present: normal lung sounds bilaterally Cardiovascular Exam: Present: regular rate, normal rhythm Expanded Peripheral pulses: 2+: Dorsalis Pedis (R), Dorsalis Pedis (L) GI/Abdominal exam: Present: soft, tenderness (left sided), normal bowel sounds. Absent: distended, rebound, rigid, pulsatile mass Extremities exam: Present: normal inspection Back exam: Present: CVA tenderness (L) Neurological exam: Present: alert Psychiatric exam: Present: normal affect, normal mood Skin exam: Present: normal color Course Vital Signs 05/01/18 05/01/18 10:32 11:51 Temperature 100.4 F H Pulse Rate 87 82 Respiratory 16 16 Rate Blood Pressure 133/92 141/92 O2 Sat by Pulse 98 100 Oximetry EKG Findings - EKG Comments: EKG Findings:: Normal sinus rhythm 76. AK 148. QRS 86. QT 400. QTc 450. Normal axis. Normal QRS. No acute ST change. Medical Decision Making - Medical Decision Making Case was discussed with Dr. Goyal who is familiar with this patient. He is comfortable with discharge and have her continue follow-up appointment Wednesday with her new urologist. Patient reevaluated and updated. Patient has previously been on Cipro and therefore Keflex will be prescribed. Urine culture ordered. states she is no longer in pain medication and prescription will be given for Ultram. Written Consent given. - Lab Data Result diagrams: 05/01/18 10:47 05/01/18 10:47 Lab Results 05/01/18 05/01/18 05/01/18 Range/Units 10:47 10:47 10:47 WBC 13.6 H (3.8-10.6) k/uL RBC 4.65 (3.80-5.40) m/uL Hgb 11.8 (11.4-16.0) gm/dL Hct 37.8 (34.0-46.0) % MCV 81.3 (80.0-100.0) fL MCH 25.5 (25.0-35.0) pg MCHC 31.3 (31.0-37.0) g/dL RDW 14.8 (11.5-15.5) % Plt Count 470 H (150-450) k/uL Neutrophils % 75 % Lymphocytes % 18 % Monocytes % 5 % Eosinophils % 3 % Basophils % 0 % Neutrophils # 10.2 H (1.3-7.7) k/uL Lymphocytes # 2.4 (1.0-4.8) k/uL Monocytes # 0.6 (0-1.0) k/uL Eosinophils # 0.3 (0-0.7) k/uL Basophils # 0.0 (0-0.2) k/uL Hypochromasia Slight PT (9.0-12.0) sec INR (<1.2) APTT (22.0-30.0) sec Sodium 138 (137-145) mmol/L Potassium 4.6 (3.5-5.1) mmol/L Chloride 109 H (98-107) mmol/L Carbon Dioxide 21 L (22-30) mmol/L Anion Gap 8 mmol/L BUN 17 (7-17) mg/dL Creatinine 1.32 H (0.52-1.04) mg/dL Est GFR (CKD-EPI)AfAm 58 (>60 ml/min/1.73 sqM) Est GFR (CKD-EPI)NonAf 50 (>60 ml/min/1.73 sqM) Glucose 190 H (74-99) mg/dL Plasma Lactic Acid Danny 0.9 (0.7-2.0) mmol/L Calcium 9.3 (8.4-10.2) mg/dL Total Bilirubin 0.4 (0.2-1.3) mg/dL AST 14 (14-36) U/L ALT 17 (9-52) U/L Alkaline Phosphatase 99 (38-126) U/L Total Protein 7.6 (6.3-8.2) g/dL Albumin 3.5 (3.5-5.0) g/dL Urine Color Urine Appearance (Clear) Urine pH (5.0-8.0) Ur Specific [place] (1.001-1.035) Urine Protein (Negative) Urine Glucose (UA) (Negative) Urine Ketones (Negative) Urine Blood (Negative) Urine Nitrite (Negative) Urine Bilirubin (Negative) Urine Urobilinogen (<2.0) mg/dL Ur Leukocyte Esterase (Negative) Urine RBC (0-5) /hpf Urine WBC (0-5) /hpf Ur Squamous Epith Cells (0-4) /hpf Urine Bacteria (None) /hpf Hyaline Casts (0-2) /lpf Urine Mucus (None) /hpf 05/01/18 05/01/18 Range/Units 10:47 10:47 WBC (3.8-10.6) k/uL RBC (3.80-5.40) m/uL Hgb (11.4-16.0) gm/dL Hct (34.0-46.0) % MCV (80.0-100.0) fL MCH (25.0-35.0) pg MCHC (31.0-37.0) g/dL RDW (11.5-15.5) % Plt Count (150-450) k/uL Neutrophils % % Lymphocytes % % Monocytes % % Eosinophils % % Basophils % % Neutrophils # (1.3-7.7) k/uL Lymphocytes # (1.0-4.8) k/uL Monocytes # (0-1.0) k/uL Eosinophils # (0-0.7) k/uL Basophils # (0-0.2) k/uL Hypochromasia PT 9.9 (9.0-12.0) sec INR 1.0 (<1.2) APTT 23.8 (22.0-30.0) sec Sodium (137-145) mmol/L Potassium (3.5-5.1) mmol/L Chloride (98-107) mmol/L Carbon Dioxide (22-30) mmol/L Anion Gap mmol/L BUN (7-17) mg/dL Creatinine (0.52-1.04) mg/dL Est GFR (CKD-EPI)AfAm (>60 ml/min/1.73 sqM) Est GFR (CKD-EPI)NonAf (>60 ml/min/1.73 sqM) Glucose (74-99) mg/dL Plasma Lactic Acid Danny (0.7-2.0) mmol/L Calcium (8.4-10.2) mg/dL Total Bilirubin (0.2-1.3) mg/dL AST (14-36) U/L ALT (9-52) U/L Alkaline Phosphatase (38-126) U/L Total Protein (6.3-8.2) g/dL Albumin (3.5-5.0) g/dL Urine Color Colorless Urine Appearance Clear (Clear) Urine pH 6.5 (5.0-8.0) Ur Specific [place] 1.003 (1.001-1.035) Urine Protein Trace H (Negative) Urine Glucose (UA) Negative (Negative) Urine Ketones Negative (Negative) Urine Blood Moderate H (Negative) Urine Nitrite Negative (Negative) Urine Bilirubin Negative (Negative) Urine Urobilinogen <2.0 (<2.0) mg/dL Ur Leukocyte Esterase Large H (Negative) Urine RBC 1 (0-5) /hpf Urine WBC 50 H (0-5) /hpf Ur Squamous Epith Cells 1 (0-4) /hpf Urine Bacteria Rare H (None) /hpf Hyaline Casts 1 (0-2) /lpf Urine Mucus Rare H (None) /hpf - Radiology Data Radiology results: report reviewed (Ultrasound shows mild left-sided hydronephrosis. Left-sided nephrolithiasis.), image reviewed (Chest x-ray shows mild cardiomegaly. KUB shows double J catheter on the left.) Disposition Clinical Impression: Ureteral stone with hydronephrosis Disposition: HOME SELF-CARE Condition: Stable Instructions: Kidney Stones (ED) Additional Instructions: Please follow-up with primary care physician tomorrow. Please call your new urologist tomorrow also and try to get in tomorrow or the next day. Return for fevers, increased pain, vomiting, not tolerating oral intake, worsening symptoms or other concerns. Prescriptions: Cephalexin [Keflex] 500 mg PO QID #40 cap Ibuprofen [Motrin] 1 tab PO Q8HR PRN #12 tab PRN Reason: Pain traMADol HCl [Ultram] 50 mg PO Q6H PRN #12 tab PRN Reason: Pain/Discomfort Is patient prescribed a controlled substance at d/c from ED?: Yes When asked, does pt state using other controlled substances?: No If prescribed controlled substance>3 days was MAPS reviewed?: Prescribed <3 Days Referrals: Malia Finney MD [Primary Care Provider] - 1-2 days Time of Disposition: 12:53
[2018-05-01] MEDS: SODIUM CHLORIDE 0.9% 500 ML IV SCH ×2 (11:02→11:54)
[2018-05-01 11:04] LABS: Basophils % (A) 0 %; Eosinophils # (A) 0.3 k/uL (0-0.7); Eosinophils % (A) 3 %; HCT 37.8 % (34.0-46.0); HGB 11.8 gm/dL (11.4-16.0); Hypochromasia Slight; Lymphocytes # (A) 2.4 k/uL (1.0-4.8); Lymphocytes % (A) 18 %; MCH 25.5 pg (25.0-35.0); MCHC 31.3 g/dL (31.0-37.0); MCV 81.3 fL (80.0-100.0); Mean Platelet Volume 7.4; Monocytes # (A) 0.6 k/uL (0-1.0); Monocytes % (A) 5 %; Neutrophils # (A) 10.2 k/uL (1.3-7.7); Neutrophils % (A) 75 %; Platelet Count 470 k/uL (150-450); RBC 4.65 m/uL (3.80-5.40); RDW 14.8 % (11.5-15.5); WBC 13.6 k/uL (3.8-10.6)
[2018-05-01 11:15] LABS: Albumin 3.5 g/dL (3.5-5.0); Calcium 9.3 mg/dL (8.4-10.2); Potassium 4.6 mmol/L (3.5-5.1); Total Bilirubin 0.4 mg/dL (0.2-1.3); Total Protein 7.6 g/dL (6.3-8.2)
[2018-05-01 11:16] LABS: Appearance,Urine Clear (Clear); Bacteria,Urine Rare /hpf; Bilirubin,Urine Negative (Negative); Blood,Urine Moderate (Negative); Color,Urine Colorless; Glucose,Urine (UA) Negative (Negative); Hyaline Casts,Urine 1 /lpf (0-2); Ketones,Urine Negative (Negative); Leukocyte Esterase,Urine Large (Negative); Mucus,Urine Rare /hpf; Nitrite,Urine Negative (Negative); PH, Urine 6.5 (5.0-8.0); Protein,Urine Trace (Negative); RBC,Urine 1 /hpf (0-5); Specific Gravity,Urine 1.003 (1.001-1.035); Squamous Epithelial Cell,Urine 1 /hpf (0-4); Urobilinogen,Urine <2.0 mg/dL (<2.0); WBC,Urine 50 /hpf (0-5)
[2018-05-01 11:23] LABS: Partial Thromboplastin Time 23.8 sec (22.0-30.0); Prothrombin Time 9.9 sec (9.0-12.0)
--- NOTE | 2018-05-01 12:16 | US ---
EXAMINATION TYPE: US kidneys/renal and bladder DATE OF EXAM: 05/01/2018 COMPARISON: Previous study dated 04/25/2018. CLINICAL HISTORY: Pain. Left side pain. Hx of stent x 3 weeks ago. EXAM MEASUREMENTS: Right Kidney: 12.5 x 5.1 x 4.6 cm Left Kidney: 13.9 x 6.2 x 7.2 cm Right Kidney: No hydronephrosis or masses seen Left Kidney: Multiple tiny echogenic foci seen. Largest in lower pole with shadow= 0.8 x 1.0 cm. An echoic areas seen in renal sinus, mild hydronephrosis? Bladder: distended, stent seen Right jet seen Right kidney is normal. There is mild hydronephrosis on the left. There are multiple renal calculi. IMPRESSION: 1. LEFT-SIDED NEPHROLITHIASIS. 2. MILD LEFT-SIDED HYDRONEPHROSIS.
--- NOTE | 2018-05-01 12:17 | XR ---
EXAMINATION TYPE: XR chest 2V DATE OF EXAM: 05/01/2018 HISTORY: Fever. REFERENCE: Previous study dated 09/22/2016. FINDINGS: The heart is mildly enlarged. The lungs are clear. Pleural spaces are clear. IMPRESSION: MILD CARDIOMEGALY.
--- NOTE | 2018-05-01 12:19 | XR ---
EXAMINATION TYPE: XR KUB , 2 VIEWS DATE OF EXAM ORDERED: 05/01/2018 HISTORY: Pain. COMPARISON: Previous study dated 04/25/2018. FINDINGS: There is been jason fixation of the lower thoracic spine. There is a double-J catheter in pl bianka on the left. Its proximal tip overlies the left kidney and the distal end overlies the bladder. The abdominal gas pattern is normal. There is no evidence of obstruction or free air. There is a 6 IMPRESSION: 1. POSTSURGICAL CHANGE. 2. PROBABLE NONOBSTRUCTING CALCULUS IN THE INFERIOR POLE OF THE LEFT KIDNEY. 3. STATUS POST DOUBLE-J STENT ON THE LEFT.
[2018-05-01 13:17] VITALS: BP 169/87; PULSE 68; RESP 18; TEMP 98.7
== END 2018-05-01 13:16 | disposition home or self-care (01) ==
LOC: EC 10:29
DX: N13.2 Hydronephrosis with renal and ureteral calculous obstruction (principal); E11.9 Type 2 diabetes mellitus without complications; K21.9 Gastro-esophageal reflux disease without esophagitis; I10 Essential (primary) hypertension; F17.200 Nicotine dependence, unspecified, uncomplicated; G47.33 Obstructive sleep apnea (adult) (pediatric); Z99.89 Dependence on other enabling machines and devices; Z90.49 Acquired absence of other specified parts of digestive tract; Z79.4 Long term (current) use of insulin; Z79.899 Other long term (current) drug therapy; Z88.8 Allergy status to other drugs, medicaments and biological substances; Z98.890 Other specified postprocedural states
CPT/HCPCS: 36415; 93005; 80053; 83605; 85025; 85610; 85730; 81001; 87040; 87086; 71046; 74018; 76770; 99285; 96374; 96361 ×2; J1170

== ENCOUNTER 2018-05-15 16:26 | Emergency (ER) | payer OTHER ==
[2018-05-15 16:40] VITALS: TEMP 98.7
--- NOTE | 2018-05-15 17:09 | ED ---
Female Urogenital HPI - General Source: EMS Mode of arrival: EMS Limitations: no limitations - History of Present Illness Improves with: none Last Menstrual Period: 04/16/18 <Dorie Goetz - Last Filed: 05/15/18 19:47> <Nathan Lino Zack - Last Filed: 05/15/18 21:14> - General Chief complaint: Urogenital Stated complaint: Abd pain Time Seen by Provider: 05/15/18 16:39 - History of Present Illness Initial comments: 43-year-old female presents with left-sided flank pain that occurred 3 hours prior to arrival. Patient states the pain is wrapping around to her front. Patient states she had a stent placed in March. Patient states due to her insurance she is unable to follow-up with the urologist that put it in so she had to find a new urologist quique Andrade. Patient did follow up with this urologist in the outpatient setting however is not scheduled for surgery until next 2 weeks. Patient states she was doing good with pain she was hardly experiencing any pain until earlier today. Patient states the pain now is starting her left flank wrapping around to her left frontal abdomen region. Patient does take Ultram for pain and had some Tibbie left over and it didn't even help the pain. Patient didn't denies any dysuria or hematuria. Patient was given Pyridium for one month from her urologist as well. no change of bowels (Dorie Goetz) - Related Data Home Medications Medication Instructions Recorded Confirmed Insulin Glargine [Lantus] 30 unit SQ DAILY 02/03/14 05/15/18 INSULIN LISPRO (HumaLOG) [humaLOG] 6 units SQ AC-TID 08/01/16 05/15/18 Metoprolol Tartrate [Lopressor] 50 mg PO TID 09/22/16 05/15/18 Losartan Potassium [Cozaar] 25 mg PO DAILY 09/04/17 05/15/18 Omeprazole [PriLOSEC] 20 mg PO DAILY 01/26/18 05/15/18 Furosemide [Lasix] 20 mg PO DAILY 04/18/18 05/15/18 Acetaminophen [Tylenol Extra 1,000 mg PO DAILY PRN 05/15/18 05/15/18 Strength] Phenazopyridine HCl [Pyridium] 1 tab PO BID 05/15/18 05/15/18 Previous Rx's Medication Instructions Recorded Cephalexin [Keflex] 500 mg PO QID #40 cap 05/01/18 Ondansetron Odt [Zofran Odt] 4 mg PO Q8HR PRN #10 tab 05/01/18 traMADol HCl [Ultram] 50 mg PO Q6H PRN #12 tab 05/01/18 Cephalexin [Keflex] 500 mg PO Q8HR #30 cap 05/15/18 HYDROcodone/APAP 5-325MG [Tibbie 1 - 2 tab PO Q6HR PRN #12 tab 05/15/18 5-325] Allergies Allergy/AdvReac Type Severity Reaction Status Date / Time hydrochlorothiazide Allergy Dyspnea Verified 05/15/18 16:45 [From Zestoretic] insulin glargine Allergy Rash/Hives Verified 05/15/18 16:45 [From Basaglar KwikPen] lisinopril [From Zestoretic] Allergy Dyspnea Verified 05/15/18 16:45 Review of Systems ROS Other: All systems not noted in ROS Statement are negative. Constitutional: Denies: fever, chills Respiratory: Denies: cough Cardiovascular: Denies: chest pain Gastrointestinal: Reports: abdominal pain. Denies: nausea, vomiting Musculoskeletal: Reports: back pain (left flank) Skin: Denies: rash Neurological: Denies: headache <Dorie Goetz - Last Filed: 05/15/18 19:47> ROS Other: All systems not noted in ROS Statement are negative. <Nathan Lino - Last Filed: 05/15/18 21:14> ROS Statement: Those systems with pertinent positive or pertinent negative responses have been documented in the HPI. Past Medical History Past Medical History: Diabetes Mellitus, GERD/Reflux, Hypertension, Osteoarthritis (OA), Renal Disease, Sleep Apnea/CPAP/BIPAP Additional Past Medical History / Comment(s): Cystoscopy with right ureteroscopy and lithotripsy 02/23/2018, Cystoscopy with placementy left JJ catheter 04/19/2018, UTIs, IDDM type II, chronic back pain, MARIALUISA without device. History of Any Multi-Drug Resistant Organisms: None Reported Past Surgical History: Back Surgery, Section, Cholecystectomy Additional Past Surgical History / Comment(s): ESWL unsuccessful x 2, ureteroscopy for stone removal, cystoscopy with double J catheter placed on , t8-t12 fusion, x 1 Past Anesthesia/Blood Transfusion Reactions: No Reported Reaction Past Psychological History: Anxiety, Bipolar, Depression Smoking Status: Current every day smoker Past Alcohol Use History: None Reported Past Drug Use History: None Reported - Past Family History Father Family Medical History: Diabetes Mellitus Mother Additional Family Medical History / Comment(s): bipolar depression anxiety <Dorie Goetz - Last Filed: 05/15/18 19:47> General Exam Limitations: no limitations General appearance: alert, in no apparent distress Eye exam: Present: normal appearance, PERRL, EOMI. Absent: scleral icterus, conjunctival injection, periorbital swelling Respiratory exam: Present: normal lung sounds bilaterally. Absent: respiratory distress, wheezes, rales, rhonchi, stridor Cardiovascular Exam: Present: regular rate, normal rhythm, normal heart sounds. Absent: systolic murmur, diastolic murmur, rubs, gallop, clicks GI/Abdominal exam: Present: soft, tenderness (llq abd pain), normal bowel sounds. Absent: distended, guarding, rebound, rigid Back exam: Present: CVA tenderness (L) Neurological exam: Present: alert, oriented X3, CN II-XII intact Psychiatric exam: Present: normal affect, normal mood Skin exam: Present: warm, dry, intact, normal color. Absent: rash <Dorie Goetz - Last Filed: 05/15/18 19:47> Vital Signs 05/15/18 05/15/18 05/15/18 16:28 18:49 19:41 Temperature 98.7 F 98.7 F Pulse Rate 98 79 83 Respiratory 20 18 16 Rate Blood Pressure 164/104 146/98 147/83 O2 Sat by Pulse 96 97 97 Oximetry Medical Decision Making - Lab Data Result diagrams: 05/15/18 17:24 05/15/18 17:24 <Dorie Goetz - Last Filed: 05/15/18 19:47> - Lab Data Result diagrams: 05/15/18 17:24 05/15/18 17:24 <Nathan Lino - Last Filed: 05/15/18 21:14> - Medical Decision Making Reviewed labs and diagnostic testing patient presented with leukocytes hematuria and nitrates in the urine along with elevated white blood cell count of 5.7 patient aware of the results we'll start on antibiotics for urinary tract infection. Also CT revealed 8mm cut this on the left side with possible malfunctioning stent due to edema. Dr. Kimball was paged Dr. Mejia talked with him patient will be put on oral antibiotic and patient to follow-up with her urologist on it Rick Andrade in the morning. Patient aware to return to ER if increased pain nausea vomiting fevers occur. pt was also evaluated by dr. mejia ([facility]) I did evaluate this patient. She has had some chronic kidney stones with multiple stents. She's had a stent placed in the right ureter in January of this year, stent placed in the left ureter within the last several weeks. She had previous CT that showed left-sided hydronephrosis with perinephric fat stranding. This imaging is repeated today and is the same or worse from previous. She does have an elevated white cell count and stable both hematuria and white cells with rare bacteria on urinalysis. Urine culture is obtained. She started on IV antibiotics. Case is discussed with on-call urology, Dr. Allen. Given the chronic nature of these symptoms and patient's issues, and the fact that she is afebrile, vital signs he is comfortable with discharge at this time. Patient will be present with worsening or changing symptoms, development of fever, or inability to tolerate her antibiotics. She will follow -up as an outpatient with urology. (Nathan Lino) - Lab Data Lab Results 05/15/18 05/15/18 05/15/18 Range/Units 17:17 17:17 17:24 WBC 15.7 H (3.8-10.6) k/uL RBC 4.90 (3.80-5.40) m/uL Hgb 13.2 (11.4-16.0) gm/dL Hct 40.0 (34.0-46.0) % MCV 81.7 (80.0-100.0) fL MCH 26.9 (25.0-35.0) pg MCHC 32.9 (31.0-37.0) g/dL RDW 16.1 H (11.5-15.5) % Plt Count 266 (150-450) k/uL Neutrophils % 82 % Lymphocytes % 9 % Monocytes % 6 % Eosinophils % 2 % Basophils % 0 % Neutrophils # 12.9 H (1.3-7.7) k/uL Lymphocytes # 1.3 (1.0-4.8) k/uL Monocytes # 1.0 (0-1.0) k/uL Eosinophils # 0.3 (0-0.7) k/uL Basophils # 0.1 (0-0.2) k/uL Anisocytosis Slight Sodium (137-145) mmol/L Potassium (3.5-5.1) mmol/L Chloride (98-107) mmol/L Carbon Dioxide (22-30) mmol/L Anion Gap mmol/L BUN (7-17) mg/dL Creatinine (0.52-1.04) mg/dL Est GFR (CKD-EPI)AfAm (>60 ml/min/1.73 sqM) Est GFR (CKD-EPI)NonAf (>60 ml/min/1.73 sqM) Glucose (74-99) mg/dL Calcium (8.4-10.2) mg/dL Total Bilirubin (0.2-1.3) mg/dL AST (14-36) U/L ALT (9-52) U/L Alkaline Phosphatase (38-126) U/L Total Protein (6.3-8.2) g/dL Albumin (3.5-5.0) g/dL Urine Color Dark Allen Urine Appearance Cloudy H (Clear) Urine pH 6.5 (5.0-8.0) Ur Specific [place] 1.014 (1.001-1.035) Urine Protein 2+ H (Negative) Urine Glucose (UA) Trace H (Negative) Urine Ketones Negative (Negative) Urine Blood Moderate H (Negative) Urine Nitrite Positive H (Negative) Urine Bilirubin 1+ H (Negative) Urine Urobilinogen 2.0 (<2.0) mg/dL Ur Leukocyte Esterase Large H (Negative) Urine RBC 111 H (0-5) /hpf Urine WBC 46 H (0-5) /hpf Ur Squamous Epith Cells 2 (0-4) /hpf Urine Bacteria Rare H (None) /hpf Urine Mucus Rare H (None) /hpf Urine HCG, Qual Not Detected (Not Detectd) 05/15/18 Range/Units 17:24 WBC (3.8-10.6) k/uL RBC (3.80-5.40) m/uL Hgb (11.4-16.0) gm/dL Hct (34.0-46.0) % MCV (80.0-100.0) fL MCH (25.0-35.0) pg MCHC (31.0-37.0) g/dL RDW (11.5-15.5) % Plt Count (150-450) k/uL Neutrophils % % Lymphocytes % % Monocytes % % Eosinophils % % Basophils % % Neutrophils # (1.3-7.7) k/uL Lymphocytes # (1.0-4.8) k/uL Monocytes # (0-1.0) k/uL Eosinophils # (0-0.7) k/uL Basophils # (0-0.2) k/uL Anisocytosis Sodium 138 (137-145) mmol/L Potassium 4.3 (3.5-5.1) mmol/L Chloride 107 (98-107) mmol/L Carbon Dioxide 25 (22-30) mmol/L Anion Gap 6 mmol/L BUN 20 H (7-17) mg/dL Creatinine 1.26 H (0.52-1.04) mg/dL Est GFR (CKD-EPI)AfAm 61 (>60 ml/min/1.73 sqM) Est GFR (CKD-EPI)NonAf 53 (>60 ml/min/1.73 sqM) Glucose 211 H (74-99) mg/dL Calcium 9.4 (8.4-10.2) mg/dL Total Bilirubin 0.4 (0.2-1.3) mg/dL AST 17 (14-36) U/L ALT 24 (9-52) U/L Alkaline Phosphatase 103 (38-126) U/L Total Protein 7.3 (6.3-8.2) g/dL Albumin 3.5 (3.5-5.0) g/dL Urine Color Urine Appearance (Clear) Urine pH (5.0-8.0) Ur Specific [place] (1.001-1.035) Urine Protein (Negative) Urine Glucose (UA) (Negative) Urine Ketones (Negative) Urine Blood (Negative) Urine Nitrite (Negative) Urine Bilirubin (Negative) Urine Urobilinogen (<2.0) mg/dL Ur Leukocyte Esterase (Negative) Urine RBC (0-5) /hpf Urine WBC (0-5) /hpf Ur Squamous Epith Cells (0-4) /hpf Urine Bacteria (None) /hpf Urine Mucus (None) /hpf Urine HCG, Qual (Not Detectd) Disposition Is patient prescribed a controlled substance at d/c from ED?: Yes When asked, does pt state using other controlled substances?: Yes If prescribed controlled substance>3 days was MAPS reviewed?: Prescribed <3 Days If opioid is for acute pain is fill amount 7 days or less?: No If Rx opioid, was Start Talking consent form obtained?: Yes Time of Disposition: 19:49 <Dorie Goetz - Last Filed: 05/15/18 19:47> <Nathan Lino - Last Filed: 05/15/18 21:14> Clinical Impression: UTI (urinary tract infection), Kidney stone on left side Disposition: HOME SELF-CARE Instructions: Kidney Stones (ED), Urinary Tract Infection in Women (ED), Renal Colic (ED), Flank Pain (ED) Additional Instructions: Patient to follow-up with her urologist in the morning Pearl Andrade Prescriptions: Cephalexin [Keflex] 500 mg PO Q8HR #30 cap HYDROcodone/APAP 5-325MG [Tibbie 5-325] 1 - 2 tab PO Q6HR PRN #12 tab PRN Reason: Pain Referrals: Malia Finney MD [Primary Care Provider] - 1-2 days
[2018-05-15] MEDS ORDERED: KETOROLAC 30 MG/ML 1 ML VIAL IVP STA (17:10)
[2018-05-15 17:38] LABS: Anisocytosis Slight; Basophils # (A) 0.1 k/uL (0-0.2); Basophils % (A) 0 %; Eosinophils # (A) 0.3 k/uL (0-0.7); Eosinophils % (A) 2 %; HGB 13.2 gm/dL (11.4-16.0); Lymphocytes # (A) 1.3 k/uL (1.0-4.8); Lymphocytes % (A) 9 %; MCH 26.9 pg (25.0-35.0); MCHC 32.9 g/dL (31.0-37.0); MCV 81.7 fL (80.0-100.0); Mean Platelet Volume 7.9; Monocytes % (A) 6 %; Neutrophils # (A) 12.9 k/uL (1.3-7.7); Neutrophils % (A) 82 %; Platelet Count 266 k/uL (150-450); RDW 16.1 % (11.5-15.5); WBC 15.7 k/uL (3.8-10.6)
[2018-05-15 17:43] LABS: Appearance,Urine Cloudy (Clear); Bacteria,Urine Rare /hpf; Bilirubin,Urine 1+ (Negative); Blood,Urine Moderate (Negative); Color,Urine Dark Orange; Glucose,Urine (UA) Trace (Negative); Ketones,Urine Negative (Negative); Leukocyte Esterase,Urine Large (Negative); Mucus,Urine Rare /hpf; Nitrite,Urine Positive (Negative); PH, Urine 6.5 (5.0-8.0); Protein,Urine 2+ (Negative); RBC,Urine 111 /hpf (0-5); Specific Gravity,Urine 1.014 (1.001-1.035); Squamous Epithelial Cell,Urine 2 /hpf (0-4)
[2018-05-15] MEDS ORDERED: MORPHINE SULFATE 4 MG/ML SYRINGE IVP STA (17:50)
--- NOTE | 2018-05-15 17:54 | XR ---
EXAMINATION TYPE: XR KUB DATE OF EXAM: 05/15/2018 COMPARISON: 05/01/2018 HISTORY: Kidney stones. Left-sided pain TECHNIQUE: 2 views upright FINDINGS: There is no sign of intestinal obstruction or pneumoperitoneum. There is left-sided uretera l stent noted. There is a 5 mm calcification over the lower pole left kidney. Lung bases are clear. IMPRESSION: Nonacute abdomen. Left renal calculus unchanged.
[2018-05-15 17:56] LABS: Albumin 3.5 g/dL (3.5-5.0); Calcium 9.4 mg/dL (8.4-10.2); Potassium 4.3 mmol/L (3.5-5.1); Total Bilirubin 0.4 mg/dL (0.2-1.3); Total Protein 7.3 g/dL (6.3-8.2)
[2018-05-15] MEDS ORDERED: KETOROLAC 30 MG/ML 1 ML VIAL IVP SCH (18:00)
--- NOTE | 2018-05-15 18:57 | CT ---
EXAMINATION TYPE: CT abdomen pelvis wo con DATE OF EXAM: 05/15/2018 COMPARISON: 04/18/2018 HISTORY: LEFT FLANK PAIN, HX OF STENT CT DLP: 2456.5 mGycm Automated exposure control for dose reduction was used. TECHNIQUE: Helical acquisition of images was performed from the lung bases through the pelvis. FINDINGS: Lung bases are clear of consolidation. There is no pleural effusion. Heart size is normal. Liver spleen pancreas appear normal. There are clips from cholecystectomy. There is left-sided hydron ephrosis. There is left-sided ureteral stent noted. There is left-sided perinephric edema. The right kidney has normal size and contour with no hydronephrosis. Right ureter is not dilated. Ureteral sten t appears in good position. Bladder distends smoothly. Uterus is anteverted. There is no free fluid i n the pelvis. I see no intestinal wall thickening. There are no dilated loops. Appendix appears normal. There is no inguinal hernia or adenopathy. There is no retroperitoneal adenopathy. There is no mesenteric edema. There is subcutaneous edema over the lower lumbar spine. There is metal artifact from posterior fusi on surgery at the thoracolumbar junction. There is 8 mm calculus lower pole left kidney. There are ti ny calculi upper pole left kidney. I see no calculus in the right kidney. IMPRESSION: THERE IS CALCULUS IN THE LOWER POLE LEFT KIDNEY. THERE IS LEFT-SIDED HYDRONEPHROSIS AND PERINEPHRIC E CLARITA. THIS APPEARS WORSE THAN LAST CT SCAN. STENT APPEARS IN GOOD POSITION BUT THE HYDRONEPHROSIS AND EDEMA APPEARS WORSE THAT SUGGESTS THE MALFUNCTIONING STENT. THE CALCULUS AT THE LEFT URETEROPELVIC J UNCTION ON THE OLD EXAM APPEARS TO BE PUSHED BACK TO THE LOWER POLE LEFT KIDNEY.
[2018-05-15 19:43] VITALS: PULSE 83; RESP 16
[2018-05-15 19:44] VITALS: BP 147/83
== END 2018-05-15 20:04 | disposition home or self-care (01) ==
LOC: EC 16:26
DX: N13.2 Hydronephrosis with renal and ureteral calculous obstruction (principal); N39.0 Urinary tract infection, site not specified; D72.829 Elevated white blood cell count, unspecified; E11.9 Type 2 diabetes mellitus without complications; K21.9 Gastro-esophageal reflux disease without esophagitis; I10 Essential (primary) hypertension; F17.200 Nicotine dependence, unspecified, uncomplicated; G47.33 Obstructive sleep apnea (adult) (pediatric); Z99.89 Dependence on other enabling machines and devices; Z90.49 Acquired absence of other specified parts of digestive tract; Z96.0 Presence of urogenital implants; Z79.4 Long term (current) use of insulin; Z79.899 Other long term (current) drug therapy; Z88.8 Allergy status to other drugs, medicaments and biological substances
CPT/HCPCS: 99285; 96365; 96374; 96375; 36415; 80053; 85025; 81001; 81025; 87040; 87086; 74018; 74176; J2270; J0696; J1885

== ENCOUNTER 2018-08-04 19:17 | Emergency (ER) | payer OTHER ==
[2018-08-04 19:21] VITALS: RESP 18
[2018-08-04] MEDS ORDERED: SODIUM CHLORIDE 0.9% 1,000 ML IV STA ×2 (19:32)
[2018-08-04] MEDS ORDERED: KETOROLAC 30 MG/ML 1 ML VIAL IVP STA (19:32)
[2018-08-04] MEDS ORDERED: MORPHINE SULFATE 4 MG/ML SYRINGE IV STA (19:32)
[2018-08-04] MEDS ORDERED: ONDANSETRON 4 MG/2 ML VIAL IVP STA (19:32)
--- NOTE | 2018-08-04 19:35 | ED ---
Abdominal Pain HPI - General Chief Complaint: Abdominal Pain Stated Complaint: Kidney stones Time Seen by Provider: 08/04/18 19:25 Source: patient, RN notes reviewed, old records reviewed Mode of arrival: ambulatory Limitations: no limitations - History of Present Illness Initial Comments: Patient is a 43-year-old female with a history of kidney stones presents emergency room today with 3 days of left-sided flank pain. She reports she initially thought it was a UTI. She suffered from kidney stones for the past few years. Patient reports that she sees a urologist Lupe. Patient reports that she's had previous ureteral stenting. She reports some episodes of vomiting, and she reports she's had a low-grade fever this is managed with Motrin. She denies any associated chest pain. She reports the pain radiates to the left lower quadrant. She had a ureteral stent placed in April. - Related Data Home Medications Medication Instructions Recorded Confirmed Insulin Glargine [Lantus] 30 unit SQ DAILY 02/03/14 08/04/18 INSULIN LISPRO (HumaLOG) [humaLOG] 6 units SQ AC-TID 08/01/16 08/04/18 Metoprolol Tartrate [Lopressor] 50 mg PO TID 09/22/16 08/04/18 Losartan Potassium [Cozaar] 25 mg PO TID 09/04/17 08/04/18 Omeprazole [PriLOSEC] 20 mg PO DAILY 01/26/18 08/04/18 Furosemide [Lasix] 20 mg PO DAILY 04/18/18 08/04/18 Ibuprofen [Motrin] 800 mg PO TID PRN 08/04/18 08/04/18 Previous Rx's Medication Instructions Recorded HYDROcodone/APAP 5-325MG [Linden 1 tab PO Q6HR PRN 3 Days #12 tab 08/04/18 5-325] Ketorolac [Toradol] 10 mg PO Q6HR #20 tab 08/04/18 Ondansetron Odt [Zofran Odt] 4 mg PO Q8HR PRN #12 tab 08/04/18 Tamsulosin [Flomax] 0.4 mg PO DAILY #10 cap 08/04/18 Allergies Allergy/AdvReac Type Severity Reaction Status Date / Time hydrochlorothiazide Allergy Dyspnea Verified 08/04/18 19:41 [From Zestoretic] lisinopril [From Zestoretic] Allergy Dyspnea Verified 08/04/18 19:41 Review of Systems ROS Statement: Those systems with pertinent positive or pertinent negative responses have been documented in the HPI. ROS Other: All systems not noted in ROS Statement are negative. Past Medical History Past Medical History: Diabetes Mellitus, GERD/Reflux, Hypertension, Osteoarthritis (OA), Renal Disease, Sleep Apnea/CPAP/BIPAP Additional Past Medical History / Comment(s): Cystoscopy with right ureteroscopy and lithotripsy 02/23/2018, Cystoscopy with placementy left JJ catheter 04/19/2018, UTIs, IDDM type II, chronic back pain, MARIALUISA without device. History of Any Multi-Drug Resistant Organisms: None Reported Past Surgical History: Back Surgery, Section, Cholecystectomy Additional Past Surgical History / Comment(s): ESWL unsuccessful x 2, ureteroscopy for stone removal, cystoscopy with double J catheter placed on , t8-t12 fusion, x 1 Past Anesthesia/Blood Transfusion Reactions: No Reported Reaction Past Psychological History: Anxiety, Bipolar, Depression Smoking Status: Current every day smoker Past Alcohol Use History: None Reported Past Drug Use History: None Reported - Past Family History Father Family Medical History: Diabetes Mellitus Mother Additional Family Medical History / Comment(s): bipolar depression anxiety General Exam - General Exam Comments Initial Comments: 43-year-old female. Moderate discomfort. Patient is morbidly obese. Limitations: no limitations General appearance: alert, in no apparent distress Head exam: Present: atraumatic, normocephalic, normal inspection Eye exam: Present: normal appearance, PERRL, EOMI. Absent: scleral icterus, conjunctival injection, periorbital swelling ENT exam: Present: normal exam, mucous membranes moist Neck exam: Present: normal inspection. Absent: tenderness, meningismus, lymphadenopathy Respiratory exam: Present: normal lung sounds bilaterally. Absent: respiratory distress, wheezes, rales, rhonchi, stridor Cardiovascular Exam: Present: regular rate, normal rhythm, normal heart sounds. Absent: systolic murmur, diastolic murmur, rubs, gallop, clicks GI/Abdominal exam: Present: soft, tenderness (Left lower quadrant left CVA tenderness), normal bowel sounds. Absent: distended, guarding, rebound, rigid Extremities exam: Present: normal inspection, full ROM, normal capillary refill. Absent: tenderness, pedal edema, joint swelling, calf tenderness Back exam: Present: normal inspection Neurological exam: Present: alert, oriented X3, CN II-XII intact Psychiatric exam: Present: normal affect, normal mood Skin exam: Present: warm, dry, intact, normal color. Absent: rash Course Vital Signs 08/04/18 08/04/18 19:19 20:57 Temperature 98.5 F Pulse Rate 91 74 Respiratory 18 18 Rate Blood Pressure 164/102 172/96 O2 Sat by Pulse 99 96 Oximetry Medical Decision Making - Medical Decision Making Patient is a 43-year-old female presents return today with 3 days of left-sided flank pain. She's had history of chronic kidney stones issues. Patient at this time has had no fevers or chills. Vital signs stable. She did have some left CVA tenderness on exam. Patient's lab work shows normal kidney function test. Urinalysis shows strictly red blood cells. No white cells. We will complete a urine culture. We did complete a renal ultrasound Patient has had multiple CT scans within the past year. Ultrasound does show evidence of bilateral ureteral jets so no significant obstruction is suspected. Patient did have a previous 8mm stone that was removed by her urologist in April of this past year. Her previous computed tomography scan showed no significant stones within the left kidney larger than 6 mm. Discussed the Patient will likely pass the stone without significant difficulty. We'll discharge the Patient with nausea medicine, pain medicine and Flomax. Discussed following up with her urologist. Instructed on strict return parameters. Patient understands treatment plan will comply. - Lab Data Result diagrams: 08/04/18 19:45 08/04/18 19:45 Lab Results 08/04/18 08/04/18 08/04/18 Range/Units 19:45 19:45 19:45 WBC 9.2 (3.8-10.6) k/uL RBC 5.21 (3.80-5.40) m/uL Hgb 13.7 (11.4-16.0) gm/dL Hct 42.9 (34.0-46.0) % MCV 82.3 (80.0-100.0) fL MCH 26.2 (25.0-35.0) pg MCHC 31.9 (31.0-37.0) g/dL RDW 16.5 H (11.5-15.5) % Plt Count 326 (150-450) k/uL Neutrophils % 70 % Lymphocytes % 24 % Monocytes % 4 % Eosinophils % 2 % Basophils % 0 % Neutrophils # 6.5 (1.3-7.7) k/uL Lymphocytes # 2.2 (1.0-4.8) k/uL Monocytes # 0.3 (0-1.0) k/uL Eosinophils # 0.2 (0-0.7) k/uL Basophils # 0.0 (0-0.2) k/uL Anisocytosis Slight PT 9.7 (9.0-12.0) sec INR 0.9 (<1.2) APTT 23.6 (22.0-30.0) sec Sodium 139 (137-145) mmol/L Potassium 4.5 (3.5-5.1) mmol/L Chloride 112 H (98-107) mmol/L Carbon Dioxide 18 L (22-30) mmol/L Anion Gap 9 mmol/L BUN 18 H (7-17) mg/dL Creatinine 1.11 H (0.52-1.04) mg/dL Est GFR (CKD-EPI)AfAm 71 (>60 ml/min/1.73 sqM) Est GFR (CKD-EPI)NonAf 62 (>60 ml/min/1.73 sqM) Glucose 217 H (74-99) mg/dL Calcium 9.5 (8.4-10.2) mg/dL Total Bilirubin 0.3 (0.2-1.3) mg/dL AST 16 (14-36) U/L ALT 16 (9-52) U/L Alkaline Phosphatase 114 (38-126) U/L Total Protein 7.7 (6.3-8.2) g/dL Albumin 3.7 (3.5-5.0) g/dL Amylase 36 (30-110) U/L Lipase 67 (23-300) U/L Urine Color Urine Appearance (Clear) Urine pH (5.0-8.0) Ur Specific [place] (1.001-1.035) Urine Protein (Negative) Urine Glucose (UA) (Negative) Urine Ketones (Negative) Urine Blood (Negative) Urine Nitrite (Negative) Urine Bilirubin (Negative) Urine Urobilinogen (<2.0) mg/dL Ur Leukocyte Esterase (Negative) Urine RBC (0-5) /hpf Ur Squamous Epith Cells (0-4) /hpf Urine Mucus (None) /hpf 08/04/18 Range/Units 19:45 WBC (3.8-10.6) k/uL RBC (3.80-5.40) m/uL Hgb (11.4-16.0) gm/dL Hct (34.0-46.0) % MCV (80.0-100.0) fL MCH (25.0-35.0) pg MCHC (31.0-37.0) g/dL RDW (11.5-15.5) % Plt Count (150-450) k/uL Neutrophils % % Lymphocytes % % Monocytes % % Eosinophils % % Basophils % % Neutrophils # (1.3-7.7) k/uL Lymphocytes # (1.0-4.8) k/uL Monocytes # (0-1.0) k/uL Eosinophils # (0-0.7) k/uL Basophils # (0-0.2) k/uL Anisocytosis PT (9.0-12.0) sec INR (<1.2) APTT (22.0-30.0) sec Sodium (137-145) mmol/L Potassium (3.5-5.1) mmol/L Chloride (98-107) mmol/L Carbon Dioxide (22-30) mmol/L Anion Gap mmol/L BUN (7-17) mg/dL Creatinine (0.52-1.04) mg/dL Est GFR (CKD-EPI)AfAm (>60 ml/min/1.73 sqM) Est GFR (CKD-EPI)NonAf (>60 ml/min/1.73 sqM) Glucose (74-99) mg/dL Calcium (8.4-10.2) mg/dL Total Bilirubin (0.2-1.3) mg/dL AST (14-36) U/L ALT (9-52) U/L Alkaline Phosphatase (38-126) U/L Total Protein (6.3-8.2) g/dL Albumin (3.5-5.0) g/dL Amylase (30-110) U/L Lipase (23-300) U/L Urine Color Yellow Urine Appearance Clear (Clear) Urine pH 6.5 (5.0-8.0) Ur Specific [place] 1.013 (1.001-1.035) Urine Protein Trace H (Negative) Urine Glucose (UA) Negative (Negative) Urine Ketones Negative (Negative) Urine Blood Moderate H (Negative) Urine Nitrite Negative (Negative) Urine Bilirubin Negative (Negative) Urine Urobilinogen <2.0 (<2.0) mg/dL Ur Leukocyte Esterase Large H (Negative) Urine RBC >182 H (0-5) /hpf Ur Squamous Epith Cells 3 (0-4) /hpf Urine Mucus Rare H (None) /hpf - Radiology Data Radiology results: report reviewed Left-sided hydronephrosis. Echogenic foci within the left kidney consistent with multiple colliculi. There were ureteral jets in the urinary bladder do not suspect a significant obstruction. Disposition Clinical Impression: Left ureteral stone Disposition: HOME SELF-CARE Condition: Good Instructions: Ureteral Stones (ED) Additional Instructions: Patient is advised to follow-up with your urologist. Take the medication as prescribed. Rest, remain hydrated. Return to the emergency department if any alarming signs or symptoms occur. Prescriptions: HYDROcodone/APAP 5-325MG [[place] 5-325] 1 tab PO Q6HR PRN 3 Days #12 tab PRN Reason: Pain Ketorolac [Toradol] 10 mg PO Q6HR #20 tab Ondansetron Odt [Zofran Odt] 4 mg PO Q8HR PRN #12 tab PRN Reason: Nausea Tamsulosin [Flomax] 0.4 mg PO DAILY #10 cap Is patient prescribed a controlled substance at d/c from ED?: No Referrals: Malia Finney MD [Primary Care Provider] - 1-2 days Time of Disposition: 21:24
[2018-08-04 19:55] LABS: Anisocytosis Slight; Basophils % (A) 0 %; Eosinophils # (A) 0.2 k/uL (0-0.7); Eosinophils % (A) 2 %; HCT 42.9 % (34.0-46.0); HGB 13.7 gm/dL (11.4-16.0); Lymphocytes # (A) 2.2 k/uL (1.0-4.8); Lymphocytes % (A) 24 %; MCH 26.2 pg (25.0-35.0); MCHC 31.9 g/dL (31.0-37.0); MCV 82.3 fL (80.0-100.0); Mean Platelet Volume 7.8; Monocytes # (A) 0.3 k/uL (0-1.0); Monocytes % (A) 4 %; Neutrophils # (A) 6.5 k/uL (1.3-7.7); Neutrophils % (A) 70 %; Platelet Count 326 k/uL (150-450); RBC 5.21 m/uL (3.80-5.40); RDW 16.5 % (11.5-15.5); WBC 9.2 k/uL (3.8-10.6)
[2018-08-04 20:00] LABS: Appearance,Urine Clear (Clear); Bilirubin,Urine Negative (Negative); Blood,Urine Moderate (Negative); Color,Urine Yellow; Glucose,Urine (UA) Negative (Negative); Ketones,Urine Negative (Negative); Leukocyte Esterase,Urine Large (Negative); Mucus,Urine Rare /hpf; Nitrite,Urine Negative (Negative); PH, Urine 6.5 (5.0-8.0); Protein,Urine Trace (Negative); RBC,Urine >182 /hpf (0-5); Specific Gravity,Urine 1.013 (1.001-1.035); Squamous Epithelial Cell,Urine 3 /hpf (0-4); Urobilinogen,Urine <2.0 mg/dL (<2.0)
[2018-08-04 20:04] LABS: Albumin 3.7 g/dL (3.5-5.0); Calcium 9.5 mg/dL (8.4-10.2); Potassium 4.5 mmol/L (3.5-5.1); Total Bilirubin 0.3 mg/dL (0.2-1.3); Total Protein 7.7 g/dL (6.3-8.2)
[2018-08-04 20:08] LABS: INR 0.9 (<1.2); Partial Thromboplastin Time 23.6 sec (22.0-30.0); Prothrombin Time 9.7 sec (9.0-12.0)
--- NOTE | 2018-08-04 20:19 | XR ---
EXAMINATION TYPE: XR KUB DATE OF EXAM: 08/04/2018 COMPARISON: 05/15/2018 HISTORY: Left flank pain TECHNIQUE: 2 views FINDINGS: There is no sign of intestinal obstruction or pneumoperitoneum. Fecal pattern is normal. Th ere are no pathologic calcifications over the kidneys. Lung bases are clear. There is fusion surgery in the lower thoracic spine. IMPRESSION: Nonacute abdomen. There is removal of the left ureteral stent compared to old exam.
[2018-08-04 20:59] VITALS: BP 172/96; PULSE 74
--- NOTE | 2018-08-04 20:59 | US ---
EXAMINATION TYPE: US renals and bladder DATE OF EXAM: 08/04/2018 COMPARISON: NONE CLINICAL HISTORY: Pain. Pain, hematuria and hx of renal stones. EXAM MEASUREMENTS: Right Kidney: 12.2 x 4.5 x 5.2 cm Left Kidney: 11.1 x 5.2 x 4.8 cm Right Kidney: No hydronephrosis or masses seen Left Kidney: Multiple echogenic foci seen with hydronephrosis. Bladder: wnl Bilateral Jets seen: Yes No masses are identified. The urinary bladder is anechoic. Bilateral ureteral jets are seen. IMPRESSION: There is left-sided hydronephrosis. There are echogenic foci in the left kidney consistent with multi ple calculi. There were ureteral jets in the urinary bladder and I do not suspect a significant obstr uction.
[2018-08-04 21:41] VITALS: TEMP 97.8
== END 2018-08-04 21:40 | disposition home or self-care (01) ==
LOC: EC 19:17
DX: N13.2 Hydronephrosis with renal and ureteral calculous obstruction (principal); I10 Essential (primary) hypertension; K21.9 Gastro-esophageal reflux disease without esophagitis; E11.9 Type 2 diabetes mellitus without complications; F17.200 Nicotine dependence, unspecified, uncomplicated; Z88.8 Allergy status to other drugs, medicaments and biological substances; Z79.4 Long term (current) use of insulin; Z79.899 Other long term (current) drug therapy; Z90.49 Acquired absence of other specified parts of digestive tract; Z96.0 Presence of urogenital implants; Z98.1 Arthrodesis status; Z87.442 Personal history of urinary calculi; Z87.440 Personal history of urinary (tract) infections; Z87.39 Personal history of other diseases of the musculoskeletal system and connective tissue; Z98.890 Other specified postprocedural states
CPT/HCPCS: 36415; 80053; 82150; 83690; 85025; 85610; 85730; 81001; 87086; 74018; 76770; 99285; 96374; 96375 ×2; 96361; J2270; J2405; J1885

== ENCOUNTER → 2019-05-08 | Outpatient (CLI) | payer OTHER ==
--- NOTE | 2019-05-08 16:21 | NM ---
EXAMINATION TYPE: NM bone scan whole body DATE OF EXAM: 05/08/2019 COMPARISON: CT dated 05/15/2018 and 11/11/2016, 04/28/2013 HISTORY: Sacral lesion Delayed whole-body scanning was performed following the injection of 24.8 mCi Tc 99m MDP. Images acq uired 3 hours post injection. FINDINGS: The sacral focus of increased attenuation seen on multiple prior CTs which is stable and does not maya w associated increased radio from a suitable uptake. Uptake within the feet, knees, shoulders, sterno clavicular joints is likely degenerative. Increased uptake within the left kidney as compared to rig ht may be related to patient's obstructive uropathy. Uptake in the maxilla and mandible likely due to periodontal disease. IMPRESSION: Findings in the sacrum likely reflect bone island, nonaggressive process.
== END | disposition home or self-care (01) ==
LOC: RADNMMAIN 10:02
PROVIDERS: ATTEND Family Medicine
DX: M53.3 Sacrococcygeal disorders, not elsewhere classified (principal)
CPT/HCPCS: 78306; A9503

== ENCOUNTER 2020-11-11 18:33 | Observation (INO) | payer OTHER ==
--- NOTE | 2020-11-11 20:25 | XR ---
EXAMINATION TYPE: XR chest 2V DATE OF EXAM: 11/11/2020 COMPARISON: 05/01/2018 HISTORY: Chest pain TECHNIQUE: FINDINGS: Heart and mediastinum are normal. Lungs are clear. Diaphragm is normal. Bony thorax appears intact. There is posterior lower thoracic paraspinal rods. IMPRESSION: No cardiopulmonary disease.. No change.
--- NOTE | 2020-11-11 21:35 | ED ---
General Adult HPI - General Chief complaint: Chest Pain Stated complaint: Chest Pain Source: patient, RN notes reviewed Mode of arrival: ambulatory Limitations: no limitations - History of Present Illness Initial comments: 45-year-old female with a past medical history of IDDM, hypertension, GERD, 15 pack year smoking history presents to the emergency room for chest pain. Zakiya ent reports that she has had chest pressure on and off since yesterday. States at first it was intermittent but now it is worsening and has been constant today. Patient states she has some numbness in her left shoulder but denies any radiating pain. Patient does admit to shortness of breath on exertion but denies pain or pressure worsening on exertion. Patient denies any nausea or diaphoresis. Patient denies pain radiating to her back. Patient did have a negative stress test 6 years ago but has not had any cardiac workup since that time. Patient has no other complaints at this time including shortness of breath, abdominal pain, nausea or vomiting, headache, or visual changes. - Related Data Home Medications Medication Instructions Recorded Confirmed INSULIN LISPRO (HumaLOG) [humaLOG] 15 units SQ AC-TID 08/01/16 11/11/20 Metoprolol Tartrate [Lopressor] 50 mg PO TID 09/22/16 11/11/20 Omeprazole [PriLOSEC] 20 mg PO DAILY 01/26/18 11/11/20 DULoxetine HCL [Cymbalta] 60 mg PO DAILY 11/11/20 11/11/20 Furosemide [Lasix] 40 mg PO DAILY 11/11/20 11/11/20 Ibuprofen [Motrin Ib] 800 mg PO Q8H PRN 11/11/20 11/11/20 Insulin Glargine,Hum.rec.anlog 20 unit SQ BID 11/11/20 11/11/20 [Lantus Solostar] Losartan Potassium [Cozaar] 100 mg PO DAILY 11/11/20 11/11/20 Pioglitazone HCl 15 mg PO DAILY 11/11/20 11/11/20 metFORMIN HCL [Glucophage] 1,000 mg PO BID 11/11/20 11/11/20 Allergies Allergy/AdvReac Type Severity Reaction Status Date / Time hydrochlorothiazide Allergy Dyspnea Verified 11/11/20 22:31 [From Zestoretic] lisinopril [From Zestoretic] Allergy Dyspnea Verified 11/11/20 22:31 Review of Systems ROS Statement: Those systems with pertinent positive or pertinent negative responses have been documented in the HPI. ROS Other: All systems not noted in ROS Statement are negative. Past Medical History Past Medical History: Diabetes Mellitus, GERD/Reflux, Hypertension, Ost eoarthritis (OA), Renal Disease, Sleep Apnea/CPAP/BIPAP Additional Past Medical History / Comment(s): Cystoscopy with right ureteroscopy and lithotripsy 02/23/2018, Cystoscopy with placementy left JJ catheter 04/19/2018, UTIs, IDDM type II, chronic back pain, MARIALUISA without device. History of Any Multi-Drug Resistant Organisms: None Reported Past Surgical History: Back Surgery, Section, Cholecystectomy Additional Past Surgical History / Comment(s): ESWL unsuccessful x 2, ureteroscopy for stone removal, cystoscopy with double J catheter placed on 04/19/18, t8-t12 fusion, x 1 Past Anesthesia/Blood Transfusion Reactions: No Reported Reaction Past Psychological History: Anxiety, Bipolar, Depression Smoking Status: Current every day smoker Past Alcohol Use History: None Reported Past Drug Use History: None Reported - Past Family History Father Family Medical History: Diabetes Mellitus Mother Additional Family Medical History / Comment(s): bipolar depression anxiety General Exam Limitations: no limitations General appearance: alert, in no apparent distress Head exam: Present: atraumatic, normocephalic, normal inspection Eye exam: Present: normal appearance, PERRL, EOMI. Absent: scleral icterus, conjunctival injection, periorbital swelling ENT exam: Present: normal exam, mucous membranes moist Neck exam: Present: normal inspection, full ROM. Absent: tenderness, meningismus, lymphadenopathy Respiratory exam: Present: normal lung sounds bilaterally. Absent: respiratory distress, wheezes, rales, rhonchi, stridor Cardiovascular Exam: Present: regular rate, normal rhythm, normal heart sounds. Absent: systolic murmur, diastolic murmur, rubs, gallop, clicks GI/Abdominal exam: Present: soft, normal bowel sounds. Absent: distended, tenderness, guarding, rebound, rigid Neurological exam: Present: alert Course Vital Signs 11/11/20 11/11/20 18:53 23:00 Temperature 98 F Pulse Rate 80 60 Respiratory 18 16 Rate Blood Pressure 162/90 137/84 O2 Sat by Pulse 98 98 Oximetry EKG Findings - EKG Comments: EKG Findings:: Normal sinus rhythm, ventricular rate 63, MA interval 158, QTC 446 Medical Decision Making - Medical Decision Making Vitals are stable. Patient does have typical chest pain symptoms. Patient has a pressure in her chest with radiation to the left shoulder. Shortness of breath on exertion. CBC CMP unremarkable. Troponin negative. KG nonischemic. No cardiopulmonary disease. Given patient's typical symptoms without cardiac evaluation for the past 6 years she'll be admitted for chest pain rule out and cardiology evaluation. - Lab Data Result diagrams: 11/11/20 22:18 11/11/20 22:18 Lab Results 11/11/20 11/11/20 11/11/20 Range/Units 22:18 22:18 22:18 WBC 10.2 (3.8-10.6) k/uL RBC 4.96 (3.80-5.40) m/uL Hgb 13.2 (11.4-16.0) gm/dL Hct 38.7 (34.0-46.0) % MCV 78.0 L (80.0-100.0) fL MCH 26.5 (25.0-35.0) pg MCHC 34.0 (31.0-37.0) g/dL RDW 16.5 H (11.5-15.5) % Plt Count 271 (150-450) k/uL MPV 8.3 Anisocytosis Slight Microcytosis Slight PT 10.1 (9.0-12.0) sec INR 0.9 (<1.2) APTT 22.9 (22.0-30.0) sec Sodium 137 (137-145) mmol/L Potassium 4.3 (3.5-5.1) mmol/L Chloride 106 (98-107) mmol/L Carbon Dioxide 26 (22-30) mmol/L Anion Gap 5 mmol/L BUN 14 (7-17) mg/dL Creatinine 1.08 H (0.52-1.04) mg/dL Est GFR (CKD-EPI)AfAm 72 (>60 ml/min/1.73 sqM) Est GFR (CKD-EPI)NonAf 63 (>60 ml/min/1.73 sqM) Glucose 183 H (74-99) mg/dL Calcium 9.2 (8.4-10.2) mg/dL Magnesium 1.7 (1.6-2.3) mg/dL Total Bilirubin 0.4 (0.2-1.3) mg/dL AST 28 (14-36) U/L ALT 21 (4-34) U/L Alkaline Phosphatase 105 (38-126) U/L Troponin I (0.000-0.034) ng/mL Total Protein 7.1 (6.3-8.2) g/dL Albumin 3.6 (3.5-5.0) g/dL 11/11/20 Range/Units 22:18 WBC (3.8-10.6) k/uL RBC (3.80-5.40) m/uL Hgb (11.4-16.0) gm/dL Hct (34.0-46.0) % MCV (80.0-100.0) fL MCH (25.0-35.0) pg MCHC (31.0-37.0) g/dL RDW (11.5-15.5) % Plt Count (150-450) k/uL MPV Anisocytosis Microcytosis PT (9.0-12.0) sec INR (<1.2) APTT (22.0-30.0) sec Sodium (137-145) mmol/L Potassium (3.5-5.1) mmol/L Chloride (98-107) mmol/L Carbon Dioxide (22-30) mmol/L Anion Gap mmol/L BUN (7-17) mg/dL Creatinine (0.52-1.04) mg/dL Est GFR (CKD-EPI)AfAm (>60 ml/min/1.73 sqM) Est GFR (CKD-EPI)NonAf (>60 ml/min/1.73 sqM) Glucose (74-99) mg/dL Calcium (8.4-10.2) mg/dL Magnesium (1.6-2.3) mg/dL Total Bilirubin (0.2-1.3) mg/dL AST (14-36) U/L ALT (4-34) U/L Alkaline Phosphatase (38-126) U/L Troponin I <0.012 (0.000-0.034) ng/mL Total Protein (6.3-8.2) g/dL Albumin (3.5-5.0) g/dL Disposition Clinical Impression: Chest pain Disposition: ADMITTED IP TO THIS HOSP Condition: Fair Is patient prescribed a controlled substance at d/c from ED?: No Referrals: Malia Finney MD [Primary Care Provider] - 1-2 days Time of Disposition: 23:50
[2020-11-11 22:36] LABS: Albumin 3.6 g/dL (3.5-5.0); Calcium 9.2 mg/dL (8.4-10.2); Magnesium 1.7 mg/dL (1.6-2.3); Potassium 4.3 mmol/L (3.5-5.1); Total Bilirubin 0.4 mg/dL (0.2-1.3); Total Protein 7.1 g/dL (6.3-8.2)
[2020-11-11 22:41] LABS: INR 0.9 (<1.2); Partial Thromboplastin Time 22.9 sec (22.0-30.0); Prothrombin Time 10.1 sec (9.0-12.0)
[2020-11-11 22:48] LABS: Anisocytosis Slight; HCT 38.7 % (34.0-46.0); HGB 13.2 gm/dL (11.4-16.0); MCH 26.5 pg (25.0-35.0); Mean Platelet Volume 8.3; Microcytosis Slight; Platelet Count 271 k/uL (150-450); RBC 4.96 m/uL (3.80-5.40); RDW 16.5 % (11.5-15.5); WBC 10.2 k/uL (3.8-10.6)
[2020-11-11 23:06] VITALS: RESP 16
[2020-11-11] MEDS ORDERED: ASPIRIN 81 MG PO STA (23:51)
[2020-11-12 00:49] LABS: Nucleated Red Blood Cells 0 /100 WBC (0-0)
[2020-11-12 00:53] VITALS: BP 135/92; PULSE 79; TEMP 98.6
[2020-11-12 00:54] LABS: Eosinophils # (M) 0.31 k/uL (0-0.7); Lymphocytes # (M) 2.65 k/uL (1.0-4.8); Monocytes # (M) 0.31 k/uL (0-1.0); Neutrophils # (M) 6.94 k/uL (1.3-7.7); Neutrophils % (M) 68 %; Total Cells Counted 100
[2020-11-12] MEDS ORDERED: ASPIRIN 325 MG TAB PO SCH (09:00)
--- NOTE | 2020-11-14 15:21 | HP ---
HISTORY AND PHYSICAL This is a combined history and physical and discharge summary. DATE OF SERVICE: 11/14/2020 CHIEF COMPLAINT: Chest pain This 45-year-old woman was admitted with chest pain for cardiac evaluation, but however the patient left the hospital AGAINST MEDICAL ADVICE from the ER itself. Please refer to the ER notes for further information. FINAL DIAGNOSIS: Chest pain for evaluation. MMODL / IJN: [id number] /
== END 2020-11-12 00:20 | disposition left against medical advice (07) ==
LOC: EC 18:33 → 6NMEDSUR 23:42
PROVIDERS: ADMIT Hospitalist; ATTEND Hospitalist
DX: R07.89 Other chest pain (principal); R06.02 Shortness of breath; I10 Essential (primary) hypertension; Z53.21 Procedure and treatment not carried out due to patient leaving prior to being seen by health care provider; K21.9 Gastro-esophageal reflux disease without esophagitis; R20.0 Anesthesia of skin; E11.9 Type 2 diabetes mellitus without complications; M19.90 Unspecified osteoarthritis, unspecified site; G47.33 Obstructive sleep apnea (adult) (pediatric); F41.9 Anxiety disorder, unspecified; F31.9 Bipolar disorder, unspecified; F17.200 Nicotine dependence, unspecified, uncomplicated; Z88.8 Allergy status to other drugs, medicaments and biological substances; Z79.4 Long term (current) use of insulin; Z79.1 Long term (current) use of non-steroidal anti-inflammatories (NSAID); Z79.899 Other long term (current) drug therapy; Z98.1 Arthrodesis status; Z96.0 Presence of urogenital implants; Z90.49 Acquired absence of other specified parts of digestive tract; Z81.8 Family history of other mental and behavioral disorders; Z83.3 Family history of diabetes mellitus
CPT/HCPCS: 99285; 36415; 93005; 80053; 83735; 84484; 85025; 85610; 85730; 71046; G0378

== ENCOUNTER 2021-02-01 11:49 | Observation (INO) | payer OTHER ==
--- NOTE | 2021-02-01 12:33 | ED ---
Chest Pain HPI <Nathan Gaming - Last Filed: 02/01/21 14:19> - General Source: patient, RN notes reviewed, old records reviewed Mode of arrival: ambulatory Limitations: no limitations - History of Present Illness MD Complaint: chest pain -: month(s) (1) Onset: during rest, during exertion Pain Location: left chest Pain Radiation: LUE, back Severity scale (1-10): 0 (gone at this time) Quality: dull Consistency: intermittent Improves With: nothing Worsens With: nothing Other Symptoms: other (Shortness of breath with exertion) Treatments Prior to Arrival: none - Related Data On Oral Contraceptives: No <Justin Colon - Last Filed: 02/01/21 14:34> - General Chief Complaint: Chest Pain Stated Complaint: chest pain Time Seen by Provider: 02/01/21 12:20 - History of Present Illness Initial Comments: 46-year-old obese white female, alert and oriented 4, presents to the emergency room with complaints of intermittent chest pain that is dull in nature that radiates to her left upper chest into her left upper back. She has seen Dr. Saucedo and is scheduled to have a stress test, echo and Doppler at the end of the month. Patient states that the pain is gone at this time. She also noticed that she does feel short of breath with exertion more over the past month. Patient states that for the past couple weeks she has been working out with resistance bands and is not sure if that's why her left upper chest at and back is hurting but did have the chest pain that was intermittent prior to using her exercise bands. Patient states that she has noticed that she is becoming more short of breath with exertion but denies cough fever. She does state that she takes Lasix for fluid in her lower extremities but has been treated about a gallon of water a day also because she is very thirsty. Patient has a history of diabetes with insulin use, GERD, hypertension, osteoarthritis, pancreatitis and renal disease without renal dialysis. She has a surgical history of cholecystectomy and back surgery. (Justin Colon) - Related Data Home Medications Medication Instructions Recorded Confirmed INSULIN LISPRO (HumaLOG) [humaLOG] 15 units SQ AC-TID 08/01/16 11/11/20 Metoprolol Tartrate [Lopressor] 50 mg PO TID 09/22/16 11/11/20 Omeprazole [PriLOSEC] 20 mg PO DAILY 01/26/18 11/11/20 DULoxetine HCL [Cymbalta] 60 mg PO DAILY 11/11/20 11/11/20 Furosemide [Lasix] 40 mg PO DAILY 11/11/20 11/11/20 Ibuprofen [Motrin Ib] 800 mg PO Q8H PRN 11/11/20 11/11/20 Insulin Glargine,Hum.rec.anlog 20 unit SQ BID 11/11/20 11/11/20 [Lantus Solostar] Losartan Potassium [Cozaar] 100 mg PO DAILY 11/11/20 11/11/20 Pioglitazone HCl 15 mg PO DAILY 11/11/20 11/11/20 metFORMIN HCL [Glucophage] 1,000 mg PO BID 11/11/20 11/11/20 Allergies Allergy/AdvReac Type Severity Reaction Status Date / Time hydrochlorothiazide Allergy Dyspnea Verified 11/11/20 22:31 [From Zestoretic] lisinopril [From Zestoretic] Allergy Dyspnea Verified 11/11/20 22:31 Review of Systems ROS Other: All systems not noted in ROS Statement are negative. <Nathan Gaming - Last Filed: 02/01/21 14:19> ROS Other: All systems not noted in ROS Statement are negative. <Justin Colon - Last Filed: 02/01/21 14:34> ROS Statement: Those systems with pertinent positive or pertinent negative responses have been documented in the HPI. EKG Findings - EKG Results: EKG: sinus rhythm (Sinus rhythm with premature atrial complex, ventricular rate 87, AR interval 0.20 QRS of 0.90 qtc 0.471), no acute changes (Compared to 11/11/2020) <Justin Colon - Last Filed: 02/01/21 14:34> Past Medical History Past Medical History: Diabetes Mellitus, GERD/Reflux, Hypertension, Osteoarthritis (OA), Renal Disease, Sleep Apnea/CPAP/BIPAP Additional Past Medical History / Comment(s): Cystoscopy with right ureteroscopy and lithotripsy 02/23/2018, Cystoscopy with placementy left JJ catheter 04/19/2018, UTIs, IDDM type II, chronic back pain, MARIALUISA without device. History of Any Multi-Drug Resistant Organisms: None Reported Past Surgical History: Back Surgery, Section, Cholecystectomy Additional Past Surgical History / Comment(s): ESWL unsuccessful x 2, ureteroscopy for stone removal, cystoscopy with double J catheter placed on 04/19/18, t8-t12 fusion, x 1 Past Anesthesia/Blood Transfusion Reactions: No Reported Reaction Past Psychological History: Anxiety, Bipolar, Depression Smoking Status: Current every day smoker Past Alcohol Use History: None Reported Past Drug Use History: None Reported - Past Family History Father Family Medical History: Diabetes Mellitus Mother Additional Family Medical History / Comment(s): bipolar depression anxiety <Riske,Justin - Last Filed: 02/01/21 14:34> General Exam Limitations: no limitations General appearance: alert, in no apparent distress Head exam: Present: atraumatic, normocephalic, normal inspection Eye exam: Present: normal appearance, PERRL, EOMI. Absent: scleral icterus, conjunctival injection, periorbital swelling Pupils: Present: normal accommodation ENT exam: Present: normal exam, normal oropharynx, mucous membranes moist Neck exam: Present: normal inspection, full ROM. Absent: tenderness, meningismus, lymphadenopathy, thyromegaly Respiratory exam: Present: normal lung sounds bilaterally, chest wall tenderness (left Upper chest). Absent: respiratory distress, wheezes, rales, rhonchi, stridor Cardiovascular Exam: Present: regular rate, normal rhythm, normal heart sounds. Absent: systolic murmur, diastolic murmur, rubs, gallop, clicks, JVD GI/Abdominal exam: Present: soft, normal bowel sounds. Absent: distended, tenderness, guarding, rebound, rigid Rectal exam: Present: deferred Extremities exam: Present: full ROM, normal capillary refill, pedal edema (Bilateral lower extremity). Absent: tenderness, joint swelling, calf tenderness Back exam: Present: normal inspection, full ROM. Absent: tenderness, CVA tenderness (R), CVA tenderness (L), muscle spasm, paraspinal tenderness, v ertebral tenderness, rash noted Neurological exam: Present: alert, oriented X3, CN II-XII intact Psychiatric exam: Present: normal affect, normal mood Skin exam: Present: warm, dry, intact, normal color. Absent: rash, cyanosis, diaphoretic, erythema, petechiae, pallor, mottled <Riske,Justin - Last Filed: 02/01/21 14:34> Course <MekhiNathan - Last Filed: 02/01/21 14:19> Vital Signs 02/01/21 02/01/21 02/01/21 12:02 12:26 13:30 Temperature 97.9 F Pulse Rate 81 82 Pulse Rate [ 84 Pulse Oximetery ] Respiratory 20 18 Rate Blood Pressure 152/75 145/101 O2 Sat by Pulse 98 97 Oximetry - Reevaluation(s) Reevaluation #1: 02/01/21 14:19 PA supervision: I did personally evaluate this case patient does present with complaints of intermittent chest pain. Initial workup was negative however the history of presentation is suspicious for a potential cardiac origin. Patient be admitted for inpatient evaluation and treatment (Nathan Gaming) Chest Pain MDM <Justin Colon - Last Filed: 02/01/21 14:34> - [facility] Chest x-ray shows no acute cardiopulmonary process, cardiac silhouette size is stable and within normal limits. There is evidence of thoracic fusion hardware noted. The hemoglobin and hematocrit is 12 and 39 respectively, potassium is 4.5, magnesium is 1.5 and given Mag-Ox by mouth. Troponin is negative at 0.012. D-dimer is -0.32 patient has no complaints of shortness of breath and oxygen saturation is 98% heart rate of 81. Heart score of 4; creatinine 3 risk factors age of 46 and moderately suspicious history this patient is for an echo and Doppler and stress test this month. Patient states she has had a couple short episodes of this chest pain while in the emergency room. Patient will be admitted to Dr. Munroe with consult to cardiology. Case discussed with Dr. Gaming. Patient is agreeable to this plan of care (Justin Colon) Disposition <Nathan Gaming - Last Filed: 02/01/21 14:19> Decision Date: 02/01/21 Decision Time: 14:17 <Justin Colon - Last Filed: 02/01/21 14:34> Clinical Impression: Chest pain Disposition: ADMITTED IP TO THIS HOSP Condition: Good Instructions (If sedation given, give patient instructions): Chest Pain (ED) Referrals: Malia Finney MD [Primary Care Provider] - 1-2 days
[2021-02-01 12:59] LABS: Basophils # (A) 0.1 k/uL (0-0.2); Basophils % (A) 1 %; Eosinophils # (A) 0.2 k/uL (0-0.7); Eosinophils % (A) 2 %; HCT 39.8 % (34.0-46.0); HGB 12.8 gm/dL (11.4-16.0); Lymphocytes # (A) 2.8 k/uL (1.0-4.8); Lymphocytes % (A) 24 %; MCH 25.5 pg (25.0-35.0); MCHC 32.1 g/dL (31.0-37.0); MCV 79.3 fL (80.0-100.0); Mean Platelet Volume 10.3; Monocytes # (A) 0.5 k/uL (0-1.0); Monocytes % (A) 4 %; Neutrophils # (A) 8.2 k/uL (1.3-7.7); Neutrophils % (A) 69 %; Platelet Count 229 k/uL (150-450); RBC 5.02 m/uL (3.80-5.40); RDW 15.9 % (11.5-15.5)
[2021-02-01 13:03] LABS: Calcium 9.4 mg/dL (8.4-10.2); Total Bilirubin 0.5 mg/dL (0.2-1.3)
[2021-02-01 13:09] LABS: D-Dimer 0.32 mg/L FEU (<0.60); Prothrombin Time 10.3 sec (9.0-12.0)
--- NOTE | 2021-02-01 13:10 | XR ---
EXAMINATION TYPE: XR chest 2V DATE OF EXAM: 02/01/2021 COMPARISON: Chest x-ray November 11, 2020 HISTORY: Chest pain for one month TECHNIQUE: Frontal and lateral views of the chest are obtained. FINDINGS: There is no suspicious focal air space opacity, pleural effusion, or pneumothorax seen. T he cardiac silhouette size is stable and within normal limits. Long segment fusion hardware thoracolu mbar spine partially imaged. IMPRESSION: No acute cardiopulmonary process. No significant change from prior.
[2021-02-01 13:23] LABS: Magnesium 1.5 mg/dL (1.6-2.3); Potassium 4.5 mmol/L (3.5-5.1); Total Protein 7.3 g/dL (6.3-8.2)
[2021-02-01 13:24] LABS: Albumin 3.8 g/dL (3.5-5.0)
[2021-02-01] MEDS ORDERED: MAGNESIUM OXIDE 400 MG TAB PO STA (13:36)
[2021-02-01 14:18] LABS: Appearance,Urine Cloudy (Clear); Bacteria,Urine Rare /hpf; Bilirubin,Urine Negative (Negative); Blood,Urine Large (Negative); Color,Urine Yellow; Glucose,Urine (UA) Negative (Negative); Ketones,Urine Trace (Negative); Leukocyte Esterase,Urine Large (Negative); Mucus,Urine Rare /hpf; Nitrite,Urine Negative (Negative); Protein,Urine 2+ (Negative); RBC,Urine >182 /hpf (0-5); Specific Gravity,Urine 1.023 (1.001-1.035); Squamous Epithelial Cell,Urine 3 /hpf (0-4); Urobilinogen,Urine <2.0 mg/dL (<2.0); WBC,Urine >182 /hpf (0-5)
[2021-02-01] MEDS ORDERED: NALOXONE 0.4 MG/ML 1 ML VIAL IV PRN (14:18)
[2021-02-01] MEDS ORDERED: ACETAMINOPHEN TAB 325 MG TAB PO PRN (14:18)
[2021-02-01] MEDS: SODIUM CHLORIDE 0.9% 1,000 ML IV SCH (14:34)
[2021-02-01 17:18] LABS: Glucose,Whole Blood 232 mg/dL (75-99)
[2021-02-01] MEDS: FUROSEMIDE 40 MG TAB PO SCH (18:08)
[2021-02-01] MEDS: PANTOPRAZOLE 40 MG TABLET PO SCH (18:08)
[2021-02-01] MEDS: LOSARTAN 50 MG TAB PO SCH (18:08)
[2021-02-01 21:00] LABS: Glucose,Whole Blood 195 mg/dL (75-99)
[2021-02-01] MEDS: METOPROLOL TARTRATE 50 MG TAB PO SCH (22:19)
[2021-02-01] MEDS: INSULIN ASPART (NovoLOG) 100 UNIT/ML VIAL SQ SCH ×2 (22:19→22:21)
[2021-02-01] MEDS: INSULIN DETEMIR (LEVEMIR) 100 UNIT/ML SYR SQ SCH (22:20)
[2021-02-01] MEDS: NON FORMULARY DRUG (Buprenorphine Hcl/Naloxone Hcl [Suboxone 8 Mg-2 Mg Sl Film] 1 EACH Fil SUBLINGUAL SCH (22:20)
--- NOTE | 2021-02-01 22:41 | HP ---
HISTORY AND PHYSICAL DATE OF SERVICE: 02/01/2021 CHIEF COMPLAINT: Chest pain. HISTORY OF PRESENT ILLNESS: This 46-year-old woman with a past medical history of multiple medical problems including history of diabetes, GERD, hypertension, DJD, being followed by Dr. Malia Finney in the outpatient setting came with chest pain. It is mostly situated in the middle part and left upper chest which was rather sharp and dull in character which came on periodically. The patient was concerned and the patient went to Dr. Saucedo's office and apparently outpatient stress test was done, was scheduled for the latter part of this month, I believe on the . However, because of increasing pain and recurrent episodes the patient came to [facility] and was admitted for further evaluation and treatment. Patient had elevated white count. The D-dimer was normal. Troponins were also normal. Also, UA had some abnormal findings, possible hematuria. The EKG which was reviewed personally by me showed PVCs and diffuse ST-T changes. Patient admitted for further evaluation and treatment. There is no history of fever, rigors, chills at this time. PAST MEDICAL HISTORY: History of diabetes type 2, GERD, hypertension, history of DJD. MEDICATIONS: Home medications are metformin, Lantus, naloxone, Suboxone, Prilosec. Lopressor, Cozaar, Humalog, Lasix. ALLERGIES: ZESTORETIC. FAMILY HISTORY: History of diabetes mellitus, bipolar, depression, anxiety. SOCIAL HISTORY: History of smoking, continued, ongoing. REVIEW OF SYSTEMS: ENT No history of diminished hearing or vision. CARDIOVASCULAR As mentioned earlier. RESPIRATORY As mentioned earlier. GI No nausea, vomiting, or diarrhea. As mentioned earlier. NERVOUS No numbness or weakness. ALLERGY/IMMUNOLOGY No asthma or hayfever. MUSCULOSKELETAL As mentioned earlier. HEMATOLOGY/ONCOLOGY Negative. ENDOCRINE As mentioned earlier. CONSTITUTIONAL As mentioned earlier. DERMATOLOGY Negative. RHEUMATOLOGY Negative, PSYCHIATRY As mentioned earlier. PHYSICAL EXAMINATION: Alert and oriented x3. Pulse 67, blood pressure 150/77, respirations 16, temperature 97.1, pulse ox 97% on room air. HEENT: Conjunctivae normal. Oral mucosa moist. NECK: No jugular venous distention. No lymph node enlargement. CARDIOVASCULAR: S1, S2, muffled. No S3, no S4, RESPIRATORY: Diminished breath sounds at the bases. No rhonchi, no crackles. ABDOMEN: Soft, obese, nontender. LEGS: No edema, no swelling. NERVOUS SYSTEM: Higher functions mentioned earlier. Moves all four limbs. No focal motor or sensory deficits. LYMPHATICS: No lymph node in neck or axilla. SKIN: No rash. JOINTS: No active deforming arthropathy LAB STUDIES: WBC 12, hemoglobin 12.8, sodium 137, potassium 4.5, CO2 is 19. ASSESSMENT: 1. Chest pain, possible unstable angina. 2. Nonspecific ST-T changes in the EKG. 3. Increased WBC. 4. Decreased CO2. 5. Hypomagnesemia. 6. Diabetes mellitus type 2. 7. GERD. 8. Hypertension. 9. History of DJD. 10.History of renal disease. 11.History of sleep apnea. 12.History of cystoscopy. 13.History of anxiety, bipolar depression. 14.History of section. 15.History of nicotine dependence. 16.FULL CODE. 17.Obesity with body mass index of 48.4. RECOMMENDATIONS: In this 46-year-old woman who presented with multiple complex medical issues, we will monitor the patient closely. Rule out myocardial infarction. Cardiology consultation, possible stress test or cardiac cath. Resume the home medications. Monitor blood sugars closely. Further recommendations to follow. MMODL / IJN: [id number] /
[2021-02-02 07:52] LABS: Glucose,Whole Blood 195 mg/dL (75-99)
[2021-02-02] MEDS: INSULIN ASPART (NovoLOG) 100 UNIT/ML VIAL SQ SCH ×7 (09:48→21:33)
[2021-02-02] MEDS: NON FORMULARY DRUG (Buprenorphine Hcl/Naloxone Hcl [Suboxone 8 Mg-2 Mg Sl Film] 1 EACH Fil SUBLINGUAL SCH ×3 (09:49→21:42)
[2021-02-02] MEDS: FUROSEMIDE 40 MG TAB PO SCH (09:54)
[2021-02-02] MEDS: METOPROLOL TARTRATE 50 MG TAB PO SCH ×3 (09:54→21:33)
[2021-02-02] MEDS: LOSARTAN 50 MG TAB PO SCH (09:54)
[2021-02-02] MEDS: PANTOPRAZOLE 40 MG TABLET PO SCH (09:54)
[2021-02-02] MEDS: INSULIN DETEMIR (LEVEMIR) 100 UNIT/ML SYR SQ SCH ×2 (09:54→21:32)
[2021-02-02 09:58] LABS: African American GFR (CKD) 78.8 (60.0-200.0); Anion Gap 2.9 mmol/L (4.00-12.00); Calcium 8.8 mg/dL (8.7-10.3); Carbon Dioxide 26.1 mmol/L (21.6-31.8)
[2021-02-02] MEDS: ASPIRIN 81 MG PO SCH (10:00)
[2021-02-02 12:13] LABS: Glucose,Whole Blood 297 mg/dL (75-99)
--- NOTE | 2021-02-02 12:49 | P.CRDCN ---
History of Present Illness Consult date: 02/02/21 History of present illness: HISTORY OF PRESENT ILLNESS: This is a 46-year-old female with a past medical history significant for hypertension, diabetes mellitus, GERD, osteoarthritis, and nicotine dependence. We have been asked to see the patient in consultation for chest pain. Patient examined at the bedside. Patient states she has been having chest pain for the last 2-3 months. Patient recently established in the office with Dr. Kearns and was scheduled to have an echocardiogram and stress test performed later this month. She states yesterday she was sitting in a chair putting on her makeup when she began having chest pain in the middle of her chest that felt like a cramping feeling and went into her left shoulder. She reports feeling nauseous with this. She denies any vomiting. She states the pain lasted for about 60 seconds and then went away. She states the pain returned again and she became concerned so she came to the emergency room for further evaluation. Patient also reports having shortness of breath with activity over the last 2-3 months. She reports her grandpa had a heart attack in his 40s and at that time. Patient reports she is a daily smoker and is trying to quit. She smokes 7 cigarettes per day. EKG reveals sinus mechanism with T-wave inversions inferiorly. Chest xray negative for acute process Laboratory data: WBC 12.0. Hemoglobin 12.8. Platelet count 229. D-dimer 0.32. Sodium 138. Potassium 4.0. BUN 12. Creatinine 1.0. Troponin negative x 1. Current home cardiac medications include Lasix 40 mg daily, losartan 100 mg daily, metoprolol tartrate 50mg 3 times a day REVIEW OF SYSTEMS: At the time of my exam: CONSTITUTIONAL: Denies fever or chills. HEENT: Denies blurred vision, vision changes, or eye pain. Denies hemoptysis CARDIOVASCULAR: Denies chest pain. Denies orthopnea. Denies PND. Denies palpitations RESPIRATORY: Denies shortness of breath. GASTROINTESTINAL: Denies abdominal pain. Denies nausea or vomiting. HEMATOLOGIC: Denies bleeding disorders. GENITOURINARY: Denies any blood in urine. SKIN: Denies pruitis. Denies rash. PHYSICAL EXAM: VITAL SIGNS: Reviewed. GENERAL: Well-developed in no acute distress. HEENT: Head is normocephalic. Pupils are equal, round. Sclerae anicteric. Mucous membranes of the mouth are moist. Neck supple. No JVD or thyromegaly LUNGS: Respirations even and unlabored. Lungs essentially clear to auscultation bilaterally. HEART: Regular rate and rhythm. S1 and S2 heard. Systolic murmur noted. ABDOMEN: Soft. Nondistended. Nontender. EXTREMITIES: Normal range of motion. No clubbing or cyanosis. Peripheral pulses intact. No lower extremity edema NEUROLOGIC: Awake and alert. Oriented x 3. ASSESSMENT: Chest pain Hypertension Diabetes mellitus Nicotine dependence Family history of premature coronary artery disease Hypomagnesemia PLAN: Continue to trend troponin levels Continue home cardiac medications including Lasix, losartan, and metoprolol Add aspirin 81 mg daily Replace magnesium Obtain lipid panel Obtain 2-D echo to assess cardiac structure and function Patient will undergo stress echocardiogram tomorrow to assess for reversible ischemia Further recommendations pending patient course Nurse practitioner note has been reviewed by physician. Signing provider agrees with the documented findings, assessment, and plan of care. Past Medical History Past Medical History: Diabetes Mellitus, GERD/Reflux, Hypertension, Osteoarthritis (OA), Renal Disease, Sleep Apnea/CPAP/BIPAP Additional Past Medical History / Comment(s): Cystoscopy with right ureteroscopy and lithotripsy 02/23/2018, Cystoscopy with placementy left JJ catheter 04/19/2018, UTIs, IDDM type II, chronic back pain, MARIALUISA without device. History of Any Multi-Drug Resistant Organisms: None Reported Past Surgical History: Back Surgery, Section, Cholecystectomy Additional Past Surgical History / Comment(s): ESWL unsuccessful x 2, ureteroscopy for stone removal, cystoscopy with double J catheter placed on 04/19/18, t8-t12 fusion, x 1 Past Anesthesia/Blood Transfusion Reactions: No Reported Reaction Past Psychological History: Anxiety, Bipolar, Depression Additional Psychological History / Comment(s): Pt resides alone. She drives. She is unemployed. Pt states she has had anxiety and depression, bilpolar. Smoking Status: Current every day smoker Past Alcohol Use History: None Reported Additional Past Alcohol Use History / Comment(s): Pt started smoking in 1990 and is a half pack a day smoker. Past Drug Use History: None Reported - Past Family History Father Family Medical History: Diabetes Mellitus Mother Additional Family Medical History / Comment(s): bipolar depression anxiety Medications and Allergies Home Medications Medication Instructions Recorded Confirmed Type INSULIN LISPRO (HumaLOG) [humaLOG] 15 units SQ AC-TID 08/01/16 02/01/21 History Metoprolol Tartrate [Lopressor] 50 mg PO TID 09/22/16 02/01/21 History Omeprazole [PriLOSEC] 20 mg PO DAILY 01/26/18 02/01/21 History Furosemide [Lasix] 40 mg PO DAILY 11/11/20 02/01/21 History Insulin Glargine,Hum.rec.anlog 20 unit SQ BID 11/11/20 02/01/21 History [Lantus Solostar] Losartan Potassium [Cozaar] 100 mg PO DAILY 11/11/20 02/01/21 History metFORMIN HCL [Glucophage] 1,000 mg PO BID 11/11/20 02/01/21 History Buprenorphine HCl/Naloxone HCl 1 film SL TID 02/01/21 02/01/21 History [Suboxone 8 mg-2 mg Sl Film] Allergies Allergy/AdvReac Type Severity Reaction Status Date / Time hydrochlorothiazide Allergy Dyspnea Verified 02/01/21 15:04 [From Zestoretic] lisinopril [From Zestoretic] Allergy Dyspnea Verified 02/01/21 15:04 Physical Exam Vitals: Vital Signs Temp Pulse Pulse Resp BP BP Pulse Ox 02/02/21 08:00 67 16 02/02/21 07:14 97 02/02/21 07:00 98.1 F 67 16 117/81 98 02/02/21 02:00 98.4 F 70 18 117/77 93 L 02/01/21 20:00 98.4 F 74 18 137/84 93 L 02/01/21 16:19 97.1 F L 67 18 153/77 02/01/21 15:34 73 18 149/101 97 02/01/21 13:30 82 18 145/101 97 Intake and Output 02/01/21 02/02/21 02/02/21 22:59 06:59 14:59 Other: Voiding Method Toilet Toilet # Voids 0 2 Weight 136.078 kg Results 02/01/21 12:35 02/02/21 07:02 Cardiac Enzymes 02/01/21 02/01/21 Range/Units 12:35 12:35 AST 35 (14-36) U/L Troponin I <0.012 (0.000-0.034) ng/mL Coagulation 02/01/21 Range/Units 12:35 PT 10.3 (9.0-12.0) sec APTT 21.0 L (22.0-30.0) sec CBC 02/01/21 Range/Units 12:35 WBC 12.0 H (3.8-10.6) k/uL RBC 5.02 (3.80-5.40) m/uL Hgb 12.8 (11.4-16.0) gm/dL Hct 39.8 (34.0-46.0) % Plt Count 229 (150-450) k/uL Comprehensive Metabolic Panel 02/01/21 02/02/21 Range/Units 12:35 07:02 Sodium 137 138 (137-145) mmol/L Potassium 4.5 4.0 (3.5-5.1) mmol/L Chloride 108 H 109 (98-107) mmol/L Carbon Dioxide 19 L 26.1 (22-30) mmol/L BUN 15 12.0 (7-17) mg/dL Creatinine 0.95 1.0 (0.52-1.04) mg/dL Glucose 152 H 188 H (74-99) mg/dL Calcium 9.4 8.8 (8.4-10.2) mg/dL AST 35 (14-36) U/L ALT 22 (4-34) U/L Alkaline Phosphatase 93 (38-126) U/L Total Protein 7.3 (6.3-8.2) g/dL Albumin 3.8 (3.5-5.0) g/dL Current Medications Generic Name Dose Route Start Last Admin Trade Name Freq PRN Reason Stop Dose Admin Acetaminophen 650 mg 02/01/21 14:18 Acetaminophen Tab 325 Mg Tab PO Q6HR PRN Mild Pain or Fever > 100.5 Aspirin 81 mg 02/02/21 09:30 02/02/21 10:00 Aspirin 81 Mg PO 81 mg DAILY LEONIE Administration Furosemide 40 mg 02/01/21 17:45 02/02/21 09:54 Furosemide 40 Mg Tab PO 40 mg DAILY LEONIE Administration Sodium Chloride 1,000 mls @ 20 mls/hr 02/01/21 14:30 02/01/21 14:34 Saline 0.9% IV 20 mls/hr .Q24H LEONIE Administration Insulin Aspart 15 unit 02/02/21 07:30 02/02/21 09:54 Insulin Aspart (Novolog) 100 Unit/Ml Vial SQ 15 unit AC-TID LEONIE Administration Insulin Aspart 0 unit 02/01/21 21:00 02/02/21 09:48 Insulin Aspart (Novolog) 100 Unit/Ml Vial SQ Not Given ACHS [facility] Protocol Insulin Detemir 20 unit 02/01/21 21:00 02/02/21 09:54 Insulin Detemir (Levemir) 100 Unit/Ml Syr SQ 20 unit BID LEONIE Administration Losartan Potassium 100 mg 02/01/21 17:45 02/02/21 09:54 Losartan 50 Mg Tab PO 100 mg DAILY LEONIE Administration Metoprolol Tartrate 50 mg 02/01/21 22:00 02/02/21 09:54 Metoprolol Tartrate 50 Mg Tab PO 50 mg TID LEONIE Administration Naloxone HCl 0.2 mg 02/01/21 14:18 Naloxone 0.4 Mg/Ml 1 Ml Vial IV Q2M PRN Opioid Reversal Non-Formulary Medication 1 film 02/01/21 22:00 02/02/21 09:49 Buprenorphine Hcl/Naloxone Hcl [Suboxone 8 Mg-2 Mg Sl Film] SUBLINGUAL Not Given TID LEONIE Pantoprazole Sodium 40 mg 02/01/21 17:45 02/02/21 09:54 Pantoprazole 40 Mg Tablet PO 40 mg [id number] LEONIE Administration Intake and Output 02/01/21 02/02/21 02/02/21 22:59 06:59 14:59 Other: Voiding Method Toilet Toilet # Voids 0 2 Weight 136.078 kg 02/01/21 12:35 02/02/21 07:02
[2021-02-02 13:07] LABS: Basophils # (A) 0.1 k/uL (0-0.2); Basophils % (A) 1 %; Eosinophils # (A) 0.2 k/uL (0-0.7); Eosinophils % (A) 3 %; HCT 38.4 % (34.0-46.0); HGB 12.5 gm/dL (11.4-16.0); Lymphocytes # (A) 2.5 k/uL (1.0-4.8); Lymphocytes % (A) 29 %; MCHC 32.6 g/dL (31.0-37.0); Mean Platelet Volume 9.6; Monocytes # (A) 0.4 k/uL (0-1.0); Monocytes % (A) 5 %; Neutrophils # (A) 5.2 k/uL (1.3-7.7); Neutrophils % (A) 62 %; Platelet Count 277 k/uL (150-450); RDW 15.9 % (11.5-15.5); WBC 8.5 k/uL (3.8-10.6)
[2021-02-02] MEDS: MAGNESIUM SULFATE-D5W PMX 1 GM in DEXTROSE/WATER 1 100ML.BAG IVPB SCH ×2 (14:33→15:55)
[2021-02-02] MEDS: SODIUM CHLORIDE 0.9% 1,000 ML IV SCH (14:33)
[2021-02-02 17:00] LABS: Chol/HDL Ratio 4.19; LDL Cholesterol,Calculated 63.6 mg/dL (0.0-131.0); VLDL Calculation 22.4 mg/dL (5.00-40.00)
[2021-02-02 17:36] LABS: Glucose,Whole Blood 207 mg/dL (75-99)
--- NOTE | 2021-02-02 18:56 | PN ---
PROGRESS NOTE DATE OF SERVICE: 02/02/2021 This 46-year-old woman is admitted with chest pain with possible unstable angina, is being closely monitored. Myocardial infarction ruled out. Cardiology saw the patient and recommended stress test tomorrow. Mild chest pain reported. No palpitations. No fever at this time. EXAM: Alert and oriented times three. Pulse 70. Blood pressure 114/74, respiration 18, temperature 98.2, pulse ox 98% on room air. HEENT: Conjunctivae normal. NECK: No JVD. CARDIOVASCULAR: S1, S2 muffled. Respiration: Breath sounds diminished in the bases. ABDOMEN: Soft. NERVOUS SYSTEM: No focal deficits. LABS: CBC within normal limits. Accu-Cheks 195, 297. Troponins are negative. ASSESSMENT: 1. Chest pain possible unstable angina. Myocardial infarction ruled out. 2. Nonspecific ST changes in the EKG. 3. Increased WBC. 4. Decreased CO2. 5. Hypomagnesemia. 6. Diabetes mellitus type 2. 7. Gastroesophageal reflux disease. 8. Hypertension. 9. History of degenerative joint disease. 10.History of renal disease. 11.History of sleep apnea. 12.History of cystoscopy. 13.History of anxiety, bipolar, depression. 14.History of section. 15.History of nicotine dependence. 16.Obesity with body mass index of 48.4. 17.FULL CODE. RECOMMENDATIONS AND DISCUSSION: Recommend to continue current medications, continue monitoring, symptomatic treatment. Otherwise, at this time, I would recommend stress test tomorrow. Guarded prognosis. Further recommendations to follow. MMODL / IJN: [id number] /
[2021-02-02 21:00] LABS: Glucose,Whole Blood 181 mg/dL (75-99)
[2021-02-03 07:03] LABS: Glucose,Whole Blood 158 mg/dL (75-99)
[2021-02-03] MEDS: INSULIN ASPART (NovoLOG) 100 UNIT/ML VIAL SQ SCH ×4 (07:46→12:55)
[2021-02-03] MEDS: METOPROLOL TARTRATE 50 MG TAB PO SCH (07:47)
[2021-02-03] MEDS: NON FORMULARY DRUG (Buprenorphine Hcl/Naloxone Hcl [Suboxone 8 Mg-2 Mg Sl Film] 1 EACH Fil SUBLINGUAL SCH (07:47)
[2021-02-03] MEDS: LOSARTAN 50 MG TAB PO SCH (07:52)
[2021-02-03] MEDS: ASPIRIN 81 MG PO SCH (07:52)
[2021-02-03] MEDS: FUROSEMIDE 40 MG TAB PO SCH (07:52)
[2021-02-03] MEDS: INSULIN DETEMIR (LEVEMIR) 100 UNIT/ML SYR SQ SCH (07:52)
[2021-02-03] MEDS: PANTOPRAZOLE 40 MG TABLET PO SCH (07:52)
[2021-02-03] MEDS ORDERED: DOBUTamine DRIP for NUC MED 500 MG in DEXTROSE/WATER 1 250ML.BAG IV PRN (09:51)
[2021-02-03 10:27] LABS: African American GFR (CKD) 78.8 (60.0-200.0); Anion Gap 3.4 mmol/L (4.00-12.00); Calcium 8.7 mg/dL (8.7-10.3); Carbon Dioxide 24.6 mmol/L (21.6-31.8)
--- NOTE | 2021-02-03 11:09 | P.PN ---
Subjective Progress Note Date: 02/03/21 HISTORY OF PRESENT ILLNESS: This is a 46-year-old female with a past medical history significant for hypertension, diabetes mellitus, GERD, osteoarthritis, and nicotine dependence. We have been asked to see the patient in consultation for chest pain. Patient examined at the bedside. Patient states she has been having chest pain for the last 2-3 months. Patient recently established in the office with Dr. Kearns and was scheduled to have an echocardiogram and stress test performed later this month. She states yesterday she was sitting in a chair putting on her makeup when she began having chest pain in the middle of her chest that felt like a cramping feeling and went into her left shoulder. She reports feeling nauseous with this. She denies any vomiting. She states the pain lasted for about 60 seconds and then went away. She states the pain returned again and she became concerned so she came to the emergency room for further evaluation. Patient also reports having shortness of breath with activity over the last 2-3 months. She reports her grandpa had a heart attack in his 40s and at that time. Patient reports she is a daily smoker and is trying to quit. She smokes 7 cigarettes per day. EKG reveals sinus mechanism with T-wave inversions inferiorly. Chest xray negative for acute process Laboratory data: WBC 12.0. Hemoglobin 12.8. Platelet count 229. D-dimer 0.32. Sodium 138. Potassium 4.0. BUN 12. Creatinine 1.0. Troponin negative x 1. Current home cardiac medications include Lasix 40 mg daily, losartan 100 mg daily, metoprolol tartrate 50mg 3 times a day 02/03/2021 Patient examined this morning at the bedside. Patient denies any further episodes of chest pain or pressure. Denies shortness of breath. Vital signs stable. PHYSICAL EXAM: VITAL SIGNS: Reviewed. GENERAL: Well-developed in no acute distress. HEENT: Head is normocephalic. Pupils are equal, round. Sclerae anicteric. Mucous membranes of the mouth are moist. Neck supple. No JVD or thyromegaly LUNGS: Respirations even and unlabored. Lungs essentially clear to auscultation bilaterally. HEART: Regular rate and rhythm. S1 and S2 heard. Systolic murmur noted. ABDOMEN: Soft. Nondistended. Nontender. EXTREMITIES: Normal range of motion. No clubbing or cyanosis. Peripheral pulses intact. No lower extremity edema NEUROLOGIC: Awake and alert. Oriented x 3. ASSESSMENT: Chest pain Hypertension Diabetes mellitus Nicotine dependence Family history of premature coronary artery disease Hypomagnesemia PLAN: Continue current cardiac medications 2D echo ordered. Await results. Patient to undergo stress echocardiogram to assess for reversible ischemia today Further recommendations pending patient course Nurse practitioner note has been reviewed by physician. Signing provider agrees with the documented findings, assessment, and plan of care. Objective - Vital Signs Vital signs: Vital Signs Temp 97.9 F 02/03/21 06:54 Pulse 61 02/03/21 06:54 Resp 18 02/03/21 06:54 BP 155/99 02/03/21 06:54 Pulse Ox 99 02/03/21 06:54 Intake & Output 02/02/21 02/03/21 02/03/21 18:59 06:59 18:59 Weight 136.08 kg Other: Voiding Method Toilet Toilet # Voids 3 1 - Labs CBC & Chem 7: 02/02/21 07:02 02/03/21 04:44 Labs: Abnormal Lab Results - Last 24 Hours (Table) 02/02/21 02/02/21 02/02/21 Range/Units 07:02 07:02 12:12 RDW 15.9 H (11.5-15.5) % Anion Gap (4.00-12.00) mmol/L Glucose (70-110) mg/dL POC Glucose (mg/dL) 297 H (75-99) mg/dL HDL Cholesterol 27.0 L (40.0-60.0) mg/dL 02/02/21 02/02/21 02/03/21 Range/Units 17:35 20:58 04:44 RDW (11.5-15.5) % Anion Gap 3.40 L (4.00-12.00) mmol/L Glucose 169 H (70-110) mg/dL POC Glucose (mg/dL) 207 H 181 H (75-99) mg/dL HDL Cholesterol (40.0-60.0) mg/dL 02/03/21 Range/Units 06:57 RDW (11.5-15.5) % Anion Gap (4.00-12.00) mmol/L Glucose (70-110) mg/dL POC Glucose (mg/dL) 158 H (75-99) mg/dL HDL Cholesterol (40.0-60.0) mg/dL Microbiology - Last 24 Hours (Table) 02/01/21 13:54 Urine Culture - Final Urine,Voided
--- NOTE | 2021-02-03 11:43 | ECHOF ---
Referral Reason:LV function MEASUREMENTS -------- HEIGHT: 167.6 cm WEIGHT: 136.1 kg BP: 155/99 RVIDd: 3.4 cm (< 3.3) IVSd: 1.6 cm (0.6 - 1.1) LVIDd: 4.8 cm (3.9 - 5.3) LVPWd: 1.6 cm (0.6 - 1.1) IVSs: 1.9 cm LVIDs: 2.4 cm LVPWs: 2.4 cm Ao Diam: 3.5 cm (2.0 - 3.7) AV Cusp: 2.0 cm (1.5 - 2.6) LA Diam: 4.2 cm (2.7 - 3.8) MV EXCURSION: 18.655 mm (> 18.000) MV EF SLOPE: 118 mm/s (70 - 150) EPSS: 0.8 cm MV E Maximino: 0.75 m/s MV DecT: 285 ms MV A Maximino: 0.98 m/s MV E/A Ratio: 0.77 RAP: 5.00 mmHg RVSP: 11.86 mmHg FINDINGS -------- This was a technically difficult study with suboptimal views. The left ventricular size is normal. There is moderate concentric left ventricular hypertrophy. O verall left ventricular systolic function is low-normal with, an EF between 50 - 55 %. The right ventricle is mildly enlarged. The left atrium is mildly dilated. The right atrial size is normal. xx ml of Lumason was utilized for enhancement of images. The aortic valve is trileaflet and appears structurally normal. The mitral valve was not well visualized. There is trace mitral regurgitation. The tricuspid valve was not well visualized. Trace tricuspid regurgitation present. Right ventric ular systolic pressure is normal at < 35 mmHg. The pulmonic valve was not well visualized. The aortic root size is normal. IVC Not well visulized. There is no pericardial effusion. CONCLUSIONS -------- 1. The left ventricular size is normal. 2. There is moderate concentric left ventricular hypertrophy. 3. Overall left ventricular systolic function is low-normal with, an EF between 50 - 55 %. 4. The right ventricle is mildly enlarged. 5. The left atrium is mildly dilated. 6. There is trace mitral regurgitation. 7. Trace tricuspid regurgitation present. 8. There is no pericardial effusion. [employer]ACHINE TENDER: Quin Jack RDCS
--- NOTE | 2021-02-03 12:13 | P.STRESS ---
- Stress Test Note Stress Test Results/Findings: Exam Performed: dobutamine stress echo with con Exam Date: 02/03/21 Reason for Exam: CP Height: 5 ft 6 in Weight: 136.08 kg Protocol: DOBUTAMINE Stage: 40 MCG Duration of Exercise: 13:29 Resting Heart Rate: 65 Resting Blood Pressure: 123/61 Maximum Achieved Heart Rate: 145 Maximum Achieved Blood Pressure: 163/79 85% PMHR: 149 100% PMHR: 175 METS: Technologist Comment: Stress Test Results/Findings: Patient underwent dobutamine stress echo with infusion of dobutamine into Stage 4 for a total of 13 minutes 29 seconds. Patient's maximum heart rate was 145 which represented 83% age-predicted maximum heart rate. Stress EKG portion: At baseline patient's EKG showed normal sinus rhythm, normal axis, no significant ST or T-wave abnormalities. Patient initially was attempted on exercise stress echo however only exercise for approximately 2 minutes before becoming short of breath with inability to reach heart rate. Patient did have bigeminy with exercise without significant ST or T-wave abnormalities. Patient then underwent dobutamine infusion with no significant change from baseline, nonspecific minimal 0.[address] depressions in the inferior lateral leads which is nondiagnostic. Stress echo portion: 2-D echocardiogram was performed in the parasternal long, personal short, apical 2 and apical four-chamber views at rest, low-dose, peak infusion and in recovery. At baseline, echocardiogram showed left ventricular ejection fraction 55% without wall motion abnormalities. With peak infusion, echocardiogram shows improvement in left ventricular ejection fraction, increase contractility, decrease in left ventricular dimension without wall motion abnormalities c onsistent with a normal response to dobutamine. Conclusions: 1. Inability to reach 85% maximum predicted heart rate however at 83%, normal stress EKG and echo response to dobutamine infusion without any evidence of inducible ischemia. 2. Normal EF 55%. 3. Bigeminy noted with exercise 4. Poor exercise tolerance with inability to exercise for 2 minutes on treadmill and therefore changed to Dobutamine stress test.
[2021-02-03 12:18] LABS: Glucose,Whole Blood 151 mg/dL (75-99)
[2021-02-03 13:37] VITALS: BP 145/89; PULSE 65; RESP 18; TEMP 98
--- NOTE | 2021-02-03 22:56 | DS ---
DISCHARGE SUMMARY DATE OF SERVICE: 02/03/2021 FINAL DIAGNOSES: 1. Chest pain possibly musculoskeletal, GERD, myocardial infarction ruled out. 2. Negative stress test. 3. Nonspecific ST-T changes EKG. 4. Increased WBC. 5. Item decreased CO2. 6. Hypomagnesemia. 7. Diabetes type 2. 8. Gastroesophageal reflux disease. 9. Hypertension. 10.History of degenerative joint disease. 11.History of renal disease. 12.History of sleep apnea. 13.History of cystoscopy. 14.Anxiety, bipolar, depression. 15.History of section. 16.History of nicotine dependence. 17.Obesity with body mass index of 48.4. 18.Full code. CONDITION: The patient is being discharged in stable condition with guarded prognosis. HISTORY OF PRESENT ILLNESS: This 46-year-old woman with a past medical history of multiple medical problems was admitted with chest pain. Myocardial infarction ruled out. Cardiology performed a stress test also. Dobutamine stress was negative. A 2D echo with Doppler was also done which showed an ejection fraction 50-55 and normal findings. PHYSICAL EXAMINATION: On exam, vitals are stable. CARDIOVASCULAR: S1 and S2. ABDOMEN: Soft. NERVOUS SYSTEM: No focal deficits. DISCHARGE INSTRUCTIONS: 1. Cardiac diet. 2. Followup with Dr. Malia Finney in 1 to 2 days. 3. Follow up with Dr. Saucedo as recommended in 1 week. DISCHARGE MEDICATIONS: 1. Cozaar 100 mg p.o. daily. 2. Glucophage 1000 mg p.o. b.i.d. 3. Humalog 15 units subcu a.c. t.i.d. 4. Lantus 20 units subcutaneously b.i.d. 5. Lasix 40 mg p.o. daily next Lopressor 50 mg p.o. t.i.d. 6. Prilosec 20 mg p.o. daily. 7. Buprenorphine sublingual t.i.d. 8. Aspirin 81 mg p.o. daily. Again the patient discharged in stable with guarded prognosis. MMODL / IJN: [id number] /
--- NOTE | 2021-02-06 10:57 | ECHOS ---
Stress Test Results/Findings: Exam Performed: dobutamine stress echo with con Exam Date: 02/03/21 Reason for Exam: CP Height: 5 ft 6 in Weight: 136.08 kg Protocol: DOBUTAMINE Stage: 40 MCG Duration of Exercise: 13:29 Resting Heart Rate: 65 Resting Blood Pressure: 123/61 Maximum Achieved Heart Rate: 145 Maximum Achieved Blood Pressure: 163/79 85% PMHR: 149 100% PMHR: 175 METS: Technologist Comment: Stress Test Results/Findings: Patient underwent dobutamine stress echo with infusion of dobutamine into Stage 4 for a total of 13 minutes 29 seconds. Patient's maximum heart rate was 145 which represented 83% age-predicted maximum heart rate. Stress EKG portion: At baseline patient's EKG showed normal sinus rhythm, normal axis, no significant ST or T-wave abnormalities. Patient initially was attempted on exercise stress echo however only exercise for approximately 2 minutes before becoming short of breath with inability to reach heart rate. Patient did have bigeminy with exercise without significant ST or T-wave abnormalities. Patient then underwent dobutamine infusion with no significant change from baseline, nonspecific minimal 0.[address] depressions in the inferior lateral leads which is nondiagnostic. Stress echo portion: 2-D echocardiogram was performed in the parasternal long, personal short, apical 2 and apical four-chamber views at rest, low-dose, peak infusion and in recovery. At baseline, echocardiogram showed left ventricular ejection fraction 55% without wall motion abnormalities. With peak infusion, echocardiogram shows improvement in left ventricular ejection fraction, increase contractility, decrease in left ventricular dimension without wall motion abnormalities consistent with a normal response to dobutamine. Conclusions: 1. Inability to reach 85% maximum predicted heart rate however at 83%, normal stress EKG and echo response to dobutamine infusion without any evidence of inducible ischemia. 2. Normal EF 55%. 3. Bigeminy noted with exercise 4. Poor exercise tolerance with inability to exercise for 2 minutes on treadmill and therefore changed to Dobutamine stress test. [facility] [place] [facility]
== END 2021-02-03 15:20 | disposition home or self-care (01) ==
LOC: EC 11:49 → 6NMEDSUR 14:17
PROVIDERS: ADMIT Hospitalist; ATTEND Hospitalist
DX: R07.9 Chest pain, unspecified (principal); E83.42 Hypomagnesemia; E11.9 Type 2 diabetes mellitus without complications; K21.9 Gastro-esophageal reflux disease without esophagitis; I10 Essential (primary) hypertension; Z20.822 Contact with and (suspected) exposure to COVID-19; M19.90 Unspecified osteoarthritis, unspecified site; N28.9 Disorder of kidney and ureter, unspecified; G47.33 Obstructive sleep apnea (adult) (pediatric); F41.9 Anxiety disorder, unspecified; F31.30 Bipolar disorder, current episode depressed, mild or moderate severity, unspecified; I49.3 Ventricular premature depolarization; F17.210 Nicotine dependence, cigarettes, uncomplicated; E66.9 Obesity, unspecified; Z68.42 Body mass index [BMI] 45.0-49.9, adult; G89.29 Other chronic pain; M54.9 Dorsalgia, unspecified; Z79.4 Long term (current) use of insulin; Z79.899 Other long term (current) drug therapy; Z88.8 Allergy status to other drugs, medicaments and biological substances; Z90.49 Acquired absence of other specified parts of digestive tract; Z87.442 Personal history of urinary calculi; Z98.891 History of uterine scar from previous surgery; Z81.8 Family history of other mental and behavioral disorders; Z82.49 Family history of ischemic heart disease and other diseases of the circulatory system; Z83.3 Family history of diabetes mellitus
CPT/HCPCS: 96360; 96361; 99285; 36415; 94760; 93005; 85379; 83880; 80061; 80053; 80048 ×2; 82150; 83690; 83735 ×2; 84484 ×2; 85025 ×2; 85610; 85730; 81001; 87086; 87635; 71046; G0378 ×3; C8929; C8930; J3475; Q9950; 93306; 93351

== ENCOUNTER → 2021-02-05 | Outpatient (CLI) | payer OTHER ==
--- NOTE | 2021-02-05 11:59 | US ---
EXAMINATION TYPE: US transvaginal DATE OF EXAM: 02/05/2021 COMPARISON: NONE CLINICAL HISTORY: N92.6 Irregular menses. TECHNIQUE: . Transabdominal sonographic images of the pelvis were acquired. Transvaginal sonographi c images were medically necessary to better assess the following anatomy: Date of LMP: EXAM MEASUREMENTS: Uterus: 9.4 x 5.6 x 6.4 cm Endometrial Stripe: 2.3 cm Right Ovary: not visualized Left Ovary: not visualized Gross morbid obesity, technically difficult, limited study 1. Uterus: Anteverted, heterogeneous, hypoechoic area measuring 2.2 x 2.1 x 1.9cm, probable fibroid 2. Endometrium: thickened, heterogeneous 3. Right Ovary: Obscured by overlying bowel gas/ obesity limites field of view 4. Left Ovary: Obscured by overlying bowel gas/ obesity limites field of view 5. Bilateral Adnexa: wnl 6. Posterior cul-de-sac: wnl IMPRESSION: 1. Heterogeneous uterus with hypoechoic lesion, likely a leiomyoma. 2. Neither ovary could be visualized due to body habitus and overlying bowel.
== END | disposition home or self-care (01) ==
LOC: RADUSWWP 09:33
PROVIDERS: ATTEND Family Medicine
DX: N92.6 Irregular menstruation, unspecified (principal)
CPT/HCPCS: 76830

== ENCOUNTER 2021-05-16 19:35 | Emergency (ER) | payer OTHER ==
[2021-05-16 20:25] LABS: Appearance,Urine Cloudy (Clear); Bacteria,Urine Rare /hpf; Bilirubin,Urine Negative (Negative); Blood,Urine Moderate (Negative); Color,Urine Yellow; Glucose,Urine (UA) Negative (Negative); Ketones,Urine Negative (Negative); Leukocyte Esterase,Urine Large (Negative); Mucus,Urine Rare /hpf; Nitrite,Urine Negative (Negative); Protein,Urine 1+ (Negative); RBC,Urine 130 /hpf (0-5); Specific Gravity,Urine 1.022 (1.001-1.035); Squamous Epithelial Cell,Urine 1 /hpf (0-4); Urobilinogen,Urine <2.0 mg/dL (<2.0); WBC,Urine 95 /hpf (0-5)
[2021-05-16] MEDS ORDERED: ONDANSETRON 4 MG/2 ML VIAL IVP STA (20:26)
[2021-05-16] MEDS ORDERED: KETOROLAC 15 MG/ML 1 ML VIAL IVP STA (20:26)
[2021-05-16] MEDS ORDERED: SODIUM CHLORIDE 0.9% 1,000 ML IV STA (20:26)
[2021-05-16 21:26] LABS: Anisocytosis Slight; Basophils # (A) 0.1 k/uL (0-0.2); Basophils % (A) 1 %; Eosinophils # (A) 0.3 k/uL (0-0.7); Eosinophils % (A) 3 %; HCT 37.7 % (34.0-46.0); HGB 11.8 gm/dL (11.4-16.0); Lymphocytes # (A) 3.5 k/uL (1.0-4.8); Lymphocytes % (A) 34 %; MCH 24.7 pg (25.0-35.0); MCHC 31.4 g/dL (31.0-37.0); MCV 78.7 fL (80.0-100.0); Mean Platelet Volume 7.8; Microcytosis Slight; Monocytes # (A) 0.6 k/uL (0-1.0); Monocytes % (A) 5 %; Neutrophils # (A) 5.8 k/uL (1.3-7.7); Neutrophils % (A) 57 %; Platelet Count 244 k/uL (150-450); RBC 4.79 m/uL (3.80-5.40); RDW 16.5 % (11.5-15.5); WBC 10.2 k/uL (3.8-10.6)
--- NOTE | 2021-05-16 21:46 | ED ---
General Adult HPI - General Chief complaint: Urogenital Stated complaint: Kidney Stones Time Seen by Provider: 05/16/21 20:17 Source: patient, RN notes reviewed, old records reviewed Mode of arrival: ambulatory Limitations: no limitations - History of Present Illness Initial comments: Patient is a 46-year-old female presenting to the emergency Department with complaints of left-sided flank pain over the past week. She states she has been seeing a urologist at [facility] for kidney stones in the past. She states about one week ago she started having some left flank pain, went to an urgent care who thought that she may have another kidney stone so went to the ER at [facility]. She does have a left-sided 8 mm stone in left kidney, is nonobstructing at the time. She has a follow-up with her urologist on May 27 however the pain has been worsening over the past weekend. She can no longer tolerate it. She did go to urgent care for a recheck and they thought her kidney function is worsening so recommended coming into the ER for further evaluation. Patient did not take anything for pain today. She states is becoming unbearable. She d escribes the pain as a left flank, does wrap around to the left side and into the groin area. She denies any fevers or chills, she does have some dysuria. A chest pain or short of breath. She has no further complaints at this time. Upon arrival to the ER her vitals are stable. - Related Data Home Medications Medication Instructions Recorded Confirmed INSULIN LISPRO (HumaLOG) [humaLOG] 15 units SQ AC-TID 08/01/16 02/01/21 Metoprolol Tartrate [Lopressor] 50 mg PO TID 09/22/16 02/01/21 Omeprazole [PriLOSEC] 20 mg PO DAILY 01/26/18 02/01/21 Furosemide [Lasix] 40 mg PO DAILY 11/11/20 02/01/21 Insulin Glargine,Hum.rec.anlog 20 unit SQ BID 11/11/20 02/01/21 [Lantus Solostar Pen] Losartan Potassium [Cozaar] 100 mg PO DAILY 11/11/20 02/01/21 metFORMIN HCL [Glucophage] 1,000 mg PO BID 11/11/20 02/01/21 Buprenorphine HCl/Naloxone HCl 1 film SL TID 02/01/21 02/01/21 [Suboxone 8 mg-2 mg Sl Film] Previous Rx's Medication Instructions Recorded Aspirin 81 mg PO DAILY #30 chew 02/03/21 Phenazopyridine [Pyridium] 200 mg PO TID 2 Days #6 tablet 05/16/21 Allergies Allergy/AdvReac Type Severity Reaction Status Date / Time hydrochlorothiazide Allergy Dyspnea Verified 05/16/21 19:53 [From Zestoretic] lisinopril [From Zestoretic] Allergy Dyspnea Verified 05/16/21 19:53 Review of Systems ROS Statement: Those systems with pertinent positive or pertinent negative responses have been documented in the HPI. ROS Other: All systems not noted in ROS Statement are negative. Past Medical History Past Medical History: Diabetes Mellitus, GERD/Reflux, Hypertension, Osteoarthritis (OA), Renal Disease, Sleep Apnea/CPAP/BIPAP Additional Past Medical History / Comment(s): Cystoscopy with right ureteroscopy and lithotripsy 02/23/2018, Cystoscopy with placementy left JJ catheter 04/19/2018, UTIs, IDDM type II, chronic back pain, MARIALUISA without device, kidney stones History of Any Multi-Drug Resistant Organisms: None Reported Past Surgical History: Back Surgery, Section, Cholecystectomy Additional Past Surgical History / Comment(s): ESWL unsuccessful x 2, ureteroscopy for stone removal, cystoscopy with double J catheter placed on 04/19/18, t8-t12 fusion, x 1 Past Anesthesia/Blood Transfusion Reactions: No Reported Reaction Past Psychological History: Anxiety, Bipolar, Depression Smoking Status: Current every day smoker Past Alcohol Use History: None Reported Past Drug Use History: None Reported - Past Family History Father Family Medical History: Diabetes Mellitus Mother Additional Family Medical History / Comment(s): bipolar depression anxiety General Exam - General Exam Comments Initial Comments: GENERAL: Patient is well-developed and well-nourished. Patient is nontoxic and in no acute distress. HEAD: Atraumatic, normocephalic. EYES: Pupils equal round and reactive to light, extraocular movements intact, sclera anicteric, conjunctiva are normal. Eyelids were unremarkable. ENT: TMs normal, nares patent, oropharynx clear without exudates. Moist mucous membranes. NECK: Normal range of motion, supple without lymphadenopathy or JVD. LUNGS: Unlabored respirations. Breath sounds clear to auscultation bilaterally and equal. No wheezes rales or rhonchi. HEART: Regular rate and rhythm without murmurs, rubs or gallops. ABDOMEN: Soft, mild tenderness to the left side of the abdomen, normoactive bowel sounds. No guarding, no rebound. No masses appreciated. Left flank pain with percussion. : Deferred MUSCULOSKELETAL: Normal extremities with adequate strength and normal range of motion, no pitting or edema. No clubbing or cyanosis. NEUROLOGICAL: Patient is alert and oriented x 3. SKIN: Warm, Dry, normal turgor, no rashes or lesions noted. Course Vital Signs 05/16/21 05/16/21 05/16/21 19:49 22:53 23:57 Temperature 98.2 F 98.4 F Pulse Rate 88 60 66 Respiratory 19 20 18 Rate Blood Pressure 148/82 166/94 170/99 O2 Sat by Pulse 98 98 99 Oximetry Medical Decision Making - Medical Decision Making Patient is a 46-year-old female here with left-sided flank pain concerns for worsening kidney stone. She went to [facility] last week, dx with 8mm left kidney stone, without obstruction. He has an appointment to see a urologist in about a week. Patient's vital signs remained stable. No fevers. Her labs are within normal limits. Kidney function is normal, urine does show 95 WBCs, large amount hematuria, rare bacteria. Urine culture is pending. KUB shows no acute abnormalities. I discussed these findings with the patient. She received Toradol and fluids, does report improvement. I recommend following up with her urologist. I also recommended antibiotics for the bacteria in her urine, she states she hurt he has a prescription for Keflex at home, recommended taking this and waiting for the urine culture. She is agreeable to this. I will also send her home and started pack for tramadol. Return parameters were discussed with her and she verbalized understanding. Case discussed with Dr. Walters. - Lab Data Result diagrams: 05/16/21 21:17 05/16/21 21:17 Lab Results 05/16/21 05/16/21 05/16/21 Range/Units 20:11 21:17 21:17 WBC 10.2 (3.8-10.6) k/uL RBC 4.79 (3.80-5.40) m/uL Hgb 11.8 (11.4-16.0) gm/dL Hct 37.7 (34.0-46.0) % MCV 78.7 L (80.0-100.0) fL MCH 24.7 L (25.0-35.0) pg MCHC 31.4 (31.0-37.0) g/dL RDW 16.5 H (11.5-15.5) % Plt Count 244 (150-450) k/uL MPV 7.8 Neutrophils % 57 % Lymphocytes % 34 % Monocytes % 5 % Eosinophils % 3 % Basophils % 1 % Neutrophils # 5.8 (1.3-7.7) k/uL Lymphocytes # 3.5 (1.0-4.8) k/uL Monocytes # 0.6 (0-1.0) k/uL Eosinophils # 0.3 (0-0.7) k/uL Basophils # 0.1 (0-0.2) k/uL Anisocytosis Slight Microcytosis Slight Sodium 137 (137-145) mmol/L Potassium 4.2 (3.5-5.1) mmol/L Chloride 111 H (98-107) mmol/L Carbon Dioxide 18 L (22-30) mmol/L Anion Gap 8 mmol/L BUN 17 (7-17) mg/dL Creatinine 0.96 (0.52-1.04) mg/dL Est GFR (CKD-EPI)AfAm 83 (>60 ml/min/1.73 sqM) Est GFR (CKD-EPI)NonAf 72 (>60 ml/min/1.73 sqM) Glucose 129 H (74-99) mg/dL Calcium 9.4 (8.4-10.2) mg/dL Total Bilirubin 0.3 (0.2-1.3) mg/dL AST 23 (14-36) U/L ALT 17 (4-34) U/L Alkaline Phosphatase 86 (38-126) U/L Total Protein 7.1 (6.3-8.2) g/dL Albumin 3.6 (3.5-5.0) g/dL Lipase 54 (23-300) U/L Urine Color Yellow Urine Appearance Cloudy H (Clear) Urine pH 6.0 (5.0-8.0) Ur Specific Bat[place]lor 1.022 (1.001-1.035) Urine Protein 1+ H (Negative) Urine Glucose (UA) Negative (Negative) Urine Ketones Negative (Negative) Urine Blood Moderate H (Negative) Urine Nitrite Negative (Negative) Urine Bilirubin Negative (Negative) Urine Urobilinogen <2.0 (<2.0) mg/dL Ur Leukocyte Esterase Large H (Negative) Urine RBC 130 H (0-5) /hpf Urine WBC 95 H (0-5) /hpf Ur Squamous Epith Cells 1 (0-4) /hpf Urine Bacteria Rare H (None) /hpf Urine Mucus Rare H (None) /hpf Disposition Clinical Impression: Kidney stone on left side Disposition: HOME SELF-CARE Condition: Stable Instructions (If sedation given, give patient instructions): Kidney Stones (ED) Additional Instructions: Please return to the Emergency Department if symptoms worsen or any other concerns. Alternate Motrin and Tylenol every 4 hours for pain control. Take antibiotic as already prescribed, Keflex. Increase your fluid intake. Please follow-up with urology as already discussed. Prescriptions: Phenazopyridine [Pyridium] 200 mg PO TID 2 Days #6 tablet Is patient prescribed a controlled substance at d/c from ED?: No Referrals: Malia Finney MD [Primary Care Provider] - 1-2 days Time of Disposition: 23:40
--- NOTE | 2021-05-16 21:49 | XR ---
EXAMINATION TYPE: XR KUB DATE OF EXAM: 05/16/2021 COMPARISON: 08/04/2018 HISTORY: Left-sided kidney stone TECHNIQUE: 2 views upright FINDINGS: Bowel gas pattern is normal. There is no sign of intestinal obstruction or pneumoperitoneum . I see no calcifications over the kidneys and ureters. There is no evidence of a mass. Lung bases ar e clear. IMPRESSION: Nonacute abdomen. No adverse change.
[2021-05-16 21:55] LABS: Albumin 3.6 g/dL (3.5-5.0); Calcium 9.4 mg/dL (8.4-10.2); Potassium 4.2 mmol/L (3.5-5.1); Total Bilirubin 0.3 mg/dL (0.2-1.3); Total Protein 7.1 g/dL (6.3-8.2)
[2021-05-16 23:20] VITALS: TEMP 98.4
[2021-05-16] MEDS ORDERED: ACET/COD 300 MG/30 MG STARTER PACK 6 TAB BTL PO STA (23:41)
[2021-05-16] MEDS ORDERED: traMADol 50 MG STARTER PACK 3 TAB BTL PO STA (23:41)
[2021-05-16 23:59] VITALS: BP 170/99; PULSE 66; RESP 18
== END 2021-05-16 23:59 | disposition home or self-care (01) ==
LOC: EC 19:35
DX: N20.0 Calculus of kidney (principal); E11.9 Type 2 diabetes mellitus without complications; I10 Essential (primary) hypertension; K21.9 Gastro-esophageal reflux disease without esophagitis; M19.90 Unspecified osteoarthritis, unspecified site; F41.9 Anxiety disorder, unspecified; F31.9 Bipolar disorder, unspecified; F17.200 Nicotine dependence, unspecified, uncomplicated; Z79.4 Long term (current) use of insulin; Z79.82 Long term (current) use of aspirin; Z88.1 Allergy status to other antibiotic agents; Z90.49 Acquired absence of other specified parts of digestive tract; Z87.440 Personal history of urinary (tract) infections
CPT/HCPCS: 99284; 96374; 96375; 96361; 36415; 80053; 83690; 85025; 81001; 87086; 74018; J2405; J1885

== ENCOUNTER → 2021-06-10 | Outpatient (CLI) | payer OTHER ==
--- NOTE | 2021-06-11 08:04 | CT ---
EXAMINATION TYPE: CT abdomen pelvis wo con DATE OF EXAM: 06/10/2021 COMPARISON: 05/15/2018 HISTORY: flank pain, hx of stones CT DLP: 2243.9 mGycm Examination of the solid and hollow viscera is limited given the lack of contrast. FINDINGS: LUNG BASES: No evidence for nodule. No evidence for infiltrate. LIVER/GB: The gallbladder is unremarkable. No space-occupying hepatic lesion. PANCREAS: No pancreatic mass identified. No inflammatory process seen. SPLEEN: No evidence for splenomegaly. No intrasplenic lesions seen. ADRENALS: No adrenal nodules identified. No evidence for thickening. KIDNEYS: Moderate left-sided hydroureteronephrosis however I do not see evidence for obstructing calc ulus. There is nonobstructing calculus lower pole left kidney measuring 7 mm. Approximately 4 sub-3 m m calculi right kidney. No right-sided hydronephrosis. No renal mass. BOWEL: Appendix has a normal appearance. No evidence of bowel obstruction. No inflammatory process. Lymph nodes: No evidence for adenopathy greater than 1 cm. Abdominal aorta: Atheromatous changes seen. No evidence for aneurysm. Genital organs: 3.4 cm right ovarian cyst. No left ovarian cyst or lesion seen. No uterine mass. No f ree fluid. Other: No significant abnormality. IMPRESSION: 1. Moderate left-sided hydroureteronephrosis without obstructing calculus. 2. Bilateral nephrolithiasis.
== END | disposition home or self-care (01) ==
LOC: RADCTMAIN 11:47
PROVIDERS: ATTEND Urology
DX: N20.0 Calculus of kidney (principal); N13.30 Unspecified hydronephrosis
CPT/HCPCS: 74176

== ENCOUNTER 2022-02-16 21:51 | Emergency (ER) | payer OTHER ==
[2022-02-16 22:09] VITALS: TEMP 98.9
--- NOTE | 2022-02-16 22:30 | ED ---
General Adult HPI - General Chief complaint: Chest Pain Stated complaint: Chest Pain, Difficulty Breathing Time Seen by Provider: 02/16/22 22:10 Source: patient Mode of arrival: ambulatory Limitations: no limitations - History of Present Illness Initial comments: A 7-year-old female past medical history of diabetes, hypertension presents emergency Department with chest pain. States that she was at home eating a snack when she felt fullness in her chest. She felt like she was given a pass out as a large wave of warmth came over her. States that she has had previous feelings like this before and was found to have low glucose. She did take her sugar tonight and it was 170s. She denies previous history of cardiac disease. Has had stress testing. No calf pain or swelling. No history of DVT or PE. No recent fevers, chills or cough. No vomiting. No abdominal pain. No other alleviating, presenting modifying factors - Related Data Home Medications Medication Instructions Recorded Confirmed INSULIN LISPRO (HumaLOG) [humaLOG] 15 units SQ AC-TID 08/01/16 02/01/21 Metoprolol Tartrate [Lopressor] 50 mg PO TID 09/22/16 02/01/21 Omeprazole [PriLOSEC] 20 mg PO DAILY 01/26/18 02/01/21 Furosemide [Lasix] 40 mg PO DAILY 11/11/20 02/01/21 Insulin Glargine,Hum.rec.anlog 20 unit SQ BID 11/11/20 02/01/21 [Lantus Solostar Pen] Losartan Potassium [Cozaar] 100 mg PO DAILY 11/11/20 02/01/21 metFORMIN HCL [Glucophage] 1,000 mg PO BID 11/11/20 02/01/21 Buprenorphine HCl/Naloxone HCl 1 film SL TID 02/01/21 02/01/21 [Suboxone 8 mg-2 mg Sl Film] Previous Rx's Medication Instructions Recorded Aspirin 81 mg PO DAILY #30 chew 02/03/21 Phenazopyridine [Pyridium] 200 mg PO TID 2 Days #6 tablet 05/16/21 Allergies Allergy/AdvReac Type Severity Reaction Status Date / Time hydrochlorothiazide Allergy Dyspnea Verified 02/16/22 22:09 [From Zestoretic] lisinopril [From Zestoretic] Allergy Dyspnea Verified 07/04/22 22:09 Review of Systems ROS Statement: Those systems with pertinent positive or pertinent negative responses have been documented in the HPI. ROS Other: All systems not noted in ROS Statement are negative. Past Medical History Past Medical History: Diabetes Mellitus, GERD/Reflux, Hypertension, Osteoarthritis (OA), Renal Disease, Sleep Apnea/CPAP/BIPAP Additional Past Medical History / Comment(s): Cystoscopy with right ureteroscopy and lithotripsy 02/23/2018, Cystoscopy with placementy left JJ catheter 04/19/2018, UTIs, IDDM type II, chronic back pain, MARIALUISA without device, kidney stones History of Any Multi-Drug Resistant Organisms: None Reported Past Surgical History: Back Surgery, Section, Cholecystectomy Additional Past Surgical History / Comment(s): ESWL unsuccessful x 2, ureteroscopy for stone removal, cystoscopy with double J catheter placed on 04/19/18, t8-t12 fusion, x 1 Past Anesthesia/Blood Transfusion Reactions: No Reported Reaction Past Psychological History: Anxiety, Bipolar, Depression Smoking Status: Current every day smoker Past Alcohol Use History: None Reported Past Drug Use History: None Reported - Past Family History Father Family Medical History: Diabetes Mellitus Mother Additional Family Medical History / Comment(s): bipolar depression anxiety General Exam Limitations: no limitations General appearance: alert, in no apparent distress, obese Head exam: Present: atraumatic, normocephalic, normal inspection Eye exam: Present: normal appearance, PERRL, EOMI. Absent: scleral icterus, conjunctival injection, periorbital swelling ENT exam: Present: normal exam, mucous membranes moist Neck exam: Present: normal inspection. Absent: tenderness, meningismus, l ymphadenopathy Respiratory exam: Present: normal lung sounds bilaterally. Absent: respiratory distress, wheezes, rales, rhonchi, stridor Cardiovascular Exam: Present: regular rate, normal rhythm, normal heart sounds. Absent: systolic murmur, diastolic murmur, rubs, gallop, clicks GI/Abdominal exam: Present: soft, normal bowel sounds. Absent: distended, tenderness, guarding, rebound, rigid Extremities exam: Present: normal inspection, full ROM, normal capillary refill. Absent: tenderness, pedal edema, joint swelling, calf tenderness Back exam: Present: normal inspection Neurological exam: Present: alert, oriented X3, CN II-XII intact Psychiatric exam: Present: normal affect, normal mood Skin exam: Present: warm, dry, intact, normal color. Absent: rash Course Vital Signs 02/16/22 02/16/22 02/16/22 22:07 23:07 23:11 Temperature 98.9 F Pulse Rate 69 65 Respiratory 20 18 Rate Blood Pressure 192/93 181/111 160/92 O2 Sat by Pulse 98 96 Oximetry 02/17/22 00:47 Temperature Pulse Rate 65 Respiratory 18 Rate Blood Pressure 132/71 O2 Sat by Pulse 97 Oximetry EKG Findings - EKG Comments: EKG Findings:: EKG demonstrates sinus rhythm with a rate of 71. IA interval 152. QRS 94. QTC of 426. No acute ST segment elevations or depressions Medical Decision Making - Medical Decision Making Upon arrival patient was placed into room 4. Thorough history and physical exam was performed. IV access established. Laboratory studies are conducted and reviewed. Troponin is negative. D-dimer is negative. Chest x-ray demonstrates no acute process. Patient feels improved and is comfortable with discharge home. She is going to call her blueprint processor in the morning for follow-up. Recommend stress test, Holter monitoring and echo. Return for any new or worsening symptoms. Patient agreed and was discharged home in stable condition - Lab Data Result diagrams: 02/16/22 22:46 02/16/22 22:46 Lab Results 02/16/22 02/16/22 02/16/22 Range/Units 22:46 22:46 22:46 WBC 7.1 (3.8-10.6) k/uL RBC 4.66 (3.80-5.40) m/uL Hgb 12.9 (11.4-16.0) gm/dL Hct 39.3 (34.0-46.0) % MCV 84.3 (80.0-100.0) fL MCH 27.7 (25.0-35.0) pg MCHC 32.9 (31.0-37.0) g/dL RDW 15.9 H (11.5-15.5) % Plt Count 209 (150-450) k/uL MPV 8.7 Neutrophils % 47 % Lymphocytes % 38 % Monocytes % 8 % Eosinophils % 5 % Basophils % 1 % Neutrophils # 3.3 (1.3-7.7) k/uL Lymphocytes # 2.7 (1.0-4.8) k/uL Monocytes # 0.5 (0-1.0) k/uL Eosinophils # 0.3 (0-0.7) k/uL Basophils # 0.1 (0-0.2) k/uL PT 10.0 (9.0-12.0) sec INR 0.9 (<1.2) APTT 23.0 (22.0-30.0) sec D-Dimer 0.30 (<0.60) mg/L FEU Sodium 137 (137-145) mmol/L Potassium 4.0 (3.5-5.1) mmol/L Chloride 108 H (98-107) mmol/L Carbon Dioxide 21 L (22-30) mmol/L Anion Gap 8 mmol/L BUN 19 H (7-17) mg/dL Creatinine 1.05 H (0.52-1.04) mg/dL Est GFR (CKD-EPI)AfAm 74 (>60 ml/min/1.73 sqM) Est GFR (CKD-EPI)NonAf 64 (>60 ml/min/1.73 sqM) Glucose 206 H (74-99) mg/dL Calcium 8.9 (8.4-10.2) mg/dL Magnesium 1.7 (1.6-2.3) mg/dL Total Bilirubin 0.2 (0.2-1.3) mg/dL AST 27 (14-36) U/L ALT 24 (4-34) U/L Alkaline Phosphatase 84 (38-126) U/L Troponin I (0.000-0.034) ng/mL NT-Pro-B Natriuret Pep pg/mL Total Protein 6.7 (6.3-8.2) g/dL Albumin 3.6 (3.5-5.0) g/dL Lipase 44 (23-300) U/L 02/16/22 02/16/22 Range/Units 22:46 22:46 WBC (3.8-10.6) k/uL RBC (3.80-5.40) m/uL Hgb (11.4-16.0) gm/dL Hct (34.0-46.0) % MCV (80.0-100.0) fL MCH (25.0-35.0) pg MCHC (31.0-37.0) g/dL RDW (11.5-15.5) % Plt Count (150-450) k/uL MPV Neutrophils % % Lymphocytes % % Monocytes % % Eosinophils % % Basophils % % Neutrophils # (1.3-7.7) k/uL Lymphocytes # (1.0-4.8) k/uL Monocytes # (0-1.0) k/uL Eosinophils # (0-0.7) k/uL Basophils # (0-0.2) k/uL PT (9.0-12.0) sec INR (<1.2) APTT (22.0-30.0) sec D-Dimer (<0.60) mg/L FEU Sodium (137-145) mmol/L Potassium (3.5-5.1) mmol/L Chloride (98-107) mmol/L Carbon Dioxide (22-30) mmol/L Anion Gap mmol/L BUN (7-17) mg/dL Creatinine (0.52-1.04) mg/dL Est GFR (CKD-EPI)AfAm (>60 ml/min/1.73 sqM) Est GFR (CKD-EPI)NonAf (>60 ml/min/1.73 sqM) Glucose (74-99) mg/dL Calcium (8.4-10.2) mg/dL Magnesium (1.6-2.3) mg/dL Total Bilirubin (0.2-1.3) mg/dL AST (14-36) U/L ALT (4-34) U/L Alkaline Phosphatase (38-126) U/L Troponin I <0.012 (0.000-0.034) ng/mL NT-Pro-B Natriuret Pep 190 pg/mL Total Protein (6.3-8.2) g/dL Albumin (3.5-5.0) g/dL Lipase (23-300) U/L Disposition Clinical Impression: Chest pain Disposition: HOME SELF-CARE Condition: Stable Instructions (If sedation given, give patient instructions): Chest Pain (ED) Additional Instructions: Please follow-up with your primary care doctor in 2-4 days. I recommend holter monitoring, echo and stress test. Return for any new or worsening symptoms. Is patient prescribed a controlled substance at d/c from ED?: No Referrals: Malia Finney MD [Primary Care Provider] - 1-2 days Time of Disposition: 00:35
[2022-02-16 23:02] LABS: Basophils # (A) 0.1 k/uL (0-0.2); Basophils % (A) 1 %; Eosinophils # (A) 0.3 k/uL (0-0.7); Eosinophils % (A) 5 %; HCT 39.3 % (34.0-46.0); HGB 12.9 gm/dL (11.4-16.0); Lymphocytes # (A) 2.7 k/uL (1.0-4.8); Lymphocytes % (A) 38 %; MCH 27.7 pg (25.0-35.0); MCHC 32.9 g/dL (31.0-37.0); MCV 84.3 fL (80.0-100.0); Mean Platelet Volume 8.7; Monocytes # (A) 0.5 k/uL (0-1.0); Monocytes % (A) 8 %; Neutrophils # (A) 3.3 k/uL (1.3-7.7); Neutrophils % (A) 47 %; Platelet Count 209 k/uL (150-450); RBC 4.66 m/uL (3.80-5.40); RDW 15.9 % (11.5-15.5); WBC 7.1 k/uL (3.8-10.6)
--- NOTE | 2022-02-16 23:02 | XR ---
EXAMINATION TYPE: XR chest 2V DATE OF EXAM: 02/16/2022 COMPARISON: 02/01/2021 HISTORY: Chest pain TECHNIQUE: FINDINGS: Heart and mediastinum are normal. Lungs are clear. Diaphragm is normal. Bony thorax appears normal. There are chest leads. IMPRESSION: Normal chest.
[2022-02-16 23:08] VITALS: PULSE 65; RESP 18
[2022-02-16 23:13] LABS: Albumin 3.6 g/dL (3.5-5.0); Calcium 8.9 mg/dL (8.4-10.2); Magnesium 1.7 mg/dL (1.6-2.3); Total Bilirubin 0.2 mg/dL (0.2-1.3); Total Protein 6.7 g/dL (6.3-8.2)
[2022-02-16 23:16] LABS: INR 0.9 (<1.2)
[2022-02-17 00:48] VITALS: BP 132/71
== END 2022-02-17 00:47 | disposition home or self-care (01) ==
LOC: EC 21:51
DX: R07.9 Chest pain, unspecified (principal); E11.9 Type 2 diabetes mellitus without complications; K21.9 Gastro-esophageal reflux disease without esophagitis; I10 Essential (primary) hypertension; M19.90 Unspecified osteoarthritis, unspecified site; F17.200 Nicotine dependence, unspecified, uncomplicated; Z79.899 Other long term (current) drug therapy; Z88.8 Allergy status to other drugs, medicaments and biological substances; Z79.84 Long term (current) use of oral hypoglycemic drugs; Z79.4 Long term (current) use of insulin
CPT/HCPCS: 36415; 71046; 80053; 83690; 83735; 83880; 84484; 85025; 85379; 85610; 85730; 93005; 99285

== ENCOUNTER 2022-03-07 20:51 | Emergency (ER) | payer OTHER ==
[2022-03-07 21:04] VITALS: BP 171/134; PULSE 68; RESP 18; TEMP 98.7
[2022-03-07] MEDS ORDERED: ASPIRIN 81 MG PO STA (21:17)
--- NOTE | 2022-03-07 21:21 | ED ---
Chest Pain HPI - General Chief Complaint: Chest Pain Stated Complaint: Chest pain,L side facial numbness Time Seen by Provider: 03/07/22 21:06 Source: patient Mode of arrival: ambulatory - History of Present Illness Initial Comments: This patient is a 47-year-old woman who presents with complaint of having about 2 weeks of intermittent upper chest tightness. She states that it seems to be intermittent tightness can last for hours at a time. She has not noted in exertional component. There are no accompanying anginal symptoms. This afternoon she was noticing facial numbness in association. MD Complaint: chest pain Onset/Timin -: week(s) Onset: during rest Pain Location: left chest, right chest Pain Radiation: none Severity: moderate Quality: tightness Consistency: intermittent Improves With: nothing Worsens With: nothing Treatments Prior to Arrival: none - Related Data Home Medications Medication Instructions Recorded Confirmed INSULIN LISPRO (HumaLOG) [humaLOG] 15 units SQ AC-TID 08/01/16 02/01/21 Metoprolol Tartrate [Lopressor] 50 mg PO TID 09/22/16 02/01/21 Omeprazole [PriLOSEC] 20 mg PO DAILY 01/26/18 02/01/21 Furosemide [Lasix] 40 mg PO DAILY 11/11/20 02/01/21 Insulin Glargine,Hum.rec.anlog 20 unit SQ BID 11/11/20 02/01/21 [Lantus Solostar Pen] Losartan Potassium [Cozaar] 100 mg PO DAILY 11/11/20 02/01/21 metFORMIN HCL [Glucophage] 1,000 mg PO BID 11/11/20 02/01/21 Buprenorphine HCl/Naloxone HCl 1 film SL TID 02/01/21 02/01/21 [Suboxone 8 mg-2 mg Sl Film] Previous Rx's Medication Instructions Recorded Aspirin 81 mg PO DAILY #30 chew 02/03/21 Phenazopyridine [Pyridium] 200 mg PO TID 2 Days #6 tablet 05/16/21 Allergies Allergy/AdvReac Type Severity Reaction Status Date / Time hydrochlorothiazide Allergy Dyspnea Verified 02/16/22 22:09 [From Zestoretic] lisinopril [From Zestoretic] Allergy Dyspnea Verified 02/16/22 22:09 Review of Systems ROS Statement: Those systems with pertinent positive or pertinent negative responses have been documented in the HPI. ROS Other: All systems not noted in ROS Statement are negative. Constitutional: Denies: fever, chills Respiratory: Denies: cough, dyspnea Cardiovascular: Reports: chest pain. Denies: palpitations, orthopnea, edema, syncope Gastrointestinal: Denies: abdominal pain, vomiting, diarrhea Genitourinary: Denies: dysuria, frequency Musculoskeletal: Denies: back pain Skin: Denies: rash Neurological: Denies: headache, weakness EKG Findings - EKG Results: EKG: interpreted by ANNE, sinus rhythm (With occasional reentrant beats, rate 72 bpm), normal axis, normal QRS, normal ST/T Past Medical History Past Medical History: Diabetes Mellitus, GERD/Reflux, Hypertension, Osteoarthritis (OA), Renal Disease, Sleep Apnea/CPAP/BIPAP Additional Past Medical History / Comment(s): Cystoscopy with right ureteroscopy and lithotripsy 02/23/2018, Cystoscopy with placementy left JJ catheter 04/19/2018, UTIs, IDDM type II, chronic back pain, MARIALUISA without device, kidney stones History of Any Multi-Drug Resistant Organisms: None Reported Past Surgical History: Back Surgery, Section, Cholecystectomy Additional Past Surgical History / Comment(s): ESWL unsuccessful x 2, ureteroscopy for stone removal, cystoscopy with double J catheter placed on 04/19/18, t8-t12 fusion, x 1 Past Anesthesia/Blood Transfusion Reactions: No Reported Reaction Past Psychological History: Anxiety, Bipolar, Depression Smoking Status: Current every day smoker Past Alcohol Use History: None Reported Past Drug Use History: None Reported - Past Family History Father Family Medical History: Diabetes Mellitus Mother Additional Family Medical History / Comment(s): bipolar depression anxiety General Exam General appearance: alert, in no apparent distress Head exam: Present: atraumatic, normocephalic Eye exam: Present: normal appearance. Absent: scleral icterus, conjunctival injection Neck exam: Present: normal inspection Respiratory exam: Present: normal lung sounds bilaterally. Absent: respiratory distress, wheezes, rales, rhonchi, stridor Cardiovascular Exam: Present: regular rate, normal rhythm, normal heart sounds. Absent: systolic murmur, diastolic murmur, rubs, gallop GI/Abdominal exam: Present: soft. Absent: distended, tenderness, guarding, rebound, rigid, mass Extremities exam: Present: normal inspection, normal capillary refill. Absent: pedal edema, calf tenderness Back exam: Present: normal inspection. Absent: CVA tenderness (R), CVA tenderness (L) Neurological exam: Present: alert Skin exam: Present: warm, dry, intact, normal color. Absent: rash Course Vital Signs 03/07/22 21:00 Temperature 98.7 F Pulse Rate 68 Respiratory 18 Rate Blood Pressure 171/134 O2 Sat by Pulse 98 Oximetry Disposition Clinical Impression: Chest pain Disposition: HOME SELF-CARE Condition: Good Instructions (If sedation given, give patient instructions): Chest Pain (ED) Is patient prescribed a controlled substance at d/c from ED?: No Referrals: Malia Finney MD [Primary Care Provider] - 1-2 days
--- NOTE | 2022-03-07 21:38 | XR ---
EXAMINATION TYPE: XR chest 2V DATE OF EXAM: 03/07/2022 9:32 PM COMPARISON: Chest radiographs from 02/16/2022. TECHNIQUE: XR chest 2V Frontal and lateral views of the chest. CLINICAL INDICATION:Female, 47 years old with history of Chest Pain; FINDINGS: Lungs/Pleura: There is no evidence of pleural effusion, focal consolidation, or pneumothorax. Pulmonary vascularity: Unremarkable. Heart/mediastinum: Cardiomediastinal silhouette is unremarkable. Musculoskeletal: No acute osseous pathology. Thoracic fusion hardware demonstrated. IMPRESSION: No acute cardiopulmonary disease/process. No significant change from prior examination.
[2022-03-07 21:40] LABS: Basophils # (A) 0.1 k/uL (0-0.2); Basophils % (A) 1 %; Eosinophils # (A) 0.2 k/uL (0-0.7); Eosinophils % (A) 2 %; HCT 45.5 % (34.0-46.0); HGB 14.4 gm/dL (11.4-16.0); Lymphocytes # (A) 2.8 k/uL (1.0-4.8); Lymphocytes % (A) 34 %; MCH 26.9 pg (25.0-35.0); MCHC 31.6 g/dL (31.0-37.0); MCV 85.1 fL (80.0-100.0); Monocytes # (A) 0.5 k/uL (0-1.0); Monocytes % (A) 6 %; Neutrophils # (A) 4.5 k/uL (1.3-7.7); Neutrophils % (A) 55 %; Platelet Count 257 k/uL (150-450); RBC 5.35 m/uL (3.80-5.40); RDW 15.5 % (11.5-15.5); WBC 8.2 k/uL (3.8-10.6)
[2022-03-07 21:59] LABS: INR 0.9 (<1.2); Partial Thromboplastin Time 23.4 sec (22.0-30.0); Prothrombin Time 10.1 sec (9.0-12.0)
[2022-03-07 22:01] LABS: Albumin 4.1 g/dL (3.5-5.0); Potassium 4.4 mmol/L (3.5-5.1); Total Protein 7.6 g/dL (6.3-8.2)
[2022-03-07 22:02] LABS: Calcium 9.8 mg/dL (8.4-10.2); Magnesium 1.6 mg/dL (1.6-2.3); Total Bilirubin 0.3 mg/dL (0.2-1.3)
== END 2022-03-08 01:14 | disposition home or self-care (01) ==
LOC: EC 20:51
DX: R07.89 Other chest pain (principal); E11.9 Type 2 diabetes mellitus without complications; I10 Essential (primary) hypertension; K21.9 Gastro-esophageal reflux disease without esophagitis; F17.200 Nicotine dependence, unspecified, uncomplicated; Z88.8 Allergy status to other drugs, medicaments and biological substances; Z79.899 Other long term (current) drug therapy; Z79.84 Long term (current) use of oral hypoglycemic drugs; Z79.4 Long term (current) use of insulin
CPT/HCPCS: 36415; 71046; 80053; 83735; 84484; 85025; 85610; 85730; 93005; 99285

== ENCOUNTER → 2022-04-28 | Outpatient (CLI) | payer OTHER ==
--- NOTE | 2022-04-28 14:55 | MM ---
Reason for Exam: Screening (asymptomatic). Baseline mammogram. Patient History: Menarche at age 13. First Full-Term at age 21. Paternal grandmother had breast cancer. Paternal aunt had ovarian cancer. Last menstrual period: 04/04/2022 Risk Values: Jenny 5 year model risk: 0.8%. NCI Lifetime model risk: 8.5%. Prior Study Comparison: Patient's first Mammogram. No prior studies available for comparison. Tissue Density: There are scattered fibroglandular densities. Findings: Analyzed By CAD. There is no suspicious group of microcalcifications or new suspicious mass in either breast. Overall Assessment: Negative, BI-RAD 1 Management: Screening Mammogram of both breasts in 1 year. A clinical breast exam by your physician is recommended on an annual basis and results should be correlated with mammographic findings. Electronically signed and approved by: Murali Hernandez M.D. Radiologis
== END | disposition home or self-care (01) ==
LOC: RADMAMWWP 07:25
PROVIDERS: ATTEND Family Medicine
DX: Z12.31 Encounter for screening mammogram for malignant neoplasm of breast (principal); Z80.3 Family history of malignant neoplasm of breast
CPT/HCPCS: 77067

== ENCOUNTER → 2022-04-28 | Outpatient (CLI) | payer OTHER ==
[2022-04-28 08:55] LABS: Appearance,Urine Cloudy (Clear); Bacteria,Urine Moderate /hpf; Bilirubin,Urine Negative (Negative); Blood,Urine Small (Negative); Color,Urine Yellow; Glucose,Urine (UA) Negative (Negative); Ketones,Urine Negative (Negative); Leukocyte Esterase,Urine Large (Negative); Mucus,Urine Rare /hpf; Nitrite,Urine Negative (Negative); Protein,Urine 2+ (Negative); RBC,Urine 23 /hpf (0-5); Specific Gravity,Urine 1.017 (1.001-1.035); Squamous Epithelial Cell,Urine 6 /hpf (0-4); Urobilinogen,Urine <2.0 mg/dL (<2.0); WBC,Urine >182 /hpf (0-5)
[2022-04-28 10:33] LABS: Basophils # (A) 0.06 X 10*3/uL (0.00-0.10); Basophils % (A) 0.8 %; Eosinophils # (A) 0.18 X 10*3/uL (0.04-0.35); Eosinophils % (A) 2.5 %; HCT 39.2 % (37.2-46.3); HGB 12.9 g/dL (12.0-15.0); Immature Grans, Automated 0.3 %; Lymphocytes # (A) 2.55 X 10*3/uL (0.90-5.00); MCH 27.9 pg (27.0-32.0); MCHC 32.9 g/dL (32.0-37.0); MCV 84.8 fL (80.0-97.0); Mean Platelet Volume 12.4 fL (9.5-12.2); Monocytes # (A) 0.64 X 10*3/uL (0.20-1.00); NRBC Per 100 WBC 0 /100 WBCS (0.0-0.0); Neutrophils # (A) 3.63 X 10*3/uL (1.80-7.70); Neutrophils % (A) 51.4 %; Platelet Count 266 X 10*3/uL (140-440); RBC 4.62 X 10*6/uL (4.10-5.20); WBC 7.08 X 10*3/uL (4.50-10.00)
[2022-04-28 11:13] LABS: Hepatitis A Antibody IgM Nonreactive (Nonreactive); Hepatitis B Core IgM Nonreactive (Nonreactive); Hepatitis B Surface Antigen Nonreactive (Nonreactive); Hepatitis C IgG Antibody Nonreactive (Nonreactive)
[2022-04-28 11:20] LABS: % Iron Saturation 16.75 (12.00-45.00); African American GFR (CKD) 69.7 (60.0-200.0); Albumin 3.8 g/dL (3.8-4.9); Albumin/Globulin Ratio 1.15 (1.60-3.17); Anion Gap 11.9 mmol/L (10.00-18.00); BUN/Creat Ratio 13.64 Ratio (12.00-20.00); Calcium 9.6 mg/dL (8.7-10.3); Carbon Dioxide 23.1 mmol/L (20.0-27.5); Globulin 3.3 g/dL (1.6-3.3); Magnesium 1.5 mg/dL (1.5-2.4); Non-African American GFR(CKD) 60.2 (60.0-200.0); Potassium 4.1 mmol/L (3.5-5.5); Total Bilirubin 0.2 mg/dL (0.30-1.20); Total Protein 7.1 g/dL (6.2-8.2); Uric Acid 4.9 mg/dL (2.9-7.7)
[2022-04-28 11:25] LABS: Ferritin 63.3 ng/mL (10.0-291.0)
[2022-04-28 16:32] LABS: Anti-DNA, DS unit <1.0 IU/mL; DNA Double-Stranded NEGATIVE (NEGATIVE)
[2022-04-29 11:59] LABS: Free Kappa Lt Chain Qnt, Serum 6.37 mg/dL (0.33-1.94); Free Lambda Lt Chain Qnt, Seru 4.28 mg/dL (0.57-2.63)
[2022-04-29 13:54] LABS: C-ANCA <1:20 Titer (<1:20)
== END | disposition home or self-care (01) ==
LOC: LABWHC1 07:49
PROVIDERS: ATTEND Internal Medicine
DX: N25.81 Secondary hyperparathyroidism of renal origin (principal); N18.2 Chronic kidney disease, stage 2 (mild); N39.0 Urinary tract infection, site not specified; E55.9 Vitamin D deficiency, unspecified; M10.9 Gout, unspecified; R53.83 Other fatigue; D63.1 Anemia in chronic kidney disease
CPT/HCPCS: 36415; 80053; 80074; 81001; 82043; 82306; 82570; 82728; 83516; 83540; 83550; 83735; 83883; 83970; 84100; 84550; 85025; 86038; 86160; 86162; 86225; 86255; 86334; 87086

== ENCOUNTER → 2022-05-20 | Outpatient (CLI) | payer OTHER ==
--- NOTE | 2022-05-20 16:36 | US ---
EXAMINATION TYPE: US kidneys/renal and bladder DATE OF EXAM: 05/20/2022 COMPARISON: Renal ultrasound 08/22/2021. CLINICAL HISTORY: N18.2 CHRONIC KIDNEY DISEASE, STAGE 2. EXAM MEASUREMENTS: Right Kidney: 12.3 x 4.4 x 5.1 cm Left Kidney: 11.8 x 5.1 x 5.0 cm Morbidly obese patient, technically difficult somewhat limited study. Right Kidney: Measures large, technically difficult study, multiple echogenic foci, probable cyst wit h possible calcified williamson measuring 1.5 x 1.3 x 1.0cm Left Kidney: irregular contour, midline area appears masslike measuring 2.5 x 1.6 x 3.4cm. Patient ma y benefit from CAT scan, probable stone inferior measuring 0.9 x 0.4 x 0.8cm Bladder: limited views, patient felt very full, but bladder not distended Bilateral Jets seen: no IMPRESSION: 1. Limited exam secondary to body habitus. No evidence of obstructive uropathy. 2. Possible anterior stone within the left renal sinus posterior acoustic shadowing up to [address] renal stone protocol.
== END | disposition home or self-care (01) ==
LOC: RADUSWWP 15:41
PROVIDERS: ATTEND Internal Medicine Nephrology
DX: N18.2 Chronic kidney disease, stage 2 (mild) (principal)
CPT/HCPCS: 76770

== ENCOUNTER 2022-08-03 18:12 | Emergency (ER) | payer OTHER ==
[2022-08-03 18:36] VITALS: TEMP 97.6
[2022-08-03] MEDS ORDERED: SODIUM CHLORIDE 0.9% 500 ML 500 ML IV STA (19:42)
--- NOTE | 2022-08-03 19:46 | ED ---
General Adult HPI - General Chief complaint: Eye Problems Stated complaint: blurred vision, tingling in head Time Seen by Provider: 08/03/22 19:28 Source: patient, RN notes reviewed Mode of arrival: ambulatory Limitations: no limitations - History of Present Illness Initial comments: This is a pleasant 47-year-old female presents to emergency department complaining of an episode where she had blurry vision for several seconds as well as a tingling sensation across her forehead. Patient states that this stopped after several seconds to a half minute. He states this occurred at about 6:30 PM when she would just sit down to eat dinner. Patient states she had been sitting for about 7 minutes or so. Patient denied any chest pain. No palpitations. States that her vision was blurry. No double vision. No slurred speech. No arm or leg weakness. No tingling in the arms or legs. Patient states she felt lightheaded but had no vertiginous symptoms. No headache, no fever or chills, no changes in vision or hearing, no sore throat or difficulty with speech, no neck pain, no chest pain or shortness of breath, no abdominal pain, no nausea or vomiting, no changes in urination or bowel movements, no extremity pain, no skin rashes or lesions. Past medical, surgical, social, and family history reviewed. - Related Data Home Medications Medication Instructions Recorded Confirmed INSULIN LISPRO (HumaLOG) [humaLOG] 15 units SQ AC-TID 08/01/16 02/01/21 Metoprolol Tartrate [Lopressor] 50 mg PO TID 09/22/16 02/01/21 Omeprazole [PriLOSEC] 20 mg PO DAILY 01/26/18 02/01/21 Furosemide [Lasix] 40 mg PO DAILY 11/11/20 02/01/21 Insulin Glargine,Hum.rec.anlog 20 unit SQ BID 11/11/20 02/01/21 [Lantus Solostar Pen] Losartan Potassium [Cozaar] 100 mg PO DAILY 11/11/20 02/01/21 metFORMIN HCL [Glucophage] 1,000 mg PO BID 11/11/20 02/01/21 Buprenorphine HCl/Naloxone HCl 1 film SL TID 02/01/21 02/01/21 [Suboxone 8 mg-2 mg Sl Film] Previous Rx's Medication Instructions Recorded Aspirin 81 mg PO DAILY #30 chew 02/03/21 Phenazopyridine [Pyridium] 200 mg PO TID 2 Days #6 tablet 05/16/21 Fluconazole [Diflucan] 150 mg PO ONCE #2 tab 08/03/22 Nitrofurantoin Monohyd/M-Cryst 100 mg PO Q12HR #14 cap 08/03/22 [Macrobid] Allergies Allergy/AdvReac Type Severity Reaction Status Date / Time hydrochlorothiazide Allergy Dyspnea Verified 08/03/22 18:36 [From Zestoretic] lisinopril [From Zestoretic] Allergy Dyspnea Verified 08/03/22 18:36 Review of Systems ROS Statement: Those systems with pertinent positive or pertinent negative responses have been documented in the HPI. ROS Other: All systems not noted in ROS Statement are negative. Past Medical History Past Medical History: Diabetes Mellitus, GERD/Reflux, Hypertension, Osteoarthritis (OA), Renal Disease, Sleep Apnea/CPAP/BIPAP Additional Past Medical History / Comment(s): Cystoscopy with right ureteroscopy and lithotripsy 02/23/2018, Cystoscopy with placementy left JJ catheter 04/19/2018, UTIs, IDDM type II, chronic back pain, MARIALUISA without device, kidney stones History of Any Multi-Drug Resistant Organisms: None Reported Past Surgical History: Back Surgery, Section, Cholecystectomy Additional Past Surgical History / Comment(s): ESWL unsuccessful x 2, ureteroscopy for stone removal, cystoscopy with double J catheter placed on , t8-t12 fusion, x 1 Past Anesthesia/Blood Transfusion Reactions: No Reported Reaction Past Psychological History: Anxiety, Bipolar, Depression Smoking Status: Current every day smoker Past Alcohol Use History: None Reported Past Drug Use History: None Reported - Past Family History Father Family Medical History: Diabetes Mellitus Mother Additional Family Medical History / Comment(s): bipolar depression anxiety General Exam - General Exam Comments Initial Comments: Patient does not appear to be ill or toxic. Cranial nerves II through XII are intact. No focal neurologic deficits. NIH is 0. Limitations: no limitations General appearance: obese Head exam: Present: atraumatic, normocephalic, normal inspection Eye exam: Present: normal appearance, PERRL, EOMI. Absent: scleral icterus, conjunctival injection, periorbital swelling ENT exam: Present: normal exam, mucous membranes moist, normal external ear exam. Absent: mucous membranes dry Neck exam: Present: normal inspection, full ROM. Absent: tenderness, meningismus, lymphadenopathy Respiratory exam: Present: normal lung sounds bilaterally. Absent: respiratory distress, wheezes, rales, rhonchi, stridor, accessory muscle use, decreased breath sounds, prolonged expiratory Cardiovascular Exam: Present: regular rate, normal rhythm, normal heart sounds. Absent: systolic murmur, diastolic murmur, rubs, gallop, clicks GI/Abdominal exam: Present: soft, normal bowel sounds. Absent: distended, tenderness, guarding, rebound, rigid Extremities exam: Present: normal inspection, full ROM, normal capillary refill. Absent: tenderness, pedal edema, joint swelling, calf tenderness Back exam: Present: normal inspection Neurological exam: Present: alert, oriented X3, CN II-XII intact, normal gait, other (NIH 0, cranial nerves II through XII intact, Romberg, pronator drift, and wecbcd-tu-cofc are all normal.). Absent: altered, abnormal gait, motor sensory deficit, reflexes normal Psychiatric exam: Present: normal affect, normal mood Skin exam: Present: warm, dry, intact, normal color. Absent: rash Course Vital Signs 08/03/22 08/03/22 08/03/22 18:32 20:25 21:16 Temperature 97.6 F Pulse Rate 64 80 86 Respiratory 20 20 16 Rate Blood Pressure 163/90 167/96 140/86 O2 Sat by Pulse 97 98 98 Oximetry 08/03/22 08/03/22 21:50 23:51 Temperature Pulse Rate 65 62 Respiratory 16 18 Rate Blood Pressure 150/100 147/60 O2 Sat by Pulse 95 96 Oximetry - Reevaluation(s) Reevaluation #1: 08/03/22 23:51 Patient's workup shows a normal CBC. Glucose of 162, minimal elevations of hepatic enzymes of undetermined significance. Troponin was negative. EKG shows no acute changes. Urinalysis does show a significant number of white blood cells per high-powered field and occasional bacteria. 10 squamous epithelial cells. This is consistent with possible urinary tract infection and although nitrite negative. Urine culture will be ordered. Independent interpretation of the brain CT and chest x-ray by hi reveals no acute pathology. No acute intracranial process noted on CT of the brain. No acute process and chest x-ray.reviewed radiology interpretation Reevaluation #2: 08/03/22 23:56 Patient reevaluated and is in no distress. Essentially asymptomatic. EKG Findings - EKG Comments: EKG Findings:: EKG done at 8:20 PM and interpreted independently by me reveals sinus bradycardia with a rate of 58. T wave flattening in V4, V3. Normal axis. Normal intervals. When compared to the previous study from 03/07/2022 other than the mild T-wave flattening, there is no significant change. QRS morphology is essentially normal. No evidence of ST elevation or depression. Medical Decision Making - Medical Decision Making Differential diagnosis: TIA, near syncopal episode, electrolyte disturbance, tra nsient cardiac arrhythmia. The case was discussed in detail with ED attending physician. Presentation, findings, treatment plan discussed in detail. Patient had no lateralizing symptoms. I believe the patient had a near syncopal episode. Patient's urinalysis did show possible urinary tract infection. I did discuss findings with the patient. She states she has had some increased urinary frequency and slight burning. We'll go ahead and treat the patient until urine cultures obtained. Remainder the patient's workup essentially unremarkable. Supervising physician Dr. Martin - Lab Data Result diagrams: 08/03/22 20:39 08/03/22 20:39 Lab Results 08/03/22 08/03/22 08/03/22 Range/Units 20:35 20:39 20:39 WBC 8.9 (3.8-10.6) k/uL RBC 4.82 (3.80-5.40) m/uL Hgb 14.1 (11.4-16.0) gm/dL Hct 40.5 (34.0-46.0) % MCV 84.0 (80.0-100.0) fL MCH 29.3 (25.0-35.0) pg MCHC 34.9 (31.0-37.0) g/dL RDW 14.0 (11.5-15.5) % Plt Count 202 (150-450) k/uL MPV 9.0 Neutrophils % 69 % Lymphocytes % 22 % Monocytes % 5 % Eosinophils % 2 % Basophils % 0 % Neutrophils # 6.1 (1.3-7.7) k/uL Lymphocytes # 2.0 (1.0-4.8) k/uL Monocytes # 0.5 (0-1.0) k/uL Eosinophils # 0.2 (0-0.7) k/uL Basophils # 0.0 (0-0.2) k/uL Sodium 137 (137-145) mmol/L Potassium 4.5 (3.5-5.1) mmol/L Chloride 106 (98-107) mmol/L Carbon Dioxide 24 (22-30) mmol/L Anion Gap 7 mmol/L BUN 16 (7-17) mg/dL Creatinine 1.03 (0.52-1.04) mg/dL Est GFR (CKD-EPI)AfAm 75 (>60 ml/min/1.73 sqM) Est GFR (CKD-EPI)NonAf 65 (>60 ml/min/1.73 sqM) Glucose 162 H (74-99) mg/dL POC Glucose (mg/dL) 157 H (70-110) mg/dL POC Glu Washer Off ID Keith Thibodeaux Calcium 9.2 (8.4-10.2) mg/dL Phosphorus 3.7 (2.5-4.5) mg/dL Magnesium 1.6 (1.6-2.3) mg/dL Total Bilirubin 0.3 (0.2-1.3) mg/dL AST 43 H (14-36) U/L ALT 39 H (4-34) U/L Alkaline Phosphatase 80 (38-126) U/L Troponin I (0.000-0.034) ng/mL Total Protein 7.3 (6.3-8.2) g/dL Albumin 3.9 (3.5-5.0) g/dL HCG, Qual Not Detected Urine Color Urine Appearance (Clear) Urine pH (5.0-8.0) Ur Specific [place] (1.001-1.035) Urine Protein (Negative) Urine Glucose (UA) (Negative) Urine Ketones (Negative) Urine Blood (Negative) Urine Nitrite (Negative) Urine Bilirubin (Negative) Urine Urobilinogen (<2.0) mg/dL Ur Leukocyte Esterase (Negative) Urine RBC (0-5) /hpf Urine WBC (0-5) /hpf Ur Squamous Epith Cells (0-4) /hpf Urine Bacteria (None) /hpf Hyaline Casts (0-2) /lpf 08/03/22 08/03/22 Range/Units 20:39 21:50 WBC (3.8-10.6) k/uL RBC (3.80-5.40) m/uL Hgb (11.4-16.0) gm/dL Hct (34.0-46.0) % MCV (80.0-100.0) fL MCH (25.0-35.0) pg MCHC (31.0-37.0) g/dL RDW (11.5-15.5) % Plt Count (150-450) k/uL MPV Neutrophils % % Lymphocytes % % Monocytes % % Eosinophils % % Basophils % % Neutrophils # (1.3-7.7) k/uL Lymphocytes # (1.0-4.8) k/uL Monocytes # (0-1.0) k/uL Eosinophils # (0-0.7) k/uL Basophils # (0-0.2) k/uL Sodium (137-145) mmol/L Potassium (3.5-5.1) mmol/L Chloride (98-107) mmol/L Carbon Dioxide (22-30) mmol/L Anion Gap mmol/L BUN (7-17) mg/dL Creatinine (0.52-1.04) mg/dL Est GFR (CKD-EPI)AfAm (>60 ml/min/1.73 sqM) Est GFR (CKD-EPI)NonAf (>60 ml/min/1.73 sqM) Glucose (74-99) mg/dL POC Glucose (mg/dL) (70-110) mg/dL POC Glu Washer Off ID Calcium (8.4-10.2) mg/dL Phosphorus (2.5-4.5) mg/dL Magnesium (1.6-2.3) mg/dL Total Bilirubin (0.2-1.3) mg/dL AST (14-36) U/L ALT (4-34) U/L Alkaline Phosphatase (38-126) U/L Troponin I <0.012 (0.000-0.034) ng/mL Total Protein (6.3-8.2) g/dL Albumin (3.5-5.0) g/dL HCG, Qual Urine Color Yellow Urine Appearance Cloudy H (Clear) Urine pH 6.5 (5.0-8.0) Ur Specific [place] 1.019 (1.001-1.035) Urine Protein 2+ H (Negative) Urine Glucose (UA) Negative (Negative) Urine Ketones Negative (Negative) Urine Blood Small H (Negative) Urine Nitrite Negative (Negative) Urine Bilirubin Negative (Negative) Urine Urobilinogen <2.0 (<2.0) mg/dL Ur Leukocyte Esterase Large H (Negative) Urine RBC 5 (0-5) /hpf Urine WBC 88 H (0-5) /hpf Ur Squamous Epith Cells 10 H (0-4) /hpf Urine Bacteria Occasional H (None) /hpf Hyaline Casts 3 H (0-2) /lpf - Radiology Data Radiology results: report reviewed, image reviewed Disposition Clinical Impression: Syncope, near, Urinary tract infection, Hypertension Disposition: HOME SELF-CARE Condition: Good Instructions (If sedation given, give patient instructions): Urinary Tract Infection in Women (ED), Near Syncope (ED), Hypertension (ED) Additional Instructions: Take antibiotics as directed until the urine culture is obtained. Follow-up with your regular physician as directed. Return to the ER immediately if any symptoms worsen, new symptoms arise, or any other problems develop. Prescriptions: Fluconazole [Diflucan] 150 mg PO ONCE #2 tab Nitrofurantoin Monohyd/M-Cryst [Macrobid] 100 mg PO Q12HR #14 cap Is patient prescribed a controlled substance at d/c from ED?: No Referrals: Malia Finney MD [Primary Care Provider] - 1-2 days Time of Disposition: 23:59
[2022-08-03 20:39] LABS: Glucose,Whole Blood 157 mg/dL (70-110)
[2022-08-03 20:51] LABS: Basophils % (A) 0 %; Eosinophils # (A) 0.2 k/uL (0-0.7); Eosinophils % (A) 2 %; HCT 40.5 % (34.0-46.0); HGB 14.1 gm/dL (11.4-16.0); Lymphocytes % (A) 22 %; MCH 29.3 pg (25.0-35.0); MCHC 34.9 g/dL (31.0-37.0); Monocytes # (A) 0.5 k/uL (0-1.0); Monocytes % (A) 5 %; Neutrophils # (A) 6.1 k/uL (1.3-7.7); Neutrophils % (A) 69 %; Platelet Count 202 k/uL (150-450); RBC 4.82 m/uL (3.80-5.40); WBC 8.9 k/uL (3.8-10.6)
--- NOTE | 2022-08-03 21:09 | CT ---
EXAMINATION TYPE: CT brain wo con CT DLP: 1280.4 mGycm, Automated exposure control for dose reduction was used. DATE OF EXAM: 08/03/2022 8:57 PM COMPARISON: None. CLINICAL INDICATION:Female, 47 years old with history of Neuro deficit, acute, stroke suspected, Neur o deficit, acute, stroke suspected TECHNIQUE: Brain: Multiple axial CT images of the brain were obtained without IV contrast. Coronal and sagittal reformats reviewed. FINDINGS: Brain: Extra-axial spaces: No abnormal extra-axial fluid collections. Ventricular system: Within normal limits Cerebral parenchyma: No acute intraparenchymal hemorrhage or mass effect. The arias-white junction is well differentiated. Cerebellum: Unremarkable. Mass effect: No evidence of midline shift. Intracranial vasculature: unremarkable Soft tissues: Normal. Calvarium/osseous structures: No depressed skull fracture. Paranasal sinuses and mastoid air cells: Mild scattered paranasal sinus disease. Visualized orbits: Orbital contents are intact. IMPRESSION: No acute intracranial process.
--- NOTE | 2022-08-03 21:10 | XR ---
EXAMINATION TYPE: XR chest 2V DATE OF EXAM: 08/03/2022 8:54 PM COMPARISON: Chest radiographs from 03/07/2022 TECHNIQUE: XR chest 2V Frontal and lateral views of the chest. CLINICAL INDICATION:Female, 47 years old with history of altered mental status; FINDINGS: Lungs/Pleura: There is no evidence of pleural effusion, focal consolidation, or pneumothorax. Pulmonary vascularity: Unremarkable. Heart/mediastinum: Cardiomediastinal silhouette is unremarkable. Musculoskeletal: No acute osseous pathology. Thoracic fusion hardware demonstrated. IMPRESSION: No acute cardiopulmonary disease/process. No significant change from prior examination.
[2022-08-03 21:11] LABS: HCG,Qualitative Serum Not Detected
[2022-08-03 21:13] LABS: ALT 39 U/L (4-34); AST 43 U/L (14-36); African American GFR (CKD) 75 (>60 ml/min/1.73 sqM); Albumin 3.9 g/dL (3.5-5.0); Alkaline Phosphatase 80 U/L (38-126); Anion Gap 7 mmol/L; Blood Urea Nitrogen 16 mg/dL (7-17); Calcium 9.2 mg/dL (8.4-10.2); Carbon Dioxide 24 mmol/L (22-30); Chloride 106 mmol/L (98-107); Glucose 162 mg/dL (74-99); Magnesium 1.6 mg/dL (1.6-2.3); Non-African American GFR(CKD) 65 (>60 ml/min/1.73 sqM); Phosphorus 3.7 mg/dL (2.5-4.5); Potassium 4.5 mmol/L (3.5-5.1); Sodium 137 mmol/L (137-145); Total Bilirubin 0.3 mg/dL (0.2-1.3); Total Protein 7.3 g/dL (6.3-8.2)
[2022-08-03 22:40] LABS: Appearance,Urine Cloudy (Clear); Bacteria,Urine Occasional /hpf; Bilirubin,Urine Negative (Negative); Blood,Urine Small (Negative); Color,Urine Yellow; Glucose,Urine (UA) Negative (Negative); Hyaline Casts,Urine 3 /lpf (0-2); Ketones,Urine Negative (Negative); Leukocyte Esterase,Urine Large (Negative); Nitrite,Urine Negative (Negative); PH, Urine 6.5 (5.0-8.0); Protein,Urine 2+ (Negative); RBC,Urine 5 /hpf (0-5); Specific Gravity,Urine 1.019 (1.001-1.035); Squamous Epithelial Cell,Urine 10 /hpf (0-4); Urobilinogen,Urine <2.0 mg/dL (<2.0); WBC,Urine 88 /hpf (0-5)
[2022-08-03 23:52] VITALS: BP 147/60; PULSE 62; RESP 18
[2022-08-03] MEDS ORDERED: NITROFURANTOIN MONOHYD/M-CRYST 100 MG CAP PO STA (23:55)
== END 2022-08-04 00:21 | disposition home or self-care (01) ==
LOC: EC 18:12
DX: R55 Syncope and collapse (principal); N39.0 Urinary tract infection, site not specified; I10 Essential (primary) hypertension; E11.9 Type 2 diabetes mellitus without complications; K21.9 Gastro-esophageal reflux disease without esophagitis; M19.90 Unspecified osteoarthritis, unspecified site; F41.9 Anxiety disorder, unspecified; F31.9 Bipolar disorder, unspecified; F17.200 Nicotine dependence, unspecified, uncomplicated; Z88.2 Allergy status to sulfonamides; Z88.8 Allergy status to other drugs, medicaments and biological substances; Z79.4 Long term (current) use of insulin; Z79.84 Long term (current) use of oral hypoglycemic drugs
CPT/HCPCS: 36415; 70450; 71046; 80053; 81001; 83735; 84100; 84484; 84703; 85025; 87086; 93005; 96360; 96361; 99285

== ENCOUNTER → 2022-08-20 | Outpatient (CLI) | payer OTHER ==
--- NOTE | 2022-08-20 15:25 | US ---
EXAMINATION TYPE: US carotid duplex BILAT DATE OF EXAM: 08/20/2022 COMPARISON: NONE CLINICAL HISTORY: 47-year-old female H53.9 VISION CHANGES. TECHNIQUE: Carotid duplex ultrasound examination. Indirect Doppler criteria was utilized. FINDINGS: EXAM MEASUREMENTS: RIGHT: Peak Systolic Velocity (PSV) cm/sec ----- Right CCA: 78.8 ----- Right ICA: 65 ----- Right ECA: 80.6 ICA/CCA ratio: .8 RIGHT: End Diastole cm/sec ----- Right CCA: 20.8 ----- Right ICA: 40.9 ----- Right ECA: 16.2 LEFT: Peak Systolic Velocity (PSV) cm/sec ----- Left CCA: 92.2 ----- Left ICA: 81 ----- Left ECA: 100 ICA/CCA ratio: .8 LEFT: End Diastole cm/sec ----- Left CCA: 24.3 ----- Left ICA: 16.2 ----- Left ECA: 20.3 VERTEBRALS (direction of flow): Right Vertebral: Antegrade Left Vertebral: Antegrade Rhythm: Normal SINGER BACK TENDER NOTES: No significant stenosis seen IMPRESSION: No hemodynamically significant internal carotid artery stenosis on either side. Criteria for Assigning % of Stenosis / Diameter reduction (Estimation based on the indirect measurements of the internal carotid artery velocities (ICA PSV). 1. Normal (no stenosis)=ICA PSV < 125 cm/s: ratio < 2.0: ICA EDV<40 cm/s. 2. Less than 50% stenosis=ICA PSV < 125 cm/s: ratio < 2.0: ICA EDV<40 cm/s. 3. 50 to 69% stenosis=ICA PSV of 125 to 230 cm/s: ration 2.0 ? 4.0: ICA EDV 40-100 cm/s. 4. Greater than 70% stenosis to near occlusion= ICA PSV > 230 cm/s: ratio > 4.0: ICA EDV > 100 cm/s. 5. Near occlusion= ICA PSV velocities may be low or undetectable: variable ratio and ICA EDV. 6. Total occlusion=unable to detect flow.
== END | disposition home or self-care (01) ==
LOC: RADUSWWP 13:02
PROVIDERS: ATTEND Family Medicine
DX: H53.9 Unspecified visual disturbance (principal)
CPT/HCPCS: 93880

== ENCOUNTER → 2022-08-27 | Outpatient (CLI) | payer OTHER ==
--- NOTE | 2022-08-27 08:50 | MR ---
EXAMINATION TYPE: MR brain wo con DATE OF EXAM: 08/27/2022 8:24 AM COMPARISON: CT brain 08/03/2022. CLINICAL INDICATION:Female, 47 years old with history of H53.9 VISUAL DISTURBANCE; [facility], TECHNIQUE: Multi planar, multi sequence imaging was performed through the brain including: T1, T2, In version recovery, Diffusion weighted imaging, and gradient echo imaging. No gadolinium was given. FINDINGS: The arias-white junctions, ventricular system, and cisterns appear unremarkable. A few foci of high T2 /FLAIR signal intensity within the bilateral frontal lobes and bilateral parietal lobes subcortical w jes matter including a 8 mm focus in the left frontal lobe (series 501, image 20), a 2 mm focus in t he right frontal lobe (series 501, image 20), a 3 mm focus within the right frontal lobe (series 501, image 17), a 3 mm focus within the left parietal lobe (series 501, image 18), and a 5 mm focus withi n the right parietal lobe (series 501, 16). Midline structures show no abnormality. Diffusion-weight ed imaging shows no evidence of restricted diffusion. The susceptibility weighted images do not revea l any evidence for micro-hemorrhage. The bone marrow signal is within normal limits. The paranasal sinuses and globes are unremarkable. Bi lateral mastoid effusions demonstrated. IMPRESSION: 1. No evidence of acute/subacute infarct. 2. Nonspecific high T2/FLAIR signal intensity foci within the bilateral frontal lobe and parietal lob e subcortical white matter. Etiologies include chronic microangiopathy, demyelinating process, and se quelae of chronic migraines. 3. Bilateral mastoid effusions. Clinical correlation for mastoiditis is recommended.
== END | disposition home or self-care (01) ==
LOC: RADMRIMAIN 07:31
PROVIDERS: ATTEND Family Medicine
DX: H53.9 Unspecified visual disturbance (principal); H74.8X3 Other specified disorders of middle ear and mastoid, bilateral; G93.89 Other specified disorders of brain
CPT/HCPCS: 70551

== ENCOUNTER → 2022-08-31 | Outpatient (CLI) | payer OTHER ==
[2022-08-31 17:46] LABS: Appearance,Urine Clear (Clear); Bilirubin,Urine Negative (Negative); Blood,Urine Negative (Negative); Color,Urine Yellow (Yellow); Ketones,Urine Negative (Negative); Nitrite,Urine Negative (Negative); PH, Urine 6.5 (5.0-8.0); Specific Gravity,Urine 1.015 (1.001-1.030); Urobilinogen,Urine 0.2 (0.2,1.0)
[2022-08-31 17:52] LABS: Bacteria,Urine 1+ /HPF (None Seen)
[2022-08-31 18:17] LABS: % Iron Saturation 11.56 (12.00-45.00); ALT 30 U/L (8-44); AST 26 U/L (13-35); African American GFR (CKD) 67.5 (60.0-200.0); Albumin 3.6 g/dL (3.8-4.9); Albumin/Globulin Ratio 1.14 (1.60-3.17); Alkaline Phosphatase 84 U/L (41-126); BUN/Creat Ratio 10.97 Ratio (12.00-20.00); Blood Urea Nitrogen 12.4 mg/dL (9.0-27.0); Calcium 9.5 mg/dL (8.7-10.3); Carbon Dioxide 22.9 mmol/L (20.0-27.5); Chloride 104 mmol/L (96-109); Globulin 3.2 g/dL (1.6-3.3); Glucose 258 mg/dL (70-110); Iron 48 ug/dL (50-170); Magnesium 1.6 mg/dL (1.5-2.4); Non-African American GFR(CKD) 58.2 (60.0-200.0); Phosphorus 3.3 mg/dL (2.4-5.1); Potassium 4.4 mmol/L (3.5-5.5); Sodium 137 mmol/L (135-145); Total Bilirubin <0.15 mg/dL (0.30-1.20); Total Iron Binding Capacity 412 ug/dL (228-460); Total Protein 6.8 g/dL (6.2-8.2); Uric Acid 5.1 mg/dL (2.9-7.7)
[2022-08-31 19:50] LABS: Ferritin 65.5 ng/mL (10.0-291.0)
[2022-08-31 23:45] LABS: Urine Creatinine 80.7 mg/dL (28.0-217.0)
[2022-09-01 09:08] LABS: Total Volume 24 Hour,Urine 2450 mL
== END | disposition home or self-care (01) ==
LOC: LABWHC1 12:03
PROVIDERS: ATTEND Nurse Practitioner Family
DX: N18.2 Chronic kidney disease, stage 2 (mild) (principal); N25.81 Secondary hyperparathyroidism of renal origin; N39.0 Urinary tract infection, site not specified; D63.1 Anemia in chronic kidney disease; E55.9 Vitamin D deficiency, unspecified; M10.9 Gout, unspecified
CPT/HCPCS: 36415; 80053; 81001; 81050; 82043; 82306; 82570; 82728; 83540; 83550; 83735; 83970; 84100; 84156; 84550; 85025

== ENCOUNTER → 2022-09-01 | Outpatient (CLI) | payer OTHER ==
[2022-09-02 01:39] LABS: Basophils # (A) 0.05 X 10*3/uL (0.00-0.10); Basophils % (A) 0.7 %; Eosinophils # (A) 0.18 X 10*3/uL (0.04-0.35); Eosinophils % (A) 2.4 %; HCT 42.9 % (37.2-46.3); HGB 13.4 g/dL (12.0-15.0); Immature Grans, Automated 0.4 %; Lymphocytes # (A) 2.57 X 10*3/uL (0.90-5.00); Lymphocytes % (A) 33.9 %; MCH 27.5 pg (27.0-32.0); MCHC 31.2 g/dL (32.0-37.0); MCV 87.9 fL (80.0-97.0); Mean Platelet Volume 12.2 fL (9.5-12.2); Monocytes # (A) 0.49 X 10*3/uL (0.20-1.00); Monocytes % (A) 6.5 %; NRBC Per 100 WBC 0 /100 WBCS (0.0-0.0); Neutrophils # (A) 4.27 X 10*3/uL (1.80-7.70); Neutrophils % (A) 56.1 %; Platelet Count 271 X 10*3/uL (140-440); RBC 4.88 X 10*6/uL (4.10-5.20); RDW 13.9 % (11.5-14.5); WBC 7.59 X 10*3/uL (4.50-10.00)
== END | disposition home or self-care (01) ==
LOC: LABWHC1 14:10
PROVIDERS: ATTEND Nurse Practitioner Family
DX: N18.2 Chronic kidney disease, stage 2 (mild) (principal)
CPT/HCPCS: 36415; 85025

== ENCOUNTER → 2022-11-10 | Outpatient (CLI) | payer OTHER ==
[2022-11-10 22:33] LABS: Basophils # (A) 0.04 X 10*3/uL (0.00-0.10); Basophils % (A) 0.6 %; Eosinophils # (A) 0.09 X 10*3/uL (0.04-0.35); Eosinophils % (A) 1.3 %; HCT 38.2 % (37.2-46.3); HGB 12.1 g/dL (12.0-15.0); Immature Grans, Automated 0.6 %; Lymphocytes # (A) 2.54 X 10*3/uL (0.90-5.00); Lymphocytes % (A) 36.3 %; MCH 28.3 pg (27.0-32.0); MCHC 31.7 g/dL (32.0-37.0); MCV 89.3 fL (80.0-97.0); Mean Platelet Volume 12.3 fL (9.5-12.2); Monocytes # (A) 0.56 X 10*3/uL (0.20-1.00); NRBC Per 100 WBC 0 /100 WBCS (0.0-0.0); Neutrophils # (A) 3.73 X 10*3/uL (1.80-7.70); Neutrophils % (A) 53.2 %; Platelet Count 255 X 10*3/uL (140-440); RBC 4.28 X 10*6/uL (4.10-5.20); RDW 13.6 % (11.5-14.5)
[2022-11-10 22:54] LABS: Appearance,Urine Clear (Clear); Bilirubin,Urine Negative (Negative); Blood,Urine Trace (Negative); Color,Urine Yellow (Yellow); Ketones,Urine Negative (Negative); Nitrite,Urine Negative (Negative); PH, Urine 6.5 (5.0-8.0); Specific Gravity,Urine 1.018 (1.001-1.030); Urobilinogen,Urine 0.2 (0.2,1.0)
[2022-11-10 23:04] LABS: Bacteria,Urine None Seen /HPF (None Seen)
[2022-11-10 23:06] LABS: ALT 34 U/L (8-44); AST 23 U/L (13-35); African American GFR (CKD) 70.5 (60.0-200.0); Albumin 3.8 g/dL (3.8-4.9); Alkaline Phosphatase 66 U/L (41-126); BUN/Creat Ratio 20.46 Ratio (12.00-20.00); Blood Urea Nitrogen 22.3 mg/dL (9.0-27.0); Calcium 9.3 mg/dL (8.7-10.3); Carbon Dioxide 23.6 mmol/L (20.0-27.5); Chloride 107 mmol/L (96-109); Globulin 2.9 g/dL (1.6-3.3); Glucose 164 mg/dL (70-110); Iron 52 ug/dL (50-170); Magnesium 1.6 mg/dL (1.5-2.4); Non-African American GFR(CKD) 60.8 (60.0-200.0); Phosphorus 3.6 mg/dL (2.4-5.1); Potassium 4.7 mmol/L (3.5-5.5); Sodium 140 mmol/L (135-145); Total Bilirubin <0.15 mg/dL (0.30-1.20); Total Iron Binding Capacity 414 ug/dL (228-460); Total Protein 6.8 g/dL (6.2-8.2); Uric Acid 4.7 mg/dL (2.9-7.7)
== END | disposition home or self-care (01) ==
LOC: LABWHC1 13:34
PROVIDERS: ATTEND Nurse Practitioner Family
DX: N18.2 Chronic kidney disease, stage 2 (mild) (principal); D63.1 Anemia in chronic kidney disease; N39.0 Urinary tract infection, site not specified; N25.81 Secondary hyperparathyroidism of renal origin; E55.9 Vitamin D deficiency, unspecified; M10.9 Gout, unspecified; R80.9 Proteinuria, unspecified
CPT/HCPCS: 36415; 80053; 81001; 82043; 82306; 82570; 82728; 83540; 83550; 83735; 83970; 84100; 84550; 85025

== ENCOUNTER → 2022-11-30 | Outpatient (CLI) | payer OTHER ==
[2022-11-30 09:53] LABS: Basophils % (A) 0 %; Eosinophils # (A) 0.2 k/uL (0-0.7); Eosinophils % (A) 4 %; HCT 39.8 % (34.0-46.0); HGB 13.4 gm/dL (11.4-16.0); Lymphocytes # (A) 1.9 k/uL (1.0-4.8); Lymphocytes % (A) 32 %; MCH 28.7 pg (25.0-35.0); MCHC 33.6 g/dL (31.0-37.0); MCV 85.4 fL (80.0-100.0); Mean Platelet Volume 9.2; Monocytes # (A) 0.4 k/uL (0-1.0); Monocytes % (A) 7 %; Neutrophils # (A) 3.2 k/uL (1.3-7.7); Neutrophils % (A) 55 %; Platelet Count 238 k/uL (150-450); RBC 4.66 m/uL (3.80-5.40); RDW 13.9 % (11.5-15.5); WBC 5.8 k/uL (3.8-10.6)
[2022-11-30 10:00] LABS: Potassium 4.4 mmol/L (3.5-5.1)
[2022-11-30 10:16] LABS: INR 0.9 (<1.2); Prothrombin Time 9.7 sec (9.0-12.0)
[2022-11-30 10:21] LABS: Partial Thromboplastin Time 19.6 sec (22.0-30.0)
== END | disposition home or self-care (01) ==
LOC: LABWHC1 08:39
PROVIDERS: ATTEND Internal Medicine
DX: R80.9 Proteinuria, unspecified (principal)
CPT/HCPCS: 36415; 80051; 82565; 84520; 85025; 85610; 85730; 86850; 86900; 86901; 86920

== ENCOUNTER 2022-12-01 07:57 | Day surgery (SDC) | payer OTHER ==
[2022-12-01] MEDS ORDERED: ALPRAZolam 0.5 MG TAB PO PRN (08:25)
[2022-12-01] MEDS ORDERED: HYDROmorphone 0.5 MG/0.5 ML SYRINGE IVP PRN (08:25)
[2022-12-01] MEDS ORDERED: MICROFIBRILLAR COLLAGEN HEMOST 0.5 GM PACK TOPICAL ONE (08:50)
[2022-12-01] MEDS ORDERED: DESMOPRESSIN ACETATE 40 MCG in SODIUM CHLORIDE 0.9% 50 ML IV STA (08:54)
[2022-12-01 08:59] VITALS: TEMP 98
[2022-12-01 09:13] LABS: Glucose,Whole Blood 133 mg/dL (70-110)
[2022-12-01] MEDS ORDERED: hydrALAZINE HCL 20 MG/ML 1 ML VIAL IVP STA (10:20)
[2022-12-01 10:37] VITALS: RESP 16
--- NOTE | 2022-12-01 13:13 | CT ---
PROCEDURE: CT-guided random kidney biopsy DATE: 12/01/2022 BUILDING RENTAL SUPERINTENDENT: Dr. Costello CLINICAL HISTORY: Abnormal renal function COMPARISON: None ANESTHESIA: 1% local lidocaine PROCEDURE: The procedure, risks, and alternatives were discussed and all questions were answered. Written inform ed consent obtained. A complicating paperwork and verified for accuracy. Directed history and physica l exam performed prior to the procedure. Medication reconciliation performed by nursing personnel. Pr ocedure was performed using a cap, sterile gloves, hand hygiene, and Betadine for cutaneous antisepsi s. A cortical abby was performed with assisting personnel just prior to the procedure with the patien t's identity confirmed using 2 identifiers, confirming site and side. Limited noncontrast axial CT images of the upper abdomen with the patient in prone position demonstra te a suitable access window target the right kidney lower pole. An appropriate skin entry site was ma rked, prepped, and draped in usual sterile fashion. 1% lidocaine was administered to the skin and monica per soft tissues. A small skin incision was made. A 17-gauge coaxial needle was then advanced under i ntermittent CT guidance and a total of three 18-gauge core needle biopsy specimens were obtained. Eliud tene was administered into the needle upon removal to promote hemostasis. Limited post procedure CT i mages demonstrate expected postbiopsy changes without evidence of a significant hematoma. A sterile d ressing was placed. The patient tolerated the procedure well and there were no immediate complications. Blood loss was mi nimal. IMPRESSION: Successful, uncomplicated CT-guided random kidney biopsy.
--- NOTE | 2022-12-01 13:16 | CT ---
EXAMINATION TYPE: CT abdomen pelvis wo con DATE OF EXAM: 12/01/2022 COMPARISON: 12/01/2022 INDICATION: Poor Kidney function/eval kidneys DLP: 2374 mGycm, Automated exposure control for dose reduction was used. CONTRAST: 0 mL of Isovue 300. Study performed without Oral Contrast TECHNIQUE: Axial images were obtained from above the diaphragm to the pubic rami in the axial plane a t 5 mm thick sections. Reconstructed images are reviewed on the computer in the coronal plane. FINDINGS: Limited CT sections are obtained the lung bases. The lung bases are clear. CT ABDOMEN: Liver: Normal Spleen: Normal Pancreas: Atrophic Adrenal glands: Adrenal gland has a low density 1.9 cm nodule. Right adrenal gland appears normal Gallbladder: Normal Kidneys: No masses are evident. No hydronephrosis is present. No hydroureter or ureter No cysts are present. Is a 0.2 cm nonobstructing upper pole left renal stone. Couple of punctate posterior latera l left renal stones are present. There is a 0.3 cm inferior pole nonobstructing renal stone. Right ki dney and several cortical medullary junction stones are present. The larger in the inferior pole simona ures 0.2 cm. The larger superior pole measures 0.2 cm. Aorta: Vascular calcification is within the aorta. Inferior vena cava: Normal. CT PELVIS: Loops of bowel within the abdomen and pelvis are normal. The study is without oral contrast limit ing bowel evaluation. Appendix: Normal as visualized. Urinary bladder: Normal. Genitourinary structures: Uterus unremarkable. Adnexa are normal. Osseous structures: No suspicious lytic or sclerotic lesions. IMPRESSIONS: 1. Multiple bilateral punctate nonobstructing renal stones
[2022-12-01 16:03] VITALS: BP 127/69; PULSE 63
== END 2022-12-01 15:02 | disposition home or self-care (01) ==
LOC: RADPROMAIN 07:57
PROVIDERS: ATTEND Internal Medicine
DX: R94.4 Abnormal results of kidney function studies (principal); N18.2 Chronic kidney disease, stage 2 (mild); I12.9 Hypertensive chronic kidney disease with stage 1 through stage 4 chronic kidney disease, or unspecified chronic kidney disease; E11.22 Type 2 diabetes mellitus with diabetic chronic kidney disease; E66.01 Morbid (severe) obesity due to excess calories; Z68.42 Body mass index [BMI] 45.0-49.9, adult; N20.0 Calculus of kidney; K86.9 Disease of pancreas, unspecified; N25.81 Secondary hyperparathyroidism of renal origin; Z79.1 Long term (current) use of non-steroidal anti-inflammatories (NSAID); Z79.899 Other long term (current) drug therapy; Z72.0 Tobacco use; Z79.4 Long term (current) use of insulin; Z79.84 Long term (current) use of oral hypoglycemic drugs; Z98.890 Other specified postprocedural states
CPT/HCPCS: 50200; 77012; 74176; J2597

== ENCOUNTER → 2022-12-28 | Outpatient (CLI) | payer OTHER ==
[2022-12-29 02:17] LABS: Anion Gap 9.8 mmol/L (10.00-18.00); BUN/Creat Ratio 20.69 Ratio (12.00-20.00); Blood Urea Nitrogen 26.9 mg/dL (9.0-27.0); Calcium 9.4 mg/dL (8.7-10.3); Carbon Dioxide 23.2 mmol/L (20.0-27.5); Magnesium 1.7 mg/dL (1.5-2.4); Non-African American GFR(CKD) 49.2 (60.0-200.0); Potassium 4.9 mmol/L (3.5-5.5)
== END | disposition home or self-care (01) ==
LOC: LABWHC1 13:15
PROVIDERS: ATTEND Internal Medicine
DX: N18.2 Chronic kidney disease, stage 2 (mild) (principal)
CPT/HCPCS: 36415; 80048; 83735

== ENCOUNTER 2022-12-30 11:26 | Emergency (ER) | payer OTHER ==
[2022-12-30 13:09] LABS: Appearance,Urine Cloudy (Clear); Bacteria,Urine Rare /hpf; Bilirubin,Urine Negative (Negative); Blood,Urine Moderate (Negative); Budding Yeast,Urine Rare /hpf; Color,Urine Yellow; Glucose,Urine (UA) Negative (Negative); Ketones,Urine Negative (Negative); Leukocyte Esterase,Urine Large (Negative); Mucus,Urine Rare /hpf; Nitrite,Urine Negative (Negative); Protein,Urine 2+ (Negative); RBC,Urine >182 /hpf (0-5); Specific Gravity,Urine 1.017 (1.001-1.035); Squamous Epithelial Cell,Urine 5 /hpf (0-4); Urobilinogen,Urine <2.0 mg/dL (<2.0); WBC,Urine >182 /hpf (0-5)
[2022-12-30] MEDS ORDERED: cefTRIAXone 1,000 MG VIAL (IM USE) IM STA (13:46)
--- NOTE | 2022-12-30 13:48 | ED ---
Abdominal Pain HPI - General Chief Complaint: Abdominal Pain Stated Complaint: poss uti Time Seen by Provider: 12/30/22 13:47 Source: patient, RN notes reviewed Mode of arrival: ambulatory Limitations: no limitations - History of Present Illness Initial Comments: 47-year-old female presents emergency Department with chief complaint of dysuria. Patient complains of lower abdominal discomfort. Patient states she feels like she is UTI. Patient has had some renal disease which it's from her diabetes. Patient is followed by nephrology had lab work 2 days ago which was unremarkable. Patient has appears or chills no nausea vomiting - Related Data Home Medications Medication Instructions Recorded Confirmed INSULIN LISPRO (HumaLOG) [humaLOG] 15 units SQ AC-TID 08/01/16 12/01/22 Metoprolol Tartrate [Lopressor] 50 mg PO TID 09/22/16 12/01/22 Insulin Glargine,Hum.rec.anlog 18 unit SQ BID 11/11/20 12/01/22 [Lantus Solostar Pen] Losartan Potassium [Cozaar] 100 mg PO DAILY 11/11/20 12/01/22 metFORMIN HCL [Glucophage] 1,000 mg PO BID 11/11/20 12/01/22 Buprenorphine HCl/Naloxone HCl 1 film SL TID 02/01/21 12/01/22 [Suboxone 8 mg-2 mg Sl Film] Ergocalciferol [Vitamin D2 (1250 1,250 mcg PO WEEKLY 11/19/22 12/01/22 Mcg = 02759 Iu)] Ferrous Sulfate [Iron] 325 mg PO DAILY 11/19/22 12/01/22 hydrALAZINE HCL 50 mg PO TID 11/19/22 12/01/22 Previous Rx's Medication Instructions Recorded Cephalexin [Keflex] 500 mg PO Q8HR #21 cap 12/30/22 Fluconazole [Diflucan] 150 mg PO ONCE #3 tab 12/30/22 Phenazopyridine [Pyridium] 200 mg PO TID #6 tablet 12/30/22 Allergies Allergy/AdvReac Type Severity Reaction Status Date / Time hydrochlorothiazide Allergy Rash/Hives Verified 12/30/22 12:31 [From Zestoretic] lisinopril [From Zestoretic] Allergy Rash/Hives Verified 12/30/22 12:31 Review of Systems ROS Statement: Those systems with pertinent positive or pertinent negative responses have been documented in the HPI. ROS Other: All systems not noted in ROS Statement are negative. Past Medical History Past Medical History: Diabetes Mellitus, GERD/Reflux, Hypertension, Osteoarthritis (OA), Renal Disease Additional Past Medical History / Comment(s): Cystoscopy with right ureteroscopy and lithotripsy 02/23/2018, Cystoscopy with placementy left JJ catheter 04/19/2018, UTIs, IDDM type II, chronic back pain, kidney stones History of Any Multi-Drug Resistant Organisms: None Reported Past Surgical History: Back Surgery, Section, Cholecystectomy Additional Past Surgical History / Comment(s): ESWL unsuccessful x 2, ureteroscopy for stone removal, cystoscopy with double J catheter placed on 04/19/18, t8-t12 fusion, x 1 Past Anesthesia/Blood Transfusion Reactions: Previous Problems w/ Anesthesia Additional Past Anesthesia/Blood Transfusion Reaction / Comment(s): no previous blood transfusion and elevated blood pressure post anesthesia Past Psychological History: Anxiety, Bipolar, Depression Smoking Status: Former smoker, Vaper Past Alcohol Use History: None Reported Past Drug Use History: None Reported - Past Family History Father Family Medical History: Diabetes Mellitus Mother Additional Family Medical History / Comment(s): bipolar depression anxiety General Exam Limitations: no limitations General appearance: alert, in no apparent distress Head exam: Present: atraumatic, normocephalic, normal inspection Respiratory exam: Present: normal lung sounds bilaterally. Absent: respiratory distress, wheezes, rales, rhonchi, stridor Cardiovascular Exam: Present: regular rate, normal rhythm, normal heart sounds. Absent: systolic murmur, diastolic murmur, rubs, gallop, clicks GI/Abdominal exam: Present: soft, normal bowel sounds. Absent: distended, tenderness, guarding, rebound, rigid Back exam: Absent: CVA tenderness (R), CVA tenderness (L) Course Vital Signs 12/30/22 12/30/22 12:28 14:25 Temperature 97.9 F 97.8 F Pulse Rate 50 L 61 Respiratory 20 18 Rate Blood Pressure 128/80 131/82 O2 Sat by Pulse 98 97 Oximetry Medical Decision Making - Medical Decision Making Was pt. sent in by a medical professional or institution (, PA, PEDIATRICS PHYSICIAN, urgent care, hospital, or assisted...) When possible be specific @ -[No] Did you speak to anyone other than the patient for history (EMS, parent, family, police, friend...)? What history was obtained from this source @ -[No] Did you review nursing and triage notes (agree or disagree)? Why? @ -[I reviewed and agree with nursing and triage notes] Were old charts reviewed (outside hosp., previous admission, EMS record, old EKG, old radiological studies, urgent care reports/EKG's, assisted records)? Report findings @ -[Reviewed laboratory studies from 2 days ago] Differential Diagnosis (chest pain, altered mental status, abdominal pain women, abdominal pain men, vaginal bleeding, weakness, fever, dyspnea, syncope, headache, dizziness, GI bleed, back pain, seizure, CVA, palpatations, mental health, musculoskeletal)? @ -[Differential Abdominal Pain Women: Appendicitis, Cholecystitis, diverticulosis, ischemic bowel, pancreatitis, hepatitis, UTI, gastroenteritis, AAA, incarcerated hernia, bowel obstruction, constipation, inflammatory bowel, hepatitis, peptic ulcer disease, splenic infarction, perforated viscus, vulvitis, ovarian torsion, PID, kidney stone, placenta abruption, this is not meant to be an all-inclusive listble] EKG interpreted by me (3pts min.). @ -[None] X-rays interpreted by me (1pt min.). @ -[None done] CT interpreted by me (1pt min.). @ -[None done] U/S interpreted by me (1pt. min.). @ -[None done] What testing was considered but not performed or refused? (CT, X-rays, U/S, labs)? Why? @ -[None] What meds were considered but not given or refused? Why? @ -[None] Did you discuss the management of the patient with other professionals (professionals i.e. , PA, PEDIATRICS PHYSICIAN, lab, RT, psych nurse, renal social worker, automotive sales specialist, t eacher, client sales and service officer, case finishing machine adjuster)? Give summary @ -[No] Was smoking cessation discussed for >3mins.? @ -[No] Was critical care preformed (if so, how long)? @ -[No] Were there social determinants of health that impacted care today? How? (Homelessness, low income, unemployed, alcoholism, drug addiction, transportation, low edu. Level, literacy, decrease access to med. care, longterm, rehab)? @ -[No] Was there de-escalation of care discussed even if they declined (Discuss DNR or withdrawal of care, Hospice)? DNR status @ -[No] What co-morbidities impacted this encounter? (DM, HTN, Smoking, COPD, CAD, Cance r, CVA, ARF, Chemo, Hep., AIDS, mental health diagnosis, sleep apnea, morbid obesity)? @ -[None] Was patient admitted / discharged? Hospital course, mention meds given and route, prescriptions, significant lab abnormalities, going to OR and other pertinent info. @ -[Discharge patient has evidence urinary tract infection patient was given Ro cephin and discharged on Keflex, prior exam and Diflucan] Undiagnosed new problem with uncertain prognosis? @ -[No] Drug Therapy requiring intensive monitoring for toxicity (Heparin, Nitro, Insulin, Cardizem)? @ -[No] Were any procedures done? @ -[No] Diagnosis/symptom? @ -[UTI] Acute, or Chronic, or Acute on Chronic? @ -acute Uncomplicated (without systemic symptoms) or Complicated (systemic symptoms)? @ -Uncomplicated Side effects of treatment? @ -[No] Exacerbation, Progression, or Severe Exacerbation? @ -[No] Poses a threat to life or bodily function? How? (Chest pain, [place], [place], pneumonia, PE, COPD, DKA, ARF, appy, cholecystitis, CVA, Diverticulitis, Homicidal, [place], threat to staff... and all critical care pts) @ -[No] - Lab Data Lab Results 12/30/22 Range/Units 12:31 Urine Color Yellow Urine Appearance Cloudy H (Clear) Urine pH 6.0 (5.0-8.0) Ur Specific [place] 1.017 (1.001-1.035) Urine Protein 2+ H (Negative) Urine Glucose (UA) Negative (Negative) Urine Ketones Negative (Negative) Urine Blood Moderate H (Negative) Urine Nitrite Negative (Negative) Urine Bilirubin Negative (Negative) Urine Urobilinogen <2.0 (<2.0) mg/dL Ur Leukocyte Esterase Large H (Negative) Urine RBC >182 H (0-5) /hpf Urine WBC >182 H (0-5) /hpf Ur Squamous Epith Cells 5 H (0-4) /hpf Urine Bacteria Rare H (None) /hpf Urine Mucus Rare H (None) /hpf Urine Yeast (Budding) Rare H (None) /hpf Disposition Clinical Impression: Urinary tract infection Disposition: HOME SELF-CARE Condition: Stable Instructions (If sedation given, give patient instructions): Urinary Tract Infection in Women (ED) Additional Instructions: Please return to the Emergency Department if symptoms worsen or any other concerns. Prescriptions: Fluconazole [Diflucan] 150 mg PO ONCE #3 tab Cephalexin [Keflex] 500 mg PO Q8HR #21 cap Phenazopyridine [Pyridium] 200 mg PO TID #6 tablet Is patient prescribed a controlled substance at d/c from ED?: No Referrals: Malia Finney MD [STAFF PHYSICIAN] - 1-2 days Time of Disposition: 13:48
[2022-12-30 14:27] VITALS: BP 131/82; PULSE 61; RESP 18; TEMP 97.8
== END 2022-12-30 14:25 | disposition home or self-care (01) ==
LOC: EC 11:26
DX: N39.0 Urinary tract infection, site not specified (principal); E11.9 Type 2 diabetes mellitus without complications; I10 Essential (primary) hypertension; M19.90 Unspecified osteoarthritis, unspecified site; F41.9 Anxiety disorder, unspecified; F31.9 Bipolar disorder, unspecified; F17.290 Nicotine dependence, other tobacco product, uncomplicated; Z79.4 Long term (current) use of insulin; Z79.84 Long term (current) use of oral hypoglycemic drugs; Z79.899 Other long term (current) drug therapy; Z88.6 Allergy status to analgesic agent; Z88.8 Allergy status to other drugs, medicaments and biological substances
CPT/HCPCS: 81001; 87086; 99284; 96372; J0696

== ENCOUNTER 2023-01-01 11:49 | Emergency (ER) | payer OTHER ==
[2023-01-01 11:54] VITALS: TEMP 98.4
--- NOTE | 2023-01-01 12:20 | ED ---
Female Urogenital HPI - General Chief complaint: Urogenital Stated complaint: Poss Kidney Infection Time Seen by Provider: 01/01/23 11:59 Source: patient, RN notes reviewed Mode of arrival: ambulatory Limitations: no limitations - History of Present Illness Initial comments: This is a 47-year-old female who presents to the emergency department for bilate ral flank pain. Patient was evaluated here 2 days ago and states that the symptoms have persisted. However, they have not worsened. She was started on Keflex for a UTI, which she states that she has a frequent history of. Her largest concern is that she is not on the correct antibiotic given that symptoms have not improved whatsoever. Her nausea is well controlled with the Zofran that was prescribed. She is also taking the Pyridium, which has been helpful. States that she leaving for a two-week cruise tomorrow and wants to get this taken care of before leaving. She is taking Tylenol for pain relief, which she states is mildly helpful. Denies any fevers, chills, sore throat, cough, dyspnea, chest pain, palpitations, abdominal pain, vomiting, diarrhea, or headaches. MD Complaint: dysuria, other (flank pain) - Related Data Home Medications Medication Instructions Recorded Confirmed INSULIN LISPRO (HumaLOG) [humaLOG] 15 units SQ AC-TID 08/01/16 12/01/22 Metoprolol Tartrate [Lopressor] 50 mg PO TID 09/22/16 12/01/22 Insulin Glargine,Hum.rec.anlog 18 unit SQ BID 11/11/20 12/01/22 [Lantus Solostar Pen] Losartan Potassium [Cozaar] 100 mg PO DAILY 11/11/20 12/01/22 metFORMIN HCL [Glucophage] 1,000 mg PO BID 11/11/20 12/01/22 Buprenorphine HCl/Naloxone HCl 1 film SL TID 02/01/21 12/01/22 [Suboxone 8 mg-2 mg Sl Film] Ergocalciferol [Vitamin D2 (1250 1,250 mcg PO WEEKLY 11/19/22 12/01/22 Mcg = 63302 Iu)] Ferrous Sulfate [Iron] 325 mg PO DAILY 11/19/22 12/01/22 hydrALAZINE HCL 50 mg PO TID 04/06/23 04/18/23 Previous Rx's Medication Instructions Recorded Cephalexin [Keflex] 500 mg PO Q8HR #21 cap 12/30/22 Phenazopyridine [Pyridium] 200 mg PO TID #6 tablet 12/30/22 Cefpodoxime Proxetil [Vantin] 200 mg PO Q12HR 10 Days #20 tab 01/01/23 Fluconazole [Diflucan] 150 mg PO ONCE #3 tab 01/01/23 Levofloxacin [Levaquin] 750 mg PO DAILY 1 Days #1 tab 01/01/23 Ondansetron Odt [Zofran Odt] 4 mg PO Q8HR PRN #15 tab 01/01/23 Allergies Allergy/AdvReac Type Severity Reaction Status Date / Time hydrochlorothiazide Allergy Rash/Hives Verified 01/01/23 11:54 [From Zestoretic] lisinopril [From Zestoretic] Allergy Rash/Hives Verified 01/01/23 11:54 Review of Systems ROS Statement: Those systems with pertinent positive or pertinent negative responses have been documented in the HPI. ROS Other: All systems not noted in ROS Statement are negative. Past Medical History Past Medical History: Diabetes Mellitus, GERD/Reflux, Hypertension, Osteoarthritis (OA), Renal Disease Additional Past Medical History / Comment(s): Cystoscopy with right ureteroscopy and lithotripsy 02/23/2018, Cystoscopy with placementy left JJ catheter 04/19/2018, UTIs, IDDM type II, chronic back pain, kidney stones History of Any Multi-Drug Resistant Organisms: None Reported Past Surgical History: Back Surgery, Section, Cholecystectomy Additional Past Surgical History / Comment(s): ESWL unsuccessful x 2, ureteroscopy for stone removal, cystoscopy with double J catheter placed on 04/19/18, t8-t12 fusion, x 1 Past Anesthesia/Blood Transfusion Reactions: Previous Problems w/ Anesthesia Additional Past Anesthesia/Blood Transfusion Reaction / Comment(s): no previous blood transfusion and elevated blood pressure post anesthesia Past Psychological History: Anxiety, Bipolar, Depression Smoking Status: Former smoker, Vaper Past Alcohol Use History: None Reported Past Drug Use History: None Reported - Past Family History Father Family Medical History: Diabetes Mellitus Mother Additional Family Medical History / Comment(s): bipolar depression anxiety General Exam Limitations: no limitations General appearance: alert, in no apparent distress Head exam: Present: atraumatic, normocephalic, normal inspection Respiratory exam: Present: normal lung sounds bilaterally. Absent: respiratory distress, wheezes, rales, rhonchi, stridor Cardiovascular Exam: Present: regular rate, normal rhythm, normal heart sounds. Absent: systolic murmur, diastolic murmur, rubs, gallop, clicks GI/Abdominal exam: Present: soft, normal bowel sounds. Absent: distended, tenderness, guarding, rebound, rigid Back exam: Present: normal inspection, full ROM, CVA tenderness (R), CVA tenderness (L) Neurological exam: Present: alert, oriented X3, CN II-XII intact Psychiatric exam: Present: normal affect, normal mood Skin exam: Present: warm, dry, intact, normal color. Absent: rash Course Vital Signs 01/01/23 01/01/23 11:50 14:43 Temperature 98.4 F Pulse Rate 65 68 Respiratory 20 18 Rate Blood Pressure 152/87 147/79 O2 Sat by Pulse 97 98 Oximetry Medical Decision Making - Medical Decision Making This is a 47-year-old female who presents to the emergency department for bila teral flank pain. Was pt. sent in by a medical professional or institution? @ -No Did you speak to anyone other than the patient for history? @ -No Did you review nursing and triage notes? @ -Yes, and I agree, it is accurate with regards to the patient's symptoms. Were old charts reviewed? @ -Yes, urinalysis and urine culture from 12/30/22. Urinalysis did look infected, however the urine culture did not grow any bacteria. Differential Diagnosis? @ -Differential Back Pain: Strain, zoster, cauda equina syndrome, epidural abscess, vertebral osteomyelitis, discitis, fracture, subluxation, disc herniation, DJD, spinal stenosis, dissection, AAA, pancreatitis, peptic ulcer disease, pyelonephritis, kidney stone, this is not meant to be an all-inclusive list. EKG interpreted by me (3pts min.)? @ -Not obtained X-rays interpreted by me (1pt min.)? @ -Not obtained CT interpreted by me (1pt min.)? @ -Not obtained U/S interpreted by me (1pt. min.)? @ -Not obtained What testing was considered but not performed? (CT, X-rays, U/S, labs)? Why? @ -None What meds were considered but not given? Why? @ -None Did you discuss the management of the patient with other professionals? @ -No Did you reconcile home meds? @ -No Was smoking cessation discussed for >3mins.? @ -No Was critical care preformed (if so, how long)? @ -No Were there social determinants of health that impacted care today? How? (Homelessness, low income, unemployed, alcoholism, drug addiction, transportation, low edu. Level, literacy, decrease access to med. care, group home, rehab)? @ -No Was there de-escalation of care discussed even if they declined? (Discuss DNR or withdrawal of care, Hospice)? @ -No What co-morbidities impacted this encounter? (DM, HTN, Smoking, COPD, CAD, Cancer, CVA, Hep., AIDS, mental health diagnosis, sleep apnea, morbid obesity)? @ -DM, renal disease Was patient admitted / discharged? @ -Discharged. I reviewed the urine culture and urinalysis from 12/30. Her urinalysis did appear to be consistent with a UTI, however the urine culture did not grow any bacteria. Lab work obtained as well with findings suggestive of dehydration with regards to the elevated BUN and lactic acid. She was drinking IV fluids in the examination room. Toradol administered for discomfort. The UA obtained today appears much more infected compared with that obtained 2 days ago. Given that the Keflex is not effective, we will change antibiotics. However, because she is leaving on a cruise and will be gone for 2 weeks without access to medical care, I prescribed both levofloxacin and Vantin in the event one of them is not effective. Instructed her to start with the levofloxacin, and if she has no improvement in 1-2 days, to stop taking that and try the Vantin. Refill on Zofran provided. She was also given another prescription for Diflucan as she tends to get yeast infections with antibiotics. Otherwise advised she continue with supportive care. Undiagnosed new problem with uncertain prognosis? @ -None Drug Therapy requiring intensive monitoring for toxicity (Heparin, Nitro, Insulin, Cardizem)? @ -None Were any procedures done? @ -None Diagnosis/symptom? @ -UTI, dehydration Acute, or Chronic, or Acute on Chronic? @ -Acute Uncomplicated (without systemic symptoms) or Complicated (systemic symptoms)? @ -Uncomplicated Side effects of treatment? @ -None Exacerbation, Progression, or Severe Exacerbation] @ -Not applicable Poses a threat to life or bodily function? @ -No Return precautions reviewed in depth, the patient is instructed to return to the emergency department with any new, worsening, or concerning symptoms. Patient verbalized understanding. This case was discussed in detail with the attending ED physician, Dr. Walters. Presentation, findings, and treatment plan discussed in detail as well. - Lab Data Result diagrams: 01/01/23 12:06 01/01/23 12:06 Lab Results 01/01/23 01/01/23 01/01/23 Range/Units 12:06 12:06 12:06 WBC 6.4 (3.8-10.6) k/uL RBC 4.44 (3.80-5.40) m/uL Hgb 12.9 (11.4-16.0) gm/dL Hct 38.6 (34.0-46.0) % MCV 86.8 (80.0-100.0) fL MCH 29.1 (25.0-35.0) pg MCHC 33.5 (31.0-37.0) g/dL RDW 13.5 (11.5-15.5) % Plt Count 230 (150-450) k/uL MPV 8.6 Neutrophils % 59 % Lymphocytes % 33 % Monocytes % 5 % Eosinophils % 3 % Basophils % 0 % Neutrophils # 3.8 (1.3-7.7) k/uL Lymphocytes # 2.1 (1.0-4.8) k/uL Monocytes # 0.3 (0-1.0) k/uL Eosinophils # 0.2 (0-0.7) k/uL Basophils # 0.0 (0-0.2) k/uL Sodium 140 (137-145) mmol/L Potassium 4.4 (3.5-5.1) mmol/L Chloride 105 (98-107) mmol/L Carbon Dioxide 26 (22-30) mmol/L Anion Gap 9 mmol/L BUN 23 H (7-17) mg/dL Creatinine 1.22 H (0.52-1.04) mg/dL Est GFR (CKD-EPI)AfAm 62 (>60 ml/min/1.73 sqM) Est GFR (CKD-EPI)NonAf 53 (>60 ml/min/1.73 sqM) Glucose 209 H (74-99) mg/dL Lactic Ac Sepsis Rflx Plasma Lactic Acid Danny (0.7-2.0) mmol/L Calcium 9.2 (8.4-10.2) mg/dL Total Bilirubin 0.3 (0.2-1.3) mg/dL AST 22 (14-36) U/L ALT 25 (4-34) U/L Alkaline Phosphatase 71 (38-126) U/L Total Protein 7.0 (6.3-8.2) g/dL Albumin 3.7 (3.5-5.0) g/dL Urine Color Dark Brown Urine Appearance Cloudy H (Clear) Urine pH 6.0 (5.0-8.0) Ur Specific [place] 1.018 (1.001-1.035) Urine Protein 2+ H (Negative) Urine Glucose (UA) Negative (Negative) Urine Ketones Negative (Negative) Urine Blood Moderate H (Negative) Urine Nitrite Positive H (Negative) Urine Bilirubin 1+ H (Negative) Urine Urobilinogen 4.0 (<2.0) mg/dL Ur Leukocyte Esterase Large H (Negative) Urine RBC >182 H (0-5) /hpf Urine WBC >182 H (0-5) /hpf Urine WBC Clumps Few H (None) /hpf Ur Squamous Epith Cells 7 H (0-4) /hpf Urine Bacteria Rare H (None) /hpf Urine Mucus Rare H (None) /hpf 01/01/23 01/01/23 Range/Units 12:06 13:27 WBC (3.8-10.6) k/uL RBC (3.80-5.40) m/uL Hgb (11.4-16.0) gm/dL Hct (34.0-46.0) % MCV (80.0-100.0) fL MCH (25.0-35.0) pg MCHC (31.0-37.0) g/dL RDW (11.5-15.5) % Plt Count (150-450) k/uL MPV Neutrophils % % Lymphocytes % % Monocytes % % Eosinophils % % Basophils % % Neutrophils # (1.3-7.7) k/uL Lymphocytes # (1.0-4.8) k/uL Monocytes # (0-1.0) k/uL Eosinophils # (0-0.7) k/uL Basophils # (0-0.2) k/uL Sodium (137-145) mmol/L Potassium (3.5-5.1) mmol/L Chloride (98-107) mmol/L Carbon Dioxide (22-30) mmol/L Anion Gap mmol/L BUN (7-17) mg/dL Creatinine (0.52-1.04) mg/dL Est GFR (CKD-EPI)AfAm (>60 ml/min/1.73 sqM) Est GFR (CKD-EPI)NonAf (>60 ml/min/1.73 sqM) Glucose (74-99) mg/dL Lactic Ac Sepsis Rflx Y Plasma Lactic Acid Danny 3.1 H* (0.7-2.0) mmol/L Calcium (8.4-10.2) mg/dL Total Bilirubin (0.2-1.3) mg/dL AST (14-36) U/L ALT (4-34) U/L Alkaline Phosphatase (38-126) U/L Total Protein (6.3-8.2) g/dL Albumin (3.5-5.0) g/dL Urine Color Urine Appearance (Clear) Urine pH (5.0-8.0) Ur Specific [place] (1.001-1.035) Urine Protein (Negative) Urine Glucose (UA) (Negative) Urine Ketones (Negative) Urine Blood (Negative) Urine Nitrite (Negative) Urine Bilirubin (Negative) Urine Urobilinogen (<2.0) mg/dL Ur Leukocyte Esterase (Negative) Urine RBC (0-5) /hpf Urine WBC (0-5) /hpf Urine WBC Clumps (None) /hpf Ur Squamous Epith Cells (0-4) /hpf Urine Bacteria (None) /hpf Urine Mucus (None) /hpf Disposition Clinical Impression: UTI (urinary tract infection) Disposition: HOME SELF-CARE Instructions (If sedation given, give patient instructions): Urinary Tract Infection in Women (ED) Additional Instructions: Return to the emergency department with any new, worsening, or concerning symptoms. Stop taking the Keflex. Start taking the Levaquin as prescribed for 5 days. If you do not start having improvement in 1-2 days, stop taking this and instead take the cefpodoxime as prescribed. You can continue to take Tylenol as needed for pain relief. You can also take the Zofran up to every 8 hours as needed for nausea and vomiting. Prescriptions: Fluconazole [Diflucan] 150 mg PO ONCE #3 tab Levofloxacin [Levaquin] 750 mg PO DAILY 1 Days #1 tab Cefpodoxime Proxetil [Vantin] 200 mg PO Q12HR 10 Days #20 tab Ondansetron Odt [Zofran Odt] 4 mg PO Q8HR PRN #15 tab PRN Reason: Nausea And Vomiting Is patient prescribed a controlled substance at d/c from ED?: No Referrals: Malia Finney MD [Primary Care Provider] - 1-2 days
[2023-01-01 12:42] LABS: Basophils % (A) 0 %; Eosinophils # (A) 0.2 k/uL (0-0.7); Eosinophils % (A) 3 %; HCT 38.6 % (34.0-46.0); HGB 12.9 gm/dL (11.4-16.0); Lymphocytes # (A) 2.1 k/uL (1.0-4.8); Lymphocytes % (A) 33 %; MCH 29.1 pg (25.0-35.0); MCHC 33.5 g/dL (31.0-37.0); MCV 86.8 fL (80.0-100.0); Mean Platelet Volume 8.6; Monocytes # (A) 0.3 k/uL (0-1.0); Monocytes % (A) 5 %; Neutrophils # (A) 3.8 k/uL (1.3-7.7); Neutrophils % (A) 59 %; Platelet Count 230 k/uL (150-450); RBC 4.44 m/uL (3.80-5.40); RDW 13.5 % (11.5-15.5); WBC 6.4 k/uL (3.8-10.6)
[2023-01-01 12:59] LABS: Appearance,Urine Cloudy (Clear); Bacteria,Urine Rare /hpf; Bilirubin,Urine 1+ (Negative); Blood,Urine Moderate (Negative); Color,Urine Dark Brown; Glucose,Urine (UA) Negative (Negative); Ketones,Urine Negative (Negative); Leukocyte Esterase,Urine Large (Negative); Mucus,Urine Rare /hpf; Nitrite,Urine Positive (Negative); Protein,Urine 2+ (Negative); RBC,Urine >182 /hpf (0-5); Specific Gravity,Urine 1.018 (1.001-1.035); Squamous Epithelial Cell,Urine 7 /hpf (0-4); WBC,Urine >182 /hpf (0-5)
[2023-01-01 13:01] LABS: Albumin 3.7 g/dL (3.5-5.0); Calcium 9.2 mg/dL (8.4-10.2); Potassium 4.4 mmol/L (3.5-5.1); Total Bilirubin 0.3 mg/dL (0.2-1.3)
[2023-01-01] MEDS ORDERED: cefTRIAXone 1,000 MG VIAL (IM USE) IM STA (13:55)
[2023-01-01] MEDS ORDERED: cefTRIAXone IN SWFI 1,000 MG/10 ML SYRINGE IVP STA (13:58)
[2023-01-01] MEDS ORDERED: ACET/COD 300 MG/30 MG STARTER PACK 6 TAB BTL PO STA (13:58)
[2023-01-01] MEDS ORDERED: MORPHINE SULFATE 2 MG/ML SYRINGE IVP STA (13:58)
[2023-01-01] MEDS ORDERED: ACETAMINOPHEN TAB 325 MG TAB PO STA (14:01)
[2023-01-01] MEDS ORDERED: KETOROLAC 15 MG/ML 1 ML VIAL IVP STA (14:01)
[2023-01-01 14:43] VITALS: BP 147/79; PULSE 68; RESP 18
== END 2023-01-01 14:43 | disposition home or self-care (01) ==
LOC: EC 11:49
DX: N39.0 Urinary tract infection, site not specified (principal); E11.9 Type 2 diabetes mellitus without complications; I10 Essential (primary) hypertension; M19.90 Unspecified osteoarthritis, unspecified site; F41.9 Anxiety disorder, unspecified; F31.9 Bipolar disorder, unspecified; F17.290 Nicotine dependence, other tobacco product, uncomplicated; Z79.4 Long term (current) use of insulin; Z79.84 Long term (current) use of oral hypoglycemic drugs; Z88.8 Allergy status to other drugs, medicaments and biological substances; Z79.899 Other long term (current) drug therapy; Z79.1 Long term (current) use of non-steroidal anti-inflammatories (NSAID)
CPT/HCPCS: 36415; 80053; 83605; 85025; 81001; 87086; 99284; 96374; 96375; J0696; J1885

== ENCOUNTER → 2023-02-18 | Outpatient (CLI) | payer OTHER ==
[2023-02-18 21:04] LABS: Basophils # (A) 0.04 X 10*3/uL (0.00-0.10); Basophils % (A) 0.5 %; Eosinophils # (A) 0.16 X 10*3/uL (0.04-0.35); Eosinophils % (A) 2.1 %; HCT 40.6 % (37.2-46.3); HGB 13.6 d/dL (12.0-15.0); Lymphocytes # (A) 2.99 X 10*3/uL (0.90-5.00); Lymphocytes % (A) 38.4 %; MCH 28.7 pg (27.0-32.0); MCHC 33.5 d/dL (32.0-37.0); MCV 85.7 FL (80.0-97.0); Mean Platelet Volume 12.7 FL (9.5-12.2); Monocytes % (A) 6.4 %; NRBC Per 100 WBC 0 X 10*3/uL (0.00-0.01); Neutrophils # (A) 4.05 X 10*3/uL (1.80-7.70); Neutrophils % (A) 52.1 %; Platelet Count 261 X 10*3/uL (140-440); RBC 4.74 X 10*6/uL (4.10-5.20); RDW 13.4 % (11.5-14.5); WBC 7.78 X 10*3/uL (4.50-10.00)
[2023-02-18 21:34] LABS: Appearance,Urine Clear (Clear); Bilirubin,Urine Negative (Negative); Blood,Urine Trace (Negative); Color,Urine Yellow (Yellow); Ketones,Urine Negative (Negative); Nitrite,Urine Negative (Negative); Specific Gravity,Urine 1.018 (1.001-1.030)
[2023-02-18 21:45] LABS: % Iron Saturation 12.44 (12.00-45.00); BUN/Creat Ratio 18.31 Ratio (12.00-20.00); Blood Urea Nitrogen 23.8 mg/dL (9.0-27.0); Chol/HDL Ratio 2.93 Ratio; Glucose 178 mg/dL (70-110); Iron 53 UG/DL (50-170); Magnesium 1.8 mg/dL (1.5-2.4); Phosphorus 3.6 mg/dL (2.4-5.1); Total Iron Binding Capacity 426 UG/DL (228-460); Uric Acid 6.4 mg/dL (2.9-7.7)
[2023-02-18 21:46] LABS: Calcium 9.8 mg/dL (8.7-10.3); Carbon Dioxide 23.1 mmol/L (21.6-31.8); Chloride 107 mmol/L (96-109); Ferritin 49.7 ng/mL (10.0-291.0); Potassium 4.6 mmol/L (3.5-5.5); Sodium 141 mmol/L (135-145)
[2023-02-18 22:04] LABS: Bacteria,Urine Trace
== END | disposition home or self-care (01) ==
LOC: LABWHC1 15:36
PROVIDERS: ATTEND Internal Medicine
DX: E55.9 Vitamin D deficiency, unspecified (principal); D63.1 Anemia in chronic kidney disease; N39.0 Urinary tract infection, site not specified; N25.81 Secondary hyperparathyroidism of renal origin; N18.2 Chronic kidney disease, stage 2 (mild); M10.9 Gout, unspecified
CPT/HCPCS: 36415; 80048; 80061; 81001; 82043; 82306; 82570; 82728; 83540; 83550; 83735; 83970; 84100; 84550; 85025; 87086

== ENCOUNTER 2023-03-12 17:16 | Emergency (ER) | payer OTHER ==
[2023-03-12 17:47] VITALS: TEMP 98.2
[2023-03-12] MEDS ORDERED: KETOROLAC 15 MG/ML 1 ML VIAL IM STA (19:43)
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
[2023-03-12 21:35] VITALS: BP 130/89; PULSE 63; RESP 14
== END 2023-03-12 21:39 | disposition home or self-care (01) ==
LOC: EC 17:16
DX: S29.9XXA Unspecified injury of thorax, initial encounter (principal); E11.9 Type 2 diabetes mellitus without complications; I10 Essential (primary) hypertension; M19.90 Unspecified osteoarthritis, unspecified site; F17.290 Nicotine dependence, other tobacco product, uncomplicated; Z86.59 Personal history of other mental and behavioral disorders; Z79.84 Long term (current) use of oral hypoglycemic drugs; Z79.1 Long term (current) use of non-steroidal anti-inflammatories (NSAID); Z79.4 Long term (current) use of insulin; Z88.6 Allergy status to analgesic agent; Z88.8 Allergy status to other drugs, medicaments and biological substances; V89.2XXA Person injured in unspecified motor-vehicle accident, traffic, initial encounter; Y92.411 Interstate highway as the place of occurrence of the external cause
CPT/HCPCS: 71046; 99284; 96372; J1885

== ENCOUNTER → 2023-07-20 | Outpatient (CLI) | payer OTHER ==
[2023-07-20 10:57] LABS: Appearance,Urine Cloudy (Clear); Bilirubin,Urine Negative (Negative); Blood,Urine Moderate (Negative); Color,Urine Light Orange; Glucose,Urine (UA) Negative (Negative); Ketones,Urine Negative (Negative); Leukocyte Esterase,Urine Large (Negative); Nitrite,Urine Negative (Negative); Protein,Urine 2+ (Negative); Urobilinogen,Urine <2.0 mg/dL (<2.0)
[2023-07-20 11:01] LABS: Bacteria,Urine Rare /hpf; Mucus,Urine Rare /hpf; RBC,Urine 69 /hpf (0-5); Squamous Epithelial Cell,Urine 7 /hpf (0-4); WBC,Urine 93 /hpf (0-5)
[2023-07-20 16:49] LABS: Basophils # (A) 0.04 X 10*3/uL (0.00-0.10); Basophils % (A) 0.7 %; Eosinophils # (A) 0.12 X 10*3/uL (0.04-0.35); Eosinophils % (A) 2.1 %; HCT 40.5 % (37.2-46.3); HGB 13.1 g/dL (12.0-15.0); Lymphocytes # (A) 2.16 X 10*3/uL (0.90-5.00); Lymphocytes % (A) 37.4 %; MCHC 32.3 g/dL (32.0-37.0); MCV 86.5 FL (80.0-97.0); Mean Platelet Volume 12.8 FL (9.5-12.2); Monocytes # (A) 0.47 X 10*3/uL (0.20-1.00); Monocytes % (A) 8.1 %; NRBC Per 100 WBC 0 X 10*3/uL (0.00-0.01); Neutrophils # (A) 2.97 X 10*3/uL (1.80-7.70); Neutrophils % (A) 51.4 %; Platelet Count 232 X 10*3/uL (140-440); RBC 4.68 X 10*6/uL (4.10-5.20); WBC 5.78 X 10*3/uL (4.50-10.00)
[2023-07-20 17:08] LABS: ALT 22 U/L (8-44); AST 16 U/L (13-35); Albumin 3.8 g/dL (3.8-4.9); Albumin/Globulin Ratio 1.31 Ratio (1.60-3.17); Alkaline Phosphatase 69 U/L (41-126); Blood Urea Nitrogen 15.2 mg/dL (9.0-27.0); Calcium 9.5 mg/dL (8.7-10.3); Carbon Dioxide 21.8 mmol/L (21.6-31.8); Chloride 108 mmol/L (96-109); Chol/HDL Ratio 2.51 Ratio; Globulin 2.9 g/dL (1.6-3.3); Glucose 136 mg/dL (70-110); LDL Cholesterol,Calculated 59.5 mg/dL (0.0-131.0); Magnesium 1.6 mg/dL (1.5-2.4); Phosphorus 3.6 mg/dL (2.4-5.1); Potassium 4.4 mmol/L (3.5-5.5); Sodium 140 mmol/L (135-145); Total Bilirubin 0.2 mg/dL (0.3-1.2); Total Protein 6.7 g/dL (6.2-8.2); Uric Acid 5.2 mg/dL (2.9-7.7); VLDL Calculation 17.56 mg/dL (5.00-40.00)
[2023-07-20 17:09] LABS: % Iron Saturation 11.56 (12.00-45.00); Ferritin 54.3 ng/mL (10.0-291.0); Iron 43 UG/DL (50-170); Total Iron Binding Capacity 372 UG/DL (228-460)
[2023-07-20 17:30] LABS: Urine Creatinine 98.2 mg/dL (28.0-217.0)
== END | disposition home or self-care (01) ==
LOC: LABWHC1 09:36
PROVIDERS: ATTEND Internal Medicine
DX: N25.81 Secondary hyperparathyroidism of renal origin (principal); N18.2 Chronic kidney disease, stage 2 (mild); D63.1 Anemia in chronic kidney disease; N39.0 Urinary tract infection, site not specified; E55.9 Vitamin D deficiency, unspecified; M10.9 Gout, unspecified; R80.9 Proteinuria, unspecified
CPT/HCPCS: 36415; 80053; 80061; 81001; 82043; 82306; 82570; 82728; 83540; 83550; 83735; 83970; 84100; 84550; 85025; 87086

== ENCOUNTER → 2023-10-20 | Outpatient (CLI) | payer OTHER ==
--- NOTE | 2023-10-21 19:16 | MM ---
Reason for Exam: Screening (asymptomatic). Last mammogram was performed 1 year(s) and 6 month(s) ago. Patient History: Menarche at age 13. First Full-Term at age 21. Postmenopausal. Patient has history of breast feeding. Paternal grandmother had breast cancer. Paternal aunt had ovarian cancer. Risk Values: Jenny 5 year model risk: 0.8%. NCI Lifetime model risk: 8.4%. Prior Study Comparison: No prior studies available for comparison. Tissue Density: There are scattered areas of fibroglandular density. Findings: Analyzed By CAD. No significant mass, suspicious microcalcification, or other discrete abnormality is seen. Overall Assessment: Negative, BI-RAD 1 Management: Screening Mammogram of both breasts in 1 year. . Patient should continue monthly self-breast exams. A clinical breast exam by your physician is recommended on an annual basis. This exam should not preclude additional follow-up of suspicious palpable abnormalities. Note on Jenny scores and lifetime risk: 1. A Jenny score greater than 3% is considered moderate risk. If this is the case, consider specialist referral to assess eligibility for a risk reducing agent. 2. If overall lifetime risk for the development of breast cancer is 20% or higher, the patient may qualify for future screening with alternating mammogram and breast MRI. Electronically signed and approved by: Marvel Brand M.D. Radiologist
== END | disposition home or self-care (01) ==
LOC: RADMAMWWP 12:17
PROVIDERS: ATTEND Family Medicine
DX: Z12.31 Encounter for screening mammogram for malignant neoplasm of breast (principal); Z78.0 Asymptomatic menopausal state; Z80.3 Family history of malignant neoplasm of breast
CPT/HCPCS: 77063; 77067

== ENCOUNTER → 2023-10-21 | Outpatient (CLI) | payer OTHER ==
--- NOTE | 2023-10-21 10:44 | US ---
EXAMINATION TYPE: US kidneys/renal and bladder DATE OF EXAM: 10/21/2023 COMPARISON: NONE CLINICAL INDICATION: Female, 48 years old with history of N18.2 CHRONIC KIDNEY DISEASE, STAGE 2 (MILD ); CKD. History of kidney stones, lithotripsy EXAM MEASUREMENTS: Right Kidney: 12.6 x 5.0 x 5.1 cm Left Kidney: 12.0 x 5.4 x 5.9 cm Right Kidney: anechoic area upper pole = 1.4 x 1.6 x 1.8cm. multiple dense echogenic foci, largest = 0.6cm. minimally dilated collecting system Left Kidney: mild hydronephrosis. multiple dense echogenic foci, largest = 0.4cm Bladder: wnl Bilateral Jets seen: no There is no evidence for hydronephrosis at this point in time. The urinary bladder is anechoic. B ilateral ureteral jets are seen. IMPRESSION: 1. Mild left-sided hydronephrosis with nephrolithiasis. 2. Right-sided nephrolithiasis with mild fullness of the right renal collecting system.
== END | disposition home or self-care (01) ==
LOC: RADUSWWP 09:55
PROVIDERS: ATTEND Internal Medicine Nephrology
DX: N13.2 Hydronephrosis with renal and ureteral calculous obstruction (principal); N18.2 Chronic kidney disease, stage 2 (mild); N28.89 Other specified disorders of kidney and ureter
CPT/HCPCS: 76770

== ENCOUNTER → 2023-11-29 | Outpatient (CLI) | payer OTHER ==
--- NOTE | 2023-11-30 22:07 | MR ---
EXAMINATION TYPE: MR brain wo con DATE OF EXAM: 11/29/2023 COMPARISON: 08/27/2022 HISTORY: Dizziness, loss of vision ocular migraines, weakness/numbness bilateral CONTRAST: Performed utilizing 0 mL intravenous Gadavist gadolinium contrast. TECHNIQUE: Multiplanar, multiecho imaging on a 3.0 Kaci magnet is performed through the brain. Stud y is performed within 24 hours of arrival to the hospital. The craniovertebral junction is normal. The pituitary is normal. Diffusion-weighted imaging is performed. No abnormal hyperintensity is present to suggest an acute i ntracranial infarct or acute ischemic change. There is a 0.8 cm left frontal lobe white matter change. Punctate areas within the right frontal lobe . Findings are nonspecific but can be related to microvascular ischemic change. Migraine headaches an d multiple sclerosis could be considered. Lyme disease could be within the differential findings were present previously and appear stable. Ventricles and sulci are appropriate for the patient age. IMPRESSION: 1. Couple of stable white matter changes in the frontal lobes not out of proportion to the patient's age. Findings could be related to migraine headaches.
== END | disposition home or self-care (01) ==
LOC: RADMRIMAIN 14:03
PROVIDERS: ATTEND Psychiatry & Neurology Neurology
DX: G43.109 Migraine with aura, not intractable, without status migrainosus (principal); H54.7 Unspecified visual loss; R42 Dizziness and giddiness; R20.0 Anesthesia of skin; R53.1 Weakness
CPT/HCPCS: 70551

== ENCOUNTER → 2024-03-08 | Outpatient (CLI) | payer OTHER ==
[2024-03-08 15:18] LABS: T4, Free (Free Thyroxine) 1.16 ng/dL (0.78-2.19)
== END | disposition home or self-care (01) ==
LOC: LABWHC1 12:18
PROVIDERS: ATTEND Psychiatry & Neurology Neurology
DX: L65.9 Nonscarring hair loss, unspecified (principal); R68.89 Other general symptoms and signs; R00.0 Tachycardia, unspecified
CPT/HCPCS: 36415; 84439; 84443

== ENCOUNTER 2024-06-06 15:55 | Emergency (ER) | payer OTHER ==
[2024-06-06 16:11] VITALS: BP 128/85; PULSE 68; RESP 20; TEMP 98.5
--- NOTE | 2024-06-06 16:32 | ED ---
Skin/Abscess/FB HPI - General Chief complaint: Skin/Abscess/Foreign Body Stated complaint: Urogential Time Seen by Provider: 06/06/24 16:31 Source: patient, RN notes reviewed Mode of arrival: ambulatory Limitations: no limitations - History of Present Illness Initial comments: Quick note: 49-year-old female presented to the ER with a chief complaint of a groin boil. She states it has been there for 3 weeks and has been draining. She states it woke close and grows larger in size over the past couple of days. Does have a history of kidney disease. Patient is concerned of infection. - Related Data Home Medications Medication Instructions Recorded Confirmed INSULIN LISPRO (HumaLOG) [humaLOG] 15 units SQ AC-TID 08/01/16 12/16/23 Metoprolol Tartrate [Lopressor] 50 mg PO TID 09/22/16 12/16/23 Insulin Glargine,Hum.rec.anlog 18 unit SQ BID 11/11/20 12/16/23 [Lantus Solostar Pen] Losartan Potassium [Cozaar] 100 mg PO DAILY 11/11/20 12/16/23 metFORMIN HCL [Glucophage] 1,000 mg PO BID 11/11/20 12/16/23 Ergocalciferol [Vitamin D2 (1250 1,250 mcg PO WEEKLY 11/19/22 12/16/23 Mcg = 28562 Iu)] hydrALAZINE HCL 50 mg PO TID 11/19/22 12/16/23 Previous Rx's Medication Instructions Recorded Cephalexin [Keflex] 500 mg PO Q6HR #40 cap 06/06/24 Allergies Allergy/AdvReac Type Severity Reaction Status Date / Time hydrochlorothiazide Allergy Rash/Hives Verified 06/06/24 16:12 [From Zestoretic] lisinopril [From Zestoretic] Allergy Rash/Hives Verified 06/06/24 16:12 Review of Systems ROS Statement: Those systems with pertinent positive or pertinent negative responses have been documented in the HPI. ROS Other: All systems not noted in ROS Statement are negative. Past Medical History Past Medical History: Diabetes Mellitus, GERD/Reflux, Hypertension, Osteoarthritis (OA), Renal Disease Additional Past Medical History / Comment(s): Cystoscopy with right ureteroscopy and lithotripsy 02/23/2018, Cystoscopy with placementy left JJ catheter 04/19/2018, UTIs, IDDM type II, chronic back pain, kidney stones History of Any Multi-Drug Resistant Organisms: None Reported Past Surgical History: Back Surgery, Section, Cholecystectomy Additional Past Surgical History / Comment(s): ESWL unsuccessful x 2, ure teroscopy for stone removal, cystoscopy with double J catheter placed on 04/19/18, t8-t12 fusion, x 1 Past Anesthesia/Blood Transfusion Reactions: Previous Problems w/ Anesthesia Additional Past Anesthesia/Blood Transfusion Reaction / Comment(s): no previous blood transfusion and elevated blood pressure post anesthesia Past Psychological History: Anxiety, Bipolar, Depression Smoking Status: Former smoker Past Alcohol Use History: None Reported Past Drug Use History: None Reported - Past Family History Father Family Medical History: Diabetes Mellitus Mother Additional Family Medical History / Comment(s): bipolar depression anxiety General Exam - General Exam Comments Initial Comments: Visual Physical Exam Vital signs reviewed General: Well-appearing, nontoxic, no acute distress. Head: Normocephalic, atraumatic Eyes: PERRLA, EOMI ENT: Airway patent Chest: Nonlabored breathing Skin: No visual rash, normal skin tone Neuro: Alert and oriented 3 Musculoskeletal: No gross abnormalities Limitations: no limitations Course Vital Signs 06/06/24 16:08 Temperature 98.5 F Pulse Rate 68 Respiratory 20 Rate Blood Pressure 128/85 O2 Sat by Pulse 96 Oximetry Medical Decision Making - Medical Decision Making I performed the quick note portion of this chart. Electronically signed by Juliet Whatley PA-C Patient eloped prior to completion medical treatment. As urinalysis was completed and showing concerning signs of infection. Keflex will be sent to pharmacy. - Lab Data Lab Results 06/06/24 Range/Units 16:37 Urine Color Yellow Urine Appearance Cloudy H (Clear) Urine pH 6.0 (5.0-8.0) Ur Specific [place] 1.016 (1.001-1.035) Urine Protein 2+ H (Negative) Urine Glucose (UA) Negative (Negative) Urine Ketones Negative (Negative) Urine Blood Trace H (Negative) Urine Nitrite Negative (Negative) Urine Bilirubin Negative (Negative) Urine Urobilinogen <2.0 (<2.0) mg/dL Ur Leukocyte Esterase Large H (Negative) Urine RBC 10 H (0-5) /hpf Urine WBC >182 H (0-5) /hpf Urine WBC Clumps Rare H (None) /hpf Ur Squamous Epith Cells 2 (0-4) /hpf Urine Bacteria Rare H (None) /hpf Urine Mucus Rare H (None) /hpf Disposition Clinical Impression: Left against medical advice, UTI (urinary tract infection) Disposition: LEFT AGAINST MEDICAL ADVICE Condition: Undetermined Prescriptions: Cephalexin [Keflex] 500 mg PO Q6HR #40 cap Referrals: None,Stated [Primary Care Provider] - 1-2 days Time of Disposition: 23:02
[2024-06-06 17:06] LABS: Appearance,Urine Cloudy (Clear); Bacteria,Urine Rare /hpf; Bilirubin,Urine Negative (Negative); Blood,Urine Trace (Negative); Color,Urine Yellow; Glucose,Urine (UA) Negative (Negative); Ketones,Urine Negative (Negative); Leukocyte Esterase,Urine Large (Negative); Mucus,Urine Rare /hpf; Nitrite,Urine Negative (Negative); Protein,Urine 2+ (Negative); RBC,Urine 10 /hpf (0-5); Specific Gravity,Urine 1.016 (1.001-1.035); Squamous Epithelial Cell,Urine 2 /hpf (0-4); Urobilinogen,Urine <2.0 mg/dL (<2.0); WBC,Urine >182 /hpf (0-5)
== END 2024-06-06 20:30 | disposition left against medical advice (07) ==
LOC: EC 15:55
CPT/HCPCS: 81001; 87086; 99283

== ENCOUNTER → 2024-10-23 | Outpatient (CLI) | payer OTHER ==
--- NOTE | 2024-10-23 15:29 | US ---
EXAMINATION TYPE: US kidneys/renal and bladder DATE OF EXAM: 10/23/2024 COMPARISON: US 10/21/2023 CLINICAL INDICATION: Female, 49 years old with history of R10.9 UNSPECIFIED ABDOMINAL PAIN; Abdominal pain TECHNIQUE: Grayscale imaging of the bilateral kidneys and urinary bladder: FINDINGS: EXAM MEASUREMENTS: Right Kidney: 11.3 x 4.8 x 5.7 cm Left Kidney: 11.8 x 6.2 x 4.8 cm Right Kidney: Echogenic foci near inferior pole measuring 0.8 cm Left Kidney: Multiple echogenic foci visualized, with the largest seen mid measuring 1.1 cm Bladder: wnl Bilateral nephrolithiasis suspected. No masses are identified. The urinary bladder is anechoic. Exam limited by bowel gas and body habitus IMPRESSION: Suboptimal study. Bilateral nonobstructing renal calculi are present. Mild right-sided hydronephrosis remains present similar to prior. No left-sided hydronephrosis. [facility], , 10/23/2024 3:27 PM
== END | disposition home or self-care (01) ==
LOC: RADUSWWP 14:41
PROVIDERS: ATTEND Urology
DX: N13.2 Hydronephrosis with renal and ureteral calculous obstruction (principal)
CPT/HCPCS: 76770

== ENCOUNTER 2025-01-20 11:40 | Emergency (ER) | payer OTHER ==
[2025-01-20 11:59] VITALS: TEMP 97.6
--- NOTE | 2025-01-20 12:33 | ED ---
General Adult HPI - General Chief complaint: Allergic Reaction Stated complaint: Allergic Reaction Time Seen by Provider: 01/20/25 12:02 Source: patient, RN notes reviewed Mode of arrival: ambulatory Limitations: no limitations - History of Present Illness Initial comments: 50-year-old female presents to the emergency department for evaluation of potent ial allergic reaction. Patient states that just prior to arrival she took a dose of Bactrim. She states that 15 minutes after this she started experiencing itching throughout her trunk, upper extremities, lower extremities. She noticed a rash there as well. - Related Data Home Medications Medication Instructions Recorded Confirmed INSULIN LISPRO (HumaLOG) [humaLOG] 15 units SQ AC-TID 08/01/16 12/16/23 Metoprolol Tartrate [Lopressor] 50 mg PO TID 09/22/16 12/16/23 Insulin Glargine,Hum.rec.anlog 18 unit SQ BID 11/11/20 12/16/23 [Lantus Solostar Pen] Losartan Potassium [Cozaar] 100 mg PO DAILY 11/11/20 12/16/23 metFORMIN HCL [Glucophage] 1,000 mg PO BID 11/11/20 12/16/23 Ergocalciferol [Vitamin D2 (1250 1,250 mcg PO WEEKLY 11/19/22 12/16/23 Mcg = [id number] Iu)] hydrALAZINE HCL 50 mg PO TID 11/19/22 12/16/23 Previous Rx's Medication Instructions Recorded Cephalexin [Keflex] 500 mg PO Q6HR #40 cap 06/06/24 Cephalexin [Keflex] 500 mg PO BID #20 cap 01/20/25 Allergies Allergy/AdvReac Type Severity Reaction Status Date / Time hydrochlorothiazide Allergy Rash/Hives Verified 06/06/24 16:12 [From Zestoretic] lisinopril [From Zestoretic] Allergy Rash/Hives Verified 06/06/24 16:12 sulfamethoxazole Allergy Rash/Hives Verified 01/20/25 12:37 [From Bactrim] trimethoprim [From Bactrim] Allergy Rash/Hives Verified 01/20/25 12:37 Review of Systems ROS Statement: Those systems with pertinent positive or pertinent negative responses have been documented in the HPI. ROS Other: All systems not noted in ROS Statement are negative. Past Medical History Past Medical History: Diabetes Mellitus, GERD/Reflux, Hypertension, Osteoarthritis (OA), Renal Disease Additional Past Medical History / Comment(s): Cystoscopy with right ureteroscopy and lithotripsy 02/23/2018, Cystoscopy with placementy left JJ catheter 04/19/2018, UTIs, IDDM type II, chronic back pain, kidney stones History of Any Multi-Drug Resistant Organisms: None Reported Past Surgical History: Back Surgery, Section, Cholecystectomy Additional Past Surgical History / Comment(s): ESWL unsuccessful x 2, ureteroscopy for stone removal, cystoscopy with double J catheter placed on 04/19/18, t8-t12 fusion, x 1 Past Anesthesia/Blood Transfusion Reactions: Previous Problems w/ Anesthesia Additional Past Anesthesia/Blood Transfusion Reaction / Comment(s): no previous blood transfusion and elevated blood pressure post anesthesia Past Psychological History: Anxiety, Bipolar, Depression Smoking Status: Former smoker Past Alcohol Use History: None Reported Past Drug Use History: None Reported - Past Family History Father Family Medical History: Diabetes Mellitus Mother Additional Family Medical History / Comment(s): bipolar depression anxiety General Exam Limitations: no limitations General appearance: alert, in no apparent distress Head exam: Present: atraumatic, normocephalic, normal inspection Eye exam: Present: normal appearance, PERRL, EOMI. Absent: scleral icterus, conjunctival injection, periorbital swelling ENT exam: Present: normal exam, mucous membranes moist Neck exam: Present: normal inspection. Absent: tenderness, meningismus, lymphadenopathy Respiratory exam: Present: normal lung sounds bilaterally. Absent: respiratory distress, wheezes, rales, rhonchi, stridor Cardiovascular Exam: Present: regular rate, normal rhythm, normal heart sounds. Absent: systolic murmur, diastolic murmur, rubs, gallop, clicks GI/Abdominal exam: Present: soft. Absent: distended, tenderness, guarding, rebound, rigid Extremities exam: Present: normal inspection, full ROM, normal capillary refill. Absent: tenderness, pedal edema, joint swelling, calf tenderness Neurological exam: Present: alert, oriented X3 Psychiatric exam: Present: normal affect, normal mood Skin exam: Present: warm, dry, intact, rash (Erythematous macular rash throughout the trunk, upper extremities), erythema. Absent: normal color Course Vital Signs 01/20/25 01/20/25 01/20/25 11:56 13:02 14:08 Temperature 97.6 F Pulse Rate 72 54 L 59 L Respiratory 20 18 18 Rate Blood Pressure 129/86 160/114 135/92 O2 Sat by Pulse 93 L 100 96 Oximetry Medical Decision Making - Medical Decision Making Was pt. sent in by a medical professional or institution (ENEIDA Cintron, [employer]IVER, urgent care, hospital, or assisted...) When possible be specific @ -[No] Did you speak to anyone other than the patient for history (EMS, parent, family, police, friend...)? What history was obtained from this source @ -[No] Did you review nursing and triage notes (agree or disagree)? Why? @ -[I reviewed and agree with nursing and triage notes] Were old charts reviewed (outside hosp., previous admission, EMS record, old EKG, old radiological studies, urgent care reports/EKG's, assisted records)? Report findings @ -[No old charts were reviewed] Differential Diagnosis (chest pain, altered mental status, abdominal pain women, abdominal pain men, vaginal bleeding, weakness, fever, dyspnea, syncope, headache, dizziness, GI bleed, back pain, seizure, CVA, palpatations, mental health, musculoskeletal)? @ -[not applicable] EKG interpreted by me (3pts min.). @ -[As above] X-rays interpreted by me (1pt min.). @ -[None done] CT interpreted by me (1pt min.). @ -[None done] U/S interpreted by me (1pt. min.). @ -[None done] What testing was considered but not performed or refused? (CT, X-rays, U/S, labs)? Why? @ -[None] What meds were considered but not given or refused? Why? @ -[None] Did you discuss the management of the patient with other professionals (professionals i.e. ENEIDA Cintron, [employer]IVER, lab, RT, psych nurse, manager social, supervisor pipeline maintenance, teacher, environmental health officer, cyanide case hardener)? Give summary @ -[No] Was smoking cessation discussed for >3mins.? @ -[No] Was critical care preformed (if so, how long)? @ -[No] Were there social determinants of health that impacted care today? How? (Homelessness, low income, unemployed, alcoholism, drug addiction, transportation, low edu. Level, literacy, decrease access to med. care, senior living, rehab)? @ -[No] Was there de-escalation of care discussed even if they declined (Discuss DNR or withdrawal of care, Hospice)? DNR status @ -[No] What co-morbidities impacted this encounter? (DM, HTN, Smoking, COPD, CAD, Cancer, CVA, ARF, Chemo, Hep., AIDS, mental health diagnosis, sleep apnea, morbid obesity)? @ -[None] Was patient admitted / discharged? Hospital course, mention meds given and route, prescriptions, significant lab abnormalities, going to OR and other pertinent info. @ -[hospital course] Undiagnosed new problem with uncertain prognosis? @ -[No] Drug Therapy requiring intensive monitoring for toxicity (Heparin, Nitro, Insulin, Cardizem)? @ -[No] Were any procedures done? @ -[No] Diagnosis/symptom? @ -[default] Acute, or Chronic, or Acute on Chronic? @ -[default] Uncomplicated (without systemic symptoms) or Complicated (systemic symptoms)? @ -[default] Side effects of treatment? @ -[No] Exacerbation, Progression, or Severe Exacerbation? @ -[No] Poses a threat to life or bodily function? How? (Chest pain, [place], [place], pneumonia, PE, COPD, DKA, ARF, appy, cholecystitis, CVA, Diverticulitis, Homicidal, Suicidal, threat to staff... and all critical care pts) @ -[No] - Lab Data Lab Results 01/20/25 Range/Units 12:51 Urine Color Colorless Urine Appearance Cloudy H (Clear) Urine pH 6.5 (5.0-8.0) Ur Specific [place] 1.011 (1.001-1.035) Urine Protein 1+ H (Negative) Urine Glucose (UA) Negative (Negative) Urine Ketones Negative (Negative) Urine Blood Trace H (Negative) Urine Nitrite Negative (Negative) Urine Bilirubin Negative (Negative) Urine Urobilinogen <2.0 (<2.0) mg/dL Ur Leukocyte Esterase Large H (Negative) Urine RBC 16 H (0-5) /hpf Urine WBC >182 H (0-5) /hpf Urine WBC Clumps Occasional H (None) /hpf Ur Squamous Epith Cells 5 H (0-4) /hpf Urine Bacteria Moderate H (None) /hpf Disposition Clinical Impression: UTI (urinary tract infection), Allergic reaction to drug Disposition: HOME SELF-CARE Condition: Stable Instructions (If sedation given, give patient instructions): Urinary Tract Infection in Women (ED) Additional Instructions: Please cook pickled meat your new antibiotic and take to completion. You may utilize Benadryl and Pepcid for allergic type symptoms. Return to the emergency department for new or worsening symptoms. Prescriptions: Cephalexin [Keflex] 500 mg PO BID #20 cap Is patient prescribed a controlled substance at d/c from ED?: No Referrals: Malia Finney MD [Primary Care Provider] - 1-2 days
[2025-01-20] MEDS: diphenhydrAMINE 50 MG/ML 1 ML VIAL IVP STA (12:41)
[2025-01-20] MEDS: methylPREDNISolone SOD SUCCI 125 MG/2 ML VIAL IV STA (12:43)
[2025-01-20] MEDS: FAMOTIDINE 20 MG/2 ML VIAL IV STA (12:46)
[2025-01-20 13:03] VITALS: RESP 18
[2025-01-20 13:33] LABS: Appearance,Urine Cloudy (Clear); Bacteria,Urine Moderate /hpf; Bilirubin,Urine Negative (Negative); Blood,Urine Trace (Negative); Color,Urine Colorless; Glucose,Urine (UA) Negative (Negative); Ketones,Urine Negative (Negative); Leukocyte Esterase,Urine Large (Negative); Nitrite,Urine Negative (Negative); PH, Urine 6.5 (5.0-8.0); Protein,Urine 1+ (Negative); RBC,Urine 16 /hpf (0-5); Specific Gravity,Urine 1.011 (1.001-1.035); Squamous Epithelial Cell,Urine 5 /hpf (0-4); Urobilinogen,Urine <2.0 mg/dL (<2.0); WBC,Urine >182 /hpf (0-5)
[2025-01-20 14:09] VITALS: BP 135/92; PULSE 59
== END 2025-01-20 14:37 | disposition home or self-care (01) ==
LOC: EC 11:40
DX: N39.0 Urinary tract infection, site not specified (principal); T37.0X5A Adverse effect of sulfonamides, initial encounter; Z87.891 Personal history of nicotine dependence; Z88.1 Allergy status to other antibiotic agents; Z88.2 Allergy status to sulfonamides; Z88.8 Allergy status to other drugs, medicaments and biological substances
CPT/HCPCS: 81001; 87086; 99283; 96374; 96375 ×2; J1200; J2919; J1308